=== PATIENT | male | born 2005 | race African-American/Black ===

== ENCOUNTER 2025-07-06 17:58 | Inpatient (IN) | payer OTHER, SELFPAY ==
[2025-07-06 18:06] VITALS: BP 118/56; PULSE 78; PULSE 89; RESP 16; TEMP 36.8; O2SAT 100; O2SAT 98; BMI 21.0
[2025-07-06 18:35] VITALS: BP 104/66; PULSE 103; RESP 16; TEMP 37.2; O2SAT 100
--- NOTE | 2025-07-06 19:05 | ED_ITS ---
HPI - General Adult General Chief complaint: Psychiatric Symptoms Stated complaint: Non forth coming looking for transport Time Seen by Provider: 07/06/25 19:18 Source: patient and family Mode of arrival: EMS History of Present Illness ED Provider: [facility] narrative: 24-year-old male, will defer to the triage note as patient was not forthcoming on my interview, however at the time of my interview the nurse arrives and states that she was able to speak with the patient's mom, he denies that he is supposed to be taking Zyprexa. Patient knows he is in the hospital but when attempts were made to ask for the questions he states that I am trying to punk him . Related Data Home Medications ?Medication ?Instructions ?Recorded ?Confirmed olanzapine 15 mg tablet 15 mg PO BEDTIME 07/06/25 Allergies Allergy/AdvReac Type Severity Reaction Status Date / Time No Known Allergies Allergy Verified 07/06/25 18:08 Review of Systems 2 Review of Systems: Pertinent positives and negatives as stated in the HPI [facility] Past Medical History Source: nursing notes reviewed Social History Social History Smoked in Last 30 Days: No Use of substances other than those prescribed or required for medical reasons: Yes Substance Use Type: Marijuana Advance Directives: No Advance Directives Information Provided: No Physical Exam ED Exam Exam: VITAL SIGNS: Reviewed. GENERAL: Well developed, well nourished, in no acute distress. HEAD: Normocephalic/atraumatic EYES: PERRLA, EOMI EARS: Ext canals without abnormality NOSE: Nares patent bilateral OROPHARYNX: no oral lesions noted, posterior pharynx clear NECK: Supple, no adenopathy LUNGS: Normal breath sounds. No adventitious sounds or accessory muscle use. CARDIOVASCULAR: Regular rate and rhythm without noted murmurs ABDOMEN: Soft, non-tender, non-distended with bowel sounds. MUSCULOSKELETAL: No tenderness, deformities, or effusions noted on gross inspection. EXTREMITIES: No cyanosis, clubbing or edema. SKIN: Inspection of the skin reveals no rashes NEUROLOGIC: Alert and oriented x 4. Strength and sensation to light touch were grossly intact x 4, peroneal nerves 2 through 12 are grossly intact. Vital Signs: Vital Signs - 24 hr 07/07/25 11:20 07/07/25 14:54 07/07/25 22:58 Temperature 97.2 F 97.9 F Pulse Rate 74 74 89 Respiratory Rate 14 20 Blood Pressure 122/68 117/59 L Pulse Oximetry 100 100 Oxygen Delivery Method Room Air Room Air 07/08/25 06:24 Temperature 97.7 F Pulse Rate 75 Respiratory Rate 20 Blood Pressure 102/59 L Pulse Oximetry 99 Oxygen Delivery Method Room Air BMI result Body Mass Index 21.0 Course Course Course Narrative: RME; 24-year-old male brought by EMS for evaluation. Patient is not forthcoming and talking to himself and laughing. You to this patient will be brought back to the ED to be evaluated require care team consult. Labs ordered Reevaluation(s) Reevaluation #1: Patient is walking around naked, threatening security, hypersexual, inability to deescalate so decision made to initiate medication restraint. Time: 00:16 Reevaluation #2: Patient is common cooperative, restrained is terminated. Time: 01:15 Reevaluation #3: Time: 06:09 Date: 07/07/25 Provider: Belkis Flores, DO Patient in physician observation for psychiatric evaluation.? chemically restrained last night but no sleeping. No current complaints. VS stable.? Pending CARE team evaluation. Will continue to monitor. Additional Reevaluation(s): Time: 06:03 Date: 07/08/25 Provider: Belkis Flores, DO Patient in physician observation for psychiatric evaluation.? No acute events reported overnight. No current complaints. VS stable.? Patient is in bed search status. Will continue to monitor. Time: 10:44 Date: 07/08/25 Provider: Belkis Flores DO Physician observation ended at 1044am Patient to be admitted as inpatient to psychiatry. Medications Administered Generic Name Dose Route Start Last Admin Trade Name Freq PRN Reason Stop Dose Admin Divalproex Sodium 500 mg 07/07/25 13:05 07/08/25 08:49 Divalproex Sodium 500 Mg Tablet.Dr PO 500 mg BID MIKALA Administration Olanzapine 10 mg 07/07/25 13:00 07/08/25 08:49 Olanzapine Odt 10 Mg Tab.Rapdis TRANSLINGU 10 mg BID MIKALA Administration Discontinued Medications Generic Name Dose Route Start Last Admin Trade Name Freq PRN Reason Stop Dose Admin Diazepam 2.5 mg 07/07/25 00:13 07/07/25 00:20 Diazepam 10 Mg/2 Ml Cartridge IM 07/07/25 00:14 2.5 mg STAT STA Administration Diphenhydramine HCl 50 mg 07/07/25 00:13 07/07/25 00:20 Diphenhydramine Hcl 50 Mg/Ml Vial IM 07/07/25 00:14 50 mg ONCE ONE Administration Olanzapine 5 mg 07/07/25 00:13 07/07/25 00:20 Olanzapine 10 Mg Vial IM 07/07/25 00:14 5 mg ONCE ONE Administration Medical Decision Making Medical Decision Making MDM Narrative: 24-year-old male with history and clinical presentation, a DX: Psychosis, will obtain basic labs, we will reach out for collateral information which has recently been completed and a conversation was conducted with the mother, it seems that patient has not been taking his medication. He has also continued to use cannabis. 2118: I reviewed and interpreted all investigations and there is no leukocytosis, there is a stable anemia no thrombocytopenia. There is no demonstrate GOPI/electrolyte or liver enzyme derangements. Serum alcohol is negative. Awaiting urine toxicology and then will clear for crisis evaluation 2228: Patient up to his urine out on the floor, do not think that this is critical for a crisis evaluation as I do think that the psychosis is secondary to poor medication compliance. 2230: Patient placed in physician observation because the patient needed more time for crisis evaluation. At the time observation was started the patient's vital signs were stable, patient is alert and oriented, neuro: Nonfocal, CV RRR, lungs clear Differential Diagnosis Differential Diagnoses: The differential diagnosis associated with the presentation includes See above Admission/Observation Consideration of admission/observation: Escalation of care including admission/observation considered See above Consult Healthcare Provider Management of the patient was discussed with: Mincemeat Maker See above Lab Data [facility] Lab Attestation statement: I reviewed the patient's lab results. See above 07/06/25 19:21 07/06/25 19:21 Labs: Lab Results 07/06/25 07/07/25 Range/Units 19:21 00:46 WBC 8.3 (4.8-10.8) X10*3/uL RBC 4.80 (4.60-5.80) X10*6/uL Hgb 13.7 L (14.0-18.0) g/dl Hct 40.7 L (42.0-52.0) % MCV 84.8 (80.0-98.0) fL MCH 28.5 (27.0-33.0) pg MCHC 33.7 (31.0-36.0) g/dl RDW 13.9 (11.0-16.0) % Plt Count 225 (160-400) X10*3/uL MPV 10.0 (9.4-12.4) fL Immature Gran % (Auto) 0.4 (0.0-0.4) % Neut % (Auto) 61.8 (45-73) % Lymph % (Auto) 26.7 (20-40) % Wood % (Auto) 7.7 (2-11) % Eos % (Auto) 3.2 (0-4) % Baso % (Auto) 0.2 (0-2) % Lymph # (Auto) 2.2 (1.2-4.9) X10*3/uL Wood # (Auto) 0.6 (0.1-1.2) X10*3/uL Eos # (Auto) 0.3 (0.0-0.4) X10*3/uL Baso # (Auto) 0.0 (0.0-0.2) X10*3/uL Abs Immat Gran (auto) 0.03 (0.00-0.03) X10*3/uL Absolute Neuts (auto) 5.1 (2.0-8.3) x10*3/uL Absolute Nucleated RBC 0.000 (0.0-0.012) X10*3/uL Nucleated RBC % (auto) 0.0 (0.0-0.2) /100WBC Sodium 141 (135-145) mmol/L Potassium 3.5 (3.3-5.1) mmol/L Chloride 109 H (96-108) mmol/L Carbon Dioxide 25 (22-29) mmol/L Anion Gap 11 L (12-20) BUN 8 L (9-16) mg/dL Creatinine 0.97 (0.5-1.4) mg/dL Estim Creat Clear Calc 102.9 Estimated GFR > 60 Random Glucose 81 (60-115) mg/dL Calcium 8.9 (8.4-10.2) mg/dL Total Bilirubin 0.4 (0.0-1.0) mg/dL AST 29 (5-37) U/L ALT 36 (0-40) U/L Alkaline Phosphatase 85 (39-117) U/L Total Protein 6.8 (6.5-8.0) g/dL Albumin 4.3 (3.5-5.0) g/dL Urine Color Yellow Urine Appearance Clear Urine pH 5.5 (5.0-9.0) Ur Specific [place] >= 1.030 H (1.005-1.025) Urine Protein Trace (Neg-Trace) mg/dL Urine Glucose (UA) Negative (Negative) mg/dL Urine Ketones Trace (Negative) mg/dL Urine Blood Negative (Negative) Urine Nitrite Negative (Negative) Ur Leukocyte Esterase Negative (Negative) Urine Opiates Screen Not Detected (Not Detect) Ur Buprenorphine Scrn Not Detected (Not Detect) ng/mL Ur Oxycodone Screen Not Detected (Not Detect) ng/mL Urine Methadone Screen Not Detected (Not Detect) ng/mL Urine Fentanyl Screen Not Detected (Not Detect) Ur Barbiturates Screen Not Detected (Not Detect) Ur Phencyclidine Scrn Not Detected (Not Detect) Ur Amphetamines Screen Not Detected (Not Detect) U Benzodiazepines Scrn Not Detected (Not Detect) Urine Cocaine Screen Not Detected (Not Detect) U Marijuana (THC) Screen Not Detected (Not Detect) Ethyl Alcohol < 10 mg/dL Social Determinants Patient?s care significantly limited by Social Determinants of Health including: Other Social Determinant of Health Discharge Plan Discharge Clinical Impression: Acute psychosis Patient Disposition: Admitted As Inpatient Interventions: Teller-Suicide Risk Severity Scale Last Done: 07/08/25 01:51
[2025-07-06 19:29] LABS: MANUAL DIFF FLAG NO
[2025-07-06 19:30] LABS: Hematocrit 40.7 % (42.0-52.0); Hemoglobin 13.7 g/dl (14.0-18.0); Imm Gran Abs Auto 0.03 X10*3/uL (0.00-0.03); Imm Gran Pct Auto 0.4 % (0.0-0.4); Lymphocytes Absolute Auto 2.2 X10*3/uL (1.2-4.9); Mean Corpuscular HGB Conc 33.7 g/dl (31.0-36.0); Mean Corpuscular Hemoglobin 28.5 pg (27.0-33.0); Mean Corpuscular Volume 84.8 fL (80.0-98.0); NRBC Abs Auto 0.000 X10*3/uL (0.0-0.012); NRBC Pct Auto 0.0 /100WBC (0.0-0.2); Platelet Count 225 X10*3/uL (160-400); Red Blood Count 4.80 X10*6/uL (4.60-5.80); White Blood Count 8.3 X10*3/uL (4.8-10.8)
[2025-07-06 19:49] LABS: Alanine Aminotransferase 36 U/L (0-40); Albumin Level 4.3 g/dL (3.5-5.0); Alkaline Phosphatase 85 U/L (39-117); Anion Gap 11 (12-20); Aspartate Amino Transferase 29 U/L (5-37); Blood Urea Nitrogen 8 mg/dL (9-16); Calcium 8.9 mg/dL (8.4-10.2); Carbon Dioxide 25 mmol/L (22-29); Chloride 109 mmol/L (96-108); Creatinine Clr Calc Pharmacy 102.9; Estimated Glomerular Filt Rate > 60; Potassium 3.5 mmol/L (3.3-5.1); Sodium 141 mmol/L (135-145); Total Protein 6.8 g/dL (6.5-8.0)
--- NOTE | 2025-07-06 19:56 | PC.NURSE ---
Assumed care of patient at 1845, patient continuing to remain guarded and not willing to disclose information to this RN regarding name or reason for being here. Pt refusing to wear a shirt around the pod, requiring frequent redirection. Pt refusing to give urine sample
--- NOTE | 2025-07-06 20:02 | PC.NURSE ---
unable to obtain home meds from patient at this time due to not knowing patient's name nor having any medical records available
--- NOTE | 2025-07-06 21:42 | PC.NURSE ---
This RN spoke with mom on the phone who was able to idenfity him and provide us with his information. Mom reports pt has been smoking an increasing amount of weed and hanging out in a basement with fumes . She reports non-compliance with medications as well. She reports he is prescribed Olanzapine 15mg
[2025-07-07] MEDS: OLANZapine 10 MG VIAL 5 MG IM (00:20)
[2025-07-07] MEDS: diazePAM 10 MG/2 ML CARTRIDGE 2.5 MG IM (00:20)
--- NOTE | 2025-07-07 01:43 | PC.NURSE ---
Late entry: Around 1205 pt took his clothes off and began making hypersexual remarks to staff. when approached and asked to put clothes back on, pt would gesture to his penis and state c'mon you want this. Come get it . Security was called to bedside. Pt continued to remain hypersexual, making remarks to female staff as well as making sexual gestures. Pt then began verbally threatening security. contacted, decision made to IM. Pt willingly took IM injections on bed, no physical hold needed. Pt now calm and cooperative, continuing to remain difficult to redirect, not listening to staff requests to keep pants on over his pubic area. Pt frequently getting up to use bathroom as well
[2025-07-07 01:44] LABS: Cannabinoid Screen Urine Not Detected (Not Detect)
--- NOTE | 2025-07-07 03:57 | PC.NURSE ---
Pt resting, respirations even and unlabored, no apparent distress is noted. Plan for CARE team eval in the am
--- NOTE | 2025-07-07 05:57 | MHC.CARE ---
At 0015, CARE Team approached patient to request he provide a urine to the nursing staff so he could be evaluated. Patient also asked to put a shirt, as he continued to leave his room topless. Patient observed to be engaging in self dialogue. He was pointing at objects and laughing hysterically to himself. Patient made several comments to t/w and also gestured as he was jumping towards t/w. Patient unable to engage in a sensible conversation. He was nonsensical, using vulgar language to t/w and security after they had been called to address his unwillingness to return to his room and put clothes on. Patient will not be seen on the overnight d/t being chemically restrained. He has been placed on a section 12 d/t his psychotic state and inability to properly care for self in the community.
--- NOTE | 2025-07-07 07:18 | PC.NURSE ---
Assumed care, report received. Pt is currently sleeping, safety maintained.
--- NOTE | 2025-07-07 09:01 | MHC.EDTECH ---
Patient comes out of room with shirt off, this tech attempted to have patient put clothes back on patient dismissed this tech, said mónica no then stated while looking at RN, man she's hot . This tech corrected patient on how to speak to staff or about staff. Patient then asked for someone to help him clean his back and asking for his personal clothes. Informed patient that he needed help washing his back, I informed him no one would be assisting him with showering today. Patient directed to come out of shower/bathroom with all clothes on or he would have to stay in his room.
[2025-07-07 11:20] VITALS: BP 122/68; PULSE 74; RESP 14; TEMP 36.2; O2SAT 100
--- NOTE | 2025-07-07 11:37 | PC.NURSE ---
Pt has remained calm and cooperative, he has showered, eaten breakfast, watched TV and is currently napping. He has need redirection with wearing the hospital gown and has been compliant.
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
[2025-07-07] MEDS: OLANZapine ODT 10 MG TAB.RAPDIS TRANSLINGU ×2 (13:47→21:04)
[2025-07-07 14:54] VITALS: PULSE 74
--- NOTE | 2025-07-07 15:11 | MHC.EDTECH ---
Patients mother Madeleine [phone], or [phone], called to speak with patient, patient currently sleeping. Will let him know when he is awake to call his mother.
[2025-07-07 22:58] VITALS: BP 117/59; PULSE 89; RESP 20; TEMP 36.6; O2SAT 100
[2025-07-08 06:24] VITALS: BP 102/59; PULSE 75; RESP 20; TEMP 36.5; O2SAT 99
--- NOTE | 2025-07-08 07:28 | PC.NURSE ---
Assumed care, report received. Pt is awake, calm and with a disorganized thought process. He needs re-direction to keep clothing on and not to touch everything on the unit, Ex the thermostat.
--- NOTE | 2025-07-08 08:38 | ECG_ITS ---
Test Reason : r/o prolonged qt Blood Pressure : */* mmHG Vent. Rate : 81 BPM Atrial Rate : 81 BPM P-R Int : 146 ms QRS Dur : 88 ms QT Int : 334 ms P-R-T Axes : 5 63 50 degrees QTcB Int : 387 ms Normal sinus rhythm Normal EKG No previous ECGs available Referred By: Belkis Flores Electronically Signed By: SHILOH MCNEIL
[2025-07-08] MEDS: OLANZapine ODT 10 MG TAB.RAPDIS TRANSLINGU ×2 (08:49→21:15)
[2025-07-08 11:23] VITALS: BP 129/60; PULSE 88; RESP 16; TEMP 36.6; O2SAT 98
[2025-07-08 11:24] VITALS: BMI 21.5
--- NOTE | 2025-07-08 11:58 | PC.ADMIT ---
Tyrone came from ED POD on a section 12a. Tyrone was found in the community on the side of the highway and not answering questions. In the ED he was verbally aggressive and sexually inappropriate. It was reported he was recently at [facility] but no other information is known. Tyrone was calm and pleasant during the admission process however he tried to hug this filing writer several times but was responsive to redirection. Affect is constricted and responses are latent; he is also disorganized and unable to fully answer questions. He denied SI/HI/AVH. He was oriented to the unit and toiletries given. Food was ordered and given at mealtime. He is placed on 15 minute checks for safety. Current legal status is a 12B. This filing writer called mother Madeleine to update her.
--- NOTE | 2025-07-08 12:27 | PC.NURSE ---
Hypersexual with staff. Attempting to touch and hug this va underwriter but responding to redirection.
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
[2025-07-08 19:52] VITALS: BP 128/59; PULSE 78; RESP 16; TEMP 37.1; O2SAT 100
[2025-07-09 08:00] VITALS: BP 105/70; PULSE 95; RESP 20; TEMP 36.6; O2SAT 99
[2025-07-09] MEDS: OLANZapine ODT 10 MG TAB.RAPDIS TRANSLINGU ×2 (08:31→20:36)
--- NOTE | 2025-07-09 10:10 | P.PNPSI_ITS ---
Subjective Subjective Date of Service: 07/09/25 Reason For Visit: akila Interim History: Patient seen. Per RN, he was seen naked in his room and needed a reminder to be clothed when out of his room. He says he doesn't know why he is here at the hospital. He appears internally preoccupied. He denies he has SI/HI. Observed self dialoguing by staff. Taking medications. Says he slept well. No aggression. Review of Systems Review of Systems Denies any shortness of breath, chest pain, dizziness, lightheadedness, abdominal pain or discomfort, nausea vomiting or diarrhea Mental Status Exam Mental Status Exam Narrative: Appearance: short stature male, appears stated age, good hygiene, in NAD Behavior: guarded Psychomotor: no retardation noted, nor agitation Speech: normal rate/loudness/amount, spontaneous TP: mostly linear but some thought blocking noted at times TC: wanting to return to the property he has been arrested at for trespasing and B&E. Mood: a bit down Affect: constricted SI: denies HI: towards anyone who stops him from going to his home VH/AH: appears internally preoccupied Delusions: that he lives at address in [place] Insight/judgment: impaired x 2. Memory/cog: alert, not oriented to situation. Diagnostics Vital Signs (24Hr): Vital Signs - 24 hr 07/08/25 11:23 07/08/25 19:52 07/09/25 08:00 Temperature 97.8 F 98.7 F 97.8 F Pulse Rate 88 78 95 Respiratory Rate 16 16 20 Blood Pressure 129/60 128/59 L 105/70 Pulse Oximetry 98 100 99 Oxygen Delivery Method Room Air Room Air Room Air BMI result Body Mass Index 21.5 Labs 07/06/25 19:21 07/06/25 19:21 Medications Medications Current Medications Acetaminophen (Acetaminophen 325 Mg Tablet) 650 mg PO Q6H PRN PRN Reason: Headache/Pain, Scale 1-10 Al Hydroxide/Mg Hydroxide (Magnesium Hydrox/Alum Hydrox 30 Ml Oral.Susp) 30 ml PO Q6H PRN PRN Reason: Heartburn/Nausea Divalproex Sodium (Divalproex Sodium 500 Mg Tablet.) 500 mg PO BID [facility] Last Admin: 07/09/25 08:31 Dose: 500 mg Haloperidol (Haloperidol 5 Mg Tablet) 5 mg PO BID PRN PRN Reason: agitation Hydroxyzine HCl (Hydroxyzine Hcl 25 Mg Tablet) 25 mg PO Q6H PRN PRN Reason: mild anxiety Lorazepam (Lorazepam 1 Mg Tablet) 1 mg PO TID PRN PRN Reason: severe anxiety/agitation Magnesium Hydroxide (Milk Of Magnesia 30 Ml Oral.Susp) 30 ml PO DAILY PRN PRN Reason: Constipation Nicotine Polacrilex (Nicotine Polacrilex 2 Mg Gum) 4 mg BUCCAL Q2H PRN PRN Reason: Nicotine Cravings Olanzapine (Olanzapine Odt 10 Mg Tab.Rapdis) 10 mg TRANSLINGU BID [facility] Last Admin: 07/09/25 08:31 Dose: 10 mg Trazodone HCl (Trazodone Hcl 50 Mg Tablet) 50 mg PO BEDTIME MRX1 PRN PRN Reason: Insomnia Allergies Allergies Allergy/AdvReac Type Severity Reaction Status Date / Time No Known Allergies Allergy Verified 07/06/25 18:08 Assessment & Plan Assessment & Plan (1) Akila: Status: Acute Code(s): F30.9 - Manic episode, unspecified (2) Acute psychosis: Status: Acute Code(s): F23 - Brief psychotic disorder Plan continue zyprexa and depakote as established in the ED. 07/09: continue current management and treatment plan. Medications recently started. Reason for continued inpatient stay Substantial Risk for: inability to function and rapid decompensation Time Spent With Patient Time: Total time managing care of this patient today ____ minutes.
[2025-07-09 20:00] VITALS: BP 139/63; PULSE 101; RESP 16; TEMP 36.7; O2SAT 100
[2025-07-10 08:00] VITALS: BP 121/56; PULSE 90; RESP 16; TEMP 36.6; O2SAT 100
[2025-07-10] MEDS: OLANZapine ODT 10 MG TAB.RAPDIS TRANSLINGU ×2 (09:14→21:36)
--- NOTE | 2025-07-10 12:08 | P.PNPSI_ITS ---
Subjective Subjective Date of Service: 07/10/25 Reason For Visit: akila Interim History: Patient seen. Isolating. Withdrawn. Guarded. When asked why he is at the hospital he says I was sleeping on the grass. Fixated on DC. Says he is thinking of calling the police because he feels he doesn't need to be here. He appears internally preoccupied. No disrobing on the unit. He denies he has SI/HI. Denies AVH but internally preoccupied. Taking medications. Says he slept well. No aggression. Says he is chillin. Review of Systems Review of Systems Denies any shortness of breath, chest pain, dizziness, lightheadedness, abdominal pain or discomfort, nausea vomiting or diarrhea Mental Status Exam Mental Status Exam Narrative: Appearance: short stature male, appears stated age, good hygiene, in NAD Behavior: guarded Psychomotor: no retardation noted, nor agitation Speech: normal rate/loudness/amount, spontaneous TP: mostly linear but some thought blocking noted at times TC: wanting to return to the property he has been arrested at for trespasing and B&E. Mood: a bit down Affect: constricted SI: denies HI: towards anyone who stops him from going to his home VH/AH: appears internally preoccupied Delusions: that he lives at address in [place] Insight/judgment: impaired x 2. Memory/cog: alert, not oriented to situation. Diagnostics Vital Signs (24Hr): Vital Signs - 24 hr 07/09/25 20:00 07/10/25 08:00 Temperature 98.1 F 97.8 F Pulse Rate 101 H 90 Respiratory Rate 16 16 Blood Pressure 139/63 121/56 L Pulse Oximetry 100 100 Oxygen Delivery Method Room Air Room Air BMI result Body Mass Index 21.5 Labs 07/06/25 19:21 07/06/25 19:21 Labs: Laboratory Results - last 48 hr 07/07/25 00:46 Urine Color Cancelled Urine Appearance Cancelled Urine pH Cancelled Ur Specific [place] Cancelled Urine Protein Cancelled Urine Glucose (UA) Cancelled Urine Ketones Cancelled Urine Blood Cancelled Urine Nitrite Cancelled Ur Leukocyte Esterase Cancelled Medications Medications Current Medications Acetaminophen (Acetaminophen 325 Mg Tablet) 650 mg PO Q6H PRN PRN Reason: Headache/Pain, Scale 1-10 Al Hydroxide/Mg Hydroxide (Magnesium Hydrox/Alum Hydrox 30 Ml Oral.Susp) 30 ml PO Q6H PRN PRN Reason: Heartburn/Nausea Divalproex Sodium (Divalproex Sodium 500 Mg Tablet.Dr) 500 mg PO BID [facility] Last Admin: 07/10/25 09:13 Dose: 500 mg Haloperidol (Haloperidol 5 Mg Tablet) 5 mg PO BID PRN PRN Reason: agitation Hydroxyzine HCl (Hydroxyzine Hcl 25 Mg Tablet) 25 mg PO Q6H PRN PRN Reason: mild anxiety Lorazepam (Lorazepam 1 Mg Tablet) 1 mg PO TID PRN PRN Reason: severe anxiety/agitation Magnesium Hydroxide (Milk Of Magnesia 30 Ml Oral.Susp) 30 ml PO DAILY PRN PRN Reason: Constipation Nicotine Polacrilex (Nicotine Polacrilex 2 Mg Gum) 4 mg BUCCAL Q2H PRN PRN Reason: Nicotine Cravings Olanzapine (Olanzapine Odt 10 Mg Tab.Rapdis) 10 mg TRANSLINGU BID [facility] Last Admin: 07/10/25 09:14 Dose: 10 mg Trazodone HCl (Trazodone Hcl 50 Mg Tablet) 50 mg PO BEDTIME MRX1 PRN PRN Reason: Insomnia Allergies Allergies Allergy/AdvReac Type Severity Reaction Status Date / Time No Known Allergies Allergy Verified 07/06/25 18:08 Assessment & Plan Assessment & Plan (1) Akila: Status: Acute Code(s): F30.9 - Manic episode, unspecified (2) Acute psychosis: Status: Acute Code(s): F23 - Brief psychotic disorder Plan continue zyprexa and depakote as established in the ED. 07/09: continue current management and treatment plan. Medications recently started. 07/10: continue current management and treatment plan. Reason for continued inpatient stay Substantial Risk for: inability to function and rapid decompensation Time Spent With Patient Time: Total time managing care of this patient today ____ minutes.
[2025-07-10 21:40] VITALS: BP 126/56; PULSE 115; RESP 18; TEMP 36.8; O2SAT 98
[2025-07-11 08:16] VITALS: BP 136/77; PULSE 94; RESP 18; TEMP 36.7; O2SAT 100
[2025-07-11] MEDS: OLANZapine ODT 10 MG TAB.RAPDIS TRANSLINGU ×2 (09:15→21:04)
--- NOTE | 2025-07-11 11:43 | P.PNPSI_ITS ---
Subjective Subjective Date of Service: 07/11/25 Reason For Visit: akila Subjective Notes: Dawson Warning Interim History: calm, cooperative. dawson warning provided. little to no reaction from pt to information provided. anodyne responses. passive. asking for discharge. on being asked where he would go upon discharge, says, [address] [place] [address]. on being asked what is there for him, he replies, my crib, later, my home. per staff, 12b up wed. blunted. taking meds. denies Sx but appears RIS. tired, napping. wants D/C. slept 7 hours. Mental Status Exam Mental Status Exam Narrative: Appearance: short stature male, appears stated age, good hygiene, in NAD Behavior: guarded Psychomotor: no retardation noted, nor agitation Speech: normal rate/loudness/amount; incr PHYLLIS TP: linear TC: wanting to return to the property he has been arrested at for trespassing and B&E. Mood: all right Affect: constricted SI: none expressed HI: none expressed VH/AH: none expressed Delusions: that he lives at [address] [place] [address] Insight/judgment: impaired x 2. Diagnostics Vital Signs (24Hr): Vital Signs - 24 hr 07/10/25 21:40 07/11/25 08:16 Temperature 98.2 F 98.0 F Pulse Rate 115 H 94 Respiratory Rate 18 18 Blood Pressure 126/56 L 136/77 Pulse Oximetry 98 100 Oxygen Delivery Method Room Air Room Air BMI result Body Mass Index 21.5 Labs 07/06/25 19:21 07/06/25 19:21 Medications Medications Current Medications Acetaminophen (Acetaminophen 325 Mg Tablet) 650 mg PO Q6H PRN PRN Reason: Headache/Pain, Scale 1-10 Al Hydroxide/Mg Hydroxide (Magnesium Hydrox/Alum Hydrox 30 Ml Oral.Susp) 30 ml PO Q6H PRN PRN Reason: Heartburn/Nausea Divalproex Sodium (Divalproex Sodium 250 Mg Tablet.) 750 mg PO BID [facility] Haloperidol (Haloperidol 5 Mg Tablet) 5 mg PO BID PRN PRN Reason: agitation Hydroxyzine HCl (Hydroxyzine Hcl 25 Mg Tablet) 25 mg PO Q6H PRN PRN Reason: mild anxiety Lorazepam (Lorazepam 1 Mg Tablet) 1 mg PO TID PRN PRN Reason: severe anxiety/agitation Magnesium Hydroxide (Milk Of Magnesia 30 Ml Oral.Susp) 30 ml PO DAILY PRN PRN Reason: Constipation Nicotine Polacrilex (Nicotine Polacrilex 2 Mg Gum) 4 mg BUCCAL Q2H PRN PRN Reason: Nicotine Cravings Olanzapine (Olanzapine Odt 10 Mg Tab.Rapdis) 10 mg TRANSLINGU BID [facility] Last Admin: 07/11/25 09:15 Dose: 10 mg Trazodone HCl (Trazodone Hcl 50 Mg Tablet) 50 mg PO BEDTIME MRX1 PRN PRN Reason: Insomnia Allergies Allergies Allergy/AdvReac Type Severity Reaction Status Date / Time No Known Allergies Allergy Verified 07/06/25 18:08 Assessment & Plan Assessment & Plan (1) Akila: Status: Acute Code(s): F30.9 - Manic episode, unspecified (2) Acute psychosis: Status: Acute Code(s): F23 - Brief psychotic disorder Plan 07/08: continue zyprexa and depakote as established in the ED. 07/09: continue current management and treatment plan. Medications recently started. 07/10: continue current management and treatment plan. 07/11: dawson warning provided. increase depakote to 750 BID, otherwise continue current mgmt. check levels in the next couple of days. section 12b up . will likely file for commitment. Reason for continued inpatient stay Substantial Risk for: harm to others and inability to function Time Spent With Patient Time: Total time managing care of this patient today __25__ minutes.
[2025-07-11 20:00] VITALS: BP 135/60; PULSE 89; RESP 20; TEMP 38; O2SAT 96
[2025-07-12 07:30] VITALS: BP 100/64; PULSE 82; RESP 20; TEMP 36.4; O2SAT 100
[2025-07-12] MEDS: OLANZapine ODT 10 MG TAB.RAPDIS TRANSLINGU ×2 (08:43→20:36)
--- NOTE | 2025-07-12 13:23 | HO.PSYCHPN ---
Subjective Subjective Date of Service: 07/12/25 Reason For Visit: akila Interim History: resting, rousable. no complaints or requests aside from discharge date. pt is informed MD plans to file tomorrow. blank, appears to have paucity of thought. per staff, 12b up tomorrow. denies Sx. appears preoccupied. taking meds with encouragement. wants discharge. slept all NOC. Mental Status Exam Mental Status Exam Narrative: Appearance: short stature male, appears stated age, good hygiene, in NAD Behavior: guarded Psychomotor: no retardation noted, nor agitation Speech: normal rate/loudness/amount; incr PHYLLIS TP: linear TC: wanting discharge Mood: all right Affect: constricted SI: none expressed HI: none expressed VH/AH: none expressed Delusions: none expressed Insight/judgment: impaired x 2. Diagnostics Vital Signs (24Hr): Vital Signs - 24 hr 07/11/25 20:00 07/12/25 07:30 Temperature 100.4 F 97.6 F Pulse Rate 89 82 Respiratory Rate 20 20 Blood Pressure 135/60 100/64 Pulse Oximetry 96 100 Oxygen Delivery Method Room Air Room Air BMI result Body Mass Index 21.5 Labs 07/06/25 19:21 07/06/25 19:21 Medications Medications Current Medications Acetaminophen (Acetaminophen 325 Mg Tablet) 650 mg PO Q6H PRN PRN Reason: Headache/Pain, Scale 1-10 Al Hydroxide/Mg Hydroxide (Magnesium Hydrox/Alum Hydrox 30 Ml Oral.Susp) 30 ml PO Q6H PRN PRN Reason: Heartburn/Nausea Divalproex Sodium (Divalproex Sodium 250 Mg Tablet.) 750 mg PO BID [facility] Last Admin: 07/12/25 08:43 Dose: 750 mg Haloperidol (Haloperidol 5 Mg Tablet) 5 mg PO BID PRN PRN Reason: agitation Hydroxyzine HCl (Hydroxyzine Hcl 25 Mg Tablet) 25 mg PO Q6H PRN PRN Reason: mild anxiety Lorazepam (Lorazepam 1 Mg Tablet) 1 mg PO TID PRN PRN Reason: severe anxiety/agitation Magnesium Hydroxide (Milk Of Magnesia 30 Ml Oral.Susp) 30 ml PO DAILY PRN PRN Reason: Constipation Nicotine Polacrilex (Nicotine Polacrilex 2 Mg Gum) 4 mg BUCCAL Q2H PRN PRN Reason: Nicotine Cravings Olanzapine (Olanzapine Odt 10 Mg Tab.Rapdis) 10 mg TRANSLINGU BID [facility] Last Admin: 07/12/25 08:43 Dose: 10 mg Trazodone HCl (Trazodone Hcl 50 Mg Tablet) 50 mg PO BEDTIME MRX1 PRN PRN Reason: Insomnia Allergies Allergies Allergy/AdvReac Type Severity Reaction Status Date / Time No Known Allergies Allergy Verified 07/06/25 18:08 Assessment & Plan Assessment & Plan (1) Akila: Status: Acute Code(s): F30.9 - Manic episode, unspecified (2) Acute psychosis: Status: Acute Code(s): F23 - Brief psychotic disorder Plan 07/08: continue zyprexa and depakote as established in the ED. 07/09: continue current management and treatment plan. Medications recently started. 07/10: continue current management and treatment plan. 07/11: samuels warning provided. increase depakote to 750 BID, otherwise continue current mgmt. check levels in the next couple of days. section 12b up . will likely file for commitment. 07/12: pt declines labs. will wait for steady state at 1500 mg daily prior to checking labs, laconic, terse. will likely file tomorrow. Reason for continued inpatient stay Substantial Risk for: harm to others and inability to function Time Spent With Patient Time: Total time managing care of this patient today ____ minutes.
[2025-07-12 20:00] VITALS: BP 104/55; PULSE 92; RESP 18; TEMP 36.9; O2SAT 99
[2025-07-13 07:43] VITALS: BP 122/59; PULSE 82; RESP 16; TEMP 36.2; O2SAT 99
[2025-07-13] MEDS: OLANZapine ODT 10 MG TAB.RAPDIS TRANSLINGU (08:36)
--- NOTE | 2025-07-13 13:02 | HO.PSYCHPN ---
Subjective Subjective Date of Service: 07/13/25 Reason For Visit: akila Interim History: calm, asking when he will be discharged. reminded that we are filing today, to which he offers little reaction. no requests or complaints otherwise. per staff, 12b up today. taking meals and meds. +RIS. mother called hoping he would not be discharged today. Mental Status Exam Mental Status Exam Narrative: Appearance: short stature male, appears stated age, good hygiene, in NAD Behavior: guarded Psychomotor: no retardation noted, nor agitation Speech: normal rate/loudness/amount; incr PHYLLIS TP: linear TC: wanting discharge Mood: all right Affect: constricted SI: none expressed HI: none expressed VH/AH: none expressed Delusions: none expressed Insight/judgment: impaired x 2. Diagnostics Vital Signs (24Hr): Vital Signs - 24 hr 07/12/25 20:00 07/13/25 07:43 Temperature 98.4 F 97.2 F Pulse Rate 92 82 Respiratory Rate 18 16 Blood Pressure 104/55 L 122/59 L Pulse Oximetry 99 99 Oxygen Delivery Method Room Air Room Air BMI result Body Mass Index 21.5 Labs 07/06/25 19:21 07/06/25 19:21 Medications Medications Current Medications Acetaminophen (Acetaminophen 325 Mg Tablet) 650 mg PO Q6H PRN PRN Reason: Headache/Pain, Scale 1-10 Al Hydroxide/Mg Hydroxide (Magnesium Hydrox/Alum Hydrox 30 Ml Oral.Susp) 30 ml PO Q6H PRN PRN Reason: Heartburn/Nausea Divalproex Sodium (Divalproex Sodium 250 Mg Tablet.Dr) 750 mg PO BID [facility] Last Admin: 07/13/25 08:36 Dose: 750 mg Haloperidol (Haloperidol 5 Mg Tablet) 5 mg PO BID PRN PRN Reason: agitation Hydroxyzine HCl (Hydroxyzine Hcl 25 Mg Tablet) 25 mg PO Q6H PRN PRN Reason: mild anxiety Lorazepam (Lorazepam 1 Mg Tablet) 1 mg PO TID PRN PRN Reason: severe anxiety/agitation Magnesium Hydroxide (Milk Of Magnesia 30 Ml Oral.Susp) 30 ml PO DAILY PRN PRN Reason: Constipation Nicotine Polacrilex (Nicotine Polacrilex 2 Mg Gum) 4 mg BUCCAL Q2H PRN PRN Reason: Nicotine Cravings Olanzapine (Olanzapine Odt 10 Mg Tab.Rapdis) 10 mg TRANSLINGU BID [facility] Last Admin: 07/13/25 08:36 Dose: 10 mg Trazodone HCl (Trazodone Hcl 50 Mg Tablet) 50 mg PO BEDTIME MRX1 PRN PRN Reason: Insomnia Allergies Allergies Allergy/AdvReac Type Severity Reaction Status Date / Time No Known Allergies Allergy Verified 07/06/25 18:08 Assessment & Plan Assessment & Plan (1) Akila: Status: Acute Code(s): F30.9 - Manic episode, unspecified (2) Acute psychosis: Status: Acute Code(s): F23 - Brief psychotic disorder Plan 07/08: continue zyprexa and depakote as established in the ED. 07/09: continue current management and treatment plan. Medications recently started. 07/10: continue current management and treatment plan. 07/11: samuels warning provided. increase depakote to 750 BID, otherwise continue current mgmt. check levels in the next couple of days. section 12b up . will likely file for commitment. 07/12: pt declines labs. will wait for steady state at 1500 mg daily prior to checking labs, laconic, terse. will likely file tomorrow. 07/13: filed for commitment. no reaction from pt. continue current mgmt. Reason for continued inpatient stay Substantial Risk for: harm to self, harm to others and inability to function Time Spent With Patient Time: Total time managing care of this patient today __35__ minutes.
[2025-07-13 20:00] VITALS: BP 117/68; PULSE 88; RESP 16; TEMP 36.7; O2SAT 100
[2025-07-14 07:00] VITALS: BMI 22.5
[2025-07-14 08:00] VITALS: BP 110/53; PULSE 95; RESP 18; TEMP 36; O2SAT 99
--- NOTE | 2025-07-14 12:30 | P.PNPSI_ITS ---
Subjective Subjective Date of Service: 07/14/25 Reason For Visit: akila Interim History: 1:1 with pt. seated in sensory room. acknowledges he threatened MD. states he wants to leave the hospital so he can get some pussy. re-educated re legal circumstance and upcoming hearing. asks for written explanation he can hang on to, which is provided after meeting. per staff, refusing meds as of last night, noting, i'm not crazy. denies dep/anx. blunted affect, denies Sx. slept 7 hours. threatened to kill this investigative writer if not discharged today. noted this morning to be wandering into peers' rooms trying to get some, per his description. Mental Status Exam Mental Status Exam Narrative: Appearance: short stature male, appears stated age, good hygiene, in NAD Behavior: guarded Psychomotor: no retardation noted, nor agitation Speech: normal rate/loudness/amount; incr PHYLLIS TP: linear TC: wanting discharge Mood: all right Affect: constricted SI: none expressed HI: none expressed VH/AH: none expressed Delusions: none expressed Insight/judgment: impaired x 2. Diagnostics Vital Signs (24Hr): Vital Signs - 24 hr 07/13/25 20:00 07/14/25 08:00 Temperature 98.1 F 96.8 F Pulse Rate 88 95 Respiratory Rate 16 18 Blood Pressure 117/68 110/53 L Pulse Oximetry 100 99 Oxygen Delivery Method Room Air Room Air BMI result Body Mass Index 22.5 Labs 07/06/25 19:21 07/06/25 19:21 Medications Medications Current Medications Acetaminophen (Acetaminophen 325 Mg Tablet) 650 mg PO Q6H PRN PRN Reason: Headache/Pain, Scale 1-10 Al Hydroxide/Mg Hydroxide (Magnesium Hydrox/Alum Hydrox 30 Ml Oral.Susp) 30 ml PO Q6H PRN PRN Reason: Heartburn/Nausea Divalproex Sodium (Divalproex Sodium 250 Mg Tablet.) 750 mg PO BID [facility] Last Admin: 07/14/25 08:43 Dose: Not Given Haloperidol (Haloperidol 5 Mg Tablet) 5 mg PO BID PRN PRN Reason: agitation Hydroxyzine HCl (Hydroxyzine Hcl 25 Mg Tablet) 25 mg PO Q6H PRN PRN Reason: mild anxiety Lorazepam (Lorazepam 1 Mg Tablet) 1 mg PO TID PRN PRN Reason: severe anxiety/agitation Magnesium Hydroxide (Milk Of Magnesia 30 Ml Oral.Susp) 30 ml PO DAILY PRN PRN Reason: Constipation Nicotine Polacrilex (Nicotine Polacrilex 2 Mg Gum) 4 mg BUCCAL Q2H PRN PRN Reason: Nicotine Cravings Olanzapine (Olanzapine Odt 10 Mg Tab.Rapdis) 10 mg TRANSLINGU BID [facility] Last Admin: 07/14/25 08:43 Dose: Not Given Trazodone HCl (Trazodone Hcl 50 Mg Tablet) 50 mg PO BEDTIME MRX1 PRN PRN Reason: Insomnia Allergies Allergies Allergy/AdvReac Type Severity Reaction Status Date / Time No Known Allergies Allergy Verified 07/06/25 18:08 Assessment & Plan Assessment & Plan (1) Akila: Status: Acute Code(s): F30.9 - Manic episode, unspecified (2) Acute psychosis: Status: Acute Code(s): F23 - Brief psychotic disorder Plan 07/08: continue zyprexa and depakote as established in the ED. 07/09: continue current management and treatment plan. Medications recently started. 07/10: continue current management and treatment plan. 07/11: samuels warning provided. increase depakote to 750 BID, otherwise continue current mgmt. check levels in the next couple of days. section 12b up . will likely file for commitment. 07/12: pt declines labs. will wait for steady state at 1500 mg daily prior to checking labs, laconic, terse. will likely file tomorrow. 07/13: filed for commitment. no reaction from pt. continue current mgmt. 07/14: refusing meds as of last night, already hypersexual today and threatening to kill MD if MD does not discharge him. placed on 1:1 for safety. continue to encourage meds. hearing next friday. Reason for continued inpatient stay Substantial Risk for: harm to self, harm to others, inability to function and rapid decompensation Time Spent With Patient Time: Total time managing care of this patient today __25__ minutes.
[2025-07-14 20:00] VITALS: BP 158/73; PULSE 79; RESP 16; TEMP 37; O2SAT 100
[2025-07-15 08:07] VITALS: BP 142/65; PULSE 85; RESP 18; TEMP 36.7; O2SAT 99
--- NOTE | 2025-07-15 08:49 | PC.NURSE ---
Tyrone declined morning medications despite encouragement and education. Dr. Park notified via [employer].
--- NOTE | 2025-07-15 12:40 | P.PNPSI_ITS ---
Subjective Subjective Date of Service: 07/15/25 Reason For Visit: akila Interim History: flat. no questions or concerns. aware friday is the hearing. per staff, remains on 1:1. blunted. eating. refusing meds. wandering. slept 4-5 hours. Mental Status Exam Mental Status Exam Narrative: Appearance: short stature male, appears stated age, good hygiene, in NAD Behavior: guarded Psychomotor: no retardation noted, nor agitation Speech: normal rate/loudness/amount; nml PHYLLIS TP: linear TC: wanting discharge Mood: all right Affect: blunted SI: none expressed HI: none expressed VH/AH: none expressed Delusions: none expressed Insight/judgment: impaired x 2. Diagnostics Vital Signs (24Hr): Vital Signs - 24 hr 07/14/25 20:00 07/15/25 08:07 Temperature 98.6 F 98.1 F Pulse Rate 79 85 Respiratory Rate 16 18 Blood Pressure 158/73 H 142/65 H Pulse Oximetry 100 99 Oxygen Delivery Method Room Air Room Air BMI result Body Mass Index 22.5 Labs 07/06/25 19:21 07/06/25 19:21 Medications Medications Current Medications Acetaminophen (Acetaminophen 325 Mg Tablet) 650 mg PO Q6H PRN PRN Reason: Headache/Pain, Scale 1-10 Al Hydroxide/Mg Hydroxide (Magnesium Hydrox/Alum Hydrox 30 Ml Oral.Susp) 30 ml PO Q6H PRN PRN Reason: Heartburn/Nausea Divalproex Sodium (Divalproex Sodium 250 Mg Tablet.Dr) 750 mg PO BID [facility] Last Admin: 07/15/25 08:07 Dose: Not Given Haloperidol (Haloperidol 5 Mg Tablet) 5 mg PO BID PRN PRN Reason: agitation Hydroxyzine HCl (Hydroxyzine Hcl 25 Mg Tablet) 25 mg PO Q6H PRN PRN Reason: mild anxiety Lorazepam (Lorazepam 1 Mg Tablet) 1 mg PO TID PRN PRN Reason: severe anxiety/agitation Magnesium Hydroxide (Milk Of Magnesia 30 Ml Oral.Susp) 30 ml PO DAILY PRN PRN Reason: Constipation Nicotine Polacrilex (Nicotine Polacrilex 2 Mg Gum) 4 mg BUCCAL Q2H PRN PRN Reason: Nicotine Cravings Olanzapine (Olanzapine Odt 10 Mg Tab.Rapdis) 10 mg TRANSLINGU BID [facility] Last Admin: 07/15/25 08:07 Dose: Not Given Trazodone HCl (Trazodone Hcl 50 Mg Tablet) 50 mg PO BEDTIME MRX1 PRN PRN Reason: Insomnia Allergies Allergies Allergy/AdvReac Type Severity Reaction Status Date / Time No Known Allergies Allergy Verified 07/06/25 18:08 Assessment & Plan Assessment & Plan (1) Akila: Status: Acute Code(s): F30.9 - Manic episode, unspecified (2) Acute psychosis: Status: Acute Code(s): F23 - Brief psychotic disorder Plan 07/08: continue zyprexa and depakote as established in the ED. 07/09: continue current management and treatment plan. Medications recently started. 07/10: continue current management and treatment plan. 07/11: samuels warning provided. increase depakote to 750 BID, otherwise continue current mgmt. check levels in the next couple of days. section 12b up . will likely file for commitment. 07/12: pt declines labs. will wait for steady state at 1500 mg daily prior to checking labs, laconic, terse. will likely file tomorrow. 07/13: filed for commitment. no reaction from pt. continue current mgmt. 07/14: refusing meds as of last night, already hypersexual today and threatening to kill MD if MD does not discharge him. placed on 1:1 for safety. continue to encourage meds. hearing next friday. 07/15: continues to refuse meds, remains on 1:1. wandering. aware of hearing next friday. inert, no questions/concerns. paucity of thought or thought blocking. continue to offer meds. Reason for continued inpatient stay Substantial Risk for: harm to others, inability to function and rapid decompensation Time Spent With Patient Time: Total time managing care of this patient today __25__ minutes.
[2025-07-15 19:45] VITALS: BP 137/69; PULSE 82; RESP 16; TEMP 37.2; O2SAT 99
[2025-07-16 07:37] VITALS: BP 113/53; PULSE 79; RESP 16; TEMP 36.9; O2SAT 99
--- NOTE | 2025-07-16 20:13 | HO.PSYCHPN ---
Subjective Subjective Date of Service: 07/16/25 Reason For Visit: akila Interim History: some difficulty keeping his shirt on in the milieu. remains on 1:1. no questions or complaints. per staff, denies dep/anx. guarded but pleasant. hypersexual, intrusive. refusing meds. inappropriate comment to RN on eves. slept 4-5 hours. Mental Status Exam Mental Status Exam Narrative: Appearance: short stature male, appears stated age, good hygiene, in NAD Behavior: guarded Psychomotor: no retardation noted, nor agitation Speech: normal rate/loudness/amount; nml PHYLLIS TP: linear TC: wanting discharge Mood: all right Affect: blunted SI: none expressed HI: none expressed VH/AH: none expressed Delusions: none expressed Insight/judgment: impaired x 2. Diagnostics Vital Signs (24Hr): Vital Signs - 24 hr 07/16/25 07:37 Temperature 98.4 F Pulse Rate 79 Respiratory Rate 16 Blood Pressure 113/53 L Pulse Oximetry 99 Oxygen Delivery Method Room Air BMI result Body Mass Index 22.5 Labs 07/06/25 19:21 07/06/25 19:21 Medications Medications Current Medications Acetaminophen (Acetaminophen 325 Mg Tablet) 650 mg PO Q6H PRN PRN Reason: Headache/Pain, Scale 1-10 Al Hydroxide/Mg Hydroxide (Magnesium Hydrox/Alum Hydrox 30 Ml Oral.Susp) 30 ml PO Q6H PRN PRN Reason: Heartburn/Nausea Divalproex Sodium (Divalproex Sodium 250 Mg Tablet.) 750 mg PO BID [facility] Last Admin: 07/16/25 09:31 Dose: Not Given Haloperidol (Haloperidol 5 Mg Tablet) 5 mg PO BID PRN PRN Reason: agitation Hydroxyzine HCl (Hydroxyzine Hcl 25 Mg Tablet) 25 mg PO Q6H PRN PRN Reason: mild anxiety Lorazepam (Lorazepam 1 Mg Tablet) 1 mg PO TID PRN PRN Reason: severe anxiety/agitation Magnesium Hydroxide (Milk Of Magnesia 30 Ml Oral.Susp) 30 ml PO DAILY PRN PRN Reason: Constipation Nicotine Polacrilex (Nicotine Polacrilex 2 Mg Gum) 4 mg BUCCAL Q2H PRN PRN Reason: Nicotine Cravings Olanzapine (Olanzapine Odt 10 Mg Tab.Rapdis) 10 mg TRANSLINGU BID [facility] Last Admin: 07/16/25 09:31 Dose: Not Given Trazodone HCl (Trazodone Hcl 50 Mg Tablet) 50 mg PO BEDTIME MRX1 PRN PRN Reason: Insomnia Allergies Allergies Allergy/AdvReac Type Severity Reaction Status Date / Time No Known Allergies Allergy Verified 07/06/25 18:08 Assessment & Plan Assessment & Plan (1) Akila: Status: Acute Code(s): F30.9 - Manic episode, unspecified (2) Acute psychosis: Status: Acute Code(s): F23 - Brief psychotic disorder Plan 07/08: continue zyprexa and depakote as established in the ED. 07/09: continue current management and treatment plan. Medications recently started. 07/10: continue current management and treatment plan. 07/11: samuels warning provided. increase depakote to 750 BID, otherwise continue current mgmt. check levels in the next couple of days. section 12b up . will likely file for commitment. 07/12: pt declines labs. will wait for steady state at 1500 mg daily prior to checking labs, laconic, terse. will likely file tomorrow. 07/13: filed for commitment. no reaction from pt. continue current mgmt. 07/14: refusing meds as of last night, already hypersexual today and threatening to kill MD if MD does not discharge him. placed on 1:1 for safety. continue to encourage meds. hearing next friday. 07/15: continues to refuse meds, remains on 1:1. wandering. aware of hearing next friday. inert, no questions/concerns. paucity of thought or thought blocking. continue to offer meds. 07/16: difficulty keeping his shirt on in the milieu, oppositional when told to garb up. inappropriate comment to RN last tera. otherwise uneventful, refusing meds. continue to offer meds. Reason for continued inpatient stay Substantial Risk for: harm to others and inability to function Time Spent With Patient Time: Total time managing care of this patient today ____ minutes.
[2025-07-16 21:59] VITALS: BP 122/60; PULSE 102; RESP 18; TEMP 37; O2SAT 99
[2025-07-17 08:00] VITALS: BP 120/56; PULSE 75; TEMP 37.2; O2SAT 99
--- NOTE | 2025-07-17 16:08 | HO.PSYCHPN ---
Subjective Subjective Date of Service: 07/17/25 Reason For Visit: [place] Interim History: in bed, 1:1 at bedside. long pauses, glances. on being asked if MD can do anything for him he replies, some food. MD states lunch should be coming soon. he respinds, kit shaun... twix. MD responds snacks may be brought in. he adds subway. he has no other concerns or requests for MD. per staff, required serial redirection for shirtlessness. +RIS. inappropriate laughter. refusing meds. in room all eves. slept 7 hours. Mental Status Exam Mental Status Exam Narrative: Appearance: short stature male, appears stated age, good hygiene, in NAD Behavior: guarded Psychomotor: no retardation noted, nor agitation Speech: normal rate/loudness/amount; nml PHYLLIS TP: linear TC: wanting discharge Mood: all right Affect: blunted SI: none expressed HI: none expressed VH/AH: none expressed Delusions: none expressed Insight/judgment: impaired x 2. Diagnostics Vital Signs (24Hr): Vital Signs - 24 hr 07/16/25 21:59 07/17/25 08:00 Temperature 98.6 F 99.0 F Pulse Rate 102 H 75 Respiratory Rate 18 Blood Pressure 122/60 120/56 L Pulse Oximetry 99 99 Oxygen Delivery Method Room Air Room Air BMI result Body Mass Index 22.5 Labs 07/06/25 19:21 07/06/25 19:21 Medications Medications Current Medications Acetaminophen (Acetaminophen 325 Mg Tablet) 650 mg PO Q6H PRN PRN Reason: Headache/Pain, Scale 1-10 Al Hydroxide/Mg Hydroxide (Magnesium Hydrox/Alum Hydrox 30 Ml Oral.Susp) 30 ml PO Q6H PRN PRN Reason: Heartburn/Nausea Divalproex Sodium (Divalproex Sodium 250 Mg Tablet.Dr) 750 mg PO BID [facility] Last Admin: 07/17/25 09:00 Dose: Not Given Haloperidol (Haloperidol 5 Mg Tablet) 5 mg PO BID PRN PRN Reason: agitation Hydroxyzine HCl (Hydroxyzine Hcl 25 Mg Tablet) 25 mg PO Q6H PRN PRN Reason: mild anxiety Lorazepam (Lorazepam 1 Mg Tablet) 1 mg PO TID PRN PRN Reason: severe anxiety/agitation Magnesium Hydroxide (Milk Of Magnesia 30 Ml Oral.Susp) 30 ml PO DAILY PRN PRN Reason: Constipation Nicotine Polacrilex (Nicotine Polacrilex 2 Mg Gum) 4 mg BUCCAL Q2H PRN PRN Reason: Nicotine Cravings Olanzapine (Olanzapine Odt 10 Mg Tab.Rapdis) 10 mg TRANSLINGU BID [facility] Last Admin: 07/17/25 09:00 Dose: Not Given Trazodone HCl (Trazodone Hcl 50 Mg Tablet) 50 mg PO BEDTIME MRX1 PRN PRN Reason: Insomnia Allergies Allergies Allergy/AdvReac Type Severity Reaction Status Date / Time No Known Allergies Allergy Verified 07/06/25 18:08 Assessment & Plan Assessment & Plan (1) [place]: Status: Acute Code(s): F30.9 - Manic episode, unspecified (2) Acute psychosis: Status: Acute Code(s): F23 - Brief psychotic disorder Plan 07/08: continue zyprexa and depakote as established in the ED. 07/09: continue current management and treatment plan. Medications recently started. 07/10: continue current management and treatment plan. 07/11: samuels warning provided. increase depakote to 750 BID, otherwise continue current mgmt. check levels in the next couple of days. section 12b up . will likely file for commitment. 07/12: pt declines labs. will wait for steady state at 1500 mg daily prior to checking labs, laconic, terse. will likely file tomorrow. 07/13: filed for commitment. no reaction from pt. continue current mgmt. 07/14: refusing meds as of last night, already hypersexual today and threatening to kill MD if MD does not discharge him. placed on 1:1 for safety. continue to encourage meds. hearing next friday. 07/15: continues to refuse meds, remains on 1:1. wandering. aware of hearing next friday. inert, no questions/concerns. paucity of thought or thought blocking. continue to offer meds. 07/16: difficulty keeping his shirt on in the milieu, oppositional when told to garb up. inappropriate comment to RN last tera. otherwise uneventful, refusing meds. continue to offer meds. 07/17: no behavioral concerns. remains on 1:1. some RIS and inappropriate laughter. refusing meds. slept 7 hours. contnue current mgmt. hearing on friday. Reason for continued inpatient stay Substantial Risk for: harm to others, inability to function and rapid decompensation Time Spent With Patient Time: Total time managing care of this patient today ____ minutes.
[2025-07-17] MEDS: OLANZapine ODT 10 MG TAB.RAPDIS TRANSLINGU (20:24)
[2025-07-17 20:25] VITALS: BP 126/72; PULSE 85; RESP 18; TEMP 37; O2SAT 99
[2025-07-18 07:52] VITALS: BP 121/56; PULSE 80; RESP 16; TEMP 36.4; O2SAT 98
--- NOTE | 2025-07-18 14:15 | P.PNPSI_ITS ---
Subjective Subjective Date of Service: 07/18/25 Reason For Visit: parish Subjective Notes: Dawson Warning Interim History: Pt was lying in his bed w/ eye closed, woke up easily and cooperated w/ interview. He reports that he's feeling 'good'. Denies any hallucinations but reports that he had been hearing voices. Denies SI/violent ideation. Denies significant anxiety or depression Discussed plan for committment hearing tomorrow, dawson warning given. Pt had some recollection of the plan for the hearing and has a note from Dr Park re: the plan. He states that he wouldn't mind staying in the hospital as long as he can get his [employer] game. Discussed events leading up to admission. He reports that he was at [address] [place] [address], then said he didn't want to talk about it. He expressed an understanding that the people who reside there do not want him there. He stated that he would return there upon discharge but he'd leave if the owners asked him to. He states that he has an intuition that he's supposed to be there. He referred again to [employer] and [employer] games and states that he would defend the residence. Reports poor sleep, partially due to having other people in his room. Refused am Depakote and olanzapine for past 2 days. Took both meds last night. Asks to increase meds to help with sleep. I offered to switch his am meds to bedtime to help with sleep. He replied maybe you should double it Medication Compliance: Intermittent Review of Systems Review of Systems Denies any shortness of breath, chest pain, dizziness, lightheadedness, abdominal pain or discomfort, nausea vomiting or diarrhea Mental Status Exam Mental Status Exam Narrative: Appearance: good eye contact, appears stated age, good hygiene, in NAD Behavior: cooperative Psychomotor: calm. no tics, tremors or dyskinesias Speech: fluent and within normal limits Thought Process: Generally linear Thought Content: Primarily concerned about getting his video game (Mor) Mood: good Affect: blunted SI: denies HI: denies VH/AH: denies Delusions: related to [facility] residence (see above) Insight: impaired Judgment: impaired Diagnostics Vital Signs (24Hr): Vital Signs - 24 hr 07/17/25 20:25 07/18/25 07:52 Temperature 98.6 F 97.5 F Pulse Rate 85 80 Respiratory Rate 18 16 Blood Pressure 126/72 121/56 L Pulse Oximetry 99 98 Oxygen Delivery Method Room Air Room Air BMI result Body Mass Index 22.5 Labs 07/06/25 19:21 07/06/25 19:21 Medications Medications Current Medications Acetaminophen (Acetaminophen 325 Mg Tablet) 650 mg PO Q6H PRN PRN Reason: Headache/Pain, Scale 1-10 Al Hydroxide/Mg Hydroxide (Magnesium Hydrox/Alum Hydrox 30 Ml Oral.Susp) 30 ml PO Q6H PRN PRN Reason: Heartburn/Nausea Divalproex Sodium (Divalproex Sodium 250 Mg Tablet.Dr) 750 mg PO BID [facility] Last Admin: 07/18/25 08:40 Dose: Not Given Haloperidol (Haloperidol 5 Mg Tablet) 5 mg PO BID PRN PRN Reason: agitation Hydroxyzine HCl (Hydroxyzine Hcl 25 Mg Tablet) 25 mg PO Q6H PRN PRN Reason: mild anxiety Lorazepam (Lorazepam 1 Mg Tablet) 1 mg PO TID PRN PRN Reason: severe anxiety/agitation Last Admin: 07/17/25 20:24 Dose: 1 mg Magnesium Hydroxide (Milk Of Magnesia 30 Ml Oral.Susp) 30 ml PO DAILY PRN PRN Reason: Constipation Nicotine Polacrilex (Nicotine Polacrilex 2 Mg Gum) 4 mg BUCCAL Q2H PRN PRN Reason: Nicotine Cravings Olanzapine (Olanzapine Odt 10 Mg Tab.Rapdis) 10 mg TRANSLINGU BID [facility] Last Admin: 07/18/25 08:40 Dose: Not Given Trazodone HCl (Trazodone Hcl 50 Mg Tablet) 50 mg PO BEDTIME MRX1 PRN PRN Reason: Insomnia Last Admin: 07/17/25 20:24 Dose: 50 mg Allergies Allergies Allergy/AdvReac Type Severity Reaction Status Date / Time No Known Allergies Allergy Verified 07/06/25 18:08 Assessment & Plan Assessment & Plan (1) Parish: Status: Acute Code(s): F30.9 - Manic episode, unspecified (2) Acute psychosis: Status: Acute Code(s): F23 - Brief psychotic disorder Plan 07/08: continue zyprexa and depakote as established in the ED. 07/09: continue current management and treatment plan. Medications recently started. 07/10: continue current management and treatment plan. 07/11: dawson warning provided. increase depakote to 750 BID, otherwise continue current mgmt. check levels in the next couple of days. section 12b up . will likely file for commitment. 07/12: pt declines labs. will wait for steady state at 1500 mg daily prior to checking labs, laconic, terse. will likely file tomorrow. 07/13: filed for commitment. no reaction from pt. continue current mgmt. 07/14: refusing meds as of last night, already hypersexual today and threatening to kill MD if MD does not discharge him. placed on 1:1 for safety. continue to encourage meds. hearing next friday. 07/15: continues to refuse meds, remains on 1:1. wandering. aware of hearing next friday. inert, no questions/concerns. paucity of thought or thought blocking. continue to offer meds. 07/16: difficulty keeping his shirt on in the milieu, oppositional when told to garb up. inappropriate comment to RN last tera. otherwise uneventful, refusing meds. continue to offer meds. 07/17: no behavioral concerns. remains on 1:1. some RIS and inappropriate laughter. refusing meds. slept 7 hours. contnue current mgmt. hearing on friday. 07/18: no behavioral concerns. Remains on 1:1. Refusing am meds but took bedtime meds last night and is reporting poor sleep. Will consolidate olanzapine dosing to 20 mg qhs rather than 10 mg bid to improve adherence and optimize tx of residual parish/psychosis. Otherwise continue current tx plan for now. Hearing scheduled for tomorrow, 07/19 Patient educated on: medication risk/benefits Informed Consent: further education needed Reason for continued inpatient stay Substantial Risk for: rapid decompensation and med/psych decompensation Time Spent With Patient Time: Total time managing care of this patient today __45__ minutes.
[2025-07-18 19:50] VITALS: BP 147/66; PULSE 104; RESP 18; TEMP 36.7; O2SAT 100
[2025-07-18] MEDS: OLANZapine ODT 10 MG TAB.RAPDIS 20 MG TRANSLINGU (20:18)
[2025-07-19 07:47] VITALS: BP 128/76; PULSE 70; RESP 20; TEMP 36.7; O2SAT 100
--- NOTE | 2025-07-19 09:26 | HO.PSYCHPN ---
Subjective Subjective Date of Service: 07/19/25 Reason For Visit: parish Subjective Notes: Dawson Warning and Section 12B Interim History: Pt is aware of the court hearing scheduled for today. He reports that he met with his attny. I reviewed the purpose of the hearing and he expressed an understanding. Pt reports that he's feeling okay, just bored. He states that he'd be willing to stay in the hospital if he had his music, his stretching machine and his video game. He states that he does not want to stay in the hospital without those items. I referred to the game as Mor based on our conversation yesterday and he said don't call it that. it sounds nerdy the way you say it and said to just say [place] . He smiled after correcting me. I asked pt where he plans to go whenever he is discharged. He states that he'll return to [facility] to get his stretching machine and then he'll stay outside since he has nowhere else to go. He didn't mention any plans to return to [facility]. 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 Took bedtime meds but refused the am Depakote, as he only wants meds for sleep. He reports sleeping better with the increased dose of sleeping meds (olanzapine increased from 10 to 20 mg last night). He denies excessive daytime sedation. Pt states that he has had some hallucinations but he ignores them. He reports that they're less bothersome than they had been. He denies Si/violent ideation. Medication Compliance: Intermittent Side effects from medications: No Attending Groups: No Review of Systems Acute medical concerns: No Medical Review of Systems: unchanged Mental Status Exam Mental Status Exam Narrative: Lying in bed with 1:1 in his room. Cooperative with interview. Grooming is wnl. maintains good eye contact. Speech is fluent and wnl. Motor activity is calm and without any tics, tremors or dyskinesias. Mood is bored . Affect is generally blunted but brightened up briefly. Thought process is generally goal directed. Thought content as noted above. Endorses hallucinations but did not provide details, as he's trying to ignore them. He does not appear to respond to internal stimuli. Insight & judgment are impaired. Diagnostics Vital Signs (24Hr): Vital Signs - 24 hr 07/18/25 19:50 07/19/25 07:47 Temperature 98.0 F 98.0 F Pulse Rate 104 H 70 Respiratory Rate 18 20 Blood Pressure 147/66 H 128/76 Pulse Oximetry 100 100 Oxygen Delivery Method Room Air BMI result Body Mass Index 22.5 Labs 07/06/25 19:21 07/06/25 19:21 Medications Medications Current Medications Acetaminophen (Acetaminophen 325 Mg Tablet) 650 mg PO Q6H PRN PRN Reason: Headache/Pain, Scale 1-10 Al Hydroxide/Mg Hydroxide (Magnesium Hydrox/Alum Hydrox 30 Ml Oral.Susp) 30 ml PO Q6H PRN PRN Reason: Heartburn/Nausea Divalproex Sodium (Divalproex Sodium Er 500 Mg Tab.Er.24h) 1,500 mg PO BEDTIME MIKALA Haloperidol (Haloperidol 5 Mg Tablet) 5 mg PO BID PRN PRN Reason: agitation Hydroxyzine HCl (Hydroxyzine Hcl 25 Mg Tablet) 25 mg PO Q6H PRN PRN Reason: mild anxiety Lorazepam (Lorazepam 1 Mg Tablet) 1 mg PO TID PRN PRN Reason: severe anxiety/agitation Last Admin: 07/18/25 20:16 Dose: 1 mg Magnesium Hydroxide (Milk Of Magnesia 30 Ml Oral.Susp) 30 ml PO DAILY PRN PRN Reason: Constipation Nicotine Polacrilex (Nicotine Polacrilex 2 Mg Gum) 4 mg BUCCAL Q2H PRN PRN Reason: Nicotine Cravings Olanzapine (Olanzapine Odt 10 Mg Tab.Rapdis) 20 mg TRANSLINGU BEDTIME [facility] Last Admin: 07/18/25 20:18 Dose: 20 mg Trazodone HCl (Trazodone Hcl 50 Mg Tablet) 50 mg PO BEDTIME MRX1 PRN PRN Reason: Insomnia Last Admin: 07/18/25 20:17 Dose: 50 mg Allergies Allergies Allergy/AdvReac Type Severity Reaction Status Date / Time No Known Allergies Allergy Verified 07/06/25 18:08 Assessment & Plan Assessment & Plan (1) Parish: Status: Acute Code(s): F30.9 - Manic episode, unspecified (2) Acute psychosis: Status: Acute Code(s): F23 - Brief psychotic disorder Plan 07/08: continue zyprexa and depakote as established in the ED. 07/09: continue current management and treatment plan. Medications recently started. 07/10: continue current management and treatment plan. 07/11: dawson warning provided. increase depakote to 750 BID, otherwise continue current mgmt. check levels in the next couple of days. section 12b up . will likely file for commitment. 07/12: pt declines labs. will wait for steady state at 1500 mg daily prior to checking labs, laconic, terse. will likely file tomorrow. 07/13: filed for commitment. no reaction from pt. continue current mgmt. 07/14: refusing meds as of last night, already hypersexual today and threatening to kill MD if MD does not discharge him. placed on 1:1 for safety. continue to encourage meds. hearing next friday. 07/15: continues to refuse meds, remains on 1:1. wandering. aware of hearing next friday. inert, no questions/concerns. paucity of thought or thought blocking. continue to offer meds. 07/16: difficulty keeping his shirt on in the milieu, oppositional when told to garb up. inappropriate comment to RN last tera. otherwise uneventful, refusing meds. continue to offer meds. 07/17: no behavioral concerns. remains on 1:1. some RIS and inappropriate laughter. refusing meds. slept 7 hours. contnue current mgmt. hearing on friday. 07/18: no behavioral concerns. Remains on 1:1. Refusing am meds but took bedtime meds last night and is reporting poor sleep. Will consolidate olanzapine dosing to 20 mg qhs rather than 10 mg bid to improve adherence and optimize tx of residual parish/psychosis. Otherwise continue current tx plan for now. Hearing scheduled for tomorrow, 07/19 07/19: Took olanzapine 20 mg last night and slept better. No behavioral issues, still on 1:1. 04/26 hearing scheduled for today at 2 pm. Will switch Depakote from 750 mg bid to Depakote ER 1500 mg at hs since pt has been taking bedtime meds only. committed. *By the time of completion of this note- court hearing took place, pt committed on section 7. Patient educated on: therapeutic strategies Informed Consent: further education needed Reason for continued inpatient stay Substantial Risk for: harm to self, rapid decompensation and med/psych decompensation Time Spent With Patient Time: Total time managing care of this patient today ___120 minutes.
--- NOTE | 2025-07-19 12:14 | HO.PSYCHPN ---
Subjective Subjective Reason For Visit: akila Diagnostics Vital Signs (24Hr): Vital Signs - 24 hr 07/18/25 19:50 07/19/25 07:47 Temperature 98.0 F 98.0 F Pulse Rate 104 H 70 Respiratory Rate 18 20 Blood Pressure 147/66 H 128/76 Pulse Oximetry 100 100 Oxygen Delivery Method Room Air BMI result Body Mass Index 22.5 Labs 07/06/25 19:21 07/06/25 19:21 Medications Medications Current Medications Acetaminophen (Acetaminophen 325 Mg Tablet) 650 mg PO Q6H PRN PRN Reason: Headache/Pain, Scale 1-10 Al Hydroxide/Mg Hydroxide (Magnesium Hydrox/Alum Hydrox 30 Ml Oral.Susp) 30 ml PO Q6H PRN PRN Reason: Heartburn/Nausea Divalproex Sodium (Divalproex Sodium Er 500 Mg Tab.Er.24h) 1,500 mg PO BEDTIME [place] Haloperidol (Haloperidol 5 Mg Tablet) 5 mg PO BID PRN PRN Reason: agitation Hydroxyzine HCl (Hydroxyzine Hcl 25 Mg Tablet) 25 mg PO Q6H PRN PRN Reason: mild anxiety Lorazepam (Lorazepam 1 Mg Tablet) 1 mg PO TID PRN PRN Reason: severe anxiety/agitation Last Admin: 07/18/25 20:16 Dose: 1 mg Magnesium Hydroxide (Milk Of Magnesia 30 Ml Oral.Susp) 30 ml PO DAILY PRN PRN Reason: Constipation Nicotine Polacrilex (Nicotine Polacrilex 2 Mg Gum) 4 mg BUCCAL Q2H PRN PRN Reason: Nicotine Cravings Olanzapine (Olanzapine Odt 10 Mg Tab.Rapdis) 20 mg TRANSLINGU BEDTIME [facility] Last Admin: 07/18/25 20:18 Dose: 20 mg Trazodone HCl (Trazodone Hcl 50 Mg Tablet) 50 mg PO BEDTIME MRX1 PRN PRN Reason: Insomnia Last Admin: 07/18/25 20:17 Dose: 50 mg Allergies Allergies Allergy/AdvReac Type Severity Reaction Status Date / Time No Known Allergies Allergy Verified 07/06/25 18:08 Assessment & Plan Assessment & Plan (1) [place]: Status: Acute Code(s): F30.9 - Manic episode, unspecified (2) Acute psychosis: Status: Acute Code(s): F23 - Brief psychotic disorder Plan 07/08: continue zyprexa and depakote as established in the ED. 07/09: continue current management and treatment plan. Medications recently started. 07/10: continue current management and treatment plan. 07/11: samuels warning provided. increase depakote to 750 BID, otherwise continue current mgmt. check levels in the next couple of days. section 12b up . will likely file for commitment. 07/12: pt declines labs. will wait for steady state at 1500 mg daily prior to checking labs, laconic, terse. will likely file tomorrow. 07/13: filed for commitment. no reaction from pt. continue current mgmt. 07/14: refusing meds as of last night, already hypersexual today and threatening to kill MD if MD does not discharge him. placed on 1:1 for safety. continue to encourage meds. hearing next friday. 07/15: continues to refuse meds, remains on 1:1. wandering. aware of hearing next friday. inert, no questions/concerns. paucity of thought or thought blocking. continue to offer meds. 07/16: difficulty keeping his shirt on in the milieu, oppositional when told to garb up. inappropriate comment to RN last tera. otherwise uneventful, refusing meds. continue to offer meds. 07/17: no behavioral concerns. remains on 1:1. some RIS and inappropriate laughter. refusing meds. slept 7 hours. contnue current mgmt. hearing on friday. 07/18: no behavioral concerns. Remains on 1:1. Refusing am meds but took bedtime meds last night and is reporting poor sleep. Will consolidate olanzapine dosing to 20 mg qhs rather than 10 mg bid to improve adherence and optimize tx of residual akila/psychosis. Otherwise continue current tx plan for now. Hearing scheduled for tomorrow, 07/19 Time Spent With Patient Time: Total time managing care of this patient today ____ minutes.
[2025-07-19 20:00] VITALS: BP 128/76; PULSE 77; RESP 16; TEMP 37; O2SAT 98
[2025-07-19] MEDS: OLANZapine ODT 10 MG TAB.RAPDIS 20 MG TRANSLINGU (20:06)
[2025-07-20 07:47] VITALS: BP 109/59; PULSE 79; RESP 18; TEMP 36.8; O2SAT 99
--- NOTE | 2025-07-20 15:14 | P.PNPSI_ITS ---
Subjective Subjective Date of Service: 07/20/25 Reason For Visit: parish Subjective Notes: Garzon Order and Section 8 Interim History: Chart reviewed, case discussed w/ tx team, met with pt alone in his room w/ 1:1 staff in the hallway during interview Pt committed on section 8 with Duran perez following hearing yesterday. He took the full dose of po depakote and olanzapine last night. States that the medication helps with my slumber but denies any other benefit. He slept thru the night per staff report. This radio script writer (t/w) asked how pt felt about the hearing and he responded fine . He again states that he's bored, feels like he's in a psych murphy. T/W confirmed that he is in a psych murphy and asked if he knows why and explained why when he said he didn't know. He stated that was false and he is here for sleeping on the grass. He states that he cares about the property (where he had been trespassing) and doesn't want the nature there to be tainted by other people. T/W asked if he still believes he owns the property and he replied not anymore . T/W asked if he has any thoughts to harm others. 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 He states that he cannot tell me where he was trained since it's classified. He calmly stated I demand a releasure date while looking at the ceiling. He referred to placing his hands at a 45 degree angle and whipping his hand across to confront anyone that blocks him from his releasure. Again c/o feeling bored, salty since he can't have his video game. He smiled and made eye contact when I referred to his game as Fort instead of Mor, which he explained was a nerdy way to say it yesterday. Discussed goal of discontinuing 1:1 and reviewed that the reason for the initial 1:1 order. Pt reports that his room had been changed after being here x 2 wks and he had gotten confused and kept going to his initial room. He reports that he accidentally touched a female, which is a sin. He expresses an understanding that it is inappropriate to enter other patients' rooms and touch them. He denies SI or any thoughts to harm others on the unit. He denies med SE. Medication Compliance: Yes (also took prn trazodone last night ) Review of Systems Medical Review of Systems: unchanged Mental Status Exam Mental Status Exam Narrative: Lying in bed awake, generally staring at the ceiling. Intermittent eye contact. Grooming/hygiene wnl. Speech fluent and wnl. Motor activity is calm and without any tics, tremors or dyskinesias. Thought process is generally disorganized. Thought content notable for delusional ideation, vague thoughts of harming others (who taint the property that he feels he needs to defend). Denies SI. Denies AH/VH and does not appear to respond to internal stimuli. Insight/judgment poor. Diagnostics Vital Signs (24Hr): Vital Signs - 24 hr 07/19/25 20:00 07/20/25 07:47 Temperature 98.6 F 98.2 F Pulse Rate 77 79 Respiratory Rate 16 18 Blood Pressure 128/76 109/59 L Pulse Oximetry 98 99 Oxygen Delivery Method Room Air Room Air BMI result Body Mass Index 22.5 Labs 07/06/25 19:21 07/06/25 19:21 Medications Medications Current Medications Acetaminophen (Acetaminophen 325 Mg Tablet) 650 mg PO Q6H PRN PRN Reason: Headache/Pain, Scale 1-10 Al Hydroxide/Mg Hydroxide (Magnesium Hydrox/Alum Hydrox 30 Ml Oral.Susp) 30 ml PO Q6H PRN PRN Reason: Heartburn/Nausea Divalproex Sodium (Divalproex Sodium Er 500 Mg Tab.Er.24h) 1,500 mg PO BEDTIME MIKALA Last Admin: 07/19/25 20:06 Dose: 1,500 mg Haloperidol (Haloperidol 5 Mg Tablet) 5 mg PO BID PRN PRN Reason: agitation Hydroxyzine HCl (Hydroxyzine Hcl 25 Mg Tablet) 25 mg PO Q6H PRN PRN Reason: mild anxiety Magnesium Hydroxide (Milk Of Magnesia 30 Ml Oral.Susp) 30 ml PO DAILY PRN PRN Reason: Constipation Nicotine Polacrilex (Nicotine Polacrilex 2 Mg Gum) 4 mg BUCCAL Q2H PRN PRN Reason: Nicotine Cravings Olanzapine (Olanzapine Odt 10 Mg Tab.Rapdis) 20 mg TRANSLINGU BEDTIME MIKALA Last Admin: 07/19/25 20:06 Dose: 20 mg Trazodone HCl (Trazodone Hcl 50 Mg Tablet) 50 mg PO BEDTIME MRX1 PRN PRN Reason: Insomnia Last Admin: 07/19/25 20:07 Dose: 50 mg Allergies Allergies Allergy/AdvReac Type Severity Reaction Status Date / Time No Known Allergies Allergy Verified 07/06/25 18:08 Assessment & Plan Assessment & Plan (1) Parish: Status: Acute Code(s): F30.9 - Manic episode, unspecified (2) Acute psychosis: Status: Acute Code(s): F23 - Brief psychotic disorder Plan 07/08: continue zyprexa and depakote as established in the ED. 07/09: continue current management and treatment plan. Medications recently started. 07/10: continue current management and treatment plan. 07/11: samuels warning provided. increase depakote to 750 BID, otherwise continue current mgmt. check levels in the next couple of days. section 12b up . will likely file for commitment. 07/12: pt declines labs. will wait for steady state at 1500 mg daily prior to checking labs, laconic, terse. will likely file tomorrow. 07/13: filed for commitment. no reaction from pt. continue current mgmt. 07/14: refusing meds as of last night, already hypersexual today and threatening to kill MD if MD does not discharge him. placed on 1:1 for safety. continue to encourage meds. hearing next friday. 07/15: continues to refuse meds, remains on 1:1. wandering. aware of hearing next friday. inert, no questions/concerns. paucity of thought or thought blocking. continue to offer meds. 07/16: difficulty keeping his shirt on in the milieu, oppositional when told to garb up. inappropriate comment to RN last tera. otherwise uneventful, refusing meds. continue to offer meds. 07/17: no behavioral concerns. remains on 1:1. some RIS and inappropriate laughter. refusing meds. slept 7 hours. contnue current mgmt. hearing on friday. 07/18: no behavioral concerns. Remains on 1:1. Refusing am meds but took bedtime meds last night and is reporting poor sleep. Will consolidate olanzapine dosing to 20 mg qhs rather than 10 mg bid to improve adherence and optimize tx of residual parish/psychosis. Otherwise continue current tx plan for now. Hearing scheduled for tomorrow, 07/19 07/19: Took olanzapine 20 mg last night and slept better. No behavioral issues, still on 1:1. 04/26 hearing scheduled for today at 2 pm. Will switch Depakote from 750 mg bid to Depakote ER 1500 mg at hs since pt has been taking bedtime meds only. committed. *By the time of completion of this note- court hearing took place, pt committed on section 04/26. 07/20: Committed on section 8 with Duran order in chart. Pt cannot refuse to take olanzapine per Duran. Give 20 mg IM if pt refuses po 20 mg hs dose of olanzapine. D/C'd prn haldol and switched to 5 mg olanzapine bid prn for agitation to simplify med regimen. Will check VPA level & LFTs on Friday am. Per team discussion- will continue 1:1 for now but will try to switch to q5 min checks later this wk if no behavioral issues. Patient educated on: diagnosis and medication risk/benefits Guardian/Caregiver educated on: therapeutic strategies Informed Consent: does not understand and further education needed Reason for continued inpatient stay Substantial Risk for: harm to others, inability to function, rapid decompensation and med/psych decompensation Time Spent With Patient Time: Total time managing care of this patient today _50_ minutes.
[2025-07-20 19:30] VITALS: BP 142/65; PULSE 130; RESP 16; TEMP 37.1; O2SAT 98
[2025-07-20 20:05] VITALS: PULSE 91
[2025-07-20] MEDS: OLANZapine ODT 10 MG TAB.RAPDIS 20 MG TRANSLINGU (20:06)
[2025-07-21 07:46] VITALS: BP 130/73; PULSE 73; RESP 16; TEMP 36.5; O2SAT 99
--- NOTE | 2025-07-21 11:38 | P.PNPSI_ITS ---
Subjective Subjective Date of Service: 07/21/25 Reason For Visit: parish Subjective Notes: [place] Order and Section 8 Interim History: Chart reviewed, case discussed with team Per team discussion- pt had a female 1:1 yesterday for the first tie and asked her to scratch his back. He was switched back to a male 1:1. Pt attended one group yesterday afternoon with no behavioral issues. Pt's RN paged t/w at 12:30 tday since pt was irritable, threatening to jump over the nursing station and break things, wanted to speak with t/w. I met w/ the pt shortly after. He wanted to see the policy stating that pts can't have their cell phones on the unit. 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 He said he's ready to be d/c'd today and I explained that he wouldn't be d/c'd this wk and reviewed the outcome of the committment hearing. I oriented him to the day of the week and he asked for proof of the date and seemed to be satisfied when I showed him the date on my phone. I reviewed the reason for his hospitalization and need to take medication. He replied- 'you're talking about the [facility] thing', stated it's a special place for him but he has no desire to return now. He expressed frustration but generally remained calm. He stayed in the interview room w/ 1:1 staff, looking down and not talking when I concluded the interview. Review of Systems Review of Systems Denies any shortness of breath, chest pain, dizziness, lightheadedness, abdominal pain or discomfort, nausea vomiting or diarrhea Mental Status Exam Mental Status Exam Narrative: Grooming/hygiene wnl. Eye contact wnl. Speech fluent and wnl. Motor activity is calm and without any tics, tremors or dyskinesias. Thought process is perseverative. thought content as noted above. Denies SI/violent ideation. does not appear to respond to internal stimuli. Insight/judgment poor. Diagnostics Vital Signs (24Hr): Vital Signs - 24 hr 07/20/25 19:30 07/20/25 20:05 07/21/25 07:46 Temperature 98.8 F 97.7 F Pulse Rate 130 H 91 73 Respiratory Rate 16 16 Blood Pressure 142/65 H 130/73 Pulse Oximetry 98 99 Oxygen Delivery Method Room Air Room Air BMI result Body Mass Index 22.5 Labs 07/06/25 19:21 07/06/25 19:21 Medications Medications Current Medications Acetaminophen (Acetaminophen 325 Mg Tablet) 650 mg PO Q6H PRN PRN Reason: Headache/Pain, Scale 1-10 Al Hydroxide/Mg Hydroxide (Magnesium Hydrox/Alum Hydrox 30 Ml Oral.Susp) 30 ml PO Q6H PRN PRN Reason: Heartburn/Nausea Divalproex Sodium (Divalproex Sodium Er 500 Mg Tab.Er.24h) 1,500 mg PO BEDTIME MIKALA Last Admin: 07/20/25 20:06 Dose: 1,500 mg Hydroxyzine HCl (Hydroxyzine Hcl 25 Mg Tablet) 25 mg PO Q6H PRN PRN Reason: mild anxiety Lorazepam (Lorazepam 1 Mg Tablet) 1 mg PO BID PRN PRN Reason: Anxiety Last Admin: 07/20/25 20:06 Dose: 1 mg Magnesium Hydroxide (Milk Of Magnesia 30 Ml Oral.Susp) 30 ml PO DAILY PRN PRN Reason: Constipation Nicotine Polacrilex (Nicotine Polacrilex 2 Mg Gum) 4 mg BUCCAL Q2H PRN PRN Reason: Nicotine Cravings Olanzapine (Olanzapine Odt 10 Mg Tab.Rapdis) 20 mg TRANSLINGU BEDTIME MIKALA Last Admin: 07/20/25 20:06 Dose: 20 mg Olanzapine (Olanzapine 10 Mg Vial) 20 mg IM BEDTIME PRN PRN Reason: Refusal to take 20 mg PO at hs Olanzapine (Olanzapine 5 Mg Tablet) 5 mg PO BID PRN PRN Reason: agitation Trazodone HCl (Trazodone Hcl 50 Mg Tablet) 50 mg PO BEDTIME MRX1 PRN PRN Reason: Insomnia Last Admin: 07/20/25 20:06 Dose: 50 mg Allergies Allergies Allergy/AdvReac Type Severity Reaction Status Date / Time No Known Allergies Allergy Verified 07/06/25 18:08 Assessment & Plan Assessment & Plan (1) Parish: Status: Acute Code(s): F30.9 - Manic episode, unspecified (2) Acute psychosis: Status: Acute Code(s): F23 - Brief psychotic disorder Plan 07/08: continue zyprexa and depakote as established in the ED. 07/09: continue current management and treatment plan. Medications recently started. 07/10: continue current management and treatment plan. 07/11: samuels warning provided. increase depakote to 750 BID, otherwise continue current mgmt. check levels in the next couple of days. section 12b up . will likely file for commitment. 07/12: pt declines labs. will wait for steady state at 1500 mg daily prior to checking labs, laconic, terse. will likely file tomorrow. 07/13: filed for commitment. no reaction from pt. continue current mgmt. 07/14: refusing meds as of last night, already hypersexual today and threatening to kill MD if MD does not discharge him. placed on 1:1 for safety. continue to encourage meds. hearing next friday. 07/15: continues to refuse meds, remains on 1:1. wandering. aware of hearing next friday. inert, no questions/concerns. paucity of thought or thought blocking. continue to offer meds. 07/16: difficulty keeping his shirt on in the milieu, oppositional when told to garb up. inappropriate comment to RN last tera. otherwise uneventful, refusing meds. continue to offer meds. 07/17: no behavioral concerns. remains on 1:1. some RIS and inappropriate laughter. refusing meds. slept 7 hours. contnue current mgmt. hearing on friday. 07/18: no behavioral concerns. Remains on 1:1. Refusing am meds but took bedtime meds last night and is reporting poor sleep. Will consolidate olanzapine dosing to 20 mg qhs rather than 10 mg bid to improve adherence and optimize tx of residual parish/psychosis. Otherwise continue current tx plan for now. Hearing scheduled for tomorrow, 07/19 07/19: Took olanzapine 20 mg last night and slept better. No behavioral issues, still on 1:1. 04/26 hearing scheduled for today at 2 pm. Will switch Depakote from 750 mg bid to Depakote ER 1500 mg at hs since pt has been taking bedtime meds only. committed. *By the time of completion of this note- court hearing took place, pt committed on section 7/8. 07/20: Committed on section 8 with Duran order in chart. Pt cannot refuse to take olanzapine per Duran. Give 20 mg IM if pt refuses po 20 mg hs dose of olanzapine. D/C'd prn haldol and switched to 5 mg olanzapine bid prn for agitation to simplify med regimen. Will check VPA level & LFTs on Friday am. Per team discussion- will continue 1:1 for now but will try to switch to q5 min checks later this wk if no behavioral issues. 07/21: Threatened to jump over nursing station due to frustration w/ cell phone policy and continued hospitalization. Was able to tolerate a discussion re: policy and continued need for hospitalization/medication without aggressive behavior. Taking standing meds as rx'd. continue current tx plan, including 1:1 for now Reason for continued inpatient stay Substantial Risk for: harm to others, inability to function, rapid decompensation and med/psych decompensation Time Spent With Patient Time: Total time managing care of this patient today _45___ minutes.
[2025-07-21 19:25] VITALS: BP 126/59; PULSE 104; RESP 16; TEMP 37.1; O2SAT 100
[2025-07-21] MEDS: OLANZapine ODT 10 MG TAB.RAPDIS 20 MG TRANSLINGU (20:11)
[2025-07-21 20:30] VITALS: PULSE 92
[2025-07-22 07:15] VITALS: BP 103/49; PULSE 74; RESP 16; TEMP 36.9; O2SAT 99
--- NOTE | 2025-07-22 09:33 | HO.PSYCHPN ---
Subjective Subjective Date of Service: 07/22/25 Reason For Visit: parish Subjective Notes: [place] Order and Section 8 Interim History: Chart reviewed, case discussed w/ team Per nursing report- slept 8 hrs declined VPA last night , reported it gets stuck in his throat t/w met w/ pt in his room, where he was lying in bed awake, looking at the ceiling. He asked for his phone helminthology teacher and d/c date multiple times. I reviewed the unit phone policy, told him that his phone and helminthology teacher are stored in a secure area and he will get them upon d/c. Reviewed that he will not be d/c'd today. I asked about the issue w/ Depakote and he stated it caused pain in the vein and that he couldn't explain the issue further. He denied any other physical concerns. He referred to the [place] and his brother and sister but didn't elaborate, aside from stating that he doesn't get along with them well. I received a message at noon that pt was threatening and attempted to jump over the nurses station over his belonging/phone, threatened to kill other pts. Security came down. Pt declined to speak w/ me when I came down, stated t/w couldn't help him.Per security, he had threatened to hit a nurse. He agreed to take po olanzapine 10 mg to help w/ sleep , which is the only issue he wants meds for. Mental Status Exam Mental Status Exam Narrative: Appearance: Casually dressed. Grooming/hygiene wnl. Stared at ceiling throughout initial encounter Attitude: guarded w/ initial encounter. Speech: Fluent and wnl in regard to volume, tone, prosody Motor activity: Calm and without any tics, tremors or dyskinesias. Mood: frustrated Affect: appropriate, reactive Thought process: perseverative on getting phone/helminthology teacher and d/c Thought content: as noted above Perception: denies AH/VH Insight: poor Judgment: poor Diagnostics Vital Signs (24Hr): Vital Signs - 24 hr 07/21/25 19:25 07/21/25 20:30 07/22/25 07:15 Temperature 98.8 F 98.4 F Pulse Rate 104 H 92 74 Respiratory Rate 16 16 Blood Pressure 126/59 L 103/49 L Pulse Oximetry 100 99 Oxygen Delivery Method Room Air Room Air BMI result Body Mass Index 22.5 Labs 09/17/25 19:21 07/06/25 19:21 Medications Medications Current Medications Acetaminophen (Acetaminophen 325 Mg Tablet) 650 mg PO Q6H PRN PRN Reason: Headache/Pain, Scale 1-10 Al Hydroxide/Mg Hydroxide (Magnesium Hydrox/Alum Hydrox 30 Ml Oral.Susp) 30 ml PO Q6H PRN PRN Reason: Heartburn/Nausea Divalproex Sodium (Divalproex Sodium Er 500 Mg Tab.Er.24h) 1,500 mg PO BEDTIME MIKALA Last Admin: 07/21/25 20:13 Dose: Not Given Hydroxyzine HCl (Hydroxyzine Hcl 25 Mg Tablet) 25 mg PO Q6H PRN PRN Reason: mild anxiety Lorazepam (Lorazepam 1 Mg Tablet) 1 mg PO BID PRN PRN Reason: Anxiety Last Admin: 07/21/25 20:11 Dose: 1 mg Magnesium Hydroxide (Milk Of Magnesia 30 Ml Oral.Susp) 30 ml PO DAILY PRN PRN Reason: Constipation Nicotine Polacrilex (Nicotine Polacrilex 2 Mg Gum) 4 mg BUCCAL Q2H PRN PRN Reason: Nicotine Cravings Olanzapine (Olanzapine Odt 10 Mg Tab.Rapdis) 20 mg TRANSLINGU BEDTIME MIKALA Last Admin: 07/21/25 20:11 Dose: 20 mg Olanzapine (Olanzapine 10 Mg Vial) 20 mg IM BEDTIME PRN PRN Reason: Refusal to take 20 mg PO at hs Olanzapine (Olanzapine 5 Mg Tablet) 5 mg PO BID PRN PRN Reason: agitation Trazodone HCl (Trazodone Hcl 50 Mg Tablet) 50 mg PO BEDTIME MRX1 PRN PRN Reason: Insomnia Last Admin: 07/21/25 20:11 Dose: 50 mg Allergies Allergies Allergy/AdvReac Type Severity Reaction Status Date / Time No Known Allergies Allergy Verified 07/06/25 18:08 Assessment & Plan Assessment & Plan (1) Parish: Status: Acute Code(s): F30.9 - Manic episode, unspecified (2) Acute psychosis: Status: Acute Code(s): F23 - Brief psychotic disorder Plan 07/08: continue zyprexa and depakote as established in the ED. 07/09: continue current management and treatment plan. Medications recently started. 07/10: continue current management and treatment plan. 07/11: samuels warning provided. increase depakote to 750 BID, otherwise continue current mgmt. check levels in the next couple of days. section 12b up . will likely file for commitment. 07/12: pt declines labs. will wait for steady state at 1500 mg daily prior to checking labs, laconic, terse. will likely file tomorrow. 07/13: filed for commitment. no reaction from pt. continue current mgmt. 07/14: refusing meds as of last night, already hypersexual today and threatening to kill MD if MD does not discharge him. placed on 1:1 for safety. continue to encourage meds. hearing next friday. 07/15: continues to refuse meds, remains on 1:1. wandering. aware of hearing next friday. inert, no questions/concerns. paucity of thought or thought blocking. continue to offer meds. 07/16: difficulty keeping his shirt on in the milieu, oppositional when told to garb up. inappropriate comment to RN last tera. otherwise uneventful, refusing meds. continue to offer meds. 07/17: no behavioral concerns. remains on 1:1. some RIS and inappropriate laughter. refusing meds. slept 7 hours. contnue current mgmt. hearing on friday. 07/18: no behavioral concerns. Remains on 1:1. Refusing am meds but took bedtime meds last night and is reporting poor sleep. Will consolidate olanzapine dosing to 20 mg qhs rather than 10 mg bid to improve adherence and optimize tx of residual parish/psychosis. Otherwise continue current tx plan for now. Hearing scheduled for tomorrow, 07/19 07/19: Took olanzapine 20 mg last night and slept better. No behavioral issues, still on 1:1. 04/26 hearing scheduled for today at 2 pm. Will switch Depakote from 750 mg bid to Depakote ER 1500 mg at hs since pt has been taking bedtime meds only. committed. *By the time of completion of this note- court hearing took place, pt committed on section 7/8. 07/20: Committed on section 8 with Duran order in chart. Pt cannot refuse to take olanzapine per Duran. Give 20 mg IM if pt refuses po 20 mg hs dose of olanzapine. D/C'd prn haldol and switched to 5 mg olanzapine bid prn for agitation to simplify med regimen. Will check VPA level & LFTs on Friday am. Per team discussion- will continue 1:1 for now but will try to switch to q5 min checks later this wk if no behavioral issues. 07/21: Threatened to jump over nursing station due to frustration w/ cell phone policy and continued hospitalization. Was able to tolerate a discussion re: policy and continued need for hospitalization/medication without aggressive behavior. Taking standing meds as rx'd. continue current tx plan, including 1:1 for now 07/22: agitated, threatened to harm peers and staff. security called. agreed to take po olanzapine 10 mg. refused VPA last night. Will continue 1:1. Will adjust orders for pt to receive olanzapine 10 mg if he refuses Depakote per Duran. Pt only wants to take meds for sleep and took the extra olanzapine 10 mg dose today when it was offered to help him w/ sleep (rather than agitation or anxiety) Reason for continued inpatient stay Substantial Risk for: harm to others, rapid decompensation and med/psych decompensation Time Spent With Patient Time: Total time managing care of this patient today __60__ minutes.
[2025-07-22] MEDS: OLANZapine ODT 10 MG TAB.RAPDIS 20 MG TRANSLINGU (20:43)
--- NOTE | 2025-07-23 07:29 | HO.PSYCHPN ---
Subjective Subjective Date of Service: 07/23/25 Reason For Visit: parish Subjective Notes: Section 8 Interim History: met with patient. Discussed with Nursing. Remains on one-to-one sitter due to intrusiveness hypersexuality. Irritable. Patient presents with zero insight regarding concerns on mental state, behavior. Reports he is here for no reason and people want to take medications that he does not need to take. Reports his main goal is getting out of the hospital and joining the [facility] and fight for bread . is perseverative on discharge planning- redirected back to primary team for ongoing discussion after the weekend Medication Compliance: Yes ( as per court order) Side effects from medications: No Attending Groups: No Review of Systems Acute medical concerns: No Review of Systems Review of Systems nothing of note Mental Status Exam Mental Status Exam Narrative: Appearance: Casually dressed. Grooming/hygiene wnl. Frustrated around being in hospital Attitude: guarded w/ initial encounter. Speech: Fluent and wnl in regard to volume, tone, prosody Motor activity: Calm and without any tics, tremors or dyskinesias. Mood: frustrated Affect: appropriate, reactive Thought process: perseverative on d/c Thought content: as noted above Perception: denies AH/VH Insight: poor Judgment: poor Diagnostics Vital Signs (24Hr): BMI result Body Mass Index 22.5 Labs 07/06/25 19:21 07/06/25 19:21 Medications Medications Current Medications Acetaminophen (Acetaminophen 325 Mg Tablet) 650 mg PO Q6H PRN PRN Reason: Headache/Pain, Scale 1-10 Al Hydroxide/Mg Hydroxide (Magnesium Hydrox/Alum Hydrox 30 Ml Oral.Susp) 30 ml PO Q6H PRN PRN Reason: Heartburn/Nausea Divalproex Sodium (Divalproex Sodium Er 500 Mg Tab.Er.24h) 1,500 mg PO BEDTIME MIKALA Last Admin: 07/22/25 20:43 Dose: 1,500 mg Hydroxyzine HCl (Hydroxyzine Hcl 25 Mg Tablet) 25 mg PO Q6H PRN PRN Reason: mild anxiety Lorazepam (Lorazepam 1 Mg Tablet) 1 mg PO BID PRN PRN Reason: Anxiety Last Admin: 07/21/25 20:11 Dose: 1 mg Magnesium Hydroxide (Milk Of Magnesia 30 Ml Oral.Susp) 30 ml PO DAILY PRN PRN Reason: Constipation Nicotine Polacrilex (Nicotine Polacrilex 2 Mg Gum) 4 mg BUCCAL Q2H PRN PRN Reason: Nicotine Cravings Olanzapine (Olanzapine Odt 10 Mg Tab.Rapdis) 20 mg TRANSLINGU BEDTIME MIKALA Last Admin: 07/22/25 20:43 Dose: 20 mg Olanzapine (Olanzapine 10 Mg Vial) 20 mg IM BEDTIME PRN PRN Reason: Refusal to take 20 mg PO at hs Olanzapine (Olanzapine 5 Mg Tablet) 5 mg PO BID PRN PRN Reason: agitation Olanzapine (Olanzapine 10 Mg Tablet) 10 mg PO BEDTIME PRN PRN Reason: Refusal to take Depakote. Offer IM if refuses PO Olanzapine (Olanzapine 10 Mg Vial) 10 mg IM DAILY PRN PRN Reason: see dose instruction Trazodone HCl (Trazodone Hcl 50 Mg Tablet) 50 mg PO BEDTIME MRX1 PRN PRN Reason: Insomnia Last Admin: 07/21/25 20:11 Dose: 50 mg Allergies Allergies Allergy/AdvReac Type Severity Reaction Status Date / Time No Known Allergies Allergy Verified 07/06/25 18:08 Assessment & Plan Assessment & Plan (1) Parish: Status: Acute Code(s): F30.9 - Manic episode, unspecified (2) Acute psychosis: Status: Acute Code(s): F23 - Brief psychotic disorder Plan 07/08: continue zyprexa and depakote as established in the ED. 07/09: continue current management and treatment plan. Medications recently started. 07/10: continue current management and treatment plan. 07/11: samuels warning provided. increase depakote to 750 BID, otherwise continue current mgmt. check levels in the next couple of days. section 12b up . will likely file for commitment. 07/12: pt declines labs. will wait for steady state at 1500 mg daily prior to checking labs, laconic, terse. will likely file tomorrow. 07/13: filed for commitment. no reaction from pt. continue current mgmt. 07/14: refusing meds as of last night, already hypersexual today and threatening to kill MD if MD does not discharge him. placed on 1:1 for safety. continue to encourage meds. hearing next friday. 07/15: continues to refuse meds, remains on 1:1. wandering. aware of hearing next friday. inert, no questions/concerns. paucity of thought or thought blocking. continue to offer meds. 07/16: difficulty keeping his shirt on in the milieu, oppositional when told to garb up. inappropriate comment to RN last tera. otherwise uneventful, refusing meds. continue to offer meds. 07/17: no behavioral concerns. remains on 1:1. some RIS and inappropriate laughter. refusing meds. slept 7 hours. contnue current mgmt. hearing on friday. 07/18: no behavioral concerns. Remains on 1:1. Refusing am meds but took bedtime meds last night and is reporting poor sleep. Will consolidate olanzapine dosing to 20 mg qhs rather than 10 mg bid to improve adherence and optimize tx of residual parish/psychosis. Otherwise continue current tx plan for now. Hearing scheduled for tomorrow, 07/19 07/19: Took olanzapine 20 mg last night and slept better. No behavioral issues, still on 1:1. 04/26 hearing scheduled for today at 2 pm. Will switch Depakote from 750 mg bid to Depakote ER 1500 mg at hs since pt has been taking bedtime meds only. committed. *By the time of completion of this note- court hearing took place, pt committed on section 7/8. 07/20: Committed on section 8 with Duran order in chart. Pt cannot refuse to take olanzapine per Duran. Give 20 mg IM if pt refuses po 20 mg hs dose of olanzapine. D/C'd prn haldol and switched to 5 mg olanzapine bid prn for agitation to simplify med regimen. Will check VPA level & LFTs on Friday. Per team discussion- will continue 1:1 for now but will try to switch to q5 min checks later this wk if no behavioral issues. 07/21: Threatened to jump over nursing station due to frustration w/ cell phone policy and continued hospitalization. Was able to tolerate a discussion re: policy and continued need for hospitalization/medication without aggressive behavior. Taking standing meds as rx'd. continue current tx plan, including 1:1 for now 07/22: agitated, threatened to harm peers and staff. security called. agreed to take po olanzapine 10 mg. refused VPA last night. Will continue 1:1. Will adjust orders for pt to receive olanzapine 10 mg if he refuses Depakote per Duran. Pt only wants to take meds for sleep and took the extra olanzapine 10 mg dose today when it was offered to help him w/ sleep (rather than agitation or anxiety) 07/23: no changes. Continue court-ordered medications Reason for continued inpatient stay Substantial Risk for: harm to others and rapid decompensation Time Spent With Patient Time: Total time managing care of this patient today ____ minutes.
[2025-07-23 08:00] VITALS: PULSE 79; RESP 18
[2025-07-23 20:00] VITALS: BP 137/72; PULSE 110; RESP 16; TEMP 37.3; O2SAT 100
[2025-07-23] MEDS: OLANZapine ODT 10 MG TAB.RAPDIS 20 MG TRANSLINGU (20:28)
--- NOTE | 2025-07-24 11:01 | HO.PSYCHPN ---
Subjective Subjective Date of Service: 07/24/25 Reason For Visit: parish Interim History: Met with patient. Discussed with Nursing. Remains on one-to-one sitter due to intrusiveness hypersexuality. overall no significant changes from yesterday. Still irritable and focused on when he will be out of the hospital. No insight regarding admission circumstances or treatment planning rationale for same etc.. Denies feeling depressed. Denies feeling suicidal. Reports sleep energy and appetite are good. is perseverative on discharge planning- redirected back to primary team for ongoing discussion after the weekend Medication Compliance: Yes Side effects from medications: No Attending Groups: No Review of Systems Acute medical concerns: No Review of Systems Review of Systems nothing of note Mental Status Exam Mental Status Exam Narrative: Appearance: Casually dressed. Grooming/hygiene wnl. Frustrated around being in hospital Attitude: guarded w/ initial encounter. Speech: Fluent and wnl in regard to volume, tone, prosody Motor activity: Calm and without any tics, tremors or dyskinesias. Mood: frustrated Affect: appropriate, reactive Thought process: perseverative on d/c Thought content: as noted above Perception: denies AH/VH Insight: poor Judgment: poor Diagnostics Vital Signs (24Hr): Vital Signs - 24 hr 07/23/25 20:00 Temperature 99.1 F Pulse Rate 110 H Respiratory Rate 16 Blood Pressure 137/72 Pulse Oximetry 100 Oxygen Delivery Method Room Air BMI result Body Mass Index 22.5 Labs 07/06/25 19:21 07/06/25 19:21 Medications Medications Current Medications Acetaminophen (Acetaminophen 325 Mg Tablet) 650 mg PO Q6H PRN PRN Reason: Headache/Pain, Scale 1-10 Al Hydroxide/Mg Hydroxide (Magnesium Hydrox/Alum Hydrox 30 Ml Oral.Susp) 30 ml PO Q6H PRN PRN Reason: Heartburn/Nausea Divalproex Sodium (Divalproex Sodium Er 500 Mg Tab.Er.24h) 1,500 mg PO BEDTIME MIKALA Last Admin: 07/23/25 20:27 Dose: 1,500 mg Hydroxyzine HCl (Hydroxyzine Hcl 25 Mg Tablet) 25 mg PO Q6H PRN PRN Reason: mild anxiety Lorazepam (Lorazepam 1 Mg Tablet) 1 mg PO BID PRN PRN Reason: Anxiety Last Admin: 07/24/25 09:07 Dose: 1 mg Magnesium Hydroxide (Milk Of Magnesia 30 Ml Oral.Susp) 30 ml PO DAILY PRN PRN Reason: Constipation Nicotine Polacrilex (Nicotine Polacrilex 2 Mg Gum) 4 mg BUCCAL Q2H PRN PRN Reason: Nicotine Cravings Olanzapine (Olanzapine Odt 10 Mg Tab.Rapdis) 20 mg TRANSLINGU BEDTIME MIKALA Last Admin: 07/23/25 20:28 Dose: 20 mg Olanzapine (Olanzapine 10 Mg Vial) 20 mg IM BEDTIME PRN PRN Reason: Refusal to take 20 mg PO at hs Olanzapine (Olanzapine 5 Mg Tablet) 5 mg PO BID PRN PRN Reason: agitation Last Admin: 07/24/25 09:07 Dose: 5 mg Olanzapine (Olanzapine 10 Mg Tablet) 10 mg PO BEDTIME PRN PRN Reason: Refusal to take Depakote. Offer IM if refuses PO Olanzapine (Olanzapine 10 Mg Vial) 10 mg IM DAILY PRN PRN Reason: see dose instruction Trazodone HCl (Trazodone Hcl 50 Mg Tablet) 50 mg PO BEDTIME MRX1 PRN PRN Reason: Insomnia Last Admin: 07/21/25 20:11 Dose: 50 mg Allergies Allergies Allergy/AdvReac Type Severity Reaction Status Date / Time No Known Allergies Allergy Verified 07/06/25 18:08 Assessment & Plan Assessment & Plan (1) Parish: Status: Acute Code(s): F30.9 - Manic episode, unspecified (2) Acute psychosis: Status: Acute Code(s): F23 - Brief psychotic disorder Plan 07/08: continue zyprexa and depakote as established in the ED. 07/09: continue current management and treatment plan. Medications recently started. 07/10: continue current management and treatment plan. 07/11: samuels warning provided. increase depakote to 750 BID, otherwise continue current mgmt. check levels in the next couple of days. section 12b up . will likely file for commitment. 07/12: pt declines labs. will wait for steady state at 1500 mg daily prior to checking labs, laconic, terse. will likely file tomorrow. 07/13: filed for commitment. no reaction from pt. continue current mgmt. 07/14: refusing meds as of last night, already hypersexual today and threatening to kill MD if MD does not discharge him. placed on 1:1 for safety. continue to encourage meds. hearing next friday. 07/15: continues to refuse meds, remains on 1:1. wandering. aware of hearing next friday. inert, no questions/concerns. paucity of thought or thought blocking. continue to offer meds. 07/16: difficulty keeping his shirt on in the milieu, oppositional when told to garb up. inappropriate comment to RN last tera. otherwise uneventful, refusing meds. continue to offer meds. 07/17: no behavioral concerns. remains on 1:1. some RIS and inappropriate laughter. refusing meds. slept 7 hours. contnue current mgmt. hearing on friday. 07/18: no behavioral concerns. Remains on 1:1. Refusing am meds but took bedtime meds last night and is reporting poor sleep. Will consolidate olanzapine dosing to 20 mg qhs rather than 10 mg bid to improve adherence and optimize tx of residual parish/psychosis. Otherwise continue current tx plan for now. Hearing scheduled for tomorrow, 07/19 07/19: Took olanzapine 20 mg last night and slept better. No behavioral issues, still on 1:1. 04/26 hearing scheduled for today at 2 pm. Will switch Depakote from 750 mg bid to Depakote ER 1500 mg at hs since pt has been taking bedtime meds only. committed. *By the time of completion of this note- court hearing took place, pt committed on section 7/8. 07/20: Committed on section 8 with Duran order in chart. Pt cannot refuse to take olanzapine per Duran. Give 20 mg IM if pt refuses po 20 mg hs dose of olanzapine. D/C'd prn haldol and switched to 5 mg olanzapine bid prn for agitation to simplify med regimen. Will check VPA level & LFTs on Friday am. Per team discussion- will continue 1:1 for now but will try to switch to q5 min checks later this wk if no behavioral issues. 07/21: Threatened to jump over nursing station due to frustration w/ cell phone policy and continued hospitalization. Was able to tolerate a discussion re: policy and continued need for hospitalization/medication without aggressive behavior. Taking standing meds as rx'd. continue current tx plan, including 1:1 for now 07/22: agitated, threatened to harm peers and staff. security called. agreed to take po olanzapine 10 mg. refused VPA last night. Will continue 1:1. Will adjust orders for pt to receive olanzapine 10 mg if he refuses Depakote per Duran. Pt only wants to take meds for sleep and took the extra olanzapine 10 mg dose today when it was offered to help him w/ sleep (rather than agitation or anxiety) 07/24: no changes. Continue court-ordered medications Reason for continued inpatient stay Substantial Risk for: inability to function and rapid decompensation Time Spent With Patient Time: Total time managing care of this patient today ____ minutes.
[2025-07-24 19:45] VITALS: BP 120/60; PULSE 116; RESP 16; TEMP 37.1; O2SAT 99
[2025-07-24] MEDS: OLANZapine ODT 10 MG TAB.RAPDIS 20 MG TRANSLINGU (20:37)
[2025-07-25 07:20] VITALS: BP 118/60; PULSE 79; RESP 16; TEMP 36.6; O2SAT 99
--- NOTE | 2025-07-25 09:23 | P.PNPSI_ITS ---
Subjective Subjective Date of Service: 07/25/25 Reason For Visit: parish Subjective Notes: [place] Order and Section 8 Interim History: chart reviewed, case discussed with tx team Per weekend psychiatry notes- pt perseverated on discharge. Per nursing report- pt's mom and sister visited over the weekend. Pt slept 8 hrs Pt took olanzapine and VPA as rx'd over the weekend. Took prn trazodone, 5 mg olanzapine and 1 mg lorazepam yesterday Pt cooperated with meeting with t/w in interview room today. 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 He reports that he's feeling 'fine'. He states that he just wants to be d/c'd and I shouldn't be here.... the only thing I did was sleep on the grass . I reminded him that he had reportedly threatened to harm others who kept him from the property ([facility]) and he responded oh, that? and stated that he does recall the incident now that I reminded him. He stated anyone would threaten to harm.. and didn't finish his sentence. He denies current thoughts to harm self/others. I asked about pt's visit w/ his mom and sister and he calmly stated I just wanna go. I don't wanna keep talking . Medication Compliance: Yes Side effects from medications: No Review of Systems Acute medical concerns: No Mental Status Exam Mental Status Exam Narrative: Appearance: Casually dressed. Grooming/hygiene wnl. Good eye contact Attitude: Guarded, cooperated with short interview Speech: Fluent and wnl in regard to volume, tone, prosody Motor activity: Calm and without any tics, tremors or dyskinesias. Steady gait Mood: as noted above Affect: mildly irritable with interview Thought process: goal directed Thought content: as noted above Perception: does not appear to respond to internal stimuli Insight: severely impaired Judgment: impaired Diagnostics Vital Signs (24Hr): Vital Signs - 24 hr 07/24/25 19:45 07/25/25 07:20 Temperature 98.8 F 97.9 F Pulse Rate 116 H 79 Respiratory Rate 16 16 Blood Pressure 120/60 118/60 Pulse Oximetry 99 99 Oxygen Delivery Method Room Air Room Air BMI result Body Mass Index 22.5 Labs 07/06/25 19:21 07/06/25 19:21 Medications Medications Current Medications Acetaminophen (Acetaminophen 325 Mg Tablet) 650 mg PO Q6H PRN PRN Reason: Headache/Pain, Scale 1-10 Al Hydroxide/Mg Hydroxide (Magnesium Hydrox/Alum Hydrox 30 Ml Oral.Susp) 30 ml PO Q6H PRN PRN Reason: Heartburn/Nausea Divalproex Sodium (Divalproex Sodium Er 500 Mg Tab.Er.24h) 1,500 mg PO BEDTIME MIKALA Last Admin: 07/24/25 20:37 Dose: 1,500 mg Hydroxyzine HCl (Hydroxyzine Hcl 25 Mg Tablet) 25 mg PO Q6H PRN PRN Reason: mild anxiety Last Admin: 07/24/25 11:37 Dose: 25 mg Lorazepam (Lorazepam 1 Mg Tablet) 1 mg PO BID PRN PRN Reason: Anxiety Last Admin: 07/24/25 20:37 Dose: 1 mg Magnesium Hydroxide (Milk Of Magnesia 30 Ml Oral.Susp) 30 ml PO DAILY PRN PRN Reason: Constipation Nicotine Polacrilex (Nicotine Polacrilex 2 Mg Gum) 4 mg BUCCAL Q2H PRN PRN Reason: Nicotine Cravings Olanzapine (Olanzapine Odt 10 Mg Tab.Rapdis) 20 mg TRANSLINGU BEDTIME MIKALA Last Admin: 07/24/25 20:37 Dose: 20 mg Olanzapine (Olanzapine 10 Mg Vial) 20 mg IM BEDTIME PRN PRN Reason: Refusal to take 20 mg PO at hs Olanzapine (Olanzapine 5 Mg Tablet) 5 mg PO BID PRN PRN Reason: agitation Last Admin: 07/24/25 09:07 Dose: 5 mg Olanzapine (Olanzapine 10 Mg Tablet) 10 mg PO BEDTIME PRN PRN Reason: Refusal to take Depakote. Offer IM if refuses PO Olanzapine (Olanzapine 10 Mg Vial) 10 mg IM DAILY PRN PRN Reason: see dose instruction Trazodone HCl (Trazodone Hcl 50 Mg Tablet) 50 mg PO BEDTIME MRX1 PRN PRN Reason: Insomnia Last Admin: 07/24/25 20:37 Dose: 50 mg Allergies Allergies Allergy/AdvReac Type Severity Reaction Status Date / Time No Known Allergies Allergy Verified 07/06/25 18:08 Assessment & Plan Assessment & Plan (1) Parish: Status: Acute Code(s): F30.9 - Manic episode, unspecified (2) Acute psychosis: Status: Acute Code(s): F23 - Brief psychotic disorder Plan 07/08: continue zyprexa and depakote as established in the ED. 07/09: continue current management and treatment plan. Medications recently started. 07/10: continue current management and treatment plan. 07/11: samuels warning provided. increase depakote to 750 BID, otherwise continue current mgmt. check levels in the next couple of days. section 12b up . will likely file for commitment. 07/12: pt declines labs. will wait for steady state at 1500 mg daily prior to checking labs, laconic, terse. will likely file tomorrow. 07/13: filed for commitment. no reaction from pt. continue current mgmt. 07/14: refusing meds as of last night, already hypersexual today and threatening to kill MD if MD does not discharge him. placed on 1:1 for safety. continue to encourage meds. hearing next friday. 07/15: continues to refuse meds, remains on 1:1. wandering. aware of hearing next friday. inert, no questions/concerns. paucity of thought or thought blocking. continue to offer meds. 07/16: difficulty keeping his shirt on in the milieu, oppositional when told to garb up. inappropriate comment to RN last tera. otherwise uneventful, refusing meds. continue to offer meds. 07/17: no behavioral concerns. remains on 1:1. some RIS and inappropriate laughter. refusing meds. slept 7 hours. contnue current mgmt. hearing on friday. 07/18: no behavioral concerns. Remains on 1:1. Refusing am meds but took bedtime meds last night and is reporting poor sleep. Will consolidate olanzapine dosing to 20 mg qhs rather than 10 mg bid to improve adherence and optimize tx of residual parish/psychosis. Otherwise continue current tx plan for now. Hearing scheduled for tomorrow, 07/19 07/19: Took olanzapine 20 mg last night and slept better. No behavioral issues, still on 1:1. 04/26 hearing scheduled for today at 2 pm. Will switch Depakote from 750 mg bid to Depakote ER 1500 mg at hs since pt has been taking bedtime meds only. committed. *By the time of completion of this note- court hearing took place, pt committed on section 7/8. 07/20: Committed on section 8 with Duran order in chart. Pt cannot refuse to take olanzapine per Duran. Give 20 mg IM if pt refuses po 20 mg hs dose of olanzapine. D/C'd prn haldol and switched to 5 mg olanzapine bid prn for agitation to simplify med regimen. Will check VPA level & LFTs on Friday am. Per team discussion- will continue 1:1 for now but will try to switch to q5 min checks later this wk if no behavioral issues. 07/21: Threatened to jump over nursing station due to frustration w/ cell phone policy and continued hospitalization. Was able to tolerate a discussion re: policy and continued need for hospitalization/medication without aggressive behavior. Taking standing meds as rx'd. continue current tx plan, including 1:1 for now 07/22: agitated, threatened to harm peers and staff. security called. agreed to take po olanzapine 10 mg. refused VPA last night. Will continue 1:1. Will adjust orders for pt to receive olanzapine 10 mg if he refuses Depakote per Duran. Pt only wants to take meds for sleep and took the extra olanzapine 10 mg dose today when it was offered to help him w/ sleep (rather than agitation or anxiety) 07/24: no changes. Continue court-ordered medications 07/25: Adherent w/ meds over the weekend. Guarded. focused on discharge but calm. Insight remains severely impaired. Continue current tx plan, including 1:1 Patient educated on: diagnosis Informed Consent: does not understand Reason for continued inpatient stay Substantial Risk for: harm to others and med/psych decompensation Time Spent With Patient Time: Total time managing care of this patient today __30__ minutes.
[2025-07-25 14:47] LABS: Alanine Aminotransferase 253 U/L (0-40); Albumin Level 4.2 g/dL (3.5-5.0); Alkaline Phosphatase 83 U/L (39-117); Anion Gap 10 (12-20); Aspartate Amino Transferase 114 U/L (5-37); Blood Urea Nitrogen 14 mg/dL (9-16); Calcium 9.4 mg/dL (8.4-10.2); Carbon Dioxide 30 mmol/L (22-29); Chloride 106 mmol/L (96-108); Creatinine Clr Calc Pharmacy 114.1; Estimated Glomerular Filt Rate > 60; Potassium 4.1 mmol/L (3.3-5.1); Sodium 142 mmol/L (135-145); Total Protein 6.8 g/dL (6.5-8.0)
[2025-07-25 19:56] VITALS: BP 119/66; PULSE 97; RESP 16; TEMP 36.6; O2SAT 99
[2025-07-25] MEDS: OLANZapine ODT 10 MG TAB.RAPDIS 20 MG TRANSLINGU (20:11)
--- NOTE | 2025-07-26 18:39 | HO.PSYCHPN ---
Subjective Subjective Date of Service: 07/26/25 Reason For Visit: parish Subjective Notes: [place] Order and Section 8 Interim History: chart reviewed, case discussed with tx team Per NEHEMIAH, pt called his mother for a ride and told her that his case was dismissed today. NEHEMIAH informed pt's mother that this was not the case. Per pt's nurse, pt requested a fresh air break today but has been pushing on the doors to the unit, believes he's being discharged and repeatedly asked for his shoes. Given his flight risk, he is not appropriate for PERI today. I asked pt if he would speak with me when I saw him at the nursing station and he replied no . Medication Compliance: Yes Mental Status Exam Mental Status Exam Narrative: Appearance: Casually dressed. Grooming/hygiene wnl. Good eye contact Attitude: declined to speak to t/w Speech: wnl Motor activity: Calm and without any tics, tremors or dyskinesias. Steady gait Mood: unable to assess due to pt declining interview Affect: irritable but calm Thought process: unable to fully assess Thought content: fixated on discharge Perception: does not appear to respond to internal stimuli Insight: severely impaired Judgment: severely impaired Diagnostics Vital Signs (24Hr): Vital Signs - 24 hr 07/25/25 19:56 Temperature 97.9 F Pulse Rate 97 Respiratory Rate 16 Blood Pressure 119/66 Pulse Oximetry 99 Oxygen Delivery Method Room Air BMI result Body Mass Index 22.5 Labs 07/06/25 19:21 07/25/25 14:11 Labs: Laboratory Results - last 48 hr 07/25/25 14:11 Sodium 142 Potassium 4.1 Chloride 106 Carbon Dioxide 30 H Anion Gap 10 L BUN 14 Creatinine 0.98 Estim Creat Clear Calc 114.1 Estimated GFR > 60 Random Glucose 92 Calcium 9.4 Total Bilirubin 0.2 AST 114 H ALT 253 H Alkaline Phosphatase 83 Total Protein 6.8 Albumin 4.2 Valproic Acid 104.6 H Medications Medications Current Medications Acetaminophen (Acetaminophen 325 Mg Tablet) 650 mg PO Q6H PRN PRN Reason: Headache/Pain, Scale 1-10 Al Hydroxide/Mg Hydroxide (Magnesium Hydrox/Alum Hydrox 30 Ml Oral.Susp) 30 ml PO Q6H PRN PRN Reason: Heartburn/Nausea Divalproex Sodium (Divalproex Sodium Er 500 Mg Tab.Er.24h) 1,500 mg PO BEDTIME MIKALA Last Admin: 07/25/25 20:11 Dose: 1,500 mg Hydroxyzine HCl (Hydroxyzine Hcl 25 Mg Tablet) 25 mg PO Q6H PRN PRN Reason: mild anxiety Last Admin: 07/25/25 20:12 Dose: 25 mg Lorazepam (Lorazepam 1 Mg Tablet) 1 mg PO BID PRN PRN Reason: Anxiety Last Admin: 07/25/25 14:17 Dose: 1 mg Magnesium Hydroxide (Milk Of Magnesia 30 Ml Oral.Susp) 30 ml PO DAILY PRN PRN Reason: Constipation Nicotine Polacrilex (Nicotine Polacrilex 2 Mg Gum) 4 mg BUCCAL Q2H PRN PRN Reason: Nicotine Cravings Olanzapine (Olanzapine Odt 10 Mg Tab.Rapdis) 20 mg TRANSLINGU BEDTIME MIKALA Last Admin: 07/25/25 20:11 Dose: 20 mg Olanzapine (Olanzapine 10 Mg Vial) 20 mg IM BEDTIME PRN PRN Reason: Refusal to take 20 mg PO at hs Olanzapine (Olanzapine 5 Mg Tablet) 5 mg PO BID PRN PRN Reason: agitation Last Admin: 07/25/25 14:17 Dose: 5 mg Olanzapine (Olanzapine 10 Mg Tablet) 10 mg PO BEDTIME PRN PRN Reason: Refusal to take Depakote. Offer IM if refuses PO Olanzapine (Olanzapine 10 Mg Vial) 10 mg IM DAILY PRN PRN Reason: see dose instruction Trazodone HCl (Trazodone Hcl 50 Mg Tablet) 50 mg PO BEDTIME MRX1 PRN PRN Reason: Insomnia Last Admin: 07/25/25 20:11 Dose: 50 mg Allergies Allergies Allergy/AdvReac Type Severity Reaction Status Date / Time No Known Allergies Allergy Verified 07/06/25 18:08 Assessment & Plan Assessment & Plan (1) Parish: Status: Acute Code(s): F30.9 - Manic episode, unspecified (2) Acute psychosis: Status: Acute Code(s): F23 - Brief psychotic disorder Plan 07/08: continue zyprexa and depakote as established in the ED. 07/09: continue current management and treatment plan. Medications recently started. 07/10: continue current management and treatment plan. 07/11: samuels warning provided. increase depakote to 750 BID, otherwise continue current mgmt. check levels in the next couple of days. section 12b up . will likely file for commitment. 07/12: pt declines labs. will wait for steady state at 1500 mg daily prior to checking labs, laconic, terse. will likely file tomorrow. 07/13: filed for commitment. no reaction from pt. continue current mgmt. 07/14: refusing meds as of last night, already hypersexual today and threatening to kill MD if MD does not discharge him. placed on 1:1 for safety. continue to encourage meds. hearing next friday. 07/15: continues to refuse meds, remains on 1:1. wandering. aware of hearing next friday. inert, no questions/concerns. paucity of thought or thought blocking. continue to offer meds. 07/16: difficulty keeping his shirt on in the milieu, oppositional when told to garb up. inappropriate comment to RN last . otherwise uneventful, refusing meds. continue to offer meds. 07/17: no behavioral concerns. remains on 1:1. some RIS and inappropriate laughter. refusing meds. slept 7 hours. contnue current mgmt. hearing on friday. 07/18: no behavioral concerns. Remains on 1:1. Refusing am meds but took bedtime meds last night and is reporting poor sleep. Will consolidate olanzapine dosing to 20 mg qhs rather than 10 mg bid to improve adherence and optimize tx of residual parish/psychosis. Otherwise continue current tx plan for now. Hearing scheduled for tomorrow, 07/19 07/19: Took olanzapine 20 mg last night and slept better. No behavioral issues, still on 1:1. 04/26 hearing scheduled for today at 2 pm. Will switch Depakote from 750 mg bid to Depakote ER 1500 mg at hs since pt has been taking bedtime meds only. committed. *By the time of completion of this note- court hearing took place, pt committed on section 7/8. 07/20: Committed on section 8 with Duran order in chart. Pt cannot refuse to take olanzapine per Duran. Give 20 mg IM if pt refuses po 20 mg hs dose of olanzapine. D/C'd prn haldol and switched to 5 mg olanzapine bid prn for agitation to simplify med regimen. Will check VPA level & LFTs on Friday am. Per team discussion- will continue 1:1 for now but will try to switch to q5 min checks later this wk if no behavioral issues. 07/21: Threatened to jump over nursing station due to frustration w/ cell phone policy and continued hospitalization. Was able to tolerate a discussion re: policy and continued need for hospitalization/medication without aggressive behavior. Taking standing meds as rx'd. continue current tx plan, including 1:1 for now 07/22: agitated, threatened to harm peers and staff. security called. agreed to take po olanzapine 10 mg. refused VPA last night. Will continue 1:1. Will adjust orders for pt to receive olanzapine 10 mg if he refuses Depakote per Duran. Pt only wants to take meds for sleep and took the extra olanzapine 10 mg dose today when it was offered to help him w/ sleep (rather than agitation or anxiety) 07/24: no changes. Continue court-ordered medications 07/25: Adherent w/ meds over the weekend. Guarded. focused on discharge but calm. Insight remains severely impaired. Continue current tx plan, including 1:1 07/26: Remains focused on discharge, pushed on the unit doors and told his mom that he was being d/c'd today. Pt is not currently appropriate for a fresh air break due to being a flight risk. Continue 1:1 Reason for continued inpatient stay Substantial Risk for: med/psych decompensation Time Spent With Patient Time: Total time managing care of this patient today 20___ minutes.
[2025-07-26 20:00] VITALS: BP 121/59; PULSE 106; RESP 16; TEMP 37.1; O2SAT 99
[2025-07-26] MEDS: OLANZapine ODT 10 MG TAB.RAPDIS 20 MG TRANSLINGU (20:36)
--- NOTE | 2025-07-27 14:29 | HO.PSYCHPN ---
Subjective Subjective Date of Service: 07/27/25 Reason For Visit: parish Subjective Notes: [place] Order and Section 8 Interim History: Chart reviewed. Case discussed in team Per RN, pt doesn't like taking Depakote tabs since they're large and difficult to swallow. He expressed appreciation when I offered to switch it to liquid. Pt has not had any safety concerns or major behavioral issues while in his room. T/W switched pt to 5 min safety checks while he's in his room, will continue 1:1 in the milieu after discussing w/ his nurse. Pt is more cooperative today, allowed t/w typewriters functional tester to sit and meet w/ him in his room. He states that he needs to be discharged to help him mom as her [employer]SEL[employer]. He asks for his attny's number to discuss his d/c date, which I provided him. He's able to tolerate a discussion about discharge better today, though he calmly expresses frustration about being here. He states I need vagina...I'm horny calmly w/ blunted affect He opened a notebook and showed t/w a to-do list that his sister wrote for him. The first item was warrant but he denies having one. Mental Status Exam Mental Status Exam Narrative: Appearance: Casually dressed. Grooming/hygiene wnl. Good eye contact Attitude: cooperative Speech: wnl Motor activity: Calm and without any tics, tremors or dyskinesias. Steady gait Mood: bored, frustrated Affect: blunted Thought process: more goal directed Thought content: as noted above. denies thoughts to harm self/others Perception: does not appear to respond to internal stimuli Insight: severely impaired Judgment: impaired Diagnostics Vital Signs (24Hr): Vital Signs - 24 hr 07/26/25 20:00 Temperature 98.7 F Pulse Rate 106 H Respiratory Rate 16 Blood Pressure 121/59 L Pulse Oximetry 99 Oxygen Delivery Method Room Air BMI result Body Mass Index 22.5 Labs 07/06/25 19:21 07/25/25 14:11 Labs: Laboratory Results - last 48 hr 07/25/25 14:11 Sodium 142 Potassium 4.1 Chloride 106 Carbon Dioxide 30 H Anion Gap 10 L BUN 14 Creatinine 0.98 Estim Creat Clear Calc 114.1 Estimated GFR > 60 Random Glucose 92 Calcium 9.4 Total Bilirubin 0.2 AST 114 H ALT 253 H Alkaline Phosphatase 83 Total Protein 6.8 Albumin 4.2 Valproic Acid 104.6 H Medications Medications Current Medications Acetaminophen (Acetaminophen 325 Mg Tablet) 650 mg PO Q6H PRN PRN Reason: Headache/Pain, Scale 1-10 Al Hydroxide/Mg Hydroxide (Magnesium Hydrox/Alum Hydrox 30 Ml Oral.Susp) 30 ml PO Q6H PRN PRN Reason: Heartburn/Nausea Divalproex Sodium (Divalproex Sodium Er 500 Mg Tab.Er.24h) 1,500 mg PO BEDTIME MIKALA Last Admin: 07/26/25 20:36 Dose: 1,500 mg Hydroxyzine HCl (Hydroxyzine Hcl 25 Mg Tablet) 25 mg PO Q6H PRN PRN Reason: mild anxiety Last Admin: 07/25/25 20:12 Dose: 25 mg Lorazepam (Lorazepam 1 Mg Tablet) 1 mg PO BID PRN PRN Reason: Anxiety Last Admin: 07/26/25 20:36 Dose: 1 mg Magnesium Hydroxide (Milk Of Magnesia 30 Ml Oral.Susp) 30 ml PO DAILY PRN PRN Reason: Constipation Nicotine Polacrilex (Nicotine Polacrilex 2 Mg Gum) 4 mg BUCCAL Q2H PRN PRN Reason: Nicotine Cravings Olanzapine (Olanzapine Odt 10 Mg Tab.Rapdis) 20 mg TRANSLINGU BEDTIME MIKALA Last Admin: 07/26/25 20:36 Dose: 20 mg Olanzapine (Olanzapine 10 Mg Vial) 20 mg IM BEDTIME PRN PRN Reason: Refusal to take 20 mg PO at hs Olanzapine (Olanzapine 5 Mg Tablet) 5 mg PO BID PRN PRN Reason: agitation Last Admin: 07/25/25 14:17 Dose: 5 mg Olanzapine (Olanzapine 10 Mg Tablet) 10 mg PO BEDTIME PRN PRN Reason: Refusal to take Depakote. Offer IM if refuses PO Olanzapine (Olanzapine 10 Mg Vial) 10 mg IM DAILY PRN PRN Reason: see dose instruction Trazodone HCl (Trazodone Hcl 50 Mg Tablet) 50 mg PO BEDTIME MRX1 PRN PRN Reason: Insomnia Last Admin: 07/26/25 20:36 Dose: 50 mg Allergies Allergies Allergy/AdvReac Type Severity Reaction Status Date / Time No Known Allergies Allergy Verified 07/06/25 18:08 Assessment & Plan Assessment & Plan (1) Parish: Status: Acute Code(s): F30.9 - Manic episode, unspecified (2) Acute psychosis: Status: Acute Code(s): F23 - Brief psychotic disorder Plan 07/08: continue zyprexa and depakote as established in the ED. 07/09: continue current management and treatment plan. Medications recently started. 07/10: continue current management and treatment plan. 07/11: samuels warning provided. increase depakote to 750 BID, otherwise continue current mgmt. check levels in the next couple of days. section 12b up . will likely file for commitment. 07/12: pt declines labs. will wait for steady state at 1500 mg daily prior to checking labs, laconic, terse. will likely file tomorrow. 07/13: filed for commitment. no reaction from pt. continue current mgmt. 07/14: refusing meds as of last night, already hypersexual today and threatening to kill MD if MD does not discharge him. placed on 1:1 for safety. continue to encourage meds. hearing next friday. 07/15: continues to refuse meds, remains on 1:1. wandering. aware of hearing next friday. inert, no questions/concerns. paucity of thought or thought blocking. continue to offer meds. 07/16: difficulty keeping his shirt on in the milieu, oppositional when told to garb up. inappropriate comment to RN last tera. otherwise uneventful, refusing meds. continue to offer meds. 07/17: no behavioral concerns. remains on 1:1. some RIS and inappropriate laughter. refusing meds. slept 7 hours. contnue current mgmt. hearing on friday. 07/18: no behavioral concerns. Remains on 1:1. Refusing am meds but took bedtime meds last night and is reporting poor sleep. Will consolidate olanzapine dosing to 20 mg qhs rather than 10 mg bid to improve adherence and optimize tx of residual parish/psychosis. Otherwise continue current tx plan for now. Hearing scheduled for tomorrow, 07/19 07/19: Took olanzapine 20 mg last night and slept better. No behavioral issues, still on 1:1. 04/26 hearing scheduled for today at 2 pm. Will switch Depakote from 750 mg bid to Depakote ER 1500 mg at hs since pt has been taking bedtime meds only. committed. *By the time of completion of this note- court hearing took place, pt committed on section 7/8. 07/20: Committed on section 8 with Duran order in chart. Pt cannot refuse to take olanzapine per Duran. Give 20 mg IM if pt refuses po 20 mg hs dose of olanzapine. D/C'd prn haldol and switched to 5 mg olanzapine bid prn for agitation to simplify med regimen. Will check VPA level & LFTs on Friday am. Per team discussion- will continue 1:1 for now but will try to switch to q5 min checks later this wk if no behavioral issues. 07/21: Threatened to jump over nursing station due to frustration w/ cell phone policy and continued hospitalization. Was able to tolerate a discussion re: policy and continued need for hospitalization/medication without aggressive behavior. Taking standing meds as rx'd. continue current tx plan, including 1:1 for now 07/22: agitated, threatened to harm peers and staff. security called. agreed to take po olanzapine 10 mg. refused VPA last night. Will continue 1:1. Will adjust orders for pt to receive olanzapine 10 mg if he refuses Depakote per Duran. Pt only wants to take meds for sleep and took the extra olanzapine 10 mg dose today when it was offered to help him w/ sleep (rather than agitation or anxiety) 07/24: no changes. Continue court-ordered medications 07/25: Adherent w/ meds over the weekend. Guarded. focused on discharge but calm. Insight remains severely impaired. Continue current tx plan, including 1:1 07/26: Remains focused on discharge, pushed on the unit doors and told his mom that he was being d/c'd today. Pt is not currently appropriate for a fresh air break due to being a flight risk. Continue 1:1 07/27: Calmer, more cooperative today. Switched to 5 min safety checks while in room, continue 1:1 in milieu. Will switch Depakote tabs to liquid due to difficulty swallowing the tabs. Patient educated on: other (tx plan) Informed Consent: understands Reason for continued inpatient stay Substantial Risk for: med/psych decompensation Time Spent With Patient Time: Total time managing care of this patient today __30__ minutes.
[2025-07-27 20:00] VITALS: BP 148/78; PULSE 118; RESP 16; TEMP 36.7; O2SAT 99
[2025-07-27] MEDS: OLANZapine ODT 10 MG TAB.RAPDIS 20 MG TRANSLINGU (20:41)
[2025-07-28 07:00] VITALS: BMI 23.6
[2025-07-28 08:00] VITALS: RESP 16
--- NOTE | 2025-07-28 14:44 | HO.PSYCHPN ---
Subjective Subjective Date of Service: 07/28/25 Reason For Visit: parish Subjective Notes: [place] Order and Section 8 Interim History: Chart reviewed, case discussed with tx team Met w/ pt in his room. T/W apologized for not changing the valproic acid to liquid before last night's dose and assured him that the order is now changed to liquid. He was accepting of this and stated that he won't take the VPA pills again since they're so big. He reports feeling weird with is meds. Denied feeling sedated. Does endorse signif restlessness, feeling like he has to keep moving. I told him that it's likely 2/2 to the olanzapine and I wlll adjust his meds to make him more comfortable. I showed pt a few websites on my laptop for boxing gyms near his home and he was appreciative and wrote down the info. 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 He reports that he doesn't like living w/ his mom but declined to go into further details. He stated that he couldn't tell t/w who he plans to reconnect with since it's a secret. Discussed other hobbies, including playing basketball and football with friends. States he learned to box on the street. He denies any plans to return to the property where he was caught trespassing prior to this admission. 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 Reports poor sleep since he feels uncomfortable w/ someone walking in his room for the safety checks at night Medication Compliance: Yes (took 1mg lorazepam last night ) Side effects from medications: Yes (akathisia) Mental Status Exam Mental Status Exam Narrative: Appearance: Casually dressed. Grooming/hygiene wnl. Good eye contact Attitude: cooperative Speech: fluent, wnl Motor activity: Calm and without any tics, tremors or dyskinesias. Steady gait Mood: okay Affect: appropriate, reactive, fairly bright. 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 No bizarre delusional content. Denies SI Perception: does not appear to respond to internal stimuli Insight: severely impaired Judgment: impaired Diagnostics Vital Signs (24Hr): Vital Signs - 24 hr 07/27/25 20:00 07/28/25 08:00 Temperature 98.0 F Pulse Rate 118 H Respiratory Rate 16 16 Blood Pressure 148/78 H Pulse Oximetry 99 Oxygen Delivery Method Room Air BMI result Body Mass Index 23.6 Labs 07/06/25 19:21 07/25/25 14:11 Medications Medications Current Medications Acetaminophen (Acetaminophen 325 Mg Tablet) 650 mg PO Q6H PRN PRN Reason: Headache/Pain, Scale 1-10 Al Hydroxide/Mg Hydroxide (Magnesium Hydrox/Alum Hydrox 30 Ml Oral.Susp) 30 ml PO Q6H PRN PRN Reason: Heartburn/Nausea Hydroxyzine HCl (Hydroxyzine Hcl 25 Mg Tablet) 25 mg PO Q6H PRN PRN Reason: mild anxiety Last Admin: 07/25/25 20:12 Dose: 25 mg Lorazepam (Lorazepam 1 Mg Tablet) 1 mg PO BID PRN PRN Reason: Anxiety Last Admin: 07/27/25 20:41 Dose: 1 mg Magnesium Hydroxide (Milk Of Magnesia 30 Ml Oral.Susp) 30 ml PO DAILY PRN PRN Reason: Constipation Nicotine Polacrilex (Nicotine Polacrilex 2 Mg Gum) 4 mg BUCCAL Q2H PRN PRN Reason: Nicotine Cravings Olanzapine (Olanzapine Odt 10 Mg Tab.Rapdis) 20 mg TRANSLINGU BEDTIME MIKALA Last Admin: 07/27/25 20:41 Dose: 20 mg Olanzapine (Olanzapine 10 Mg Vial) 20 mg IM BEDTIME PRN PRN Reason: Refusal to take 20 mg PO at hs Olanzapine (Olanzapine 5 Mg Tablet) 5 mg PO BID PRN PRN Reason: agitation Last Admin: 07/25/25 14:17 Dose: 5 mg Olanzapine (Olanzapine 10 Mg Tablet) 10 mg PO BEDTIME PRN PRN Reason: Refusal to take Depakote. Offer IM if refuses PO Olanzapine (Olanzapine 10 Mg Vial) 10 mg IM DAILY PRN PRN Reason: see dose instruction Trazodone HCl (Trazodone Hcl 50 Mg Tablet) 50 mg PO BEDTIME MRX1 PRN PRN Reason: Insomnia Last Admin: 07/27/25 20:41 Dose: 50 mg Valproic Acid (Valproic Acid Liquid 250 Mg/5 Ml Solution) 800 mg PO BID MIKALA Allergies Allergies Allergy/AdvReac Type Severity Reaction Status Date / Time No Known Allergies Allergy Verified 07/06/25 18:08 Assessment & Plan Assessment & Plan (1) Parish: Status: Acute Code(s): F30.9 - Manic episode, unspecified (2) Acute psychosis: Status: Acute Code(s): F23 - Brief psychotic disorder Plan 07/08: continue zyprexa and depakote as established in the ED. 07/09: continue current management and treatment plan. Medications recently started. 07/10: continue current management and treatment plan. 07/11: samuels warning provided. increase depakote to 750 BID, otherwise continue current mgmt. check levels in the next couple of days. section 12b up . will likely file for commitment. 07/12: pt declines labs. will wait for steady state at 1500 mg daily prior to checking labs, laconic, terse. will likely file tomorrow. 07/13: filed for commitment. no reaction from pt. continue current mgmt. 07/14: refusing meds as of last night, already hypersexual today and threatening to kill MD if MD does not discharge him. placed on 1:1 for safety. continue to encourage meds. hearing next friday. 07/15: continues to refuse meds, remains on 1:1. wandering. aware of hearing next friday. inert, no questions/concerns. paucity of thought or thought blocking. continue to offer meds. 07/16: difficulty keeping his shirt on in the milieu, oppositional when told to garb up. inappropriate comment to RN last tera. otherwise uneventful, refusing meds. continue to offer meds. 07/17: no behavioral concerns. remains on 1:1. some RIS and inappropriate laughter. refusing meds. slept 7 hours. contnue current mgmt. hearing on friday. 07/18: no behavioral concerns. Remains on 1:1. Refusing am meds but took bedtime meds last night and is reporting poor sleep. Will consolidate olanzapine dosing to 20 mg qhs rather than 10 mg bid to improve adherence and optimize tx of residual parish/psychosis. Otherwise continue current tx plan for now. Hearing scheduled for tomorrow, 07/19 07/19: Took olanzapine 20 mg last night and slept better. No behavioral issues, still on 1:1. 04/26 hearing scheduled for today at 2 pm. Will switch Depakote from 750 mg bid to Depakote ER 1500 mg at hs since pt has been taking bedtime meds only. committed. *By the time of completion of this note- court hearing took place, pt committed on section 7/. 07/20: Committed on section 8 with Duran order in chart. Pt cannot refuse to take olanzapine per Duran. Give 20 mg IM if pt refuses po 20 mg hs dose of olanzapine. D/C'd prn haldol and switched to 5 mg olanzapine bid prn for agitation to simplify med regimen. Will check VPA level & LFTs on Friday am. Per team discussion- will continue 1:1 for now but will try to switch to q5 min checks later this wk if no behavioral issues. 07/21: Threatened to jump over nursing station due to frustration w/ cell phone policy and continued hospitalization. Was able to tolerate a discussion re: policy and continued need for hospitalization/medication without aggressive behavior. Taking standing meds as rx'd. continue current tx plan, including 1:1 for now 07/22: agitated, threatened to harm peers and staff. security called. agreed to take po olanzapine 10 mg. refused VPA last night. Will continue 1:1. Will adjust orders for pt to receive olanzapine 10 mg if he refuses Depakote per Duran. Pt only wants to take meds for sleep and took the extra olanzapine 10 mg dose today when it was offered to help him w/ sleep (rather than agitation or anxiety) 07/24: no changes. Continue court-ordered medications 07/25: Adherent w/ meds over the weekend. Guarded. focused on discharge but calm. Insight remains severely impaired. Continue current tx plan, including 1:1 07/26: Remains focused on discharge, pushed on the unit doors and told his mom that he was being d/c'd today. Pt is not currently appropriate for a fresh air break due to being a flight risk. Continue 1:1 07/27: Calmer, more cooperative today. Switched to 5 min safety checks while in room, continue 1:1 in milieu. Will switch Depakote tabs to liquid due to difficulty swallowing the tabs. 07/28: Calm, cooperative. Did not bring up discharge today. Endorses restlessness suggestive of akathisia. Will start propranolol 10 mg bid to address this. Lloyd get first dose of VPA syrup starting tonight, rx'd as 800 mg bid. Continue 5 min safety checks in room, 15 in Patient educated on: medication risk/benefits Informed Consent: further education needed Reason for continued inpatient stay Substantial Risk for: med/psych decompensation Time Spent With Patient Time: Total time managing care of this patient today __45__ minutes.
[2025-07-28 15:39] VITALS: BP 124/61; PULSE 114
[2025-07-28 21:00] VITALS: BP 124/60; PULSE 87; RESP 16; TEMP 37.1; O2SAT 99
[2025-07-28] MEDS: OLANZapine ODT 10 MG TAB.RAPDIS 20 MG TRANSLINGU (21:06)
[2025-07-28] MEDS: Valproic Acid Liquid 250 MG/5 ML SOLUTION 800 MG PO (21:06)
[2025-07-29] MEDS: Valproic Acid Liquid 250 MG/5 ML SOLUTION 800 MG PO ×2 (09:16→20:50)
[2025-07-29 09:28] VITALS: BP 105/58; PULSE 82; RESP 18; TEMP 36.7; O2SAT 100
--- NOTE | 2025-07-29 11:26 | PC.NURSE ---
Patient's BP was 105/58 this morning (noted to be low for him, compared to vitals from previous days). Propanolol held and Provider Eliza Crump notified via tiger text.
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
[2025-07-29] MEDS: LORazepam 2 MG/ML VIAL IM (18:43)
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
[2025-07-29 20:50] VITALS: BP 127/65; PULSE 104; RESP 18; TEMP 36.8; O2SAT 98
[2025-07-29] MEDS: OLANZapine ODT 10 MG TAB.RAPDIS 20 MG TRANSLINGU (20:50)
[2025-07-30 08:58] VITALS: BP 120/56; PULSE 92; RESP 16; TEMP 36.5; O2SAT 99
[2025-07-30] MEDS: Valproic Acid Liquid 250 MG/5 ML SOLUTION 800 MG PO ×2 (09:00→20:25)
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
[2025-07-30 19:40] VITALS: BP 129/69; PULSE 98; RESP 16; TEMP 36.8; O2SAT 99
[2025-07-30] MEDS: OLANZapine ODT 10 MG TAB.RAPDIS 20 MG TRANSLINGU (20:25)
[2025-07-31 08:45] VITALS: BP 113/62; PULSE 90; RESP 18; TEMP 35.9; O2SAT 100
[2025-07-31] MEDS: Valproic Acid Liquid 250 MG/5 ML SOLUTION 800 MG PO ×2 (09:22→20:17)
--- NOTE | 2025-07-31 10:21 | HO.PSYCHPN ---
Subjective Subjective Date of Service: 07/31/25 Reason For Visit: parish Subjective Notes: Section 8 Interim History: Patient was seen and discussed in rounds today. Records and plans were reviewed. He has been doing better and has had no incidence of agitation or aggressivity. He has been medication compliant. No complaints or side effects. He continues to be guarded. He is preoccupied about his phone but not acting on anything. No complaints or side effects. No SI. No changes Review of Systems Review of Systems Yes all other systems are reviewed and are negative Mental Status Exam Mental Status Exam Narrative: In today's visit he is alert, oriented. Soft-spoken speech. No eye contact. Affect is appropriate and constricted. No acute signs of psychosis observed. No overt delusions. He denies AVH. No response to internal stimuli observed or reported. No signs of hyperactivity. Denies any SI. Judgment is impaired. Diagnostics Vital Signs (24Hr): Vital Signs - 24 hr 07/30/25 19:40 07/31/25 08:45 Temperature 98.3 F 96.7 F L Pulse Rate 98 90 Respiratory Rate 16 18 Blood Pressure 129/69 113/62 Pulse Oximetry 99 100 Oxygen Delivery Method Room Air Room Air BMI result Body Mass Index 23.6 Labs 07/06/25 19:21 07/25/25 14:11 Medications Medications Current Medications Acetaminophen (Acetaminophen 325 Mg Tablet) 650 mg PO Q6H PRN PRN Reason: Headache/Pain, Scale 1-10 Al Hydroxide/Mg Hydroxide (Magnesium Hydrox/Alum Hydrox 30 Ml Oral.Susp) 30 ml PO Q6H PRN PRN Reason: Heartburn/Nausea Hydroxyzine HCl (Hydroxyzine Hcl 25 Mg Tablet) 25 mg PO Q6H PRN PRN Reason: mild anxiety Last Admin: 07/25/25 20:12 Dose: 25 mg Lorazepam (Lorazepam 1 Mg Tablet) 1 mg PO BID PRN PRN Reason: Anxiety Last Admin: 07/30/25 20:27 Dose: 1 mg Magnesium Hydroxide (Milk Of Magnesia 30 Ml Oral.Susp) 30 ml PO DAILY PRN PRN Reason: Constipation Nicotine Polacrilex (Nicotine Polacrilex 2 Mg Gum) 4 mg BUCCAL Q2H PRN PRN Reason: Nicotine Cravings Olanzapine (Olanzapine Odt 10 Mg Tab.Rapdis) 20 mg TRANSLINGU BEDTIME MIKALA Last Admin: 07/30/25 20:25 Dose: 20 mg Olanzapine (Olanzapine 10 Mg Vial) 20 mg IM BEDTIME PRN PRN Reason: Refusal to take 20 mg PO at hs Olanzapine (Olanzapine 5 Mg Tablet) 5 mg PO BID PRN PRN Reason: agitation Last Admin: 07/25/25 14:17 Dose: 5 mg Olanzapine (Olanzapine 10 Mg Tablet) 10 mg PO BEDTIME PRN PRN Reason: Refusal to take Depakote. Offer IM if refuses PO Olanzapine (Olanzapine 10 Mg Vial) 10 mg IM DAILY PRN PRN Reason: see dose instruction Propranolol HCl (Propranolol Hcl 10 Mg Tablet) 10 mg PO BID MIKALA; Protocol Last Admin: 07/31/25 09:21 Dose: 10 mg Trazodone HCl (Trazodone Hcl 50 Mg Tablet) 50 mg PO BEDTIME MRX1 PRN PRN Reason: Insomnia Last Admin: 07/30/25 20:27 Dose: 50 mg Valproic Acid (Valproic Acid Liquid 250 Mg/5 Ml Solution) 800 mg PO BID MIKALA Last Admin: 07/31/25 09:22 Dose: 800 mg Allergies Allergies Allergy/AdvReac Type Severity Reaction Status Date / Time No Known Allergies Allergy Verified 07/06/25 18:08 Assessment & Plan Assessment & Plan (1) Parish: Status: Acute Code(s): F30.9 - Manic episode, unspecified (2) Acute psychosis: Status: Acute Code(s): F23 - Brief psychotic disorder Plan 07/08: continue zyprexa and depakote as established in the ED. 07/09: continue current management and treatment plan. Medications recently started. 07/10: continue current management and treatment plan. 07/11: samuels warning provided. increase depakote to 750 BID, otherwise continue current mgmt. check levels in the next couple of days. section 12b up . will likely file for commitment. 07/12: pt declines labs. will wait for steady state at 1500 mg daily prior to checking labs, laconic, terse. will likely file tomorrow. 07/13: filed for commitment. no reaction from pt. continue current mgmt. 07/14: refusing meds as of last night, already hypersexual today and threatening to kill MD if MD does not discharge him. placed on 1:1 for safety. continue to encourage meds. hearing next friday. 07/15: continues to refuse meds, remains on 1:1. wandering. aware of hearing next friday. inert, no questions/concerns. paucity of thought or thought blocking. continue to offer meds. 07/16: difficulty keeping his shirt on in the milieu, oppositional when told to garb up. inappropriate comment to RN last tera. otherwise uneventful, refusing meds. continue to offer meds. 07/17: no behavioral concerns. remains on 1:1. some RIS and inappropriate laughter. refusing meds. slept 7 hours. contnue current mgmt. hearing on friday. 07/18: no behavioral concerns. Remains on 1:1. Refusing am meds but took bedtime meds last night and is reporting poor sleep. Will consolidate olanzapine dosing to 20 mg qhs rather than 10 mg bid to improve adherence and optimize tx of residual parish/psychosis. Otherwise continue current tx plan for now. Hearing scheduled for tomorrow, 07/19 07/19: Took olanzapine 20 mg last night and slept better. No behavioral issues, still on 1:1. 04/26 hearing scheduled for today at 2 pm. Will switch Depakote from 750 mg bid to Depakote ER 1500 mg at hs since pt has been taking bedtime meds only. committed. *By the time of completion of this note- court hearing took place, pt committed on section 7/8. 07/20: Committed on section 8 with Duran order in chart. Pt cannot refuse to take olanzapine per Duran. Give 20 mg IM if pt refuses po 20 mg hs dose of olanzapine. D/C'd prn haldol and switched to 5 mg olanzapine bid prn for agitation to simplify med regimen. Will check VPA level & LFTs on Friday am. Per team discussion- will continue 1:1 for now but will try to switch to q5 min checks later this wk if no behavioral issues. 07/21: Threatened to jump over nursing station due to frustration w/ cell phone policy and continued hospitalization. Was able to tolerate a discussion re: policy and continued need for hospitalization/medication without aggressive behavior. Taking standing meds as rx'd. continue current tx plan, including 1:1 for now 07/22: agitated, threatened to harm peers and staff. security called. agreed to take po olanzapine 10 mg. refused VPA last night. Will continue 1:1. Will adjust orders for pt to receive olanzapine 10 mg if he refuses Depakote per Duran. Pt only wants to take meds for sleep and took the extra olanzapine 10 mg dose today when it was offered to help him w/ sleep (rather than agitation or anxiety) 07/24: no changes. Continue court-ordered medications 07/25: Adherent w/ meds over the weekend. Guarded. focused on discharge but calm. Insight remains severely impaired. Continue current tx plan, including 1:1 07/26: Remains focused on discharge, pushed on the unit doors and told his mom that he was being d/c'd today. Pt is not currently appropriate for a fresh air break due to being a flight risk. Continue 1:1 07/27: Calmer, more cooperative today. Switched to 5 min safety checks while in room, continue 1:1 in milieu. Will switch Depakote tabs to liquid due to difficulty swallowing the tabs. 07/28: Calm, cooperative. Did not bring up discharge today. Endorses restlessness suggestive of akathisia. Will start propranolol 10 mg bid to address this. Lloyd get first dose of VPA syrup starting tonight, rx'd as 800 mg bid. Continue 5 min safety checks in room, 15 in 07/29: Calm/cooperative with t/w. Did not bring up discharge. Easily redirectable with request to use his phone. Denies sx of akathisia today. Will continue current tx plan, including 1:1 in the milieu and 5 min safety checks when in his room 07/30: Continue current regimen and plans 07/31: Continue current regimen and plans Reason for continued inpatient stay Substantial Risk for: med/psych decompensation Time Spent With Patient Time: Total time managing care of this patient today ____ minutes.
[2025-07-31 19:20] VITALS: BP 133/60; PULSE 92; RESP 16; TEMP 36.9; O2SAT 99
[2025-07-31] MEDS: OLANZapine ODT 10 MG TAB.RAPDIS 20 MG TRANSLINGU (20:18)
--- NOTE | 2025-08-01 09:21 | HO.PSYCHPN ---
Subjective Subjective Date of Service: 07/31/25 Reason For Visit: parish Subjective Notes: Section 8 Interim History: Patient was seen and discussed in rounds today. Records and plans were reviewed. He has stable with no behavioral issues. No aggressive behaviors. Eating and sleeping adequately. Medication compliant. No complaints or side effects. Affect is blunted. He is guarded. Denies depression or anxiety. No SI. No changes were. Continues on want to 1. Fresh air restrictions because of elopement risk Review of Systems Review of Systems Yes all other systems are reviewed and are negative Mental Status Exam Mental Status Exam Narrative: In today's visit he is alert, oriented. Soft-spoken speech. No eye contact. Affect is appropriate and constricted. No acute signs of psychosis observed. No overt delusions. He denies AVH. No response to internal stimuli observed or reported. No signs of hyperactivity. Denies any SI. Judgment is impaired. Diagnostics Vital Signs (24Hr): Vital Signs - 24 hr 07/31/25 19:20 Temperature 98.4 F Pulse Rate 92 Respiratory Rate 16 Blood Pressure 133/60 Pulse Oximetry 99 Oxygen Delivery Method Room Air BMI result Body Mass Index 23.6 Labs 07/06/25 19:21 07/25/25 14:11 Medications Medications Current Medications Acetaminophen (Acetaminophen 325 Mg Tablet) 650 mg PO Q6H PRN PRN Reason: Headache/Pain, Scale 1-10 Al Hydroxide/Mg Hydroxide (Magnesium Hydrox/Alum Hydrox 30 Ml Oral.Susp) 30 ml PO Q6H PRN PRN Reason: Heartburn/Nausea Hydroxyzine HCl (Hydroxyzine Hcl 25 Mg Tablet) 25 mg PO Q6H PRN PRN Reason: mild anxiety Last Admin: 07/25/25 20:12 Dose: 25 mg Lorazepam (Lorazepam 1 Mg Tablet) 1 mg PO BID PRN PRN Reason: Anxiety Last Admin: 07/31/25 20:18 Dose: 1 mg Magnesium Hydroxide (Milk Of Magnesia 30 Ml Oral.Susp) 30 ml PO DAILY PRN PRN Reason: Constipation Nicotine Polacrilex (Nicotine Polacrilex 2 Mg Gum) 4 mg BUCCAL Q2H PRN PRN Reason: Nicotine Cravings Olanzapine (Olanzapine Odt 10 Mg Tab.Rapdis) 20 mg TRANSLINGU BEDTIME MIKALA Last Admin: 07/31/25 20:18 Dose: 20 mg Olanzapine (Olanzapine 10 Mg Vial) 20 mg IM BEDTIME PRN PRN Reason: Refusal to take 20 mg PO at hs Olanzapine (Olanzapine 5 Mg Tablet) 5 mg PO BID PRN PRN Reason: agitation Last Admin: 07/25/25 14:17 Dose: 5 mg Olanzapine (Olanzapine 10 Mg Tablet) 10 mg PO BEDTIME PRN PRN Reason: Refusal to take Depakote. Offer IM if refuses PO Olanzapine (Olanzapine 10 Mg Vial) 10 mg IM DAILY PRN PRN Reason: see dose instruction Propranolol HCl (Propranolol Hcl 10 Mg Tablet) 10 mg PO BID MIKALA; Protocol Last Admin: 07/31/25 20:18 Dose: 10 mg Trazodone HCl (Trazodone Hcl 50 Mg Tablet) 50 mg PO BEDTIME MRX1 PRN PRN Reason: Insomnia Last Admin: 07/31/25 20:18 Dose: 50 mg Valproic Acid (Valproic Acid Liquid 250 Mg/5 Ml Solution) 800 mg PO BID MIKALA Last Admin: 07/31/25 20:17 Dose: 800 mg Allergies Allergies Allergy/AdvReac Type Severity Reaction Status Date / Time No Known Allergies Allergy Verified 07/06/25 18:08 Assessment & Plan Assessment & Plan (1) Parish: Status: Acute Code(s): F30.9 - Manic episode, unspecified (2) Acute psychosis: Status: Acute Code(s): F23 - Brief psychotic disorder Plan 07/08: continue zyprexa and depakote as established in the ED. 07/09: continue current management and treatment plan. Medications recently started. 07/10: continue current management and treatment plan. 07/11: samuels warning provided. increase depakote to 750 BID, otherwise continue current mgmt. check levels in the next couple of days. section 12b up . will likely file for commitment. 07/12: pt declines labs. will wait for steady state at 1500 mg daily prior to checking labs, laconic, terse. will likely file tomorrow. 07/13: filed for commitment. no reaction from pt. continue current mgmt. 07/14: refusing meds as of last night, already hypersexual today and threatening to kill MD if MD does not discharge him. placed on 1:1 for safety. continue to encourage meds. hearing next friday. 07/15: continues to refuse meds, remains on 1:1. wandering. aware of hearing next friday. inert, no questions/concerns. paucity of thought or thought blocking. continue to offer meds. 07/16: difficulty keeping his shirt on in the milieu, oppositional when told to garb up. inappropriate comment to RN last tera. otherwise uneventful, refusing meds. continue to offer meds. 07/17: no behavioral concerns. remains on 1:1. some RIS and inappropriate laughter. refusing meds. slept 7 hours. contnue current mgmt. hearing on friday. 07/18: no behavioral concerns. Remains on 1:1. Refusing am meds but took bedtime meds last night and is reporting poor sleep. Will consolidate olanzapine dosing to 20 mg qhs rather than 10 mg bid to improve adherence and optimize tx of residual parish/psychosis. Otherwise continue current tx plan for now. Hearing scheduled for tomorrow, 07/19 07/19: Took olanzapine 20 mg last night and slept better. No behavioral issues, still on 1:1. 04/26 hearing scheduled for today at 2 pm. Will switch Depakote from 750 mg bid to Depakote ER 1500 mg at hs since pt has been taking bedtime meds only. committed. *By the time of completion of this note- court hearing took place, pt committed on section 7/8. 07/20: Committed on section 8 with Duran order in chart. Pt cannot refuse to take olanzapine per Duran. Give 20 mg IM if pt refuses po 20 mg hs dose of olanzapine. D/C'd prn haldol and switched to 5 mg olanzapine bid prn for agitation to simplify med regimen. Will check VPA level & LFTs on Friday am. Per team discussion- will continue 1:1 for now but will try to switch to q5 min checks later this wk if no behavioral issues. 07/21: Threatened to jump over nursing station due to frustration w/ cell phone policy and continued hospitalization. Was able to tolerate a discussion re: policy and continued need for hospitalization/medication without aggressive behavior. Taking standing meds as rx'd. continue current tx plan, including 1:1 for now 07/22: agitated, threatened to harm peers and staff. security called. agreed to take po olanzapine 10 mg. refused VPA last night. Will continue 1:1. Will adjust orders for pt to receive olanzapine 10 mg if he refuses Depakote per Duran. Pt only wants to take meds for sleep and took the extra olanzapine 10 mg dose today when it was offered to help him w/ sleep (rather than agitation or anxiety) 07/24: no changes. Continue court-ordered medications 07/25: Adherent w/ meds over the weekend. Guarded. focused on discharge but calm. Insight remains severely impaired. Continue current tx plan, including 1:1 07/26: Remains focused on discharge, pushed on the unit doors and told his mom that he was being d/c'd today. Pt is not currently appropriate for a fresh air break due to being a flight risk. Continue 1:1 07/27: Calmer, more cooperative today. Switched to 5 min safety checks while in room, continue 1:1 in milieu. Will switch Depakote tabs to liquid due to difficulty swallowing the tabs. 07/28: Calm, cooperative. Did not bring up discharge today. Endorses restlessness suggestive of akathisia. Will start propranolol 10 mg bid to address this. Lloyd get first dose of VPA syrup starting tonight, rx'd as 800 mg bid. Continue 5 min safety checks in room, 15 in 07/29: Calm/cooperative with t/w. Did not bring up discharge. Easily redirectable with request to use his phone. Denies sx of akathisia today. Will continue current tx plan, including 1:1 in the milieu and 5 min safety checks when in his room 07/30: Continue current regimen and plans 07/31: Continue current regimen and plans. 08/01: Continue current regimen and plans Reason for continued inpatient stay Substantial Risk for: med/psych decompensation Time Spent With Patient Time: Total time managing care of this patient today ____ minutes.
[2025-08-01 09:40] VITALS: BP 123/60; PULSE 85; RESP 18; TEMP 36.4; O2SAT 98
[2025-08-01] MEDS: Valproic Acid Liquid 250 MG/5 ML SOLUTION 800 MG PO ×2 (09:45→20:52)
[2025-08-01 09:47] VITALS: BP 123/60; PULSE 85
[2025-08-01 20:45] VITALS: BP 161/66; PULSE 103; RESP 16; TEMP 37.1; O2SAT 99
[2025-08-01 20:52] VITALS: BP 161/66; PULSE 103
[2025-08-01] MEDS: OLANZapine ODT 10 MG TAB.RAPDIS 20 MG TRANSLINGU (20:54)
[2025-08-02 07:25] VITALS: BP 107/52; PULSE 77; RESP 16; TEMP 36.6; O2SAT 98
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
[2025-08-02] MEDS: Valproic Acid Liquid 250 MG/5 ML SOLUTION 800 MG PO ×2 (09:51→22:16)
[2025-08-02 09:55] VITALS: BP 113/53; PULSE 96
[2025-08-02 13:53] LABS: Zyprexa (Olanzapine) 64.4 ng/mL (5.0-75.0)
[2025-08-02 22:15] VITALS: BP 115/60; PULSE 91
[2025-08-02] MEDS: OLANZapine ODT 10 MG TAB.RAPDIS 20 MG TRANSLINGU (22:16)
[2025-08-03 10:00] VITALS: BP 107/51; PULSE 76; RESP 16; TEMP 36.9; O2SAT 99
[2025-08-03] MEDS: Valproic Acid Liquid 250 MG/5 ML SOLUTION 800 MG PO ×2 (10:13→21:46)
[2025-08-03 10:15] VITALS: BP 107/51; PULSE 76
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
[2025-08-03 20:54] VITALS: BP 111/67; PULSE 73; RESP 16; TEMP 36.7; O2SAT 100
[2025-08-03] MEDS: OLANZapine ODT 10 MG TAB.RAPDIS 25 MG TRANSLINGU (21:45)
[2025-08-04] MEDS: Valproic Acid Liquid 250 MG/5 ML SOLUTION 800 MG PO ×2 (10:14→21:00)
--- NOTE | 2025-08-04 11:10 | PC.NURSE ---
Pt refused VS so this commercial insurance underwriter held propanolol and notified provider.
--- NOTE | 2025-08-04 12:06 | HO.PSYCHPN ---
Subjective Subjective Date of Service: 08/04/25 Reason For Visit: parish and psychosis Subjective Notes: [place] Order and Section 8 Interim History: chart reviewed, met with pt in his room. Remains on 5 min checks while in his room and 1:1 in milieu. Discussed plan to allow pt to have fresh air breaks w/ security today No signif behavioral issues since Friday evening Pt reports feeling 'okay' and that he slept better last night. Denies any issues w/ the increased olanzapine dose. PRNs- took trazodone around midnight and hydroxyzine this am Medication Compliance: Yes (compliant w/ psychiatric meds. propranolol intermittently held when pt has declined VS ) Side effects from medications: No (denies akathisia today) Attending Groups: Intermittent Mental Status Exam Mental Status Exam Narrative: Appearance: Casually dressed. Grooming/hygiene wnl. Good eye contact. In process of packing up belongings to move to single room Attitude: Cooperative Speech: Fluent and wnl in regard to volume, tone, prosody Motor activity: Calm and without any tics, tremors or dyskinesias. Mood: okay Affect: appropriate Thought process: goal directed Thought content: pt did not ask about his phone or discharge. Denies violent & suicidal ideaiton Perception: does not appear to respond to internal stimuli Insight: impaired but slowly improving Judgment: impaired Diagnostics Vital Signs (24Hr): Vital Signs - 24 hr 08/03/25 20:54 Temperature 98.1 F Pulse Rate 73 Respiratory Rate 16 Blood Pressure 111/67 Pulse Oximetry 100 Oxygen Delivery Method Room Air BMI result Body Mass Index 23.6 Labs 07/06/25 19:21 07/25/25 14:11 Labs: Laboratory Results - last 48 hr 07/25/25 14:11 Olanzapine 64.4 Medications Medications Current Medications Acetaminophen (Acetaminophen 325 Mg Tablet) 650 mg PO Q6H PRN PRN Reason: Headache/Pain, Scale 1-10 Al Hydroxide/Mg Hydroxide (Magnesium Hydrox/Alum Hydrox 30 Ml Oral.Susp) 30 ml PO Q6H PRN PRN Reason: Heartburn/Nausea Hydroxyzine HCl (Hydroxyzine Hcl 25 Mg Tablet) 25 mg PO Q6H PRN PRN Reason: mild anxiety Last Admin: 08/04/25 01:00 Dose: 25 mg Lorazepam (Lorazepam 1 Mg Tablet) 1 mg PO BID PRN PRN Reason: Anxiety Last Admin: 08/03/25 21:45 Dose: 1 mg Magnesium Hydroxide (Milk Of Magnesia 30 Ml Oral.Susp) 30 ml PO DAILY PRN PRN Reason: Constipation Nicotine Polacrilex (Nicotine Polacrilex 2 Mg Gum) 4 mg BUCCAL Q2H PRN PRN Reason: Nicotine Cravings Olanzapine (Olanzapine 10 Mg Vial) 20 mg IM BEDTIME PRN PRN Reason: Refusal to take 20 mg PO at hs Olanzapine (Olanzapine 5 Mg Tablet) 5 mg PO BID PRN PRN Reason: agitation Last Admin: 07/25/25 14:17 Dose: 5 mg Olanzapine (Olanzapine 10 Mg Tablet) 10 mg PO BEDTIME PRN PRN Reason: Refusal to take Depakote. Offer IM if refuses PO Olanzapine (Olanzapine 10 Mg Vial) 10 mg IM DAILY PRN PRN Reason: see dose instruction Olanzapine (Olanzapine Odt 10 Mg Tab.Rapdis) 25 mg TRANSLINGU BEDTIME MIKALA Last Admin: 08/03/25 21:45 Dose: 25 mg Propranolol HCl (Propranolol Hcl 10 Mg Tablet) 10 mg PO BID MIKALA; Protocol Last Admin: 08/04/25 10:16 Dose: Not Given Trazodone HCl (Trazodone Hcl 50 Mg Tablet) 50 mg PO BEDTIME MRX1 PRN PRN Reason: Insomnia Last Admin: 08/04/25 00:59 Dose: 50 mg Valproic Acid (Valproic Acid Liquid 250 Mg/5 Ml Solution) 800 mg PO BID MIKALA Last Admin: 08/04/25 10:14 Dose: 800 mg Allergies Allergies Allergy/AdvReac Type Severity Reaction Status Date / Time No Known Allergies Allergy Verified 07/06/25 18:08 Assessment & Plan Assessment & Plan (1) Parish: Status: Acute Code(s): F30.9 - Manic episode, unspecified (2) Acute psychosis: Status: Acute Code(s): F23 - Brief psychotic disorder Plan 07/08: continue zyprexa and depakote as established in the ED. 07/09: continue current management and treatment plan. Medications recently started. 07/10: continue current management and treatment plan. 07/11: samuels warning provided. increase depakote to 750 BID, otherwise continue current mgmt. check levels in the next couple of days. section 12b up wed. will likely file for commitment. 07/12: pt declines labs. will wait for steady state at 1500 mg daily prior to checking labs, laconic, terse. will likely file tomorrow. 07/13: filed for commitment. no reaction from pt. continue current mgmt. 07/14: refusing meds as of last night, already hypersexual today and threatening to kill MD if MD does not discharge him. placed on 1:1 for safety. continue to encourage meds. hearing next friday. 07/15: continues to refuse meds, remains on 1:1. wandering. aware of hearing next friday. inert, no questions/concerns. paucity of thought or thought blocking. continue to offer meds. 07/16: difficulty keeping his shirt on in the milieu, oppositional when told to garb up. inappropriate comment to RN last . otherwise uneventful, refusing meds. continue to offer meds. 07/17: no behavioral concerns. remains on 1:1. some RIS and inappropriate laughter. refusing meds. slept 7 hours. contnue current mgmt. hearing on friday. 07/18: no behavioral concerns. Remains on 1:1. Refusing am meds but took bedtime meds last night and is reporting poor sleep. Will consolidate olanzapine dosing to 20 mg qhs rather than 10 mg bid to improve adherence and optimize tx of residual parish/psychosis. Otherwise continue current tx plan for now. Hearing scheduled for tomorrow, 07/19 07/19: Took olanzapine 20 mg last night and slept better. No behavioral issues, still on 1:1. 04/26 hearing scheduled for today at 2 pm. Will switch Depakote from 750 mg bid to Depakote ER 1500 mg at hs since pt has been taking bedtime meds only. committed. *By the time of completion of this note- court hearing took place, pt committed on section 7/8. 07/20: Committed on section 8 with Duran order in chart. Pt cannot refuse to take olanzapine per Duran. Give 20 mg IM if pt refuses po 20 mg hs dose of olanzapine. D/C'd prn haldol and switched to 5 mg olanzapine bid prn for agitation to simplify med regimen. Will check VPA level & LFTs on Friday am. Per team discussion- will continue 1:1 for now but will try to switch to q5 min checks later this wk if no behavioral issues. 07/21: Threatened to jump over nursing station due to frustration w/ cell phone policy and continued hospitalization. Was able to tolerate a discussion re: policy and continued need for hospitalization/medication without aggressive behavior. Taking standing meds as rx'd. continue current tx plan, including 1:1 for now 07/22: agitated, threatened to harm peers and staff. security called. agreed to take po olanzapine 10 mg. refused VPA last night. Will continue 1:1. Will adjust orders for pt to receive olanzapine 10 mg if he refuses Depakote per Duran. Pt only wants to take meds for sleep and took the extra olanzapine 10 mg dose today when it was offered to help him w/ sleep (rather than agitation or anxiety) 07/24: no changes. Continue court-ordered medications 07/25: Adherent w/ meds over the weekend. Guarded. focused on discharge but calm. Insight remains severely impaired. Continue current tx plan, including 1:1 07/26: Remains focused on discharge, pushed on the unit doors and told his mom that he was being d/c'd today. Pt is not currently appropriate for a fresh air break due to being a flight risk. Continue 1:1 07/27: Calmer, more cooperative today. Switched to 5 min safety checks while in room, continue 1:1 in milieu. Will switch Depakote tabs to liquid due to difficulty swallowing the tabs. 07/28: Calm, cooperative. Did not bring up discharge today. Endorses restlessness suggestive of akathisia. Will start propranolol 10 mg bid to address this. Lloyd get first dose of VPA syrup starting tonight, rx'd as 800 mg bid. Continue 5 min safety checks in room, 15 in 07/29: Calm/cooperative with t/w. Did not bring up discharge. Easily redirectable with request to use his phone. Denies sx of akathisia today. Will continue current tx plan, including 1:1 in the milieu and 5 min safety checks when in his room In the evening, pt jumped over the nursing station desk/window and punched two computer monitors, as he wanted to leave and get his phone. He required a physical restraint & received IM haldol 10 mg, lorazepam 2 mg and benadryl 50 mg 10/11: Continue current regimen and plans 07/31: Continue current regimen and plans. 08/01: Continue current regimen and plans 08/02: Pt has been calm and has not engage in any behavioral issues since the evening of 07/29. He remains on 1:1 due to significant risk of elopement and is not appropriate for fresh air breaks due to the same concern. Continue current tx plan 08/03: No behavioral issues today. Pt requested an adjustment in his 'sleep med and reported having AH earlier in his admission but not today. Will titrate olanzapine to 25 mg qhs 08/04: Will trial fresh air breaks accompanied by security starting today. Continue 1:1 in milieu and 5 min checks while in room. No behavioral issues. Tolerated olanzapine titration to 25 mg last night. Continue current med regimen Reason for continued inpatient stay Substantial Risk for: rapid decompensation and med/psych decompensation Time Spent With Patient Time: Total time managing care of this patient today __20__ minutes.
[2025-08-04] MEDS: OLANZapine ODT 10 MG TAB.RAPDIS 25 MG TRANSLINGU (20:59)
[2025-08-04 21:00] VITALS: BP 129/64; PULSE 95; RESP 16; TEMP 36.8; O2SAT 99
[2025-08-05 08:00] VITALS: BP 100/52; PULSE 64; RESP 15; TEMP 36.3; O2SAT 98
[2025-08-05] MEDS: Valproic Acid Liquid 250 MG/5 ML SOLUTION 800 MG PO ×2 (09:53→20:28)
[2025-08-05 09:54] VITALS: BP 100/52; PULSE 64
--- NOTE | 2025-08-05 17:39 | HO.PSYCHPN ---
Subjective Subjective Date of Service: 08/05/25 Reason For Visit: parish and psychosis Subjective Notes: [place] Order and Section 8 Interim History: chart reviewed, case discussed with tx team met w/ pt in his room, where he was lying in bed awake in the dark. He initially reported feeling depressed. He states that he will need to go to a alf when he leaves here and will need his cell phone to make arrangements. States that he cannot return to his mom's and doesn't want to return there. He reports that his sister stayed in a alf in the past after their mom kicked her out of the house and provided helpful resources for her. T/W told pt that his SW can help him find a alf when he's ready for discharge. He was happy to hear this news and stated he's no longer depressed. He reports that he went on the [facility] yesterday and the security systems sales representative who escorted him was the same person who escorted him to the unit when he was admitted. He reports that seeing the guard helped him remember that he came to the hospital to rest bc his mom didn't want him at home w/her.. He recalls hearing voices earlier in his admission telling him 'lies that these people are trying to trap you and not to take the medication. He feels like it was witch craft. He denies any AH/VH today. He state that the medications have been helpful with managing these sx and helping him sleep. He denies any med SE. Medication Compliance: Yes Side effects from medications: No Review of Systems Acute medical concerns: No Medical Review of Systems: unchanged Mental Status Exam Mental Status Exam Narrative: Appearance: Grooming/hygiene wnl. Good eye contact Attitude: Cooperative Speech: Fluent and wnl in regard to volume, tone, prosody Motor activity: Calm and without any tics, tremors or dyskinesias. Mood: 'chillin' Affect: calm, more reactive Thought process: goal directed and without evidence of formal thought disorder Thought content: as noted above. Denies SI/violent ideation Perception: Denies AH/VH and does not appear to respond to internal stimuli Insight: improving, fair Judgment: improving, fair Diagnostics Vital Signs (24Hr): Vital Signs - 24 hr 08/04/25 21:00 08/05/25 08:00 08/05/25 09:54 Temperature 98.3 F 97.3 F Pulse Rate 95 64 64 Respiratory Rate 16 15 Blood Pressure 129/64 100/52 L 100/52 L Pulse Oximetry 99 98 Oxygen Delivery Method Room Air Room Air BMI result Body Mass Index 23.6 Labs 07/06/25 19:21 07/25/25 14:11 Medications Medications Current Medications Acetaminophen (Acetaminophen 325 Mg Tablet) 650 mg PO Q6H PRN PRN Reason: Headache/Pain, Scale 1-10 Al Hydroxide/Mg Hydroxide (Magnesium Hydrox/Alum Hydrox 30 Ml Oral.Susp) 30 ml PO Q6H PRN PRN Reason: Heartburn/Nausea Hydroxyzine HCl (Hydroxyzine Hcl 25 Mg Tablet) 25 mg PO Q6H PRN PRN Reason: mild anxiety Last Admin: 08/04/25 01:00 Dose: 25 mg Lorazepam (Lorazepam 1 Mg Tablet) 1 mg PO BID PRN PRN Reason: Anxiety Last Admin: 08/03/25 21:45 Dose: 1 mg Magnesium Hydroxide (Milk Of Magnesia 30 Ml Oral.Susp) 30 ml PO DAILY PRN PRN Reason: Constipation Nicotine Polacrilex (Nicotine Polacrilex 2 Mg Gum) 4 mg BUCCAL Q2H PRN PRN Reason: Nicotine Cravings Olanzapine (Olanzapine 10 Mg Vial) 20 mg IM BEDTIME PRN PRN Reason: Refusal to take 20 mg PO at hs Olanzapine (Olanzapine 5 Mg Tablet) 5 mg PO BID PRN PRN Reason: agitation Last Admin: 07/25/25 14:17 Dose: 5 mg Olanzapine (Olanzapine 10 Mg Tablet) 10 mg PO BEDTIME PRN PRN Reason: Refusal to take Depakote. Offer IM if refuses PO Olanzapine (Olanzapine 10 Mg Vial) 10 mg IM DAILY PRN PRN Reason: see dose instruction Olanzapine (Olanzapine Odt 10 Mg Tab.Rapdis) 25 mg TRANSLINGU BEDTIME MIKALA Last Admin: 08/04/25 20:59 Dose: 25 mg Propranolol HCl (Propranolol Hcl 10 Mg Tablet) 10 mg PO BID MIKALA; Protocol Last Admin: 08/05/25 09:54 Dose: 10 mg Trazodone HCl (Trazodone Hcl 50 Mg Tablet) 50 mg PO BEDTIME MRX1 PRN PRN Reason: Insomnia Last Admin: 08/04/25 00:59 Dose: 50 mg Valproic Acid (Valproic Acid Liquid 250 Mg/5 Ml Solution) 800 mg PO BID MIKALA Last Admin: 08/05/25 09:53 Dose: 800 mg Allergies Allergies Allergy/AdvReac Type Severity Reaction Status Date / Time No Known Allergies Allergy Verified 07/06/25 18:08 Assessment & Plan Assessment & Plan (1) Parish: Status: Acute Code(s): F30.9 - Manic episode, unspecified (2) Acute psychosis: Status: Acute Code(s): F23 - Brief psychotic disorder Plan 07/08: continue zyprexa and depakote as established in the ED. 07/09: continue current management and treatment plan. Medications recently started. 07/10: continue current management and treatment plan. 07/11: samuels warning provided. increase depakote to 750 BID, otherwise continue current mgmt. check levels in the next couple of days. section 12b up . will likely file for commitment. 07/12: pt declines labs. will wait for steady state at 1500 mg daily prior to checking labs, laconic, terse. will likely file tomorrow. 07/13: filed for commitment. no reaction from pt. continue current mgmt. 07/14: refusing meds as of last night, already hypersexual today and threatening to kill MD if MD does not discharge him. placed on 1:1 for safety. continue to encourage meds. hearing next friday. 07/15: continues to refuse meds, remains on 1:1. wandering. aware of hearing next friday. inert, no questions/concerns. paucity of thought or thought blocking. continue to offer meds. 07/16: difficulty keeping his shirt on in the milieu, oppositional when told to garb up. inappropriate comment to RN last tera. otherwise uneventful, refusing meds. continue to offer meds. 07/17: no behavioral concerns. remains on 1:1. some RIS and inappropriate laughter. refusing meds. slept 7 hours. contnue current mgmt. hearing on friday. 07/18: no behavioral concerns. Remains on 1:1. Refusing am meds but took bedtime meds last night and is reporting poor sleep. Will consolidate olanzapine dosing to 20 mg qhs rather than 10 mg bid to improve adherence and optimize tx of residual parish/psychosis. Otherwise continue current tx plan for now. Hearing scheduled for tomorrow, 07/19 07/19: Took olanzapine 20 mg last night and slept better. No behavioral issues, still on 1:1. 04/26 hearing scheduled for today at 2 pm. Will switch Depakote from 750 mg bid to Depakote ER 1500 mg at hs since pt has been taking bedtime meds only. committed. *By the time of completion of this note- court hearing took place, pt committed on section 7/. 07/20: Committed on section 8 with Duran order in chart. Pt cannot refuse to take olanzapine per Duran. Give 20 mg IM if pt refuses po 20 mg hs dose of olanzapine. D/C'd prn haldol and switched to 5 mg olanzapine bid prn for agitation to simplify med regimen. Will check VPA level & LFTs on Friday am. Per team discussion- will continue 1:1 for now but will try to switch to q5 min checks later this wk if no behavioral issues. 07/21: Threatened to jump over nursing station due to frustration w/ cell phone policy and continued hospitalization. Was able to tolerate a discussion re: policy and continued need for hospitalization/medication without aggressive behavior. Taking standing meds as rx'd. continue current tx plan, including 1:1 for now 07/22: agitated, threatened to harm peers and staff. security called. agreed to take po olanzapine 10 mg. refused VPA last night. Will continue 1:1. Will adjust orders for pt to receive olanzapine 10 mg if he refuses Depakote per Durna. Pt only wants to take meds for sleep and took the extra olanzapine 10 mg dose today when it was offered to help him w/ sleep (rather than agitation or anxiety) 07/24: no changes. Continue court-ordered medications 07/25: Adherent w/ meds over the weekend. Guarded. focused on discharge but calm. Insight remains severely impaired. Continue current tx plan, including 1:1 07/26: Remains focused on discharge, pushed on the unit doors and told his mom that he was being d/c'd today. Pt is not currently appropriate for a fresh air break due to being a flight risk. Continue 1:1 07/27: Calmer, more cooperative today. Switched to 5 min safety checks while in room, continue 1:1 in milieu. Will switch Depakote tabs to liquid due to difficulty swallowing the tabs. 07/28: Calm, cooperative. Did not bring up discharge today. Endorses restlessness suggestive of akathisia. Will start propranolol 10 mg bid to address this. Lloyd get first dose of VPA syrup starting tonight, rx'd as 800 mg bid. Continue 5 min safety checks in room, 15 in 07/29: Calm/cooperative with t/w. Did not bring up discharge. Easily redirectable with request to use his phone. Denies sx of akathisia today. Will continue current tx plan, including 1:1 in the milieu and 5 min safety checks when in his room In the evening, pt jumped over the nursing station desk/window and punched two computer monitors, as he wanted to leave and get his phone. He required a physical restraint & received IM haldol 10 mg, lorazepam 2 mg and benadryl 50 mg 07/30: Continue current regimen and plans 07/31: Continue current regimen and plans. 08/01: Continue current regimen and plans 08/02: Pt has been calm and has not engage in any behavioral issues since the evening of 07/29. He remains on 1:1 due to significant risk of elopement and is not appropriate for fresh air breaks due to the same concern. Continue current tx plan 08/03: No behavioral issues today. Pt requested an adjustment in his 'sleep med and reported having AH earlier in his admission but not today. Will titrate olanzapine to 25 mg qhs 08/04: Will trial fresh air breaks accompanied by security starting today. Continue 1:1 in milieu and 5 min checks while in room. No behavioral issues. Tolerated olanzapine titration to 25 mg last night. Continue current med regimen 08/05: Insight/judgment are improving, no sx of parish today, psychotic sx significantly improved. Will keep on 5 min checks while in room, 1:1 in milieu and fresh air breaks w/ security over the weekend. Will consider reducing the freq of safety checks if pt maintains safe behaviors over the weekend Reason for continued inpatient stay Substantial Risk for: med/psych decompensation Time Spent With Patient Time: Total time managing care of this patient today _30___ minutes.
[2025-08-05 19:40] VITALS: BP 115/64; PULSE 88; RESP 16; TEMP 36.9; O2SAT 99
[2025-08-05] MEDS: OLANZapine ODT 10 MG TAB.RAPDIS 25 MG TRANSLINGU (20:29)
[2025-08-06 09:45] VITALS: BP 112/62; PULSE 74
[2025-08-06] MEDS: Valproic Acid Liquid 250 MG/5 ML SOLUTION 800 MG PO ×2 (09:46→21:06)
--- NOTE | 2025-08-06 10:06 | HO.PSYCHPN ---
Subjective Subjective Date of Service: 08/06/25 Reason For Visit: parish and psychosis Interim History: I'm feeling good. I am just waiting to leave. They moved me 3 times so something is going on. Remains isolative in his room. Withdrawn. Guarded. Denies medications side effects and feels they are helpful. Denies SI/HI/AVH. Sleep is good. Review of Systems Review of Systems nothing of note Yes all other systems are reviewed and are negative Mental Status Exam Mental Status Exam Narrative: Appearance: Grooming/hygiene wnl. Good eye contact Attitude: Cooperative Speech: Fluent and wnl in regard to volume, tone, prosody Motor activity: Calm and without any tics, tremors or dyskinesias. Mood: 'chillin' Affect: calm, more reactive Thought process: goal directed and without evidence of formal thought disorder Thought content: as noted above. Denies SI/violent ideation Perception: Denies AH/VH and does not appear to respond to internal stimuli Insight: improving, fair Judgment: improving, fair Diagnostics Vital Signs (24Hr): Vital Signs - 24 hr 08/05/25 19:40 08/06/25 09:45 Temperature 98.5 F Pulse Rate 88 74 Respiratory Rate 16 Blood Pressure 115/64 112/62 Pulse Oximetry 99 Oxygen Delivery Method Room Air BMI result Body Mass Index 23.6 Labs 07/06/25 19:21 07/25/25 14:11 Medications Medications Current Medications Acetaminophen (Acetaminophen 325 Mg Tablet) 650 mg PO Q6H PRN PRN Reason: Headache/Pain, Scale 1-10 Al Hydroxide/Mg Hydroxide (Magnesium Hydrox/Alum Hydrox 30 Ml Oral.Susp) 30 ml PO Q6H PRN PRN Reason: Heartburn/Nausea Hydroxyzine HCl (Hydroxyzine Hcl 25 Mg Tablet) 25 mg PO Q6H PRN PRN Reason: mild anxiety Last Admin: 08/04/25 01:00 Dose: 25 mg Lorazepam (Lorazepam 1 Mg Tablet) 1 mg PO BID PRN PRN Reason: Anxiety Last Admin: 08/05/25 23:05 Dose: 1 mg Magnesium Hydroxide (Milk Of Magnesia 30 Ml Oral.Susp) 30 ml PO DAILY PRN PRN Reason: Constipation Nicotine Polacrilex (Nicotine Polacrilex 2 Mg Gum) 4 mg BUCCAL Q2H PRN PRN Reason: Nicotine Cravings Olanzapine (Olanzapine 10 Mg Vial) 20 mg IM BEDTIME PRN PRN Reason: Refusal to take 20 mg PO at hs Olanzapine (Olanzapine 5 Mg Tablet) 5 mg PO BID PRN PRN Reason: agitation Last Admin: 07/25/25 14:17 Dose: 5 mg Olanzapine (Olanzapine 10 Mg Tablet) 10 mg PO BEDTIME PRN PRN Reason: Refusal to take Depakote. Offer IM if refuses PO Olanzapine (Olanzapine 10 Mg Vial) 10 mg IM DAILY PRN PRN Reason: see dose instruction Olanzapine (Olanzapine Odt 10 Mg Tab.Rapdis) 25 mg TRANSLINGU BEDTIME MIKALA Last Admin: 08/05/25 20:29 Dose: 25 mg Propranolol HCl (Propranolol Hcl 10 Mg Tablet) 10 mg PO BID MIKALA; Protocol Last Admin: 08/06/25 09:45 Dose: 10 mg Trazodone HCl (Trazodone Hcl 50 Mg Tablet) 50 mg PO BEDTIME MRX1 PRN PRN Reason: Insomnia Last Admin: 08/05/25 23:05 Dose: 50 mg Valproic Acid (Valproic Acid Liquid 250 Mg/5 Ml Solution) 800 mg PO BID MIKALA Last Admin: 08/06/25 09:46 Dose: 800 mg Allergies Allergies Allergy/AdvReac Type Severity Reaction Status Date / Time No Known Allergies Allergy Verified 07/06/25 18:08 Assessment & Plan Assessment & Plan (1) Parish: Status: Acute Code(s): F30.9 - Manic episode, unspecified (2) Acute psychosis: Status: Acute Code(s): F23 - Brief psychotic disorder Plan 07/08: continue zyprexa and depakote as established in the ED. 07/09: continue current management and treatment plan. Medications recently started. 07/10: continue current management and treatment plan. 07/11: samuels warning provided. increase depakote to 750 BID, otherwise continue current mgmt. check levels in the next couple of days. section 12b up . will likely file for commitment. 07/12: pt declines labs. will wait for steady state at 1500 mg daily prior to checking labs, laconic, terse. will likely file tomorrow. 07/13: filed for commitment. no reaction from pt. continue current mgmt. 07/14: refusing meds as of last night, already hypersexual today and threatening to kill MD if MD does not discharge him. placed on 1:1 for safety. continue to encourage meds. hearing next friday. 07/15: continues to refuse meds, remains on 1:1. wandering. aware of hearing next friday. inert, no questions/concerns. paucity of thought or thought blocking. continue to offer meds. 07/16: difficulty keeping his shirt on in the milieu, oppositional when told to garb up. inappropriate comment to RN last tera. otherwise uneventful, refusing meds. continue to offer meds. 07/17: no behavioral concerns. remains on 1:1. some RIS and inappropriate laughter. refusing meds. slept 7 hours. contnue current mgmt. hearing on friday. 07/18: no behavioral concerns. Remains on 1:1. Refusing am meds but took bedtime meds last night and is reporting poor sleep. Will consolidate olanzapine dosing to 20 mg qhs rather than 10 mg bid to improve adherence and optimize tx of residual parish/psychosis. Otherwise continue current tx plan for now. Hearing scheduled for tomorrow, 07/19 07/19: Took olanzapine 20 mg last night and slept better. No behavioral issues, still on 1:1. 04/26 hearing scheduled for today at 2 pm. Will switch Depakote from 750 mg bid to Depakote ER 1500 mg at hs since pt has been taking bedtime meds only. committed. *By the time of completion of this note- court hearing took place, pt committed on section 7/8. 07/20: Committed on section 8 with Garzon order in chart. Pt cannot refuse to take olanzapine per Duran. Give 20 mg IM if pt refuses po 20 mg hs dose of olanzapine. D/C'd prn haldol and switched to 5 mg olanzapine bid prn for agitation to simplify med regimen. Will check VPA level & LFTs on Friday am. Per team discussion- will continue 1:1 for now but will try to switch to q5 min checks later this wk if no behavioral issues. 07/21: Threatened to jump over nursing station due to frustration w/ cell phone policy and continued hospitalization. Was able to tolerate a discussion re: policy and continued need for hospitalization/medication without aggressive behavior. Taking standing meds as rx'd. continue current tx plan, including 1:1 for now 07/22: agitated, threatened to harm peers and staff. security called. agreed to take po olanzapine 10 mg. refused VPA last night. Will continue 1:1. Will adjust orders for pt to receive olanzapine 10 mg if he refuses Depakote per Duran. Pt only wants to take meds for sleep and took the extra olanzapine 10 mg dose today when it was offered to help him w/ sleep (rather than agitation or anxiety) 07/24: no changes. Continue court-ordered medications 07/25: Adherent w/ meds over the weekend. Guarded. focused on discharge but calm. Insight remains severely impaired. Continue current tx plan, including 1:1 07/26: Remains focused on discharge, pushed on the unit doors and told his mom that he was being d/c'd today. Pt is not currently appropriate for a fresh air break due to being a flight risk. Continue 1:1 07/27: Calmer, more cooperative today. Switched to 5 min safety checks while in room, continue 1:1 in milieu. Will switch Depakote tabs to liquid due to difficulty swallowing the tabs. 07/28: Calm, cooperative. Did not bring up discharge today. Endorses restlessness suggestive of akathisia. Will start propranolol 10 mg bid to address this. Lloyd get first dose of VPA syrup starting tonight, rx'd as 800 mg bid. Continue 5 min safety checks in room, 15 in 07/29: Calm/cooperative with t/w. Did not bring up discharge. Easily redirectable with request to use his phone. Denies sx of akathisia today. Will continue current tx plan, including 1:1 in the milieu and 5 min safety checks when in his room In the evening, pt jumped over the nursing station desk/window and punched two computer monitors, as he wanted to leave and get his phone. He required a physical restraint & received IM haldol 10 mg, lorazepam 2 mg and benadryl 50 mg 07/30: Continue current regimen and plans 07/31: Continue current regimen and plans. 08/01: Continue current regimen and plans 08/02: Pt has been calm and has not engage in any behavioral issues since the evening of 07/29. He remains on 1:1 due to significant risk of elopement and is not appropriate for fresh air breaks due to the same concern. Continue current tx plan 08/03: No behavioral issues today. Pt requested an adjustment in his 'sleep med and reported having AH earlier in his admission but not today. Will titrate olanzapine to 25 mg qhs 08/04: Will trial fresh air breaks accompanied by security starting today. Continue 1:1 in milieu and 5 min checks while in room. No behavioral issues. Tolerated olanzapine titration to 25 mg last night. Continue current med regimen 08/05: Insight/judgment are improving, no sx of parish today, psychotic sx significantly improved. Will keep on 5 min checks while in room, 1:1 in milieu and fresh air breaks w/ security over the weekend. Will consider reducing the freq of safety checks if pt maintains safe behaviors over the weekend 08/06: continue current management and treatment plan. Reason for continued inpatient stay Substantial Risk for: inability to function and rapid decompensation Time Spent With Patient Time: Total time managing care of this patient today ____ minutes.
[2025-08-06 20:59] VITALS: BP 123/60; PULSE 107; RESP 18; TEMP 37.1; O2SAT 99
[2025-08-06] MEDS: OLANZapine ODT 10 MG TAB.RAPDIS 25 MG TRANSLINGU (21:04)
[2025-08-07 08:00] VITALS: BP 124/71; PULSE 83; RESP 16; TEMP 36.8; O2SAT 99
--- NOTE | 2025-08-07 09:36 | P.PNPSI_ITS ---
Subjective Subjective Date of Service: 08/07/25 Reason For Visit: parish and psychosis Interim History: Fixated on when he can leave. He is adherent to medications. Hasn't had aggression last few days. Continues on 1:1 due to incident jumping over the nurses' window. Isolates in his room. Withdrawn. Guarded. Denies medications side effects and feels they are helpful. Denies SI/HI/AVH. Sleep is good. Review of Systems Review of Systems nothing of note Yes all other systems are reviewed and are negative Mental Status Exam Mental Status Exam Narrative: Appearance: Grooming/hygiene wnl. Good eye contact Attitude: Cooperative Speech: Fluent and wnl in regard to volume, tone, prosody Motor activity: Calm and without any tics, tremors or dyskinesias. Mood: 'chillin' Affect: calm, more reactive Thought process: goal directed and without evidence of formal thought disorder Thought content: as noted above. Denies SI/violent ideation Perception: Denies AH/VH and does not appear to respond to internal stimuli Insight: improving, fair Judgment: improving, fair Diagnostics Vital Signs (24Hr): Vital Signs - 24 hr 08/06/25 09:45 08/06/25 20:59 Temperature 98.8 F Pulse Rate 74 107 H Respiratory Rate 18 Blood Pressure 112/62 123/60 Pulse Oximetry 99 Oxygen Delivery Method Room Air BMI result Body Mass Index 23.6 Labs 07/06/25 19:21 07/25/25 14:11 Medications Medications Current Medications Acetaminophen (Acetaminophen 325 Mg Tablet) 650 mg PO Q6H PRN PRN Reason: Headache/Pain, Scale 1-10 Al Hydroxide/Mg Hydroxide (Magnesium Hydrox/Alum Hydrox 30 Ml Oral.Susp) 30 ml PO Q6H PRN PRN Reason: Heartburn/Nausea Hydroxyzine HCl (Hydroxyzine Hcl 25 Mg Tablet) 25 mg PO Q6H PRN PRN Reason: mild anxiety Last Admin: 08/04/25 01:00 Dose: 25 mg Lorazepam (Lorazepam 1 Mg Tablet) 1 mg PO BID PRN PRN Reason: Anxiety Last Admin: 08/06/25 21:06 Dose: 1 mg Magnesium Hydroxide (Milk Of Magnesia 30 Ml Oral.Susp) 30 ml PO DAILY PRN PRN Reason: Constipation Nicotine Polacrilex (Nicotine Polacrilex 2 Mg Gum) 4 mg BUCCAL Q2H PRN PRN Reason: Nicotine Cravings Olanzapine (Olanzapine 10 Mg Vial) 20 mg IM BEDTIME PRN PRN Reason: Refusal to take 20 mg PO at hs Olanzapine (Olanzapine 5 Mg Tablet) 5 mg PO BID PRN PRN Reason: agitation Last Admin: 08/06/25 17:40 Dose: 5 mg Olanzapine (Olanzapine 10 Mg Tablet) 10 mg PO BEDTIME PRN PRN Reason: Refusal to take Depakote. Offer IM if refuses PO Olanzapine (Olanzapine 10 Mg Vial) 10 mg IM DAILY PRN PRN Reason: see dose instruction Olanzapine (Olanzapine Odt 10 Mg Tab.Rapdis) 25 mg TRANSLINGU BEDTIME MIKALA Last Admin: 08/06/25 21:04 Dose: 25 mg Propranolol HCl (Propranolol Hcl 10 Mg Tablet) 10 mg PO BID [facility] [place]; Protocol Last Admin: 08/06/25 21:06 Dose: 10 mg Trazodone HCl (Trazodone Hcl 50 Mg Tablet) 50 mg PO BEDTIME MRX1 PRN PRN Reason: Insomnia Last Admin: 08/05/25 23:05 Dose: 50 mg Valproic Acid (Valproic Acid Liquid 250 Mg/5 Ml Solution) 800 mg PO BID MIKALA Last Admin: 08/06/25 21:06 Dose: 800 mg Allergies Allergies Allergy/AdvReac Type Severity Reaction Status Date / Time No Known Allergies Allergy Verified 07/06/25 18:08 Assessment & Plan Assessment & Plan (1) Parish: Status: Acute Code(s): F30.9 - Manic episode, unspecified (2) Acute psychosis: Status: Acute Code(s): F23 - Brief psychotic disorder Plan 07/08: continue zyprexa and depakote as established in the ED. 07/09: continue current management and treatment plan. Medications recently started. 07/10: continue current management and treatment plan. 07/11: samuels warning provided. increase depakote to 750 BID, otherwise continue current mgmt. check levels in the next couple of days. section 12b up . will likely file for commitment. 07/12: pt declines labs. will wait for steady state at 1500 mg daily prior to checking labs, laconic, terse. will likely file tomorrow. 07/13: filed for commitment. no reaction from pt. continue current mgmt. 07/14: refusing meds as of last night, already hypersexual today and threatening to kill MD if MD does not discharge him. placed on 1:1 for safety. continue to encourage meds. hearing next friday. 07/15: continues to refuse meds, remains on 1:1. wandering. aware of hearing next friday. inert, no questions/concerns. paucity of thought or thought blocking. continue to offer meds. 07/16: difficulty keeping his shirt on in the milieu, oppositional when told to garb up. inappropriate comment to RN last tera. otherwise uneventful, refusing meds. continue to offer meds. 07/17: no behavioral concerns. remains on 1:1. some RIS and inappropriate laughter. refusing meds. slept 7 hours. contnue current mgmt. hearing on friday. 07/18: no behavioral concerns. Remains on 1:1. Refusing am meds but took bedtime meds last night and is reporting poor sleep. Will consolidate olanzapine dosing to 20 mg qhs rather than 10 mg bid to improve adherence and optimize tx of residual parish/psychosis. Otherwise continue current tx plan for now. Hearing scheduled for tomorrow, 07/19 07/19: Took olanzapine 20 mg last night and slept better. No behavioral issues, still on 1:1. 04/26 hearing scheduled for today at 2 pm. Will switch Depakote from 750 mg bid to Depakote ER 1500 mg at hs since pt has been taking bedtime meds only. committed. *By the time of completion of this note- court hearing took place, pt committed on section 7/8. 07/20: Committed on section 8 with Duran order in chart. Pt cannot refuse to take olanzapine per Duran. Give 20 mg IM if pt refuses po 20 mg hs dose of olanzapine. D/C'd prn haldol and switched to 5 mg olanzapine bid prn for agitation to simplify med regimen. Will check VPA level & LFTs on Friday am. Per team discussion- will continue 1:1 for now but will try to switch to q5 min checks later this wk if no behavioral issues. 07/21: Threatened to jump over nursing station due to frustration w/ cell phone policy and continued hospitalization. Was able to tolerate a discussion re: policy and continued need for hospitalization/medication without aggressive behavior. Taking standing meds as rx'd. continue current tx plan, including 1:1 for now 07/22: agitated, threatened to harm peers and staff. security called. agreed to take po olanzapine 10 mg. refused VPA last night. Will continue 1:1. Will adjust orders for pt to receive olanzapine 10 mg if he refuses Depakote per Duran. Pt only wants to take meds for sleep and took the extra olanzapine 10 mg dose today when it was offered to help him w/ sleep (rather than agitation or anxiety) 07/24: no changes. Continue court-ordered medications 07/25: Adherent w/ meds over the weekend. Guarded. focused on discharge but calm. Insight remains severely impaired. Continue current tx plan, including 1:1 07/26: Remains focused on discharge, pushed on the unit doors and told his mom that he was being d/c'd today. Pt is not currently appropriate for a fresh air break due to being a flight risk. Continue 1:1 07/27: Calmer, more cooperative today. Switched to 5 min safety checks while in room, continue 1:1 in milieu. Will switch Depakote tabs to liquid due to difficulty swallowing the tabs. 07/28: Calm, cooperative. Did not bring up discharge today. Endorses restlessness suggestive of akathisia. Will start propranolol 10 mg bid to address this. Lloyd get first dose of VPA syrup starting tonight, rx'd as 800 mg bid. Continue 5 min safety checks in room, 15 in 07/29: Calm/cooperative with t/w. Did not bring up discharge. Easily redirectable with request to use his phone. Denies sx of akathisia today. Will continue current tx plan, including 1:1 in the milieu and 5 min safety checks when in his room In the evening, pt jumped over the nursing station desk/window and punched two computer monitors, as he wanted to leave and get his phone. He required a physical restraint & received IM haldol 10 mg, lorazepam 2 mg and benadryl 50 mg 07/30: Continue current regimen and plans 07/31: Continue current regimen and plans. 08/01: Continue current regimen and plans 08/02: Pt has been calm and has not engage in any behavioral issues since the evening of 07/29. He remains on 1:1 due to significant risk of elopement and is not appropriate for fresh air breaks due to the same concern. Continue current tx plan 08/03: No behavioral issues today. Pt requested an adjustment in his 'sleep med and reported having AH earlier in his admission but not today. Will titrate olanzapine to 25 mg qhs 08/04: Will trial fresh air breaks accompanied by security starting today. Continue 1:1 in milieu and 5 min checks while in room. No behavioral issues. Tolerated olanzapine titration to 25 mg last night. Continue current med regimen 08/05: Insight/judgment are improving, no sx of parish today, psychotic sx significantly improved. Will keep on 5 min checks while in room, 1:1 in milieu and fresh air breaks w/ security over the weekend. Will consider reducing the freq of safety checks if pt maintains safe behaviors over the weekend 08/06: continue current management and treatment plan. 08/07: continue current management and treatment plan. Reason for continued inpatient stay Substantial Risk for: inability to function and rapid decompensation Time Spent With Patient Time: Total time managing care of this patient today ____ minutes.
[2025-08-07] MEDS: Valproic Acid Liquid 250 MG/5 ML SOLUTION 800 MG PO ×2 (09:58→20:38)
[2025-08-07 10:01] VITALS: BP 124/71; PULSE 83
[2025-08-07 19:50] VITALS: BP 114/54; PULSE 98; RESP 16; TEMP 37.2; O2SAT 99
[2025-08-07] MEDS: OLANZapine ODT 10 MG TAB.RAPDIS 25 MG TRANSLINGU (20:39)
[2025-08-08 08:00] VITALS: BP 113/57; PULSE 87; RESP 16; TEMP 36.6; O2SAT 98
[2025-08-08 09:54] VITALS: BP 113/57; PULSE 87
[2025-08-08] MEDS: Valproic Acid Liquid 250 MG/5 ML SOLUTION 800 MG PO ×2 (09:54→20:27)
--- NOTE | 2025-08-08 09:54 | P.PNPSI_ITS ---
Subjective Subjective Date of Service: 08/08/25 Reason For Visit: parish and psychosis Subjective Notes: [place] Order and Section 8 Interim History: Chart reviewed, case discussed with team Discussed plan in team to switch from 1:1 in milieu to 5 min checks, given that pt has had no behavioral issues x >1 wk Met w/ pt in his room, where he was lying in bed awake in the dark around noon. Pt denies any issues over the weekend. Reports feeling 'okay'. Reports that he's sleeping pretty well. Denies feeling overly sedated from his medications during the day. Reports good appetite/eating. Denies recent AH/VH. Denies SI or violent ideation. He reports that he spoke w/ his mom over the weekend and it went fine. He asked if SW has arranged for him to go to a intermediate and t/w explained that this would be arranged when we determine a d/c date. Pt asked appropriate questions about discharge planning. Medication Compliance: Yes Mental Status Exam Mental Status Exam Narrative: Appearance: Lying in bed. Grooming/hygiene wnl. Good eye contact Attitude: Cooperative Speech: Fluent and wnl in regard to volume, tone, prosody Motor activity: Calm and without any tics, tremors or dyskinesias. Mood: 'okay' Affect: appropriate Thought process: goal directed and without evidence of formal thought disorder Thought content: as noted above. Denies SI/violent ideation Perception: Denies AH/VH and does not appear to respond to internal stimuli Insight: improving, fair Judgment: improving, fair Diagnostics Vital Signs (24Hr): Vital Signs - 24 hr 08/07/25 10:01 08/07/25 19:50 Temperature 98.9 F Pulse Rate 83 98 Respiratory Rate 16 Blood Pressure 124/71 114/54 L Pulse Oximetry 99 Oxygen Delivery Method Room Air BMI result Body Mass Index 23.6 Labs 07/06/25 19:21 07/25/25 14:11 Medications Medications Current Medications Acetaminophen (Acetaminophen 325 Mg Tablet) 650 mg PO Q6H PRN PRN Reason: Headache/Pain, Scale 1-10 Al Hydroxide/Mg Hydroxide (Magnesium Hydrox/Alum Hydrox 30 Ml Oral.Susp) 30 ml PO Q6H PRN PRN Reason: Heartburn/Nausea Hydroxyzine HCl (Hydroxyzine Hcl 25 Mg Tablet) 25 mg PO Q6H PRN PRN Reason: mild anxiety Last Admin: 08/04/25 01:00 Dose: 25 mg Lorazepam (Lorazepam 1 Mg Tablet) 1 mg PO BID PRN PRN Reason: Anxiety Last Admin: 08/07/25 20:39 Dose: 1 mg Magnesium Hydroxide (Milk Of Magnesia 30 Ml Oral.Susp) 30 ml PO DAILY PRN PRN Reason: Constipation Nicotine Polacrilex (Nicotine Polacrilex 2 Mg Gum) 4 mg BUCCAL Q2H PRN PRN Reason: Nicotine Cravings Olanzapine (Olanzapine 10 Mg Vial) 20 mg IM BEDTIME PRN PRN Reason: Refusal to take 20 mg PO at hs Olanzapine (Olanzapine 5 Mg Tablet) 5 mg PO BID PRN PRN Reason: agitation Last Admin: 08/06/25 17:40 Dose: 5 mg Olanzapine (Olanzapine 10 Mg Tablet) 10 mg PO BEDTIME PRN PRN Reason: Refusal to take Depakote. Offer IM if refuses PO Olanzapine (Olanzapine 10 Mg Vial) 10 mg IM DAILY PRN PRN Reason: see dose instruction Olanzapine (Olanzapine Odt 10 Mg Tab.Rapdis) 25 mg TRANSLINGU BEDTIME MIKALA Last Admin: 08/07/25 20:39 Dose: 25 mg Propranolol HCl (Propranolol Hcl 10 Mg Tablet) 10 mg PO BID MIKALA; Protocol Last Admin: 08/07/25 20:39 Dose: 10 mg Trazodone HCl (Trazodone Hcl 50 Mg Tablet) 50 mg PO BEDTIME MRX1 PRN PRN Reason: Insomnia Last Admin: 08/07/25 20:39 Dose: 50 mg Valproic Acid (Valproic Acid Liquid 250 Mg/5 Ml Solution) 800 mg PO BID MIKALA Last Admin: 08/07/25 20:38 Dose: 800 mg Allergies Allergies Allergy/AdvReac Type Severity Reaction Status Date / Time No Known Allergies Allergy Verified 07/06/25 18:08 Assessment & Plan Assessment & Plan (1) Parish: Status: Acute Code(s): F30.9 - Manic episode, unspecified (2) Acute psychosis: Status: Acute Code(s): F23 - Brief psychotic disorder Plan 07/08: continue zyprexa and depakote as established in the ED. 07/09: continue current management and treatment plan. Medications recently started. 07/10: continue current management and treatment plan. 07/11: samuels warning provided. increase depakote to 750 BID, otherwise continue current mgmt. check levels in the next couple of days. section 12b up . will likely file for commitment. 07/12: pt declines labs. will wait for steady state at 1500 mg daily prior to checking labs, laconic, terse. will likely file tomorrow. 07/13: filed for commitment. no reaction from pt. continue current mgmt. 07/14: refusing meds as of last night, already hypersexual today and threatening to kill MD if MD does not discharge him. placed on 1:1 for safety. continue to encourage meds. hearing next friday. 07/15: continues to refuse meds, remains on 1:1. wandering. aware of hearing next friday. inert, no questions/concerns. paucity of thought or thought blocking. continue to offer meds. 07/16: difficulty keeping his shirt on in the milieu, oppositional when told to garb up. inappropriate comment to RN last tera. otherwise uneventful, refusing meds. continue to offer meds. 07/17: no behavioral concerns. remains on 1:1. some RIS and inappropriate laughter. refusing meds. slept 7 hours. contnue current mgmt. hearing on friday. 07/18: no behavioral concerns. Remains on 1:1. Refusing am meds but took bedtime meds last night and is reporting poor sleep. Will consolidate olanzapine dosing to 20 mg qhs rather than 10 mg bid to improve adherence and optimize tx of residual parish/psychosis. Otherwise continue current tx plan for now. Hearing scheduled for tomorrow, 07/19 07/19: Took olanzapine 20 mg last night and slept better. No behavioral issues, still on 1:1. 04/26 hearing scheduled for today at 2 pm. Will switch Depakote from 750 mg bid to Depakote ER 1500 mg at hs since pt has been taking bedtime meds only. committed. *By the time of completion of this note- court hearing took place, pt committed on section 7/8. 07/20: Committed on section 8 with Duran order in chart. Pt cannot refuse to take olanzapine per Duran. Give 20 mg IM if pt refuses po 20 mg hs dose of olanzapine. D/C'd prn haldol and switched to 5 mg olanzapine bid prn for agitation to simplify med regimen. Will check VPA level & LFTs on Friday am. Per team discussion- will continue 1:1 for now but will try to switch to q5 min checks later this wk if no behavioral issues. 07/21: Threatened to jump over nursing station due to frustration w/ cell phone policy and continued hospitalization. Was able to tolerate a discussion re: policy and continued need for hospitalization/medication without aggressive behavior. Taking standing meds as rx'd. continue current tx plan, including 1:1 for now 07/22: agitated, threatened to harm peers and staff. security called. agreed to take po olanzapine 10 mg. refused VPA last night. Will continue 1:1. Will adjust orders for pt to receive olanzapine 10 mg if he refuses Depakote per Duran. Pt only wants to take meds for sleep and took the extra olanzapine 10 mg dose today when it was offered to help him w/ sleep (rather than agitation or anxiety) 07/24: no changes. Continue court-ordered medications 07/25: Adherent w/ meds over the weekend. Guarded. focused on discharge but calm. Insight remains severely impaired. Continue current tx plan, including 1:1 07/26: Remains focused on discharge, pushed on the unit doors and told his mom that he was being d/c'd today. Pt is not currently appropriate for a fresh air break due to being a flight risk. Continue 1:1 07/27: Calmer, more cooperative today. Switched to 5 min safety checks while in room, continue 1:1 in milieu. Will switch Depakote tabs to liquid due to difficulty swallowing the tabs. 07/28: Calm, cooperative. Did not bring up discharge today. Endorses restlessness suggestive of akathisia. Will start propranolol 10 mg bid to address this. Lloyd get first dose of VPA syrup starting tonight, rx'd as 800 mg bid. Continue 5 min safety checks in room, 15 in 07/29: Calm/cooperative with t/w. Did not bring up discharge. Easily redirectable with request to use his phone. Denies sx of akathisia today. Will continue current tx plan, including 1:1 in the milieu and 5 min safety checks when in his room In the evening, pt jumped over the nursing station desk/window and punched two computer monitors, as he wanted to leave and get his phone. He required a physical restraint & received IM haldol 10 mg, lorazepam 2 mg and benadryl 50 mg 07/30: Continue current regimen and plans 07/31: Continue current regimen and plans. 08/01: Continue current regimen and plans 08/02: Pt has been calm and has not engage in any behavioral issues since the evening of 07/29. He remains on 1:1 due to significant risk of elopement and is not appropriate for fresh air breaks due to the same concern. Continue current tx plan 08/03: No behavioral issues today. Pt requested an adjustment in his 'sleep med and reported having AH earlier in his admission but not today. Will titrate olanzapine to 25 mg qhs 08/04: Will trial fresh air breaks accompanied by security starting today. Continue 1:1 in milieu and 5 min checks while in room. No behavioral issues. Tolerated olanzapine titration to 25 mg last night. Continue current med regimen 08/05: Insight/judgment are improving, no sx of parish today, psychotic sx significantly improved. Will keep on 5 min checks while in room, 1:1 in milieu and fresh air breaks w/ security over the weekend. Will consider reducing the freq of safety checks if pt maintains safe behaviors over the weekend 08/06: continue current management and treatment plan. 08/07: continue current management and treatment plan. 08/08: No behavioral issues x >1 wk. Will dc 1:1 in milieu, switch to 5 min safty checks. Otherwise continue current tx plan Patient educated on: therapeutic strategies Informed Consent: understands Reason for continued inpatient stay Substantial Risk for: med/psych decompensation Time Spent With Patient Time: Total time managing care of this patient today _30___ minutes.
[2025-08-08 19:15] VITALS: BP 126/60; PULSE 103; RESP 16; TEMP 36.7; O2SAT 99
[2025-08-08] MEDS: OLANZapine ODT 10 MG TAB.RAPDIS 25 MG TRANSLINGU (20:28)
--- NOTE | 2025-08-09 09:30 | HO.PSYCHPN ---
Subjective Subjective Date of Service: 08/09/25 Reason For Visit: parish and psychosis Interim History: chart reviewed, case discussed in team Pt reportedly slept x 5 hrs, more restless last night than usual SW has spoken w/ pt's mom and he is able to return home w/ her. SW has discussed this with pt previously She did inform SW today that pt will likely be picked up on a warrant for missing a court hearing when he's d/c'd. She reportedly asked SW if pt sees himself as male or female since he told her he had a new identity and had been dressing in women's clothing and wearing jewelry at some point prior to admission. Met w/ pt in his room w/ NEHEMIAH, where he was lying in bed asleep ~9:45 am. He reports that his mood is tired . We informed pt that he can return home w/ his mom. He said I don't wanna get into it when t/w asked why he wouldn't return home, then stated just annoyance ... 'that's all I can say for now..yelling . He is taking his med as rx'd. Denies med SE No behavioral issues Took prn olanzapine, trazodone, lorazepam and hydroxyzine last night Mental Status Exam Mental Status Exam Narrative: Appearance: lying bed under covers Attitude:Cooperative Speech: Fluent and wnl in regard to volume, tone, prosody Motor activity: Calm Mood: as noted above Affect: appropriate, constricted Thought process: generally goal directed, evasive re: not wanting to return home Thought content: as noted above. No SI/violent ideation reported Perception: does not appear to respond to internal stimuli Insight: impaired Judgment: fair Diagnostics Vital Signs (24Hr): Vital Signs - 24 hr 08/08/25 09:54 08/08/25 19:15 Temperature 98.0 F Pulse Rate 87 103 H Respiratory Rate 16 Blood Pressure 113/57 L 126/60 Pulse Oximetry 99 Oxygen Delivery Method Room Air BMI result Body Mass Index 23.6 Labs 07/06/25 19:21 07/25/25 14:11 Medications Medications Current Medications Acetaminophen (Acetaminophen 325 Mg Tablet) 650 mg PO Q6H PRN PRN Reason: Headache/Pain, Scale 1-10 Al Hydroxide/Mg Hydroxide (Magnesium Hydrox/Alum Hydrox 30 Ml Oral.Susp) 30 ml PO Q6H PRN PRN Reason: Heartburn/Nausea Hydroxyzine HCl (Hydroxyzine Hcl 25 Mg Tablet) 25 mg PO Q6H PRN PRN Reason: mild anxiety Last Admin: 08/08/25 23:32 Dose: 25 mg Lorazepam (Lorazepam 1 Mg Tablet) 1 mg PO BID PRN PRN Reason: Anxiety Last Admin: 08/08/25 20:29 Dose: 1 mg Magnesium Hydroxide (Milk Of Magnesia 30 Ml Oral.Susp) 30 ml PO DAILY PRN PRN Reason: Constipation Nicotine Polacrilex (Nicotine Polacrilex 2 Mg Gum) 4 mg BUCCAL Q2H PRN PRN Reason: Nicotine Cravings Olanzapine (Olanzapine 10 Mg Vial) 20 mg IM BEDTIME PRN PRN Reason: Refusal to take 20 mg PO at hs Olanzapine (Olanzapine 5 Mg Tablet) 5 mg PO BID PRN PRN Reason: agitation Last Admin: 08/08/25 23:32 Dose: 5 mg Olanzapine (Olanzapine 10 Mg Tablet) 10 mg PO BEDTIME PRN PRN Reason: Refusal to take Depakote. Offer IM if refuses PO Olanzapine (Olanzapine 10 Mg Vial) 10 mg IM DAILY PRN PRN Reason: see dose instruction Olanzapine (Olanzapine Odt 10 Mg Tab.Rapdis) 25 mg TRANSLINGU BEDTIME MIKALA Last Admin: 08/08/25 20:28 Dose: 25 mg Propranolol HCl (Propranolol Hcl 10 Mg Tablet) 10 mg PO BID MIKALA; Protocol Last Admin: 08/08/25 20:28 Dose: 10 mg Trazodone HCl (Trazodone Hcl 50 Mg Tablet) 50 mg PO BEDTIME MRX1 PRN PRN Reason: Insomnia Last Admin: 08/08/25 23:32 Dose: 50 mg Valproic Acid (Valproic Acid Liquid 250 Mg/5 Ml Solution) 800 mg PO BID MIKALA Last Admin: 08/08/25 20:27 Dose: 800 mg Allergies Allergies Allergy/AdvReac Type Severity Reaction Status Date / Time No Known Allergies Allergy Verified 07/06/25 18:08 Assessment & Plan Assessment & Plan (1) Parish: Status: Acute Code(s): F30.9 - Manic episode, unspecified (2) Acute psychosis: Status: Acute Code(s): F23 - Brief psychotic disorder Plan 07/08: continue zyprexa and depakote as established in the ED. 07/09: continue current management and treatment plan. Medications recently started. 07/10: continue current management and treatment plan. 07/11: samuels warning provided. increase depakote to 750 BID, otherwise continue current mgmt. check levels in the next couple of days. section 12b up . will likely file for commitment. 07/12: pt declines labs. will wait for steady state at 1500 mg daily prior to checking labs, laconic, terse. will likely file tomorrow. 07/13: filed for commitment. no reaction from pt. continue current mgmt. 07/14: refusing meds as of last night, already hypersexual today and threatening to kill MD if MD does not discharge him. placed on 1:1 for safety. continue to encourage meds. hearing next friday. 07/15: continues to refuse meds, remains on 1:1. wandering. aware of hearing next friday. inert, no questions/concerns. paucity of thought or thought blocking. continue to offer meds. 07/16: difficulty keeping his shirt on in the milieu, oppositional when told to garb up. inappropriate comment to RN last tera. otherwise uneventful, refusing meds. continue to offer meds. 07/17: no behavioral concerns. remains on 1:1. some RIS and inappropriate laughter. refusing meds. slept 7 hours. contnue current mgmt. hearing on friday. 07/18: no behavioral concerns. Remains on 1:1. Refusing am meds but took bedtime meds last night and is reporting poor sleep. Will consolidate olanzapine dosing to 20 mg qhs rather than 10 mg bid to improve adherence and optimize tx of residual parish/psychosis. Otherwise continue current tx plan for now. Hearing scheduled for tomorrow, 07/19 07/19: Took olanzapine 20 mg last night and slept better. No behavioral issues, still on 1:1. 04/26 hearing scheduled for today at 2 pm. Will switch Depakote from 750 mg bid to Depakote ER 1500 mg at hs since pt has been taking bedtime meds only. committed. *By the time of completion of this note- court hearing took place, pt committed on section 7/8. 07/20: Committed on section 8 with Duran order in chart. Pt cannot refuse to take olanzapine per Duran. Give 20 mg IM if pt refuses po 20 mg hs dose of olanzapine. D/C'd prn haldol and switched to 5 mg olanzapine bid prn for agitation to simplify med regimen. Will check VPA level & LFTs on Friday am. Per team discussion- will continue 1:1 for now but will try to switch to q5 min checks later this wk if no behavioral issues. 07/21: Threatened to jump over nursing station due to frustration w/ cell phone policy and continued hospitalization. Was able to tolerate a discussion re: policy and continued need for hospitalization/medication without aggressive behavior. Taking standing meds as rx'd. continue current tx plan, including 1:1 for now 07/22: agitated, threatened to harm peers and staff. security called. agreed to take po olanzapine 10 mg. refused VPA last night. Will continue 1:1. Will adjust orders for pt to receive olanzapine 10 mg if he refuses Depakote per Duran. Pt only wants to take meds for sleep and took the extra olanzapine 10 mg dose today when it was offered to help him w/ sleep (rather than agitation or anxiety) 07/24: no changes. Continue court-ordered medications 07/25: Adherent w/ meds over the weekend. Guarded. focused on discharge but calm. Insight remains severely impaired. Continue current tx plan, including 1:1 07/26: Remains focused on discharge, pushed on the unit doors and told his mom that he was being d/c'd today. Pt is not currently appropriate for a fresh air break due to being a flight risk. Continue 1:1 07/27: Calmer, more cooperative today. Switched to 5 min safety checks while in room, continue 1:1 in milieu. Will switch Depakote tabs to liquid due to difficulty swallowing the tabs. 07/28: Calm, cooperative. Did not bring up discharge today. Endorses restlessness suggestive of akathisia. Will start propranolol 10 mg bid to address this. Lloyd get first dose of VPA syrup starting tonight, rx'd as 800 mg bid. Continue 5 min safety checks in room, 15 in 07/29: Calm/cooperative with t/w. Did not bring up discharge. Easily redirectable with request to use his phone. Denies sx of akathisia today. Will continue current tx plan, including 1:1 in the milieu and 5 min safety checks when in his room In the evening, pt jumped over the nursing station desk/window and punched two computer monitors, as he wanted to leave and get his phone. He required a physical restraint & received IM haldol 10 mg, lorazepam 2 mg and benadryl 50 mg 07/30: Continue current regimen and plans 07/31: Continue current regimen and plans. 08/01: Continue current regimen and plans 08/02: Pt has been calm and has not engage in any behavioral issues since the evening of 07/29. He remains on 1:1 due to significant risk of elopement and is not appropriate for fresh air breaks due to the same concern. Continue current tx plan 08/03: No behavioral issues today. Pt requested an adjustment in his 'sleep med and reported having AH earlier in his admission but not today. Will titrate olanzapine to 25 mg qhs 08/04: Will trial fresh air breaks accompanied by security starting today. Continue 1:1 in milieu and 5 min checks while in room. No behavioral issues. Tolerated olanzapine titration to 25 mg last night. Continue current med regimen 08/05: Insight/judgment are improving, no sx of parish today, psychotic sx significantly improved. Will keep on 5 min checks while in room, 1:1 in milieu and fresh air breaks w/ security over the weekend. Will consider reducing the freq of safety checks if pt maintains safe behaviors over the weekend 08/06: continue current management and treatment plan. 08/07: continue current management and treatment plan. 08/08: No behavioral issues x >1 wk. Will dc 1:1 in milieu, switch to 5 min safty checks. Otherwise continue current tx plan 08/09: No behavioral issues. Med adherent and utilizing prns. Continue current tx plan for now. Reason for continued inpatient stay Substantial Risk for: med/psych decompensation Time Spent With Patient Time: Total time managing care of this patient today __30__ minutes.
[2025-08-09 11:05] VITALS: BP 120/65; PULSE 103; RESP 15; TEMP 37; O2SAT 99
[2025-08-09 11:11] VITALS: BP 120/65; PULSE 103
[2025-08-09] MEDS: Valproic Acid Liquid 250 MG/5 ML SOLUTION 800 MG PO ×2 (11:11→21:09)
[2025-08-09 20:00] VITALS: BP 140/65; PULSE 101; RESP 16; TEMP 37; O2SAT 100
[2025-08-09] MEDS: OLANZapine ODT 10 MG TAB.RAPDIS 25 MG TRANSLINGU (21:12)
[2025-08-10 07:29] VITALS: BP 124/55; PULSE 78; RESP 16; TEMP 36.3; O2SAT 99
[2025-08-10] MEDS: Valproic Acid Liquid 250 MG/5 ML SOLUTION 800 MG PO ×2 (10:23→20:52)
[2025-08-10 10:24] VITALS: BP 130/66; PULSE 80
--- NOTE | 2025-08-10 19:28 | HO.PSYCHPN ---
Subjective Subjective Date of Service: 08/10/25 Reason For Visit: parish and psychosis Interim History: Chart reviewed, case discussed with tx team No behavioral issues since the incident on 07/29. Pt generally isolates in his room in the dark. Reported 06/29 depression and anxiety to staff per team mtg. Met w/ pt in his room, where he was awake in bed in the dark. He denies feeling depressed or significant anxiety. States that he's comfortable in bed and is passing the time by sleeping. Denies feeling overly sedated during the day. Reports sleeping well and good appetite. Denies SI/violent ideation Denies AH/VH Denies med SE. He is content w/ his med regimen since it helps with sleep Mental Status Exam Mental Status Exam Narrative: Appearance: lying in bed awake Attitude:Cooperative Speech: Fluent and wnl in regard to volume, tone, prosody Motor activity: Calm Mood: 'okay' Affect: appropriate Thought process: generally goal directed Thought content: as noted above. Perception: does not appear to respond to internal stimuli Insight: impaired Judgment: fair Diagnostics Vital Signs (24Hr): Vital Signs - 24 hr 08/09/25 20:00 08/10/25 07:29 08/10/25 10:24 Temperature 98.6 F 97.3 F Pulse Rate 101 H 78 80 Respiratory Rate 16 16 Blood Pressure 140/65 H 124/55 L 130/66 Pulse Oximetry 100 99 Oxygen Delivery Method Room Air Room Air BMI result Body Mass Index 23.6 Labs 07/06/25 19:21 07/25/25 14:11 Medications Medications Current Medications Acetaminophen (Acetaminophen 325 Mg Tablet) 650 mg PO Q6H PRN PRN Reason: Headache/Pain, Scale 1-10 Al Hydroxide/Mg Hydroxide (Magnesium Hydrox/Alum Hydrox 30 Ml Oral.Susp) 30 ml PO Q6H PRN PRN Reason: Heartburn/Nausea Hydroxyzine HCl (Hydroxyzine Hcl 25 Mg Tablet) 25 mg PO Q6H PRN PRN Reason: mild anxiety Last Admin: 08/08/25 23:32 Dose: 25 mg Lorazepam (Lorazepam 1 Mg Tablet) 1 mg PO BID PRN PRN Reason: Anxiety Last Admin: 08/09/25 21:11 Dose: 1 mg Magnesium Hydroxide (Milk Of Magnesia 30 Ml Oral.Susp) 30 ml PO DAILY PRN PRN Reason: Constipation Nicotine Polacrilex (Nicotine Polacrilex 2 Mg Gum) 4 mg BUCCAL Q2H PRN PRN Reason: Nicotine Cravings Olanzapine (Olanzapine 10 Mg Vial) 20 mg IM BEDTIME PRN PRN Reason: Refusal to take 20 mg PO at hs Olanzapine (Olanzapine 5 Mg Tablet) 5 mg PO BID PRN PRN Reason: agitation Last Admin: 08/08/25 23:32 Dose: 5 mg Olanzapine (Olanzapine 10 Mg Tablet) 10 mg PO BEDTIME PRN PRN Reason: Refusal to take Depakote. Offer IM if refuses PO Olanzapine (Olanzapine 10 Mg Vial) 10 mg IM DAILY PRN PRN Reason: see dose instruction Olanzapine (Olanzapine Odt 10 Mg Tab.Rapdis) 25 mg TRANSLINGU BEDTIME MIKALA Last Admin: 08/09/25 21:12 Dose: 25 mg Propranolol HCl (Propranolol Hcl 10 Mg Tablet) 10 mg PO BID MIKALA; Protocol Last Admin: 08/10/25 10:24 Dose: 10 mg Trazodone HCl (Trazodone Hcl 50 Mg Tablet) 50 mg PO BEDTIME MRX1 PRN PRN Reason: Insomnia Last Admin: 08/09/25 21:11 Dose: 50 mg Valproic Acid (Valproic Acid Liquid 250 Mg/5 Ml Solution) 800 mg PO BID MIKALA Last Admin: 08/10/25 10:23 Dose: 800 mg Allergies Allergies Allergy/AdvReac Type Severity Reaction Status Date / Time No Known Allergies Allergy Verified 07/06/25 18:08 Assessment & Plan Assessment & Plan (1) Parish: Status: Acute Code(s): F30.9 - Manic episode, unspecified (2) Acute psychosis: Status: Acute Code(s): F23 - Brief psychotic disorder Plan 07/08: continue zyprexa and depakote as established in the ED. 07/09: continue current management and treatment plan. Medications recently started. 07/10: continue current management and treatment plan. 07/11: samuels warning provided. increase depakote to 750 BID, otherwise continue current mgmt. check levels in the next couple of days. section 12b up . will likely file for commitment. 07/12: pt declines labs. will wait for steady state at 1500 mg daily prior to checking labs, laconic, terse. will likely file tomorrow. 07/13: filed for commitment. no reaction from pt. continue current mgmt. 07/14: refusing meds as of last night, already hypersexual today and threatening to kill MD if MD does not discharge him. placed on 1:1 for safety. continue to encourage meds. hearing next friday. 07/15: continues to refuse meds, remains on 1:1. wandering. aware of hearing next friday. inert, no questions/concerns. paucity of thought or thought blocking. continue to offer meds. 07/16: difficulty keeping his shirt on in the milieu, oppositional when told to garb up. inappropriate comment to RN last tera. otherwise uneventful, refusing meds. continue to offer meds. 07/17: no behavioral concerns. remains on 1:1. some RIS and inappropriate laughter. refusing meds. slept 7 hours. contnue current mgmt. hearing on friday. 07/18: no behavioral concerns. Remains on 1:1. Refusing am meds but took bedtime meds last night and is reporting poor sleep. Will consolidate olanzapine dosing to 20 mg qhs rather than 10 mg bid to improve adherence and optimize tx of residual parish/psychosis. Otherwise continue current tx plan for now. Hearing scheduled for tomorrow, 07/19 07/19: Took olanzapine 20 mg last night and slept better. No behavioral issues, still on 1:1. 04/26 hearing scheduled for today at 2 pm. Will switch Depakote from 750 mg bid to Depakote ER 1500 mg at hs since pt has been taking bedtime meds only. committed. *By the time of completion of this note- court hearing took place, pt committed on section 7/8. 07/20: Committed on section 8 with Garzon order in chart. Pt cannot refuse to take olanzapine per Duran. Give 20 mg IM if pt refuses po 20 mg hs dose of olanzapine. D/C'd prn haldol and switched to 5 mg olanzapine bid prn for agitation to simplify med regimen. Will check VPA level & LFTs on Friday am. Per team discussion- will continue 1:1 for now but will try to switch to q5 min checks later this wk if no behavioral issues. 07/21: Threatened to jump over nursing station due to frustration w/ cell phone policy and continued hospitalization. Was able to tolerate a discussion re: policy and continued need for hospitalization/medication without aggressive behavior. Taking standing meds as rx'd. continue current tx plan, including 1:1 for now 07/22: agitated, threatened to harm peers and staff. security called. agreed to take po olanzapine 10 mg. refused VPA last night. Will continue 1:1. Will adjust orders for pt to receive olanzapine 10 mg if he refuses Depakote per Duran. Pt only wants to take meds for sleep and took the extra olanzapine 10 mg dose today when it was offered to help him w/ sleep (rather than agitation or anxiety) 07/24: no changes. Continue court-ordered medications 07/25: Adherent w/ meds over the weekend. Guarded. focused on discharge but calm. Insight remains severely impaired. Continue current tx plan, including 1:1 07/26: Remains focused on discharge, pushed on the unit doors and told his mom that he was being d/c'd today. Pt is not currently appropriate for a fresh air break due to being a flight risk. Continue 1:1 07/27: Calmer, more cooperative today. Switched to 5 min safety checks while in room, continue 1:1 in milieu. Will switch Depakote tabs to liquid due to difficulty swallowing the tabs. 07/28: Calm, cooperative. Did not bring up discharge today. Endorses restlessness suggestive of akathisia. Will start propranolol 10 mg bid to address this. Lloyd get first dose of VPA syrup starting tonight, rx'd as 800 mg bid. Continue 5 min safety checks in room, 15 in 07/29: Calm/cooperative with t/w. Did not bring up discharge. Easily redirectable with request to use his phone. Denies sx of akathisia today. Will continue current tx plan, including 1:1 in the milieu and 5 min safety checks when in his room In the evening, pt jumped over the nursing station desk/window and punched two computer monitors, as he wanted to leave and get his phone. He required a physical restraint & received IM haldol 10 mg, lorazepam 2 mg and benadryl 50 mg 07/30: Continue current regimen and plans 07/31: Continue current regimen and plans. 08/01: Continue current regimen and plans 08/02: Pt has been calm and has not engage in any behavioral issues since the evening of 07/29. He remains on 1:1 due to significant risk of elopement and is not appropriate for fresh air breaks due to the same concern. Continue current tx plan 08/03: No behavioral issues today. Pt requested an adjustment in his 'sleep med and reported having AH earlier in his admission but not today. Will titrate olanzapine to 25 mg qhs 08/04: Will trial fresh air breaks accompanied by security starting today. Continue 1:1 in milieu and 5 min checks while in room. No behavioral issues. Tolerated olanzapine titration to 25 mg last night. Continue current med regimen 08/05: Insight/judgment are improving, no sx of parish today, psychotic sx significantly improved. Will keep on 5 min checks while in room, 1:1 in milieu and fresh air breaks w/ security over the weekend. Will consider reducing the freq of safety checks if pt maintains safe behaviors over the weekend 08/06: continue current management and treatment plan. 08/07: continue current management and treatment plan. 08/08: No behavioral issues x >1 wk. Will dc 1:1 in milieu, switch to 5 min safty checks. Otherwise continue current tx plan 08/09: No behavioral issues. Med adherent and utilizing prns. Continue current tx plan for now. 08/10: Pt is generally isolative in room, no behavioral issues. Switched to 15 min safety checks while in his room, continue 5 min checks in milieu. Ordered VPA level for tonight. Continue current med regimen for now Patient educated on: therapeutic strategies Reason for continued inpatient stay Substantial Risk for: med/psych decompensation Time Spent With Patient Time: Total time managing care of this patient today _25___ minutes.
[2025-08-10 20:00] VITALS: BP 140/63; PULSE 101; RESP 16; TEMP 37.2; O2SAT 99
[2025-08-10 20:51] VITALS: BP 140/63; PULSE 101
[2025-08-10] MEDS: OLANZapine ODT 10 MG TAB.RAPDIS 25 MG TRANSLINGU (20:51)
[2025-08-11 08:00] VITALS: BP 129/62; PULSE 69; RESP 18; TEMP 37.1; O2SAT 98
[2025-08-11] MEDS: Valproic Acid Liquid 250 MG/5 ML SOLUTION 800 MG PO ×2 (09:47→20:23)
--- NOTE | 2025-08-11 18:25 | P.PNPSI_ITS ---
Subjective Subjective Date of Service: 08/11/25 Reason For Visit: parish and psychosis Interim History: chart reviewed, case discussed w/ team Met w/ pt in his room, where he was again lying in bed in the dark. He reports that he's doing okay, how are you? . He denies feeling overly sedated during the day. State that he did go on the PERI today. He denies recent AH/VH. Denies SI/violent ideation. He asks again about the nursing home. States he doesn't want to return to his mom's. He is not pressing for discharge but asks to be updated on d/c planning. Expresses appreciation for t/w's work with him, states that it's been helpful. He states that he likes the medications and they help. When asked how they help, he states I don't know... with my sleep . Denies med SE. T/W asked if would be open to trying an MYLES to reduce his daily pill burden and help him maintain stabilit upon d/c and he was agreeable. T/W asked about pt's family. He didn't know how many sibs he has initally, then said maybe 5. Review of Systems Acute medical concerns: No Medical Review of Systems: unchanged Diagnostics Vital Signs (24Hr): Vital Signs - 24 hr 08/10/25 20:00 08/10/25 20:51 08/11/25 08:00 Temperature 99 F 98.7 F Pulse Rate 101 H 101 H 69 Respiratory Rate 16 18 Blood Pressure 140/63 H 140/63 H 129/62 Pulse Oximetry 99 98 Oxygen Delivery Method Room Air Room Air BMI result Body Mass Index 23.6 Labs 07/06/25 19:21 07/25/25 14:11 Labs: Laboratory Results - last 48 hr 08/10/25 20:09 Valproic Acid 75.5 Medications Medications Current Medications Acetaminophen (Acetaminophen 325 Mg Tablet) 650 mg PO Q6H PRN PRN Reason: Headache/Pain, Scale 1-10 Al Hydroxide/Mg Hydroxide (Magnesium Hydrox/Alum Hydrox 30 Ml Oral.Susp) 30 ml PO Q6H PRN PRN Reason: Heartburn/Nausea Hydroxyzine HCl (Hydroxyzine Hcl 25 Mg Tablet) 25 mg PO Q6H PRN PRN Reason: mild anxiety Last Admin: 10/20/25 23:32 Dose: 25 mg Lorazepam (Lorazepam 1 Mg Tablet) 1 mg PO BID PRN PRN Reason: Anxiety Last Admin: 08/09/25 21:11 Dose: 1 mg Magnesium Hydroxide (Milk Of Magnesia 30 Ml Oral.Susp) 30 ml PO DAILY PRN PRN Reason: Constipation Nicotine Polacrilex (Nicotine Polacrilex 2 Mg Gum) 4 mg BUCCAL Q2H PRN PRN Reason: Nicotine Cravings Olanzapine (Olanzapine 10 Mg Vial) 20 mg IM BEDTIME PRN PRN Reason: Refusal to take 20 mg PO at hs Olanzapine (Olanzapine 5 Mg Tablet) 5 mg PO BID PRN PRN Reason: agitation Last Admin: 08/08/25 23:32 Dose: 5 mg Olanzapine (Olanzapine 10 Mg Tablet) 10 mg PO BEDTIME PRN PRN Reason: Refusal to take Depakote. Offer IM if refuses PO Olanzapine (Olanzapine 10 Mg Vial) 10 mg IM DAILY PRN PRN Reason: see dose instruction Olanzapine (Olanzapine Odt 10 Mg Tab.Rapdis) 25 mg TRANSLINGU BEDTIME MIKALA Last Admin: 08/10/25 20:51 Dose: 25 mg Propranolol HCl (Propranolol Hcl 10 Mg Tablet) 10 mg PO BID MIKALA; Protocol Last Admin: 08/11/25 09:47 Dose: 10 mg Trazodone HCl (Trazodone Hcl 50 Mg Tablet) 50 mg PO BEDTIME MRX1 PRN PRN Reason: Insomnia Last Admin: 08/09/25 21:11 Dose: 50 mg Valproic Acid (Valproic Acid Liquid 250 Mg/5 Ml Solution) 800 mg PO BID MIKALA Last Admin: 08/11/25 09:47 Dose: 800 mg Allergies Allergies Allergy/AdvReac Type Severity Reaction Status Date / Time No Known Allergies Allergy Verified 07/06/25 18:08 Assessment & Plan Assessment & Plan (1) Parish: Status: Acute Code(s): F30.9 - Manic episode, unspecified (2) Acute psychosis: Status: Acute Code(s): F23 - Brief psychotic disorder Plan 07/08: continue zyprexa and depakote as established in the ED. 07/09: continue current management and treatment plan. Medications recently started. 07/10: continue current management and treatment plan. 07/11: samuels warning provided. increase depakote to 750 BID, otherwise continue current mgmt. check levels in the next couple of days. section 12b up . will likely file for commitment. 07/12: pt declines labs. will wait for steady state at 1500 mg daily prior to checking labs, laconic, terse. will likely file tomorrow. 07/13: filed for commitment. no reaction from pt. continue current mgmt. 07/14: refusing meds as of last night, already hypersexual today and threatening to kill MD if MD does not discharge him. placed on 1:1 for safety. continue to encourage meds. hearing next friday. 07/15: continues to refuse meds, remains on 1:1. wandering. aware of hearing next friday. inert, no questions/concerns. paucity of thought or thought blocking. continue to offer meds. 07/16: difficulty keeping his shirt on in the milieu, oppositional when told to garb up. inappropriate comment to RN last tera. otherwise uneventful, refusing meds. continue to offer meds. 07/17: no behavioral concerns. remains on 1:1. some RIS and inappropriate laughter. refusing meds. slept 7 hours. contnue current mgmt. hearing on friday. 07/18: no behavioral concerns. Remains on 1:1. Refusing am meds but took bedtime meds last night and is reporting poor sleep. Will consolidate olanzapine dosing to 20 mg qhs rather than 10 mg bid to improve adherence and optimize tx of residual parish/psychosis. Otherwise continue current tx plan for now. Hearing scheduled for tomorrow, 07/19 07/19: Took olanzapine 20 mg last night and slept better. No behavioral issues, still on 1:1. 04/26 hearing scheduled for today at 2 pm. Will switch Depakote from 750 mg bid to Depakote ER 1500 mg at hs since pt has been taking bedtime meds only. committed. *By the time of completion of this note- court hearing took place, pt committed on section 7/8. 07/20: Committed on section 8 with Duran order in chart. Pt cannot refuse to take olanzapine per Duran. Give 20 mg IM if pt refuses po 20 mg hs dose of olanzapine. D/C'd prn haldol and switched to 5 mg olanzapine bid prn for agitation to simplify med regimen. Will check VPA level & LFTs on Friday am. Per team discussion- will continue 1:1 for now but will try to switch to q5 min checks later this wk if no behavioral issues. 07/21: Threatened to jump over nursing station due to frustration w/ cell phone policy and continued hospitalization. Was able to tolerate a discussion re: policy and continued need for hospitalization/medication without aggressive behavior. Taking standing meds as rx'd. continue current tx plan, including 1:1 for now 07/22: agitated, threatened to harm peers and staff. security called. agreed to take po olanzapine 10 mg. refused VPA last night. Will continue 1:1. Will adjust orders for pt to receive olanzapine 10 mg if he refuses Depakote per Duran. Pt only wants to take meds for sleep and took the extra olanzapine 10 mg dose today when it was offered to help him w/ sleep (rather than agitation or anxiety) 07/24: no changes. Continue court-ordered medications 07/25: Adherent w/ meds over the weekend. Guarded. focused on discharge but calm. Insight remains severely impaired. Continue current tx plan, including 1:1 07/26: Remains focused on discharge, pushed on the unit doors and told his mom that he was being d/c'd today. Pt is not currently appropriate for a fresh air break due to being a flight risk. Continue 1:1 07/27: Calmer, more cooperative today. Switched to 5 min safety checks while in room, continue 1:1 in milieu. Will switch Depakote tabs to liquid due to difficulty swallowing the tabs. 07/28: Calm, cooperative. Did not bring up discharge today. Endorses restlessness suggestive of akathisia. Will start propranolol 10 mg bid to address this. Lloyd get first dose of VPA syrup starting tonight, rx'd as 800 mg bid. Continue 5 min safety checks in room, 15 in 07/29: Calm/cooperative with t/w. Did not bring up discharge. Easily redirectable with request to use his phone. Denies sx of akathisia today. Will continue current tx plan, including 1:1 in the milieu and 5 min safety checks when in his room In the evening, pt jumped over the nursing station desk/window and punched two computer monitors, as he wanted to leave and get his phone. He required a physical restraint & received IM haldol 10 mg, lorazepam 2 mg and benadryl 50 mg 07/30: Continue current regimen and plans 07/31: Continue current regimen and plans. 08/01: Continue current regimen and plans 08/02: Pt has been calm and has not engage in any behavioral issues since the evening of 07/29. He remains on 1:1 due to significant risk of elopement and is not appropriate for fresh air breaks due to the same concern. Continue current tx plan 08/03: No behavioral issues today. Pt requested an adjustment in his 'sleep med and reported having AH earlier in his admission but not today. Will titrate olanzapine to 25 mg qhs 08/04: Will trial fresh air breaks accompanied by security starting today. Continue 1:1 in milieu and 5 min checks while in room. No behavioral issues. Tolerated olanzapine titration to 25 mg last night. Continue current med regimen 08/05: Insight/judgment are improving, no sx of parish today, psychotic sx significantly improved. Will keep on 5 min checks while in room, 1:1 in milieu and fresh air breaks w/ security over the weekend. Will consider reducing the freq of safety checks if pt maintains safe behaviors over the weekend 08/06: continue current management and treatment plan. 08/07: continue current management and treatment plan. 08/08: No behavioral issues x >1 wk. Will dc 1:1 in milieu, switch to 5 min safty checks. Otherwise continue current tx plan 08/09: No behavioral issues. Med adherent and utilizing prns. Continue current tx plan for now. 08/10: Pt is generally isolative in room, no behavioral issues. Switched to 15 min safety checks while in his room, continue 5 min checks in milieu. Ordered VPA level for tonight. Continue current med regimen for now 08/11: VPA level- 75.5 on 800 mg VPA bid. Will continue current dose since parish has resolved. Will taper olanzapine to 20 mg tonight in preparation to x titrate to oral paliperidone, which can be given as a MYLES to reduce risk of relapse upon d/c. Otherwise continue current tx plan Reason for continued inpatient stay Substantial Risk for: med/psych decompensation Time Spent With Patient Time: Total time managing care of this patient today __30__ minutes.
[2025-08-11 20:20] VITALS: BP 124/60; PULSE 96; RESP 16; TEMP 36.7; O2SAT 99
[2025-08-11 20:21] VITALS: BP 124/60; PULSE 96
[2025-08-11] MEDS: OLANZapine ODT 10 MG TAB.RAPDIS 20 MG TRANSLINGU (20:22)
[2025-08-12 09:30] VITALS: BP 118/55; PULSE 79; RESP 17; O2SAT 79
[2025-08-12] MEDS: Valproic Acid Liquid 250 MG/5 ML SOLUTION 800 MG PO ×2 (09:38→20:22)
[2025-08-12 09:40] VITALS: BP 118/55; PULSE 79
--- NOTE | 2025-08-12 18:02 | HO.PSYCHPN ---
Subjective Subjective Date of Service: 08/12/25 Reason For Visit: parish and psychosis Interim History: chart reviewed, case discussed w/ tx team Pt was in his bed in the dark again. Sat up to talk. Again asks t/w how are you? . Denies any physical or pyschiatric concerns today. Reportedly slept thru the night. No issues w/ olanzapine taper Mental Status Exam Mental Status Exam Narrative: Appearance: grooming/hygiene and eye contact wnl Attitude:Cooperative Speech: Fluent and wnl in regard to volume, tone, prosody Motor activity: Calm Mood: as noted above Affect: appropriate Thought process: goal directed for brief interview Thought content: as noted above. No SI/violent ideation reported Perception: does not appear to respond to internal stimuli Insight: impaired Judgment: fair Diagnostics Vital Signs (24Hr): Vital Signs - 24 hr 08/11/25 20:20 08/11/25 20:21 08/12/25 09:30 Temperature 98.0 F Pulse Rate 96 96 79 Respiratory Rate 16 17 Blood Pressure 124/60 124/60 118/55 L Pulse Oximetry 99 79 L Oxygen Delivery Method Room Air Room Air 08/12/25 09:40 Temperature Pulse Rate 79 Respiratory Rate Blood Pressure 118/55 L Pulse Oximetry Oxygen Delivery Method BMI result Body Mass Index 23.6 Labs 07/06/25 19:21 07/25/25 14:11 Labs: Laboratory Results - last 48 hr 08/10/25 20:09 Valproic Acid 75.5 Medications Medications Current Medications Acetaminophen (Acetaminophen 325 Mg Tablet) 650 mg PO Q6H PRN PRN Reason: Headache/Pain, Scale 1-10 Al Hydroxide/Mg Hydroxide (Magnesium Hydrox/Alum Hydrox 30 Ml Oral.Susp) 30 ml PO Q6H PRN PRN Reason: Heartburn/Nausea Hydroxyzine HCl (Hydroxyzine Hcl 25 Mg Tablet) 25 mg PO Q6H PRN PRN Reason: mild anxiety Last Admin: 08/08/25 23:32 Dose: 25 mg Lorazepam (Lorazepam 1 Mg Tablet) 1 mg PO BID PRN PRN Reason: Anxiety Last Admin: 08/09/25 21:11 Dose: 1 mg Magnesium Hydroxide (Milk Of Magnesia 30 Ml Oral.Susp) 30 ml PO DAILY PRN PRN Reason: Constipation Nicotine Polacrilex (Nicotine Polacrilex 2 Mg Gum) 4 mg BUCCAL Q2H PRN PRN Reason: Nicotine Cravings Olanzapine (Olanzapine 10 Mg Vial) 20 mg IM BEDTIME PRN PRN Reason: Refusal to take 20 mg PO at hs Olanzapine (Olanzapine 5 Mg Tablet) 5 mg PO BID PRN PRN Reason: agitation Last Admin: 08/08/25 23:32 Dose: 5 mg Olanzapine (Olanzapine 10 Mg Tablet) 10 mg PO BEDTIME PRN PRN Reason: Refusal to take Depakote. Offer IM if refuses PO Olanzapine (Olanzapine 10 Mg Vial) 10 mg IM DAILY PRN PRN Reason: see dose instruction Olanzapine (Olanzapine Odt 10 Mg Tab.Rapdis) 20 mg TRANSLINGU BEDTIME MIKALA Last Admin: 08/11/25 20:22 Dose: 20 mg Propranolol HCl (Propranolol Hcl 10 Mg Tablet) 10 mg PO BID MIKALA; Protocol Last Admin: 08/12/25 09:40 Dose: 10 mg Trazodone HCl (Trazodone Hcl 50 Mg Tablet) 50 mg PO BEDTIME MRX1 PRN PRN Reason: Insomnia Last Admin: 08/09/25 21:11 Dose: 50 mg Valproic Acid (Valproic Acid Liquid 250 Mg/5 Ml Solution) 800 mg PO BID MIKALA Last Admin: 08/12/25 09:38 Dose: 800 mg Allergies Allergies Allergy/AdvReac Type Severity Reaction Status Date / Time No Known Allergies Allergy Verified 07/06/25 18:08 Assessment & Plan Assessment & Plan (1) Parish: Status: Acute Code(s): F30.9 - Manic episode, unspecified (2) Acute psychosis: Status: Acute Code(s): F23 - Brief psychotic disorder Plan 07/08: continue zyprexa and depakote as established in the ED. 07/09: continue current management and treatment plan. Medications recently started. 07/10: continue current management and treatment plan. 07/11: samuels warning provided. increase depakote to 750 BID, otherwise continue current mgmt. check levels in the next couple of days. section 12b up . will likely file for commitment. 07/12: pt declines labs. will wait for steady state at 1500 mg daily prior to checking labs, laconic, terse. will likely file tomorrow. 07/13: filed for commitment. no reaction from pt. continue current mgmt. 07/14: refusing meds as of last night, already hypersexual today and threatening to kill MD if MD does not discharge him. placed on 1:1 for safety. continue to encourage meds. hearing next friday. 07/15: continues to refuse meds, remains on 1:1. wandering. aware of hearing next friday. inert, no questions/concerns. paucity of thought or thought blocking. continue to offer meds. 07/16: difficulty keeping his shirt on in the milieu, oppositional when told to garb up. inappropriate comment to RN last tera. otherwise uneventful, refusing meds. continue to offer meds. 07/17: no behavioral concerns. remains on 1:1. some RIS and inappropriate laughter. refusing meds. slept 7 hours. contnue current mgmt. hearing on friday. 07/18: no behavioral concerns. Remains on 1:1. Refusing am meds but took bedtime meds last night and is reporting poor sleep. Will consolidate olanzapine dosing to 20 mg qhs rather than 10 mg bid to improve adherence and optimize tx of residual parish/psychosis. Otherwise continue current tx plan for now. Hearing scheduled for tomorrow, 07/19 07/19: Took olanzapine 20 mg last night and slept better. No behavioral issues, still on 1:1. 04/26 hearing scheduled for today at 2 pm. Will switch Depakote from 750 mg bid to Depakote ER 1500 mg at hs since pt has been taking bedtime meds only. committed. *By the time of completion of this note- court hearing took place, pt committed on section 7/8. 07/20: Committed on section 8 with Duran order in chart. Pt cannot refuse to take olanzapine per Duran. Give 20 mg IM if pt refuses po 20 mg hs dose of olanzapine. D/C'd prn haldol and switched to 5 mg olanzapine bid prn for agitation to simplify med regimen. Will check VPA level & LFTs on Friday am. Per team discussion- will continue 1:1 for now but will try to switch to q5 min checks later this wk if no behavioral issues. 07/21: Threatened to jump over nursing station due to frustration w/ cell phone policy and continued hospitalization. Was able to tolerate a discussion re: policy and continued need for hospitalization/medication without aggressive behavior. Taking standing meds as rx'd. continue current tx plan, including 1:1 for now 07/22: agitated, threatened to harm peers and staff. security called. agreed to take po olanzapine 10 mg. refused VPA last night. Will continue 1:1. Will adjust orders for pt to receive olanzapine 10 mg if he refuses Depakote per Duran. Pt only wants to take meds for sleep and took the extra olanzapine 10 mg dose today when it was offered to help him w/ sleep (rather than agitation or anxiety) 07/24: no changes. Continue court-ordered medications 07/25: Adherent w/ meds over the weekend. Guarded. focused on discharge but calm. Insight remains severely impaired. Continue current tx plan, including 1:1 07/26: Remains focused on discharge, pushed on the unit doors and told his mom that he was being d/c'd today. Pt is not currently appropriate for a fresh air break due to being a flight risk. Continue 1:1 07/27: Calmer, more cooperative today. Switched to 5 min safety checks while in room, continue 1:1 in milieu. Will switch Depakote tabs to liquid due to difficulty swallowing the tabs. 07/28: Calm, cooperative. Did not bring up discharge today. Endorses restlessness suggestive of akathisia. Will start propranolol 10 mg bid to address this. Lloyd get first dose of VPA syrup starting tonight, rx'd as 800 mg bid. Continue 5 min safety checks in room, 15 in 07/29: Calm/cooperative with t/w. Did not bring up discharge. Easily redirectable with request to use his phone. Denies sx of akathisia today. Will continue current tx plan, including 1:1 in the milieu and 5 min safety checks when in his room In the evening, pt jumped over the nursing station desk/window and punched two computer monitors, as he wanted to leave and get his phone. He required a physical restraint & received IM haldol 10 mg, lorazepam 2 mg and benadryl 50 mg 07/30: Continue current regimen and plans 07/31: Continue current regimen and plans. 08/01: Continue current regimen and plans 08/02: Pt has been calm and has not engage in any behavioral issues since the evening of 07/29. He remains on 1:1 due to significant risk of elopement and is not appropriate for fresh air breaks due to the same concern. Continue current tx plan 08/03: No behavioral issues today. Pt requested an adjustment in his 'sleep med and reported having AH earlier in his admission but not today. Will titrate olanzapine to 25 mg qhs 08/04: Will trial fresh air breaks accompanied by security starting today. Continue 1:1 in milieu and 5 min checks while in room. No behavioral issues. Tolerated olanzapine titration to 25 mg last night. Continue current med regimen 08/05: Insight/judgment are improving, no sx of parish today, psychotic sx significantly improved. Will keep on 5 min checks while in room, 1:1 in milieu and fresh air breaks w/ security over the weekend. Will consider reducing the freq of safety checks if pt maintains safe behaviors over the weekend 08/06: continue current management and treatment plan. 08/07: continue current management and treatment plan. 08/08: No behavioral issues x >1 wk. Will dc 1:1 in milieu, switch to 5 min safty checks. Otherwise continue current tx plan 08/09: No behavioral issues. Med adherent and utilizing prns. Continue current tx plan for now. 08/10: Pt is generally isolative in room, no behavioral issues. Switched to 15 min safety checks while in his room, continue 5 min checks in milieu. Ordered VPA level for tonight. Continue current med regimen for now 08/11: VPA level- 75.5 on 800 mg VPA bid. Will continue current dose since parish has resolved. Will taper olanzapine to 20 mg tonight in preparation to x titrate to oral paliperidone, which can be given as a MYLES to reduce risk of relapse upon d/c. Otherwise continue current tx plan 08/12: Continue current med regimen for now. Reason for continued inpatient stay Substantial Risk for: med/psych decompensation Time Spent With Patient Time: Total time managing care of this patient today _20___ minutes.
[2025-08-12 20:00] VITALS: BP 131/70; PULSE 93; RESP 16; TEMP 37.1; O2SAT 93
[2025-08-12] MEDS: OLANZapine ODT 10 MG TAB.RAPDIS 20 MG TRANSLINGU (20:20)
[2025-08-12 20:21] VITALS: BP 131/70; PULSE 93
[2025-08-13 10:00] VITALS: BP 123/63; PULSE 94; RESP 16; TEMP 36.4; O2SAT 99
[2025-08-13] MEDS: Valproic Acid Liquid 250 MG/5 ML SOLUTION 800 MG PO ×2 (10:05→20:16)
[2025-08-13 10:06] VITALS: BP 123/63; PULSE 94
--- NOTE | 2025-08-13 14:26 | HO.PSYCHPN ---
Subjective Subjective Date of Service: 08/13/25 Reason For Visit: parish and psychosis Interim History: Laying in bed. keeping to self. guarded. patient reports feeling alright today; encouraged to attend groups. pt stated, I'm too tired to get up . denies SI/HI/VH/AH. Continue tx plan. Medication Compliance: Yes Side effects from medications: No Attending Groups: No Mental Status Exam Mental Status Exam Patient Appearance: Appropriate Patient Orientation: Person, Place, Time and Situation Level of Consciousness: Drowsy Patient Behavior: Guarded Mood Description: Calm Affect Description: Calm Ability to Follow Directions: Good Speech Pattern: Soft-Spoken Memory Description: Intact Hallucinations: None Delusions: Not Present Thought Process: Intact Thought Content: positive for Intact Diagnostics Vital Signs (24Hr): Vital Signs - 24 hr 08/12/25 20:00 08/12/25 20:21 08/13/25 10:00 Temperature 98.8 F 97.6 F Pulse Rate 93 93 94 Respiratory Rate 16 16 Blood Pressure 131/70 131/70 123/63 Pulse Oximetry 93 99 Oxygen Delivery Method Room Air Room Air 08/13/25 10:06 Temperature Pulse Rate 94 Respiratory Rate Blood Pressure 123/63 Pulse Oximetry Oxygen Delivery Method BMI result Body Mass Index 23.6 Labs 07/06/25 19:21 07/25/25 14:11 Medications Medications Current Medications Acetaminophen (Acetaminophen 325 Mg Tablet) 650 mg PO Q6H PRN PRN Reason: Headache/Pain, Scale 1-10 Al Hydroxide/Mg Hydroxide (Magnesium Hydrox/Alum Hydrox 30 Ml Oral.Susp) 30 ml PO Q6H PRN PRN Reason: Heartburn/Nausea Hydroxyzine HCl (Hydroxyzine Hcl 25 Mg Tablet) 25 mg PO Q6H PRN PRN Reason: mild anxiety Last Admin: 08/08/25 23:32 Dose: 25 mg Lorazepam (Lorazepam 1 Mg Tablet) 1 mg PO BID PRN PRN Reason: Anxiety Last Admin: 08/09/25 21:11 Dose: 1 mg Magnesium Hydroxide (Milk Of Magnesia 30 Ml Oral.Susp) 30 ml PO DAILY PRN PRN Reason: Constipation Nicotine Polacrilex (Nicotine Polacrilex 2 Mg Gum) 4 mg BUCCAL Q2H PRN PRN Reason: Nicotine Cravings Olanzapine (Olanzapine 10 Mg Vial) 20 mg IM BEDTIME PRN PRN Reason: Refusal to take 20 mg PO at hs Olanzapine (Olanzapine 5 Mg Tablet) 5 mg PO BID PRN PRN Reason: agitation Last Admin: 08/08/25 23:32 Dose: 5 mg Olanzapine (Olanzapine 10 Mg Tablet) 10 mg PO BEDTIME PRN PRN Reason: Refusal to take Depakote. Offer IM if refuses PO Olanzapine (Olanzapine 10 Mg Vial) 10 mg IM DAILY PRN PRN Reason: see dose instruction Olanzapine (Olanzapine Odt 10 Mg Tab.Rapdis) 20 mg TRANSLINGU BEDTIME MIKALA Last Admin: 08/12/25 20:20 Dose: 20 mg Propranolol HCl (Propranolol Hcl 10 Mg Tablet) 10 mg PO BID MIKALA; Protocol Last Admin: 08/13/25 10:06 Dose: 10 mg Trazodone HCl (Trazodone Hcl 50 Mg Tablet) 50 mg PO BEDTIME MRX1 PRN PRN Reason: Insomnia Last Admin: 08/09/25 21:11 Dose: 50 mg Valproic Acid (Valproic Acid Liquid 250 Mg/5 Ml Solution) 800 mg PO BID MIKALA Last Admin: 08/13/25 10:05 Dose: 800 mg Allergies Allergies Allergy/AdvReac Type Severity Reaction Status Date / Time No Known Allergies Allergy Verified 07/06/25 18:08 Assessment & Plan Assessment & Plan (1) Parish: Status: Acute Code(s): F30.9 - Manic episode, unspecified (2) Acute psychosis: Status: Acute Code(s): F23 - Brief psychotic disorder Plan 07/08: continue zyprexa and depakote as established in the ED. 07/09: continue current management and treatment plan. Medications recently started. 07/10: continue current management and treatment plan. 07/11: samuels warning provided. increase depakote to 750 BID, otherwise continue current mgmt. check levels in the next couple of days. section 12b up . will likely file for commitment. 07/12: pt declines labs. will wait for steady state at 1500 mg daily prior to checking labs, laconic, terse. will likely file tomorrow. 07/13: filed for commitment. no reaction from pt. continue current mgmt. 07/14: refusing meds as of last night, already hypersexual today and threatening to kill MD if MD does not discharge him. placed on 1:1 for safety. continue to encourage meds. hearing next friday. 07/15: continues to refuse meds, remains on 1:1. wandering. aware of hearing next friday. inert, no questions/concerns. paucity of thought or thought blocking. continue to offer meds. 07/16: difficulty keeping his shirt on in the milieu, oppositional when told to garb up. inappropriate comment to RN last tera. otherwise uneventful, refusing meds. continue to offer meds. 07/17: no behavioral concerns. remains on 1:1. some RIS and inappropriate laughter. refusing meds. slept 7 hours. contnue current mgmt. hearing on friday. 07/18: no behavioral concerns. Remains on 1:1. Refusing am meds but took bedtime meds last night and is reporting poor sleep. Will consolidate olanzapine dosing to 20 mg qhs rather than 10 mg bid to improve adherence and optimize tx of residual parish/psychosis. Otherwise continue current tx plan for now. Hearing scheduled for tomorrow, 07/19 07/19: Took olanzapine 20 mg last night and slept better. No behavioral issues, still on 1:1. 04/26 hearing scheduled for today at 2 pm. Will switch Depakote from 750 mg bid to Depakote ER 1500 mg at hs since pt has been taking bedtime meds only. committed. *By the time of completion of this note- court hearing took place, pt committed on section 7/8. 07/20: Committed on section 8 with Duran order in chart. Pt cannot refuse to take olanzapine per Duran. Give 20 mg IM if pt refuses po 20 mg hs dose of olanzapine. D/C'd prn haldol and switched to 5 mg olanzapine bid prn for agitation to simplify med regimen. Will check VPA level & LFTs on Friday am. Per team discussion- will continue 1:1 for now but will try to switch to q5 min checks later this wk if no behavioral issues. 07/21: Threatened to jump over nursing station due to frustration w/ cell phone policy and continued hospitalization. Was able to tolerate a discussion re: policy and continued need for hospitalization/medication without aggressive behavior. Taking standing meds as rx'd. continue current tx plan, including 1:1 for now 07/22: agitated, threatened to harm peers and staff. security called. agreed to take po olanzapine 10 mg. refused VPA last night. Will continue 1:1. Will adjust orders for pt to receive olanzapine 10 mg if he refuses Depakote per Duran. Pt only wants to take meds for sleep and took the extra olanzapine 10 mg dose today when it was offered to help him w/ sleep (rather than agitation or anxiety) 07/24: no changes. Continue court-ordered medications 07/25: Adherent w/ meds over the weekend. Guarded. focused on discharge but calm. Insight remains severely impaired. Continue current tx plan, including 1:1 07/26: Remains focused on discharge, pushed on the unit doors and told his mom that he was being d/c'd today. Pt is not currently appropriate for a fresh air break due to being a flight risk. Continue 1:1 07/27: Calmer, more cooperative today. Switched to 5 min safety checks while in room, continue 1:1 in milieu. Will switch Depakote tabs to liquid due to difficulty swallowing the tabs. 07/28: Calm, cooperative. Did not bring up discharge today. Endorses restlessness suggestive of akathisia. Will start propranolol 10 mg bid to address this. Lloyd get first dose of VPA syrup starting tonight, rx'd as 800 mg bid. Continue 5 min safety checks in room, 15 in 07/29: Calm/cooperative with t/w. Did not bring up discharge. Easily redirectable with request to use his phone. Denies sx of akathisia today. Will continue current tx plan, including 1:1 in the milieu and 5 min safety checks when in his room In the evening, pt jumped over the nursing station desk/window and punched two computer monitors, as he wanted to leave and get his phone. He required a physical restraint & received IM haldol 10 mg, lorazepam 2 mg and benadryl 50 mg 07/30: Continue current regimen and plans 07/31: Continue current regimen and plans. 08/01: Continue current regimen and plans 08/02: Pt has been calm and has not engage in any behavioral issues since the evening of 07/29. He remains on 1:1 due to significant risk of elopement and is not appropriate for fresh air breaks due to the same concern. Continue current tx plan 08/03: No behavioral issues today. Pt requested an adjustment in his 'sleep med and reported having AH earlier in his admission but not today. Will titrate olanzapine to 25 mg qhs 08/04: Will trial fresh air breaks accompanied by security starting today. Continue 1:1 in milieu and 5 min checks while in room. No behavioral issues. Tolerated olanzapine titration to 25 mg last night. Continue current med regimen 08/05: Insight/judgment are improving, no sx of parish today, psychotic sx significantly improved. Will keep on 5 min checks while in room, 1:1 in milieu and fresh air breaks w/ security over the weekend. Will consider reducing the freq of safety checks if pt maintains safe behaviors over the weekend 08/06: continue current management and treatment plan. 08/07: continue current management and treatment plan. 08/08: No behavioral issues x >1 wk. Will dc 1:1 in milieu, switch to 5 min safty checks. Otherwise continue current tx plan 08/09: No behavioral issues. Med adherent and utilizing prns. Continue current tx plan for now. 08/10: Pt is generally isolative in room, no behavioral issues. Switched to 15 min safety checks while in his room, continue 5 min checks in milieu. Ordered VPA level for tonight. Continue current med regimen for now 08/11: VPA level- 75.5 on 800 mg VPA bid. Will continue current dose since parish has resolved. Will taper olanzapine to 20 mg tonight in preparation to x titrate to oral paliperidone, which can be given as a MYLES to reduce risk of relapse upon d/c. Otherwise continue current tx plan 08/12: Continue current med regimen for now. 08/13: Continue tx plan. Patient educated on: diagnosis and medication risk/benefits Reason for continued inpatient stay Substantial Risk for: med/psych decompensation Time Spent With Patient Time: Total time managing care of this patient today _15___ minutes.
[2025-08-13 20:00] VITALS: BP 111/56; PULSE 88; RESP 16; TEMP 37.1; O2SAT 99
[2025-08-13 20:16] VITALS: BP 111/56; PULSE 88
[2025-08-13] MEDS: OLANZapine ODT 10 MG TAB.RAPDIS 20 MG TRANSLINGU (20:16)
[2025-08-14 09:23] VITALS: BP 95/50; PULSE 84; RESP 16; TEMP 36.7; O2SAT 99
[2025-08-14] MEDS: Valproic Acid Liquid 250 MG/5 ML SOLUTION 800 MG PO ×2 (09:25→20:45)
--- NOTE | 2025-08-14 12:23 | HO.PSYCHPN ---
Subjective Subjective Date of Service: 08/14/25 Reason For Visit: parish and psychosis Interim History: Laying in bed most of day. Patient reports feeling alright ; pt stated, I don't know why I'm still here. I just want to leave . Patient encouraged to leave room, pt reports he plans on staying in bed. denies SI/HI/VH/AH. Medication Compliance: Yes Side effects from medications: No Attending Groups: No Mental Status Exam Mental Status Exam Patient Appearance: Appropriate Patient Orientation: Person, Place, Time and Situation Level of Consciousness: Drowsy Patient Behavior: Guarded Mood Description: Calm Affect Description: Calm Ability to Follow Directions: Good Speech Pattern: Soft-Spoken Memory Description: Intact Hallucinations: None Delusions: Not Present Thought Process: Intact Thought Content: positive for Intact Diagnostics Vital Signs (24Hr): Vital Signs - 24 hr 08/13/25 20:00 08/13/25 20:16 08/14/25 09:23 Temperature 98.7 F 98.0 F Pulse Rate 88 88 84 Respiratory Rate 16 16 Blood Pressure 111/56 L 111/56 L 95/50 L Pulse Oximetry 99 99 Oxygen Delivery Method Room Air Room Air BMI result Body Mass Index 23.6 Labs 07/06/25 19:21 07/25/25 14:11 Medications Medications Current Medications Acetaminophen (Acetaminophen 325 Mg Tablet) 650 mg PO Q6H PRN PRN Reason: Headache/Pain, Scale 1-10 Al Hydroxide/Mg Hydroxide (Magnesium Hydrox/Alum Hydrox 30 Ml Oral.Susp) 30 ml PO Q6H PRN PRN Reason: Heartburn/Nausea Hydroxyzine HCl (Hydroxyzine Hcl 25 Mg Tablet) 25 mg PO Q6H PRN PRN Reason: mild anxiety Last Admin: 08/08/25 23:32 Dose: 25 mg Lorazepam (Lorazepam 1 Mg Tablet) 1 mg PO BID PRN PRN Reason: Anxiety Last Admin: 08/09/25 21:11 Dose: 1 mg Magnesium Hydroxide (Milk Of Magnesia 30 Ml Oral.Susp) 30 ml PO DAILY PRN PRN Reason: Constipation Nicotine Polacrilex (Nicotine Polacrilex 2 Mg Gum) 4 mg BUCCAL Q2H PRN PRN Reason: Nicotine Cravings Olanzapine (Olanzapine 10 Mg Vial) 20 mg IM BEDTIME PRN PRN Reason: Refusal to take 20 mg PO at hs Olanzapine (Olanzapine 5 Mg Tablet) 5 mg PO BID PRN PRN Reason: agitation Last Admin: 08/08/25 23:32 Dose: 5 mg Olanzapine (Olanzapine 10 Mg Tablet) 10 mg PO BEDTIME PRN PRN Reason: Refusal to take Depakote. Offer IM if refuses PO Olanzapine (Olanzapine 10 Mg Vial) 10 mg IM DAILY PRN PRN Reason: see dose instruction Olanzapine (Olanzapine Odt 10 Mg Tab.Rapdis) 20 mg TRANSLINGU BEDTIME MIKALA Last Admin: 08/13/25 20:16 Dose: 20 mg Propranolol HCl (Propranolol Hcl 10 Mg Tablet) 10 mg PO BID MIKALA; Protocol Last Admin: 08/14/25 09:25 Dose: 10 mg Trazodone HCl (Trazodone Hcl 50 Mg Tablet) 50 mg PO BEDTIME MRX1 PRN PRN Reason: Insomnia Last Admin: 08/09/25 21:11 Dose: 50 mg Valproic Acid (Valproic Acid Liquid 250 Mg/5 Ml Solution) 800 mg PO BID MIKALA Last Admin: 08/14/25 09:25 Dose: 800 mg Allergies Allergies Allergy/AdvReac Type Severity Reaction Status Date / Time No Known Allergies Allergy Verified 07/06/25 18:08 Assessment & Plan Assessment & Plan (1) Parish: Status: Acute Code(s): F30.9 - Manic episode, unspecified (2) Acute psychosis: Status: Acute Code(s): F23 - Brief psychotic disorder Plan 07/08: continue zyprexa and depakote as established in the ED. 07/09: continue current management and treatment plan. Medications recently started. 07/10: continue current management and treatment plan. 07/11: samuels warning provided. increase depakote to 750 BID, otherwise continue current mgmt. check levels in the next couple of days. section 12b up . will likely file for commitment. 07/12: pt declines labs. will wait for steady state at 1500 mg daily prior to checking labs, laconic, terse. will likely file tomorrow. 07/13: filed for commitment. no reaction from pt. continue current mgmt. 07/14: refusing meds as of last night, already hypersexual today and threatening to kill MD if MD does not discharge him. placed on 1:1 for safety. continue to encourage meds. hearing next friday. 07/15: continues to refuse meds, remains on 1:1. wandering. aware of hearing next friday. inert, no questions/concerns. paucity of thought or thought blocking. continue to offer meds. 07/16: difficulty keeping his shirt on in the milieu, oppositional when told to garb up. inappropriate comment to RN last tera. otherwise uneventful, refusing meds. continue to offer meds. 07/17: no behavioral concerns. remains on 1:1. some RIS and inappropriate laughter. refusing meds. slept 7 hours. contnue current mgmt. hearing on friday. 07/18: no behavioral concerns. Remains on 1:1. Refusing am meds but took bedtime meds last night and is reporting poor sleep. Will consolidate olanzapine dosing to 20 mg qhs rather than 10 mg bid to improve adherence and optimize tx of residual parish/psychosis. Otherwise continue current tx plan for now. Hearing scheduled for tomorrow, 07/19 07/19: Took olanzapine 20 mg last night and slept better. No behavioral issues, still on 1:1. 04/26 hearing scheduled for today at 2 pm. Will switch Depakote from 750 mg bid to Depakote ER 1500 mg at hs since pt has been taking bedtime meds only. committed. *By the time of completion of this note- court hearing took place, pt committed on section 7/8. 07/20: Committed on section 8 with Duran order in chart. Pt cannot refuse to take olanzapine per Duran. Give 20 mg IM if pt refuses po 20 mg hs dose of olanzapine. D/C'd prn haldol and switched to 5 mg olanzapine bid prn for agitation to simplify med regimen. Will check VPA level & LFTs on Friday am. Per team discussion- will continue 1:1 for now but will try to switch to q5 min checks later this wk if no behavioral issues. 07/21: Threatened to jump over nursing station due to frustration w/ cell phone policy and continued hospitalization. Was able to tolerate a discussion re: policy and continued need for hospitalization/medication without aggressive behavior. Taking standing meds as rx'd. continue current tx plan, including 1:1 for now 07/22: agitated, threatened to harm peers and staff. security called. agreed to take po olanzapine 10 mg. refused VPA last night. Will continue 1:1. Will adjust orders for pt to receive olanzapine 10 mg if he refuses Depakote per Duran. Pt only wants to take meds for sleep and took the extra olanzapine 10 mg dose today when it was offered to help him w/ sleep (rather than agitation or anxiety) 07/24: no changes. Continue court-ordered medications 07/25: Adherent w/ meds over the weekend. Guarded. focused on discharge but calm. Insight remains severely impaired. Continue current tx plan, including 1:1 07/26: Remains focused on discharge, pushed on the unit doors and told his mom that he was being d/c'd today. Pt is not currently appropriate for a fresh air break due to being a flight risk. Continue 1:1 07/27: Calmer, more cooperative today. Switched to 5 min safety checks while in room, continue 1:1 in milieu. Will switch Depakote tabs to liquid due to difficulty swallowing the tabs. 07/28: Calm, cooperative. Did not bring up discharge today. Endorses restlessness suggestive of akathisia. Will start propranolol 10 mg bid to address this. Lloyd get first dose of VPA syrup starting tonight, rx'd as 800 mg bid. Continue 5 min safety checks in room, 15 in 07/29: Calm/cooperative with t/w. Did not bring up discharge. Easily redirectable with request to use his phone. Denies sx of akathisia today. Will continue current tx plan, including 1:1 in the milieu and 5 min safety checks when in his room In the evening, pt jumped over the nursing station desk/window and punched two computer monitors, as he wanted to leave and get his phone. He required a physical restraint & received IM haldol 10 mg, lorazepam 2 mg and benadryl 50 mg 07/30: Continue current regimen and plans 07/31: Continue current regimen and plans. 08/01: Continue current regimen and plans 08/02: Pt has been calm and has not engage in any behavioral issues since the evening of 07/29. He remains on 1:1 due to significant risk of elopement and is not appropriate for fresh air breaks due to the same concern. Continue current tx plan 08/03: No behavioral issues today. Pt requested an adjustment in his 'sleep med and reported having AH earlier in his admission but not today. Will titrate olanzapine to 25 mg qhs 08/04: Will trial fresh air breaks accompanied by security starting today. Continue 1:1 in milieu and 5 min checks while in room. No behavioral issues. Tolerated olanzapine titration to 25 mg last night. Continue current med regimen 08/05: Insight/judgment are improving, no sx of parish today, psychotic sx significantly improved. Will keep on 5 min checks while in room, 1:1 in milieu and fresh air breaks w/ security over the weekend. Will consider reducing the freq of safety checks if pt maintains safe behaviors over the weekend 08/06: continue current management and treatment plan. 08/07: continue current management and treatment plan. 08/08: No behavioral issues x >1 wk. Will dc 1:1 in milieu, switch to 5 min safty checks. Otherwise continue current tx plan 08/09: No behavioral issues. Med adherent and utilizing prns. Continue current tx plan for now. 08/10: Pt is generally isolative in room, no behavioral issues. Switched to 15 min safety checks while in his room, continue 5 min checks in milieu. Ordered VPA level for tonight. Continue current med regimen for now 08/14: Laying in bed most of day. Patient reports feeling alright ; pt stated, I don't know why I'm still here. I just want to leave . Patient encouraged to leave room, pt reports he plans on staying in bed. denies SI/HI/VH/AH. Patient educated on: diagnosis, medication risk/benefits and therapeutic strategies Reason for continued inpatient stay Substantial Risk for: med/psych decompensation Time Spent With Patient Time: Total time managing care of this patient today _10___ minutes.
[2025-08-14 20:00] VITALS: BP 129/59; PULSE 95; RESP 16; TEMP 36.8; O2SAT 99
[2025-08-14] MEDS: OLANZapine ODT 10 MG TAB.RAPDIS 20 MG TRANSLINGU (20:43)
[2025-08-15] MEDS: Valproic Acid Liquid 250 MG/5 ML SOLUTION 800 MG PO ×2 (09:22→20:52)
--- NOTE | 2025-08-15 09:56 | HO.PSYCHPN ---
Subjective Subjective Date of Service: 08/15/25 Reason For Visit: parish and psychosis Interim History: Chart reviewed, case discussed in team No behavioral issues over the weekend. Spent most of the weekend in bed Today, pt has been asking to meet with t/w multiple times. I was unable to meet w/ him earlier due to acute issues on the unit. He expressed concern to staff that t/w is intentionally avoiding him. He's been in the milieu for the majority of the day so far and has been focused on discharge. T/W met w/ pt in the hallway, where he said I want to go home . He said his weekend was fine.. I just want to go home . He said he'll return to his mother's house instead of the senior care. He said he doesn't want to switch to an [facility] since it would take too long to make the med change here. He repeated I want to go home' multiple times, ultimately agreed to take prn risperidone 1 mg, lorazepam 1 mg and benadryl 50 mg po. Per his nurse, he thought that t/w would d/c him after he took the meds today. Medication Compliance: Yes Mental Status Exam Mental Status Exam Narrative: Appearance: Casually dressed. Grooming/hygiene wnl. Eye contact is somewhat intense Attitude:Cooperative Speech: Fluent and wnl in regard to volume, tone, prosody Motor activity: Calm and without any tics, tremors or dyskinesias. Steady gait Mood: fine. I just want to go home . Affect: somewhat anxious Thought process: perseverative on wanting to go home Thought content: as noted above. Did not endorse SI or violent ideation Perception: does not appear to respond to internal stimuli Insight: impaired Judgment: fair Diagnostics Vital Signs (24Hr): Vital Signs - 24 hr 08/14/25 20:00 Temperature 98.3 F Pulse Rate 95 Respiratory Rate 16 Blood Pressure 129/59 L Pulse Oximetry 99 Oxygen Delivery Method Room Air BMI result Body Mass Index 23.6 Labs 07/06/25 19:21 07/25/25 14:11 Medications Medications Current Medications Acetaminophen (Acetaminophen 325 Mg Tablet) 650 mg PO Q6H PRN PRN Reason: Headache/Pain, Scale 1-10 Al Hydroxide/Mg Hydroxide (Magnesium Hydrox/Alum Hydrox 30 Ml Oral.Susp) 30 ml PO Q6H PRN PRN Reason: Heartburn/Nausea Hydroxyzine HCl (Hydroxyzine Hcl 25 Mg Tablet) 25 mg PO Q6H PRN PRN Reason: mild anxiety Last Admin: 08/08/25 23:32 Dose: 25 mg Lorazepam (Lorazepam 1 Mg Tablet) 1 mg PO BID PRN PRN Reason: Anxiety Last Admin: 08/09/25 21:11 Dose: 1 mg Magnesium Hydroxide (Milk Of Magnesia 30 Ml Oral.Susp) 30 ml PO DAILY PRN PRN Reason: Constipation Nicotine Polacrilex (Nicotine Polacrilex 2 Mg Gum) 4 mg BUCCAL Q2H PRN PRN Reason: Nicotine Cravings Olanzapine (Olanzapine 10 Mg Vial) 20 mg IM BEDTIME PRN PRN Reason: Refusal to take 20 mg PO at hs Olanzapine (Olanzapine 5 Mg Tablet) 5 mg PO BID PRN PRN Reason: agitation Last Admin: 08/08/25 23:32 Dose: 5 mg Olanzapine (Olanzapine 10 Mg Tablet) 10 mg PO BEDTIME PRN PRN Reason: Refusal to take Depakote. Offer IM if refuses PO Olanzapine (Olanzapine 10 Mg Vial) 10 mg IM DAILY PRN PRN Reason: see dose instruction Olanzapine (Olanzapine Odt 10 Mg Tab.Rapdis) 20 mg TRANSLINGU BEDTIME MIKALA Last Admin: 08/14/25 20:43 Dose: 20 mg Propranolol HCl (Propranolol Hcl 10 Mg Tablet) 10 mg PO BID MIKALA; Protocol Last Admin: 08/15/25 09:34 Dose: Not Given Trazodone HCl (Trazodone Hcl 50 Mg Tablet) 50 mg PO BEDTIME MRX1 PRN PRN Reason: Insomnia Last Admin: 08/09/25 21:11 Dose: 50 mg Valproic Acid (Valproic Acid Liquid 250 Mg/5 Ml Solution) 800 mg PO BID MIKALA Last Admin: 08/15/25 09:22 Dose: 800 mg Allergies Allergies Allergy/AdvReac Type Severity Reaction Status Date / Time No Known Allergies Allergy Verified 07/06/25 18:08 Assessment & Plan Assessment & Plan (1) Parish: Status: Acute Code(s): F30.9 - Manic episode, unspecified (2) Acute psychosis: Status: Acute Code(s): F23 - Brief psychotic disorder Plan 07/08: continue zyprexa and depakote as established in the ED. 07/09: continue current management and treatment plan. Medications recently started. 07/10: continue current management and treatment plan. 07/11: samuels warning provided. increase depakote to 750 BID, otherwise continue current mgmt. check levels in the next couple of days. section 12b up . will likely file for commitment. 07/12: pt declines labs. will wait for steady state at 1500 mg daily prior to checking labs, laconic, terse. will likely file tomorrow. 07/13: filed for commitment. no reaction from pt. continue current mgmt. 07/14: refusing meds as of last night, already hypersexual today and threatening to kill MD if MD does not discharge him. placed on 1:1 for safety. continue to encourage meds. hearing next friday. 07/15: continues to refuse meds, remains on 1:1. wandering. aware of hearing next friday. inert, no questions/concerns. paucity of thought or thought blocking. continue to offer meds. 07/16: difficulty keeping his shirt on in the milieu, oppositional when told to garb up. inappropriate comment to RN last tera. otherwise uneventful, refusing meds. continue to offer meds. 07/17: no behavioral concerns. remains on 1:1. some RIS and inappropriate laughter. refusing meds. slept 7 hours. contnue current mgmt. hearing on friday. 07/18: no behavioral concerns. Remains on 1:1. Refusing am meds but took bedtime meds last night and is reporting poor sleep. Will consolidate olanzapine dosing to 20 mg qhs rather than 10 mg bid to improve adherence and optimize tx of residual parish/psychosis. Otherwise continue current tx plan for now. Hearing scheduled for tomorrow, 07/19 07/19: Took olanzapine 20 mg last night and slept better. No behavioral issues, still on 1:1. 04/26 hearing scheduled for today at 2 pm. Will switch Depakote from 750 mg bid to Depakote ER 1500 mg at hs since pt has been taking bedtime meds only. committed. *By the time of completion of this note- court hearing took place, pt committed on section 7/8. 07/20: Committed on section 8 with Duran order in chart. Pt cannot refuse to take olanzapine per Duran. Give 20 mg IM if pt refuses po 20 mg hs dose of olanzapine. D/C'd prn haldol and switched to 5 mg olanzapine bid prn for agitation to simplify med regimen. Will check VPA level & LFTs on Friday am. Per team discussion- will continue 1:1 for now but will try to switch to q5 min checks later this wk if no behavioral issues. 07/21: Threatened to jump over nursing station due to frustration w/ cell phone policy and continued hospitalization. Was able to tolerate a discussion re: policy and continued need for hospitalization/medication without aggressive behavior. Taking standing meds as rx'd. continue current tx plan, including 1:1 for now 07/22: agitated, threatened to harm peers and staff. security called. agreed to take po olanzapine 10 mg. refused VPA last night. Will continue 1:1. Will adjust orders for pt to receive olanzapine 10 mg if he refuses Depakote per Duran. Pt only wants to take meds for sleep and took the extra olanzapine 10 mg dose today when it was offered to help him w/ sleep (rather than agitation or anxiety) 07/24: no changes. Continue court-ordered medications 07/25: Adherent w/ meds over the weekend. Guarded. focused on discharge but calm. Insight remains severely impaired. Continue current tx plan, including 1:1 07/26: Remains focused on discharge, pushed on the unit doors and told his mom that he was being d/c'd today. Pt is not currently appropriate for a fresh air break due to being a flight risk. Continue 1:1 07/27: Calmer, more cooperative today. Switched to 5 min safety checks while in room, continue 1:1 in milieu. Will switch Depakote tabs to liquid due to difficulty swallowing the tabs. 07/28: Calm, cooperative. Did not bring up discharge today. Endorses restlessness suggestive of akathisia. Will start propranolol 10 mg bid to address this. Lloyd get first dose of VPA syrup starting tonight, rx'd as 800 mg bid. Continue 5 min safety checks in room, 15 in 07/29: Calm/cooperative with t/w. Did not bring up discharge. Easily redirectable with request to use his phone. Denies sx of akathisia today. Will continue current tx plan, including 1:1 in the milieu and 5 min safety checks when in his room In the evening, pt jumped over the nursing station desk/window and punched two computer monitors, as he wanted to leave and get his phone. He required a physical restraint & received IM haldol 10 mg, lorazepam 2 mg and benadryl 50 mg 07/30: Continue current regimen and plans 07/31: Continue current regimen and plans. 08/01: Continue current regimen and plans 08/02: Pt has been calm and has not engage in any behavioral issues since the evening of 07/29. He remains on 1:1 due to significant risk of elopement and is not appropriate for fresh air breaks due to the same concern. Continue current tx plan 08/03: No behavioral issues today. Pt requested an adjustment in his 'sleep med and reported having AH earlier in his admission but not today. Will titrate olanzapine to 25 mg qhs 08/04: Will trial fresh air breaks accompanied by security starting today. Continue 1:1 in milieu and 5 min checks while in room. No behavioral issues. Tolerated olanzapine titration to 25 mg last night. Continue current med regimen 08/05: Insight/judgment are improving, no sx of parish today, psychotic sx significantly improved. Will keep on 5 min checks while in room, 1:1 in milieu and fresh air breaks w/ security over the weekend. Will consider reducing the freq of safety checks if pt maintains safe behaviors over the weekend 08/06: continue current management and treatment plan. 08/07: continue current management and treatment plan. 08/08: No behavioral issues x >1 wk. Will dc 1:1 in milieu, switch to 5 min safty checks. Otherwise continue current tx plan 08/09: No behavioral issues. Med adherent and utilizing prns. Continue current tx plan for now. 08/10: Pt is generally isolative in room, no behavioral issues. Switched to 15 min safety checks while in his room, continue 5 min checks in milieu. Ordered VPA level for tonight. Continue current med regimen for now 08/14: Laying in bed most of day. Patient reports feeling alright ; pt stated, I don't know why I'm still here. I just want to leave . Patient encouraged to leave room, pt reports he plans on staying in bed. denies SI/HI/VH/AH. 08/15: Pt was more fixated on d/c today. He lacks insight re: his underlying psychiatric condition and his involuntary commitment. He was mildly agitated and agreed to take oral risperidone, which he tolerated well. Given total lack of insight into his underlying psychiatric condition and concern for medication non-adherence/relapse after d/c, will x-titrate to oral paliperidone w/ plan to start on Invega Sustenna if he tolerates the oral med. T/W confirmed that paliperidone is on his [place] (risperidone is not). Will lower standing olanzapine dose to 15 mg tonight and start paliperidone 3 mg po tomorrow am. Reason for continued inpatient stay Substantial Risk for: med/psych decompensation Time Spent With Patient Time: Total time managing care of this patient today __30__ minutes.
[2025-08-15 20:00] VITALS: BP 131/69; PULSE 110; RESP 16; TEMP 37.2; O2SAT 100
[2025-08-15] MEDS: OLANZapine ODT 10 MG TAB.RAPDIS 15 MG TRANSLINGU (20:51)
[2025-08-16 09:15] VITALS: BP 116/58; PULSE 86; RESP 16; TEMP 36.8; O2SAT 99
--- NOTE | 2025-08-16 09:24 | P.PNPSI_ITS ---
Subjective Subjective Date of Service: 08/16/25 Reason For Visit: parihs and psychosis Subjective Notes: [place] Order and Section 8 Interim History: Chart reviewed. Case discussed in team Per nursing report- Exit seeking, needed redirection from door, paced last night. Said court case was dismissed. Asked to speak w/ security, which he did. Slept thru night PRNs- olanzapine 5 mg and lorazepam 1 mg ~11:30 pm last night Takes propranolol intermittently. Will switch to prn for akathisia Pt has been in the milieu walking up and down the [place] today. He greeted t/w, asked about discharge. He denied any issues w/ the paliperidone received today. States that he feels 'fine'. Expressed an understanding of plan to continue x- titration from olanzapine to oral paliperidone and then receive paliperidone MYLES. Mental Status Exam Mental Status Exam Narrative: Appearance: Casually dressed. Grooming/hygiene wnl. Good eye contact Attitude: Cooperative Speech: Fluent and wnl in regard to volume, tone, prosody Motor activity: Steady gait. Calm and without any tics, tremors or dyskinesias Mood: as noted above Affect: mild irritability, constricted Thought process: focused on discharge. no evidence of delusional ideation/paranoia Thought content: denies SI/violent ideation Perception: does not appear to respond to internal stimuli Insight: impaired Judgment: fair Diagnostics Vital Signs (24Hr): Vital Signs - 24 hr 08/15/25 20:00 Temperature 99 F Pulse Rate 110 H Respiratory Rate 16 Blood Pressure 131/69 Pulse Oximetry 100 Oxygen Delivery Method Room Air BMI result Body Mass Index 23.6 Labs 07/06/25 19:21 07/25/25 14:11 Medications Medications Current Medications Acetaminophen (Acetaminophen 325 Mg Tablet) 650 mg PO Q6H PRN PRN Reason: Headache/Pain, Scale 1-10 Al Hydroxide/Mg Hydroxide (Magnesium Hydrox/Alum Hydrox 30 Ml Oral.Susp) 30 ml PO Q6H PRN PRN Reason: Heartburn/Nausea Hydroxyzine HCl (Hydroxyzine Hcl 25 Mg Tablet) 25 mg PO Q6H PRN PRN Reason: mild anxiety Last Admin: 08/08/25 23:32 Dose: 25 mg Lorazepam (Lorazepam 1 Mg Tablet) 1 mg PO BID PRN PRN Reason: Anxiety Last Admin: 08/15/25 23:16 Dose: 1 mg Magnesium Hydroxide (Milk Of Magnesia 30 Ml Oral.Susp) 30 ml PO DAILY PRN PRN Reason: Constipation Nicotine Polacrilex (Nicotine Polacrilex 2 Mg Gum) 4 mg BUCCAL Q2H PRN PRN Reason: Nicotine Cravings Olanzapine (Olanzapine 10 Mg Vial) 20 mg IM BEDTIME PRN PRN Reason: Refusal to take 20 mg PO at hs Olanzapine (Olanzapine 5 Mg Tablet) 5 mg PO BID PRN PRN Reason: agitation Last Admin: 08/15/25 23:15 Dose: 5 mg Olanzapine (Olanzapine 10 Mg Tablet) 10 mg PO BEDTIME PRN PRN Reason: Refusal to take Depakote. Offer IM if refuses PO Olanzapine (Olanzapine 10 Mg Vial) 10 mg IM DAILY PRN PRN Reason: see dose instruction Olanzapine (Olanzapine Odt 10 Mg Tab.Rapdis) 15 mg TRANSLINGU BEDTIME MIKALA Last Admin: 08/15/25 20:51 Dose: 15 mg Paliperidone (Paliperidone Er 3 Mg Tab.Er.24) 3 mg PO DAILY MIK[facility]A Propranolol HCl (Propranolol Hcl 10 Mg Tablet) 10 mg PO BID PRN; Protocol PRN Reason: akathisia Trazodone HCl (Trazodone Hcl 50 Mg Tablet) 50 mg PO BEDTIME MRX1 PRN PRN Reason: Insomnia Last Admin: 08/15/25 20:50 Dose: 50 mg Valproic Acid (Valproic Acid Liquid 250 Mg/5 Ml Solution) 800 mg PO BID MIKALA Last Admin: 08/15/25 20:52 Dose: 800 mg Allergies Allergies Allergy/AdvReac Type Severity Reaction Status Date / Time No Known Allergies Allergy Verified 07/06/25 18:08 Assessment & Plan Assessment & Plan (1) Parish: Status: Acute Code(s): F30.9 - Manic episode, unspecified (2) Acute psychosis: Status: Acute Code(s): F23 - Brief psychotic disorder Plan 07/08: continue zyprexa and depakote as established in the ED. 07/09: continue current management and treatment plan. Medications recently started. 07/10: continue current management and treatment plan. 07/11: samuels warning provided. increase depakote to 750 BID, otherwise continue current mgmt. check levels in the next couple of days. section 12b up . will likely file for commitment. 07/12: pt declines labs. will wait for steady state at 1500 mg daily prior to checking labs, laconic, terse. will likely file tomorrow. 07/13: filed for commitment. no reaction from pt. continue current mgmt. 07/14: refusing meds as of last night, already hypersexual today and threatening to kill MD if MD does not discharge him. placed on 1:1 for safety. continue to encourage meds. hearing next friday. 07/15: continues to refuse meds, remains on 1:1. wandering. aware of hearing next friday. inert, no questions/concerns. paucity of thought or thought blocking. continue to offer meds. 07/16: difficulty keeping his shirt on in the milieu, oppositional when told to garb up. inappropriate comment to RN last tera. otherwise uneventful, refusing meds. continue to offer meds. 07/17: no behavioral concerns. remains on 1:1. some RIS and inappropriate laughter. refusing meds. slept 7 hours. contnue current mgmt. hearing on friday. 07/18: no behavioral concerns. Remains on 1:1. Refusing am meds but took bedtime meds last night and is reporting poor sleep. Will consolidate olanzapine dosing to 20 mg qhs rather than 10 mg bid to improve adherence and optimize tx of residual parish/psychosis. Otherwise continue current tx plan for now. Hearing scheduled for tomorrow, 07/19 07/19: Took olanzapine 20 mg last night and slept better. No behavioral issues, still on 1:1. 04/26 hearing scheduled for today at 2 pm. Will switch Depakote from 750 mg bid to Depakote ER 1500 mg at hs since pt has been taking bedtime meds only. committed. *By the time of completion of this note- court hearing took place, pt committed on section 7/8. 07/20: Committed on section 8 with [place] order in chart. Pt cannot refuse to take olanzapine per Duran. Give 20 mg IM if pt refuses po 20 mg hs dose of olanzapine. D/C'd prn haldol and switched to 5 mg olanzapine bid prn for agitation to simplify med regimen. Will check VPA level & LFTs on Friday am. Per team discussion- will continue 1:1 for now but will try to switch to q5 min checks later this wk if no behavioral issues. 07/21: Threatened to jump over nursing station due to frustration w/ cell phone policy and continued hospitalization. Was able to tolerate a discussion re: policy and continued need for hospitalization/medication without aggressive behavior. Taking standing meds as rx'd. continue current tx plan, including 1:1 for now 07/22: agitated, threatened to harm peers and staff. security called. agreed to take po olanzapine 10 mg. refused VPA last night. Will continue 1:1. Will adjust orders for pt to receive olanzapine 10 mg if he refuses Depakote per [facility]. Pt only wants to take meds for sleep and took the extra olanzapine 10 mg dose today when it was offered to help him w/ sleep (rather than agitation or anxiety) 07/24: no changes. Continue court-ordered medications 07/25: Adherent w/ meds over the weekend. Guarded. focused on discharge but calm. Insight remains severely impaired. Continue current tx plan, including 1:1 07/26: Remains focused on discharge, pushed on the unit doors and told his mom that he was being d/c'd today. Pt is not currently appropriate for a fresh air break due to being a flight risk. Continue 1:1 07/27: Calmer, more cooperative today. Switched to 5 min safety checks while in room, continue 1:1 in milieu. Will switch Depakote tabs to liquid due to difficulty swallowing the tabs. 07/28: Calm, cooperative. Did not bring up discharge today. Endorses restlessness suggestive of akathisia. Will start propranolol 10 mg bid to address this. Lloyd get first dose of VPA syrup starting tonight, rx'd as 800 mg bid. Continue 5 min safety checks in room, 15 in 07/29: Calm/cooperative with t/w. Did not bring up discharge. Easily redirectable with request to use his phone. Denies sx of akathisia today. Will continue current tx plan, including 1:1 in the milieu and 5 min safety checks when in his room In the evening, pt jumped over the nursing station desk/window and punched two computer monitors, as he wanted to leave and get his phone. He required a physical restraint & received IM haldol 10 mg, lorazepam 2 mg and benadryl 50 mg 07/30: Continue current regimen and plans 07/31: Continue current regimen and plans. 08/01: Continue current regimen and plans 08/02: Pt has been calm and has not engage in any behavioral issues since the evening of 07/29. He remains on 1:1 due to significant risk of elopement and is not appropriate for fresh air breaks due to the same concern. Continue current tx plan 08/03: No behavioral issues today. Pt requested an adjustment in his 'sleep med and reported having AH earlier in his admission but not today. Will titrate olanzapine to 25 mg qhs 08/04: Will trial fresh air breaks accompanied by security starting today. Continue 1:1 in milieu and 5 min checks while in room. No behavioral issues. Tolerated olanzapine titration to 25 mg last night. Continue current med regimen 08/05: Insight/judgment are improving, no sx of parish today, psychotic sx significantly improved. Will keep on 5 min checks while in room, 1:1 in milieu and fresh air breaks w/ security over the weekend. Will consider reducing the freq of safety checks if pt maintains safe behaviors over the weekend 08/06: continue current management and treatment plan. 08/07: continue current management and treatment plan. 08/08: No behavioral issues x >1 wk. Will dc 1:1 in milieu, switch to 5 min safty checks. Otherwise continue current tx plan 08/09: No behavioral issues. Med adherent and utilizing prns. Continue current tx plan for now. 08/10: Pt is generally isolative in room, no behavioral issues. Switched to 15 min safety checks while in his room, continue 5 min checks in milieu. Ordered VPA level for tonight. Continue current med regimen for now 08/14: Laying in bed most of day. Patient reports feeling alright ; pt stated, I don't know why I'm still here. I just want to leave . Patient encouraged to leave room, pt reports he plans on staying in bed. denies SI/HI/VH/AH. 08/15: Pt was more fixated on d/c today. He lacks insight re: his underlying psychiatric condition and his involuntary commitment. He was mildly agitated and agreed to take oral risperidone, which he tolerated well. Given total lack of insight into his underlying psychiatric condition and concern for medication non-adherence/relapse after d/c, will x-titrate to oral paliperidone w/ plan to start on Invega Sustenna if he tolerates the oral med. T/W confirmed that paliperidone is on his [place] (risperidone is not). Will lower standing olanzapine dose to 15 mg tonight and start paliperidone 3 mg po tomorrow am. 08/16: Pt has calmly advocated for d/c today. spent most of the day in the milieu. No behavioral issues. Will titrate oral paliperidone to 6 mg tomorrow am, then taper olanzapine to 10 mg tomorrow night if clinically appropriate. Patient educated on: medication risk/benefits Informed Consent: understands Reason for continued inpatient stay Substantial Risk for: med/psych decompensation Time Spent With Patient Time: Total time managing care of this patient today _25___ minutes.
[2025-08-16] MEDS: Valproic Acid Liquid 250 MG/5 ML SOLUTION 800 MG PO ×2 (09:27→21:10)
[2025-08-16 15:30] VITALS: BP 112/64; PULSE 82
[2025-08-16 19:22] VITALS: BP 129/59; PULSE 115; RESP 16; TEMP 36.7; O2SAT 99
[2025-08-16] MEDS: OLANZapine ODT 10 MG TAB.RAPDIS 15 MG TRANSLINGU (21:10)
[2025-08-17] MEDS: Valproic Acid Liquid 250 MG/5 ML SOLUTION 800 MG PO ×2 (09:14→20:58)
--- NOTE | 2025-08-17 15:15 | P.PNPSI_ITS ---
Subjective Subjective Date of Service: 08/17/25 Reason For Visit: parish and psychosis Subjective Notes: [place] Order and Section 8 Interim History: Chart reviewed, case discussed with tx team SW received a VM from pt's mother, who reportedly wanted pt to be d/c'd by 08/[address] hearing. Pt initially declined to sign an MELVIN for SW to communicate w/ the court but signed it later in the day. SW informed the court that pt is in the hospital and will not be able to attend the hearing. Pt attended a group prior to our mtg. T/W met w/ pt in meeting room and asked about the court hearing. He thought the hearing was related to his commitment, stated that he's confused since the vp construction had said the case is dismissed at the commitment hearing. T/W informed pt that the case was not dismissed and the vp construction ordered the involuntary commitment. Pt denies any knowledge of any other legal issues. He states that he has appeared in court once in the past due to an issue related to his sister, not to him. He said he doesn't remember what it was about. Pt denied any recollection of the events leading up to this admission and t/w reminded him that he had trespassed on the [employer] property and threatened to harm anyone who tried to remove him from the property. Today, pt states that he has no desire to step foot on the property again and denies any thoughts to harm himself or others. Pt asked for a list of job sites so that he can move into a place of his own. 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 He reports that she has multiple medical issues, including a recent brain surgery Pt denies any SE from the paliperidone He reports that he's still sleeping thru the night. Per nursing report, he slept 6 hrs last night. Pt denies recent AH/VH. Medication Compliance: Yes (PRNs- none today so far. 08/16- olanzapine 5 mg, trazodone 50 mg, hydroxyzine 25 mg, lorazepam 1 mg ) Side effects from medications: No Attending Groups: Yes Mental Status Exam Mental Status Exam Narrative: Appearance: Casually dressed. Grooming/hygiene wnl. Good eye contact Attitude: Cooperative Speech: Fluent and wnl in regard to volume, tone, prosody Motor activity: Steady gait. Calm and without any tics, tremors or dyskinesias Mood: good. how are you? Affect: blunted Thought process: more goal directed Thought content: denies SI/violent ideation. asked appropriate questions about d/c Perception: denies AH/VH. does not appear to respond to internal stimuli Insight: impaired Judgment: fair Diagnostics Vital Signs (24Hr): Vital Signs - 24 hr 08/16/25 15:30 08/16/25 19:22 Temperature 98.1 F Pulse Rate 82 115 H Respiratory Rate 16 Blood Pressure 112/64 129/59 L Pulse Oximetry 99 Oxygen Delivery Method Room Air BMI result Body Mass Index 23.6 Labs 07/06/25 19:21 07/25/25 14:11 Medications Medications Current Medications Acetaminophen (Acetaminophen 325 Mg Tablet) 650 mg PO Q6H PRN PRN Reason: Headache/Pain, Scale 1-10 Al Hydroxide/Mg Hydroxide (Magnesium Hydrox/Alum Hydrox 30 Ml Oral.Susp) 30 ml PO Q6H PRN PRN Reason: Heartburn/Nausea Hydroxyzine HCl (Hydroxyzine Hcl 25 Mg Tablet) 25 mg PO Q6H PRN PRN Reason: mild anxiety Last Admin: 08/16/25 15:30 Dose: 25 mg Lorazepam (Lorazepam 1 Mg Tablet) 1 mg PO BID PRN PRN Reason: Anxiety Last Admin: 08/16/25 17:27 Dose: 1 mg Magnesium Hydroxide (Milk Of Magnesia 30 Ml Oral.Susp) 30 ml PO DAILY PRN PRN Reason: Constipation Nicotine Polacrilex (Nicotine Polacrilex 2 Mg Gum) 4 mg BUCCAL Q2H PRN PRN Reason: Nicotine Cravings Olanzapine (Olanzapine 10 Mg Vial) 20 mg IM BEDTIME PRN PRN Reason: Refusal to take 20 mg PO at hs Olanzapine (Olanzapine 5 Mg Tablet) 5 mg PO BID PRN PRN Reason: agitation Last Admin: 08/16/25 17:27 Dose: 5 mg Olanzapine (Olanzapine 10 Mg Tablet) 10 mg PO BEDTIME PRN PRN Reason: Refusal to take Depakote. Offer IM if refuses PO Olanzapine (Olanzapine 10 Mg Vial) 10 mg IM DAILY PRN PRN Reason: see dose instruction Olanzapine (Olanzapine Odt 10 Mg Tab.Rapdis) 15 mg TRANSLINGU BEDTIME MIKALA Last Admin: 08/16/25 21:10 Dose: 15 mg Paliperidone (Paliperidone Er 6 Mg Tab.Er.24) 6 mg PO DAILY [facility] Last Admin: 08/17/25 09:13 Dose: 6 mg Propranolol HCl (Propranolol Hcl 10 Mg Tablet) 10 mg PO BID PRN; Protocol PRN Reason: akathisia Last Admin: 08/16/25 15:30 Dose: 10 mg Trazodone HCl (Trazodone Hcl 50 Mg Tablet) 50 mg PO BEDTIME MRX1 PRN PRN Reason: Insomnia Last Admin: 08/16/25 21:10 Dose: 50 mg Valproic Acid (Valproic Acid Liquid 250 Mg/5 Ml Solution) 800 mg PO BID [facility] Last Admin: 08/17/25 09:14 Dose: 800 mg Allergies Allergies Allergy/AdvReac Type Severity Reaction Status Date / Time No Known Allergies Allergy Verified 07/06/25 18:08 Assessment & Plan Assessment & Plan (1) Parish: Status: Acute Code(s): F30.9 - Manic episode, unspecified (2) Acute psychosis: Status: Acute Code(s): F23 - Brief psychotic disorder Plan 07/08: continue zyprexa and depakote as established in the ED. 07/09: continue current management and treatment plan. Medications recently started. 07/10: continue current management and treatment plan. 07/11: samuels warning provided. increase depakote to 750 BID, otherwise continue current mgmt. check levels in the next couple of days. section 12b up . will likely file for commitment. 07/12: pt declines labs. will wait for steady state at 1500 mg daily prior to checking labs, laconic, terse. will likely file tomorrow. 07/13: filed for commitment. no reaction from pt. continue current mgmt. 07/14: refusing meds as of last night, already hypersexual today and threatening to kill MD if MD does not discharge him. placed on 1:1 for safety. continue to encourage meds. hearing next friday. 07/15: continues to refuse meds, remains on 1:1. wandering. aware of hearing next friday. inert, no questions/concerns. paucity of thought or thought blocking. continue to offer meds. 07/16: difficulty keeping his shirt on in the milieu, oppositional when told to garb up. inappropriate comment to RN last tera. otherwise uneventful, refusing meds. continue to offer meds. 07/17: no behavioral concerns. remains on 1:1. some RIS and inappropriate laughter. refusing meds. slept 7 hours. contnue current mgmt. hearing on friday. 07/18: no behavioral concerns. Remains on 1:1. Refusing am meds but took bedtime meds last night and is reporting poor sleep. Will consolidate olanzapine dosing to 20 mg qhs rather than 10 mg bid to improve adherence and optimize tx of residual parish/psychosis. Otherwise continue current tx plan for now. Hearing scheduled for tomorrow, 07/19 07/19: Took olanzapine 20 mg last night and slept better. No behavioral issues, still on 1:1. 04/26 hearing scheduled for today at 2 pm. Will switch Depakote from 750 mg bid to Depakote ER 1500 mg at hs since pt has been taking bedtime meds only. committed. *By the time of completion of this note- court hearing took place, pt committed on section 7/. 07/20: Committed on section 8 with Duran order in chart. Pt cannot refuse to take olanzapine per Duran. Give 20 mg IM if pt refuses po 20 mg hs dose of olanzapine. D/C'd prn haldol and switched to 5 mg olanzapine bid prn for agitation to simplify med regimen. Will check VPA level & LFTs on Friday am. Per team discussion- will continue 1:1 for now but will try to switch to q5 min checks later this wk if no behavioral issues. 07/21: Threatened to jump over nursing station due to frustration w/ cell phone policy and continued hospitalization. Was able to tolerate a discussion re: policy and continued need for hospitalization/medication without aggressive behavior. Taking standing meds as rx'd. continue current tx plan, including 1:1 for now 07/22: agitated, threatened to harm peers and staff. security called. agreed to take po olanzapine 10 mg. refused VPA last night. Will continue 1:1. Will adjust orders for pt to receive olanzapine 10 mg if he refuses Depakote per Duran. Pt only wants to take meds for sleep and took the extra olanzapine 10 mg dose today when it was offered to help him w/ sleep (rather than agitation or anxiety) 07/24: no changes. Continue court-ordered medications 07/25: Adherent w/ meds over the weekend. Guarded. focused on discharge but calm. Insight remains severely impaired. Continue current tx plan, including 1:1 07/26: Remains focused on discharge, pushed on the unit doors and told his mom that he was being d/c'd today. Pt is not currently appropriate for a fresh air break due to being a flight risk. Continue 1:1 07/27: Calmer, more cooperative today. Switched to 5 min safety checks while in room, continue 1:1 in milieu. Will switch Depakote tabs to liquid due to difficulty swallowing the tabs. 07/28: Calm, cooperative. Did not bring up discharge today. Endorses restlessness suggestive of akathisia. Will start propranolol 10 mg bid to address this. Lloyd get first dose of VPA syrup starting tonight, rx'd as 800 mg bid. Continue 5 min safety checks in room, 15 in 07/29: Calm/cooperative with t/w. Did not bring up discharge. Easily redirectable with request to use his phone. Denies sx of akathisia today. Will continue current tx plan, including 1:1 in the milieu and 5 min safety checks when in his room In the evening, pt jumped over the nursing station desk/window and punched two computer monitors, as he wanted to leave and get his phone. He required a physical restraint & received IM haldol 10 mg, lorazepam 2 mg and benadryl 50 mg 07/30: Continue current regimen and plans 07/31: Continue current regimen and plans. 08/01: Continue current regimen and plans 08/02: Pt has been calm and has not engage in any behavioral issues since the evening of 07/29. He remains on 1:1 due to significant risk of elopement and is not appropriate for fresh air breaks due to the same concern. Continue current tx plan 08/03: No behavioral issues today. Pt requested an adjustment in his 'sleep med and reported having AH earlier in his admission but not today. Will titrate olanzapine to 25 mg qhs 08/04: Will trial fresh air breaks accompanied by security starting today. Continue 1:1 in milieu and 5 min checks while in room. No behavioral issues. Tolerated olanzapine titration to 25 mg last night. Continue current med regimen 08/05: Insight/judgment are improving, no sx of parish today, psychotic sx significantly improved. Will keep on 5 min checks while in room, 1:1 in milieu and fresh air breaks w/ security over the weekend. Will consider reducing the freq of safety checks if pt maintains safe behaviors over the weekend 08/06: continue current management and treatment plan. 08/07: continue current management and treatment plan. 08/08: No behavioral issues x >1 wk. Will dc 1:1 in milieu, switch to 5 min safty checks. Otherwise continue current tx plan 08/09: No behavioral issues. Med adherent and utilizing prns. Continue current tx plan for now. 08/10: Pt is generally isolative in room, no behavioral issues. Switched to 15 min safety checks while in his room, continue 5 min checks in milieu. Ordered VPA level for tonight. Continue current med regimen for now 08/14: Laying in bed most of day. Patient reports feeling alright ; pt stated, I don't know why I'm still here. I just want to leave . Patient encouraged to leave room, pt reports he plans on staying in bed. denies SI/HI/VH/AH. 08/15: Pt was more fixated on d/c today. He lacks insight re: his underlying psychiatric condition and his involuntary commitment. He was mildly agitated and agreed to take oral risperidone, which he tolerated well. Given total lack of insight into his underlying psychiatric condition and concern for medication non-adherence/relapse after d/c, will x-titrate to oral paliperidone w/ plan to start on Invega Sustenna if he tolerates the oral med. T/W confirmed that paliperidone is on his [place] (risperidone is not). Will lower standing olanzapine dose to 15 mg tonight and start paliperidone 3 mg po tomorrow am. 08/16: Pt has calmly advocated for d/c today. spent most of the day in the milieu. No behavioral issues. Will titrate oral paliperidone to 6 mg tomorrow am, then taper olanzapine to 10 mg tomorrow night if clinically appropriate. 08/17: Pt attended a group today. No behavioral issues. Utilized multiple prns to sleep last night. Will hold off on tapering the olanzapine and will continue current med regimen for now. Tolerting paliperidone well so far. Guardian/Caregiver educated on: diagnosis Reason for continued inpatient stay Substantial Risk for: rapid decompensation and med/psych decompensation Time Spent With Patient Time: Total time managing care of this patient today _30___ minutes.
[2025-08-17 20:06] VITALS: BP 134/67; PULSE 122; RESP 16; TEMP 36.9; O2SAT 99
[2025-08-17] MEDS: OLANZapine ODT 10 MG TAB.RAPDIS 15 MG TRANSLINGU (20:58)
[2025-08-18 08:00] VITALS: RESP 16
[2025-08-18] MEDS: Valproic Acid Liquid 250 MG/5 ML SOLUTION 800 MG PO ×2 (10:04→21:26)
--- NOTE | 2025-08-18 17:54 | HO.PSYCHPN ---
Subjective Subjective Date of Service: 08/18/25 Reason For Visit: parish and psychosis Interim History: chart reviewed, case discussed with team per nursing report- slept 7 hrs last night, asked to speak w/ security again Met w/ pt along w/ SW in pt's room, where he was in bed. Pt reported feeling 'okay' and stated that he slept well. His speech was a bit slurred. T/W met w/ him later in the day while he was walking in the [place] and he denied any complaints and speech was wnl. He deniesd med SE Mental Status Exam Mental Status Exam Narrative: Appearance: Casually dressed. Grooming/hygiene wnl. Good eye contact Attitude: Cooperative Speech: as noted above Motor activity: Steady gait. Calm and without any tics, tremors or dyskinesias Mood: okay Affect: blunted Thought process: generally goal directed Thought content: No SI/HI reported Perception: does not appear to respond to internal stimuli Insight: impaired Judgment: fair Diagnostics Vital Signs (24Hr): Vital Signs - 24 hr 08/17/25 20:06 08/18/25 08:00 Temperature 98.5 F Pulse Rate 122 H Respiratory Rate 16 16 Blood Pressure 134/67 Pulse Oximetry 99 Oxygen Delivery Method Room Air BMI result Body Mass Index 23.6 Labs 07/06/25 19:21 07/25/25 14:11 Medications Medications Current Medications Acetaminophen (Acetaminophen 325 Mg Tablet) 650 mg PO Q6H PRN PRN Reason: Headache/Pain, Scale 1-10 Al Hydroxide/Mg Hydroxide (Magnesium Hydrox/Alum Hydrox 30 Ml Oral.Susp) 30 ml PO Q6H PRN PRN Reason: Heartburn/Nausea Hydroxyzine HCl (Hydroxyzine Hcl 25 Mg Tablet) 25 mg PO Q6H PRN PRN Reason: mild anxiety Last Admin: 08/16/25 15:30 Dose: 25 mg Lorazepam (Lorazepam 1 Mg Tablet) 1 mg PO BID PRN PRN Reason: Anxiety Last Admin: 08/17/25 15:58 Dose: 1 mg Magnesium Hydroxide (Milk Of Magnesia 30 Ml Oral.Susp) 30 ml PO DAILY PRN PRN Reason: Constipation Nicotine Polacrilex (Nicotine Polacrilex 2 Mg Gum) 4 mg BUCCAL Q2H PRN PRN Reason: Nicotine Cravings Olanzapine (Olanzapine 10 Mg Vial) 20 mg IM BEDTIME PRN PRN Reason: Refusal to take 20 mg PO at hs Olanzapine (Olanzapine 5 Mg Tablet) 5 mg PO BID PRN PRN Reason: agitation Last Admin: 08/17/25 15:58 Dose: 5 mg Olanzapine (Olanzapine 10 Mg Tablet) 10 mg PO BEDTIME PRN PRN Reason: Refusal to take Depakote. Offer IM if refuses PO Olanzapine (Olanzapine 10 Mg Vial) 10 mg IM DAILY PRN PRN Reason: see dose instruction Olanzapine (Olanzapine Odt 10 Mg Tab.Rapdis) 15 mg TRANSLINGU BEDTIME MIKALA Last Admin: 08/17/25 20:58 Dose: 15 mg Paliperidone (Paliperidone Er 6 Mg Tab.Er.24) 6 mg PO DAILY MIKALA Last Admin: 08/18/25 10:04 Dose: 6 mg Propranolol HCl (Propranolol Hcl 10 Mg Tablet) 10 mg PO BID PRN; Protocol PRN Reason: akathisia Last Admin: 08/16/25 15:30 Dose: 10 mg Trazodone HCl (Trazodone Hcl 50 Mg Tablet) 50 mg PO BEDTIME MRX1 PRN PRN Reason: Insomnia Last Admin: 08/17/25 20:57 Dose: 50 mg Valproic Acid (Valproic Acid Liquid 250 Mg/5 Ml Solution) 800 mg PO BID MIKALA Last Admin: 08/18/25 10:04 Dose: 800 mg Allergies Allergies Allergy/AdvReac Type Severity Reaction Status Date / Time No Known Allergies Allergy Verified 07/06/25 18:08 Assessment & Plan Assessment & Plan (1) Parish: Status: Acute Code(s): F30.9 - Manic episode, unspecified (2) Acute psychosis: Status: Acute Code(s): F23 - Brief psychotic disorder Plan 07/08: continue zyprexa and depakote as established in the ED. 07/09: continue current management and treatment plan. Medications recently started. 07/10: continue current management and treatment plan. 07/11: samuels warning provided. increase depakote to 750 BID, otherwise continue current mgmt. check levels in the next couple of days. section 12b up . will likely file for commitment. 07/12: pt declines labs. will wait for steady state at 1500 mg daily prior to checking labs, laconic, terse. will likely file tomorrow. 07/13: filed for commitment. no reaction from pt. continue current mgmt. 07/14: refusing meds as of last night, already hypersexual today and threatening to kill MD if MD does not discharge him. placed on 1:1 for safety. continue to encourage meds. hearing next friday. 07/15: continues to refuse meds, remains on 1:1. wandering. aware of hearing next friday. inert, no questions/concerns. paucity of thought or thought blocking. continue to offer meds. 07/16: difficulty keeping his shirt on in the milieu, oppositional when told to garb up. inappropriate comment to RN last tera. otherwise uneventful, refusing meds. continue to offer meds. 07/17: no behavioral concerns. remains on 1:1. some RIS and inappropriate laughter. refusing meds. slept 7 hours. contnue current mgmt. hearing on friday. 07/18: no behavioral concerns. Remains on 1:1. Refusing am meds but took bedtime meds last night and is reporting poor sleep. Will consolidate olanzapine dosing to 20 mg qhs rather than 10 mg bid to improve adherence and optimize tx of residual parish/psychosis. Otherwise continue current tx plan for now. Hearing scheduled for tomorrow, 07/19 07/19: Took olanzapine 20 mg last night and slept better. No behavioral issues, still on 1:1. 04/26 hearing scheduled for today at 2 pm. Will switch Depakote from 750 mg bid to Depakote ER 1500 mg at hs since pt has been taking bedtime meds only. committed. *By the time of completion of this note- court hearing took place, pt committed on section 7/8. 07/20: Committed on section 8 with [place] order in chart. Pt cannot refuse to take olanzapine per [facility]. Give 20 mg IM if pt refuses po 20 mg hs dose of olanzapine. D/C'd prn haldol and switched to 5 mg olanzapine bid prn for agitation to simplify med regimen. Will check VPA level & LFTs on Friday am. Per team discussion- will continue 1:1 for now but will try to switch to q5 min checks later this wk if no behavioral issues. 07/21: Threatened to jump over nursing station due to frustration w/ cell phone policy and continued hospitalization. Was able to tolerate a discussion re: policy and continued need for hospitalization/medication without aggressive behavior. Taking standing meds as rx'd. continue current tx plan, including 1:1 for now 07/22: agitated, threatened to harm peers and staff. security called. agreed to take po olanzapine 10 mg. refused VPA last night. Will continue 1:1. Will adjust orders for pt to receive olanzapine 10 mg if he refuses Depakote per [facility]. Pt only wants to take meds for sleep and took the extra olanzapine 10 mg dose today when it was offered to help him w/ sleep (rather than agitation or anxiety) 07/24: no changes. Continue court-ordered medications 07/25: Adherent w/ meds over the weekend. Guarded. focused on discharge but calm. Insight remains severely impaired. Continue current tx plan, including 1:1 07/26: Remains focused on discharge, pushed on the unit doors and told his mom that he was being d/c'd today. Pt is not currently appropriate for a fresh air break due to being a flight risk. Continue 1:1 07/27: Calmer, more cooperative today. Switched to 5 min safety checks while in room, continue 1:1 in milieu. Will switch Depakote tabs to liquid due to difficulty swallowing the tabs. 07/28: Calm, cooperative. Did not bring up discharge today. Endorses restlessness suggestive of akathisia. Will start propranolol 10 mg bid to address this. Lloyd get first dose of VPA syrup starting tonight, rx'd as 800 mg bid. Continue 5 min safety checks in room, 15 in 07/29: Calm/cooperative with t/w. Did not bring up discharge. Easily redirectable with request to use his phone. Denies sx of akathisia today. Will continue current tx plan, including 1:1 in the milieu and 5 min safety checks when in his room In the evening, pt jumped over the nursing station desk/window and punched two computer monitors, as he wanted to leave and get his phone. He required a physical restraint & received IM haldol 10 mg, lorazepam 2 mg and benadryl 50 mg 07/30: Continue current regimen and plans 07/31: Continue current regimen and plans. 08/01: Continue current regimen and plans 08/02: Pt has been calm and has not engage in any behavioral issues since the evening of 07/29. He remains on 1:1 due to significant risk of elopement and is not appropriate for fresh air breaks due to the same concern. Continue current tx plan 08/03: No behavioral issues today. Pt requested an adjustment in his 'sleep med and reported having AH earlier in his admission but not today. Will titrate olanzapine to 25 mg qhs 08/04: Will trial fresh air breaks accompanied by security starting today. Continue 1:1 in milieu and 5 min checks while in room. No behavioral issues. Tolerated olanzapine titration to 25 mg last night. Continue current med regimen 08/05: Insight/judgment are improving, no sx of parish today, psychotic sx significantly improved. Will keep on 5 min checks while in room, 1:1 in milieu and fresh air breaks w/ security over the weekend. Will consider reducing the freq of safety checks if pt maintains safe behaviors over the weekend 08/06: continue current management and treatment plan. 08/07: continue current management and treatment plan. 08/08: No behavioral issues x >1 wk. Will dc 1:1 in milieu, switch to 5 min safty checks. Otherwise continue current tx plan 08/09: No behavioral issues. Med adherent and utilizing prns. Continue current tx plan for now. 08/10: Pt is generally isolative in room, no behavioral issues. Switched to 15 min safety checks while in his room, continue 5 min checks in milieu. Ordered VPA level for tonight. Continue current med regimen for now 08/14: Laying in bed most of day. Patient reports feeling alright ; pt stated, I don't know why I'm still here. I just want to leave . Patient encouraged to leave room, pt reports he plans on staying in bed. denies SI/HI/VH/AH. 08/15: Pt was more fixated on d/c today. He lacks insight re: his underlying psychiatric condition and his involuntary commitment. He was mildly agitated and agreed to take oral risperidone, which he tolerated well. Given total lack of insight into his underlying psychiatric condition and concern for medication non-adherence/relapse after d/c, will x-titrate to oral paliperidone w/ plan to start on Invega Sustenna if he tolerates the oral med. T/W confirmed that paliperidone is on his [place] (risperidone is not). Will lower standing olanzapine dose to 15 mg tonight and start paliperidone 3 mg po tomorrow am. 08/16: Pt has calmly advocated for d/c today. spent most of the day in the milieu. No behavioral issues. Will titrate oral paliperidone to 6 mg tomorrow am, then taper olanzapine to 10 mg tomorrow night if clinically appropriate. 08/17: Pt attended a group today. No behavioral issues. Utilized multiple prns to sleep last night. Will hold off on tapering the olanzapine and will continue current med regimen for now. Tolerating paliperidone well so far. 08/18: No behavioral issues today. Will taper the olanzapine to 10 mg at hs. Has 5 mg bid prn for agitation and/or insomnia and lorazepam 1 mg bid prn for anxiety. Continue paliperidone 3 mg tomorrow am Reason for continued inpatient stay Substantial Risk for: med/psych decompensation Time Spent With Patient Time: Total time managing care of this patient today _30___ minutes.
[2025-08-18 20:00] VITALS: BP 134/72; PULSE 114; RESP 16; TEMP 37; O2SAT 98
[2025-08-18] MEDS: OLANZapine ODT 10 MG TAB.RAPDIS TRANSLINGU (21:26)
[2025-08-19 07:38] VITALS: BP 102/51; PULSE 76; RESP 14; TEMP 36.4; O2SAT 99
[2025-08-19] MEDS: Valproic Acid Liquid 250 MG/5 ML SOLUTION 800 MG PO ×2 (10:19→21:47)
--- NOTE | 2025-08-19 17:38 | P.PNPSI_ITS ---
Subjective Subjective Date of Service: 08/19/25 Reason For Visit: parish and psychosis Interim History: chart reviewed, case discussed with tx team No behavioral issues med adherent. denies med SE slept 7 hrs per nursing report Visible in the milieu at times, attending some grps Met w/ pt in his room. He reports that he's 'fine, how are you?'. He reports that he is trusting t/w and trying to be patient w/ the treatment plan. He denies SI/violent ideation, AH/VH. MSE: Appearance: Casually dressed. Grooming/hygiene wnl. Good eye contact Attitude:Cooperative Speech: Fluent and wnl in regard to volume, tone, prosody Motor activity: Calm and without any tics, tremors or dyskinesias. Steady gait Mood: 'fine, how are you? Affect: blunted Thought process: goal directed Thought content: as noted above. Perception: Denies AH/VH and does not appear to respond to internal stimuli Insight: impaired Judgment: fair Diagnostics Vital Signs (24Hr): Vital Signs - 24 hr 08/18/25 20:00 08/19/25 07:38 Temperature 98.6 F 97.6 F Pulse Rate 114 H 76 Respiratory Rate 16 14 Blood Pressure 134/72 102/51 L Pulse Oximetry 98 99 Oxygen Delivery Method Room Air Room Air BMI result Body Mass Index 23.6 Labs 07/06/25 19:21 07/25/25 14:11 Medications Medications Current Medications Acetaminophen (Acetaminophen 325 Mg Tablet) 650 mg PO Q6H PRN PRN Reason: Headache/Pain, Scale 1-10 Al Hydroxide/Mg Hydroxide (Magnesium Hydrox/Alum Hydrox 30 Ml Oral.Susp) 30 ml PO Q6H PRN PRN Reason: Heartburn/Nausea Hydroxyzine HCl (Hydroxyzine Hcl 25 Mg Tablet) 25 mg PO Q6H PRN PRN Reason: mild anxiety Last Admin: 08/16/25 15:30 Dose: 25 mg Lorazepam (Lorazepam 1 Mg Tablet) 1 mg PO BID PRN PRN Reason: Anxiety Last Admin: 08/17/25 15:58 Dose: 1 mg Magnesium Hydroxide (Milk Of Magnesia 30 Ml Oral.Susp) 30 ml PO DAILY PRN PRN Reason: Constipation Nicotine Polacrilex (Nicotine Polacrilex 2 Mg Gum) 4 mg BUCCAL Q2H PRN PRN Reason: Nicotine Cravings Olanzapine (Olanzapine 10 Mg Vial) 20 mg IM BEDTIME PRN PRN Reason: Refusal to take 20 mg PO at hs Olanzapine (Olanzapine 5 Mg Tablet) 5 mg PO BID PRN PRN Reason: agitation and/or insomnia Last Admin: 08/17/25 15:58 Dose: 5 mg Olanzapine (Olanzapine 10 Mg Tablet) 10 mg PO BEDTIME PRN PRN Reason: Refusal to take Depakote. Offer IM if refuses PO Olanzapine (Olanzapine 10 Mg Vial) 10 mg IM DAILY PRN PRN Reason: see dose instruction Olanzapine (Olanzapine Odt 10 Mg Tab.Rapdis) 10 mg TRANSLINGU BEDTIME MIKALA Last Admin: 08/18/25 21:26 Dose: 10 mg Paliperidone (Paliperidone Er 6 Mg Tab.Er.24) 6 mg PO DAILY MIKALA Last Admin: 08/19/25 10:18 Dose: 6 mg Propranolol HCl (Propranolol Hcl 10 Mg Tablet) 10 mg PO BID PRN; Protocol PRN Reason: akathisia Last Admin: 08/16/25 15:30 Dose: 10 mg Trazodone HCl (Trazodone Hcl 50 Mg Tablet) 50 mg PO BEDTIME MRX1 PRN PRN Reason: Insomnia Last Admin: 08/17/25 20:57 Dose: 50 mg Valproic Acid (Valproic Acid Liquid 250 Mg/5 Ml Solution) 800 mg PO BID [facility] Last Admin: 08/19/25 10:19 Dose: 800 mg Allergies Allergies Allergy/AdvReac Type Severity Reaction Status Date / Time No Known Allergies Allergy Verified 07/06/25 18:08 Assessment & Plan Assessment & Plan (1) Parish: Status: Acute Code(s): F30.9 - Manic episode, unspecified (2) Acute psychosis: Status: Acute Code(s): F23 - Brief psychotic disorder Plan 07/08: continue zyprexa and depakote as established in the ED. 07/09: continue current management and treatment plan. Medications recently started. 07/10: continue current management and treatment plan. 07/11: samuels warning provided. increase depakote to 750 BID, otherwise continue current mgmt. check levels in the next couple of days. section 12b up wed. will likely file for commitment. 07/12: pt declines labs. will wait for steady state at 1500 mg daily prior to checking labs, laconic, terse. will likely file tomorrow. 07/13: filed for commitment. no reaction from pt. continue current mgmt. 07/14: refusing meds as of last night, already hypersexual today and threatening to kill MD if MD does not discharge him. placed on 1:1 for safety. continue to encourage meds. hearing next friday. 07/15: continues to refuse meds, remains on 1:1. wandering. aware of hearing next friday. inert, no questions/concerns. paucity of thought or thought blocking. continue to offer meds. 07/16: difficulty keeping his shirt on in the milieu, oppositional when told to garb up. inappropriate comment to RN last tera. otherwise uneventful, refusing meds. continue to offer meds. 07/17: no behavioral concerns. remains on 1:1. some RIS and inappropriate laughter. refusing meds. slept 7 hours. contnue current mgmt. hearing on friday. 07/18: no behavioral concerns. Remains on 1:1. Refusing am meds but took bedtime meds last night and is reporting poor sleep. Will consolidate olanzapine dosing to 20 mg qhs rather than 10 mg bid to improve adherence and optimize tx of residual parish/psychosis. Otherwise continue current tx plan for now. Hearing scheduled for tomorrow, 07/19 07/19: Took olanzapine 20 mg last night and slept better. No behavioral issues, still on 1:1. 04/26 hearing scheduled for today at 2 pm. Will switch Depakote from 750 mg bid to Depakote ER 1500 mg at hs since pt has been taking bedtime meds only. committed. *By the time of completion of this note- court hearing took place, pt committed on section 7/8. 07/20: Committed on section 8 with [place] order in chart. Pt cannot refuse to take olanzapine per Duran. Give 20 mg IM if pt refuses po 20 mg hs dose of olanzapine. D/C'd prn haldol and switched to 5 mg olanzapine bid prn for agitation to simplify med regimen. Will check VPA level & LFTs on Friday am. Per team discussion- will continue 1:1 for now but will try to switch to q5 min checks later this wk if no behavioral issues. 07/21: Threatened to jump over nursing station due to frustration w/ cell phone policy and continued hospitalization. Was able to tolerate a discussion re: policy and continued need for hospitalization/medication without aggressive behavior. Taking standing meds as rx'd. continue current tx plan, including 1:1 for now 07/22: agitated, threatened to harm peers and staff. security called. agreed to take po olanzapine 10 mg. refused VPA last night. Will continue 1:1. Will adjust orders for pt to receive olanzapine 10 mg if he refuses Depakote per [facility]an. Pt only wants to take meds for sleep and took the extra olanzapine 10 mg dose today when it was offered to help him w/ sleep (rather than agitation or anxiety) 07/24: no changes. Continue court-ordered medications 07/25: Adherent w/ meds over the weekend. Guarded. focused on discharge but calm. Insight remains severely impaired. Continue current tx plan, including 1:1 07/26: Remains focused on discharge, pushed on the unit doors and told his mom that he was being d/c'd today. Pt is not currently appropriate for a fresh air break due to being a flight risk. Continue 1:1 07/27: Calmer, more cooperative today. Switched to 5 min safety checks while in room, continue 1:1 in milieu. Will switch Depakote tabs to liquid due to difficulty swallowing the tabs. 07/28: Calm, cooperative. Did not bring up discharge today. Endorses restlessness suggestive of akathisia. Will start propranolol 10 mg bid to address this. Lloyd get first dose of VPA syrup starting tonight, rx'd as 800 mg bid. Continue 5 min safety checks in room, 15 in 07/29: Calm/cooperative with t/w. Did not bring up discharge. Easily redirectable with request to use his phone. Denies sx of akathisia today. Will continue current tx plan, including 1:1 in the milieu and 5 min safety checks when in his room In the evening, pt jumped over the nursing station desk/window and punched two computer monitors, as he wanted to leave and get his phone. He required a physical restraint & received IM haldol 10 mg, lorazepam 2 mg and benadryl 50 mg 07/30: Continue current regimen and plans 07/31: Continue current regimen and plans. 08/01: Continue current regimen and plans 08/02: Pt has been calm and has not engage in any behavioral issues since the evening of 07/29. He remains on 1:1 due to significant risk of elopement and is not appropriate for fresh air breaks due to the same concern. Continue current tx plan 08/03: No behavioral issues today. Pt requested an adjustment in his 'sleep med and reported having AH earlier in his admission but not today. Will titrate olanzapine to 25 mg qhs 08/04: Will trial fresh air breaks accompanied by security starting today. Continue 1:1 in milieu and 5 min checks while in room. No behavioral issues. Tolerated olanzapine titration to 25 mg last night. Continue current med regimen 08/05: Insight/judgment are improving, no sx of parish today, psychotic sx significantly improved. Will keep on 5 min checks while in room, 1:1 in milieu and fresh air breaks w/ security over the weekend. Will consider reducing the freq of safety checks if pt maintains safe behaviors over the weekend 08/06: continue current management and treatment plan. 08/07: continue current management and treatment plan. 08/08: No behavioral issues x >1 wk. Will dc 1:1 in milieu, switch to 5 min safty checks. Otherwise continue current tx plan 08/09: No behavioral issues. Med adherent and utilizing prns. Continue current tx plan for now. 08/10: Pt is generally isolative in room, no behavioral issues. Switched to 15 min safety checks while in his room, continue 5 min checks in milieu. Ordered VPA level for tonight. Continue current med regimen for now 08/14: Laying in bed most of day. Patient reports feeling alright ; pt stated, I don't know why I'm still here. I just want to leave . Patient encouraged to leave room, pt reports he plans on staying in bed. denies SI/HI/VH/AH. 08/15: Pt was more fixated on d/c today. He lacks insight re: his underlying psychiatric condition and his involuntary commitment. He was mildly agitated and agreed to take oral risperidone, which he tolerated well. Given total lack of insight into his underlying psychiatric condition and concern for medication non-adherence/relapse after d/c, will x-titrate to oral paliperidone w/ plan to start on Invega Sustenna if he tolerates the oral med. T/W confirmed that paliperidone is on his [place] (risperidone is not). Will lower standing olanzapine dose to 15 mg tonight and start paliperidone 3 mg po tomorrow am. 08/16: Pt has calmly advocated for d/c today. spent most of the day in the milieu. No behavioral issues. Will titrate oral paliperidone to 6 mg tomorrow am, then taper olanzapine to 10 mg tomorrow night if clinically appropriate. 08/17: Pt attended a group today. No behavioral issues. Utilized multiple prns to sleep last night. Will hold off on tapering the olanzapine and will continue current med regimen for now. Tolerating paliperidone well so far. 08/18: No behavioral issues today. Will taper the olanzapine to 10 mg at hs. Has 5 mg bid prn for agitation and/or insomnia and lorazepam 1 mg bid prn for anxiety. Continue paliperidone 3 mg tomorrow am 08/19: Tolerating med changes well. No behavioral issues. Switched to 15 min safety checks at all times. Otherwise continue current tx plan Reason for continued inpatient stay Substantial Risk for: med/psych decompensation Time Spent With Patient Time: Total time managing care of this patient today ____ minutes.
--- NOTE | 2025-08-19 18:31 | PC.NURSE ---
Pt asked if he will be financially responsible for the computer damage he did. I referred him to social work.
[2025-08-19 20:00] VITALS: BP 115/55; PULSE 108; RESP 16; TEMP 37; O2SAT 99
[2025-08-19] MEDS: OLANZapine ODT 10 MG TAB.RAPDIS TRANSLINGU (21:47)
[2025-08-20] MEDS: Valproic Acid Liquid 250 MG/5 ML SOLUTION 800 MG PO ×2 (09:19→20:39)
--- NOTE | 2025-08-20 09:42 | P.PNPSI_ITS ---
Subjective Subjective Date of Service: 08/20/25 Reason For Visit: parish and psychosis Subjective Notes: [place] Order and Section 8 Interim History: chart reviewed, case discussed in morning report per nursing report- slept 6 hrs no behavioral issues utilized prn trazodone, hydroxyzine. Met w/ pt in his room, where he was in bed. He reported that he's already been up and ate breakfast. reports sleeping well. Denies med SE. Denies any concerns. He is aware of the plan to switch from oral paliperidone to MYLES MSE: Appearance: lying in bed, casual, good eye contact Attitude:Cooperative Speech: Fluent and wnl in regard to volume, tone, prosody Motor activity: Calm and without any tics, tremors or dyskinesias. Mood: 'I'm alright. How are you? Affect: blunted Thought process: goal directed and without evidence of formal thought disorder Thought content: does not endorse SI or violent ideation Perception: does not appear to respond to internal stimuli Judgment: fair Medication Compliance: Yes Diagnostics Vital Signs (24Hr): Vital Signs - 24 hr 08/19/25 20:00 Temperature 98.6 F Pulse Rate 108 H Respiratory Rate 16 Blood Pressure 115/55 L Pulse Oximetry 99 Oxygen Delivery Method Room Air BMI result Body Mass Index 23.6 Labs 07/06/25 19:21 07/25/25 14:11 Medications Medications Current Medications Acetaminophen (Acetaminophen 325 Mg Tablet) 650 mg PO Q6H PRN PRN Reason: Headache/Pain, Scale 1-10 Al Hydroxide/Mg Hydroxide (Magnesium Hydrox/Alum Hydrox 30 Ml Oral.Susp) 30 ml PO Q6H PRN PRN Reason: Heartburn/Nausea Hydroxyzine HCl (Hydroxyzine Hcl 25 Mg Tablet) 25 mg PO Q6H PRN PRN Reason: mild anxiety Last Admin: 08/19/25 21:53 Dose: 25 mg Lorazepam (Lorazepam 1 Mg Tablet) 1 mg PO BID PRN PRN Reason: Anxiety Last Admin: 08/17/25 15:58 Dose: 1 mg Magnesium Hydroxide (Milk Of Magnesia 30 Ml Oral.Susp) 30 ml PO DAILY PRN PRN Reason: Constipation Nicotine Polacrilex (Nicotine Polacrilex 2 Mg Gum) 4 mg BUCCAL Q2H PRN PRN Reason: Nicotine Cravings Olanzapine (Olanzapine 10 Mg Vial) 20 mg IM BEDTIME PRN PRN Reason: Refusal to take 20 mg PO at hs Olanzapine (Olanzapine 5 Mg Tablet) 5 mg PO BID PRN PRN Reason: agitation and/or insomnia Last Admin: 08/17/25 15:58 Dose: 5 mg Olanzapine (Olanzapine 10 Mg Tablet) 10 mg PO BEDTIME PRN PRN Reason: Refusal to take Depakote. Offer IM if refuses PO Olanzapine (Olanzapine 10 Mg Vial) 10 mg IM DAILY PRN PRN Reason: see dose instruction Olanzapine (Olanzapine Odt 10 Mg Tab.Rapdis) 10 mg TRANSLINGU BEDTIME MIKALA Last Admin: 08/19/25 21:47 Dose: 10 mg Paliperidone (Paliperidone Er 6 Mg Tab.Er.24) 6 mg PO DAILY [facility] Last Admin: 08/20/25 09:19 Dose: 6 mg Propranolol HCl (Propranolol Hcl 10 Mg Tablet) 10 mg PO BID PRN; Protocol PRN Reason: akathisia Last Admin: 08/16/25 15:30 Dose: 10 mg Trazodone HCl (Trazodone Hcl 50 Mg Tablet) 50 mg PO BEDTIME MRX1 PRN PRN Reason: Insomnia Last Admin: 08/19/25 21:53 Dose: 50 mg Valproic Acid (Valproic Acid Liquid 250 Mg/5 Ml Solution) 800 mg PO BID [facility] Last Admin: 08/20/25 09:19 Dose: 800 mg Allergies Allergies Allergy/AdvReac Type Severity Reaction Status Date / Time No Known Allergies Allergy Verified 07/06/25 18:08 Assessment & Plan Assessment & Plan (1) Parish: Status: Acute Code(s): F30.9 - Manic episode, unspecified (2) Acute psychosis: Status: Acute Code(s): F23 - Brief psychotic disorder Plan 07/08: continue zyprexa and depakote as established in the ED. 07/09: continue current management and treatment plan. Medications recently started. 07/10: continue current management and treatment plan. 07/11: samuels warning provided. increase depakote to 750 BID, otherwise continue current mgmt. check levels in the next couple of days. section 12b up . will likely file for commitment. 07/12: pt declines labs. will wait for steady state at 1500 mg daily prior to checking labs, laconic, terse. will likely file tomorrow. 07/13: filed for commitment. no reaction from pt. continue current mgmt. 07/14: refusing meds as of last night, already hypersexual today and threatening to kill MD if MD does not discharge him. placed on 1:1 for safety. continue to encourage meds. hearing next friday. 07/15: continues to refuse meds, remains on 1:1. wandering. aware of hearing next friday. inert, no questions/concerns. paucity of thought or thought blocking. continue to offer meds. 07/16: difficulty keeping his shirt on in the milieu, oppositional when told to garb up. inappropriate comment to RN last tera. otherwise uneventful, refusing meds. continue to offer meds. 07/17: no behavioral concerns. remains on 1:1. some RIS and inappropriate laughter. refusing meds. slept 7 hours. contnue current mgmt. hearing on friday. 07/18: no behavioral concerns. Remains on 1:1. Refusing am meds but took bedtime meds last night and is reporting poor sleep. Will consolidate olanzapine dosing to 20 mg qhs rather than 10 mg bid to improve adherence and optimize tx of residual parish/psychosis. Otherwise continue current tx plan for now. Hearing scheduled for tomorrow, 07/19 07/19: Took olanzapine 20 mg last night and slept better. No behavioral issues, still on 1:1. 04/26 hearing scheduled for today at 2 pm. Will switch Depakote from 750 mg bid to Depakote ER 1500 mg at hs since pt has been taking bedtime meds only. committed. *By the time of completion of this note- court hearing took place, pt committed on section 7/8. 07/20: Committed on section 8 with Garzon order in chart. Pt cannot refuse to take olanzapine per Duran. Give 20 mg IM if pt refuses po 20 mg hs dose of olanzapine. D/C'd prn haldol and switched to 5 mg olanzapine bid prn for agitation to simplify med regimen. Will check VPA level & LFTs on Friday am. Per team discussion- will continue 1:1 for now but will try to switch to q5 min checks later this wk if no behavioral issues. 07/21: Threatened to jump over nursing station due to frustration w/ cell phone policy and continued hospitalization. Was able to tolerate a discussion re: policy and continued need for hospitalization/medication without aggressive behavior. Taking standing meds as rx'd. continue current tx plan, including 1:1 for now 07/22: agitated, threatened to harm peers and staff. security called. agreed to take po olanzapine 10 mg. refused VPA last night. Will continue 1:1. Will adjust orders for pt to receive olanzapine 10 mg if he refuses Depakote per Duran. Pt only wants to take meds for sleep and took the extra olanzapine 10 mg dose today when it was offered to help him w/ sleep (rather than agitation or anxiety) 07/24: no changes. Continue court-ordered medications 07/25: Adherent w/ meds over the weekend. Guarded. focused on discharge but calm. Insight remains severely impaired. Continue current tx plan, including 1:1 07/26: Remains focused on discharge, pushed on the unit doors and told his mom that he was being d/c'd today. Pt is not currently appropriate for a fresh air break due to being a flight risk. Continue 1:1 07/27: Calmer, more cooperative today. Switched to 5 min safety checks while in room, continue 1:1 in milieu. Will switch Depakote tabs to liquid due to difficulty swallowing the tabs. 07/28: Calm, cooperative. Did not bring up discharge today. Endorses restlessness suggestive of akathisia. Will start propranolol 10 mg bid to address this. Lloyd get first dose of VPA syrup starting tonight, rx'd as 800 mg bid. Continue 5 min safety checks in room, 15 in 07/29: Calm/cooperative with t/w. Did not bring up discharge. Easily redirectable with request to use his phone. Denies sx of akathisia today. Will continue current tx plan, including 1:1 in the milieu and 5 min safety checks when in his room In the evening, pt jumped over the nursing station desk/window and punched two computer monitors, as he wanted to leave and get his phone. He required a physical restraint & received IM haldol 10 mg, lorazepam 2 mg and benadryl 50 mg 07/30: Continue current regimen and plans 07/31: Continue current regimen and plans. 08/01: Continue current regimen and plans 08/02: Pt has been calm and has not engage in any behavioral issues since the evening of 07/29. He remains on 1:1 due to significant risk of elopement and is not appropriate for fresh air breaks due to the same concern. Continue current tx plan 08/03: No behavioral issues today. Pt requested an adjustment in his 'sleep med and reported having AH earlier in his admission but not today. Will titrate olanzapine to 25 mg qhs 08/04: Will trial fresh air breaks accompanied by security starting today. Continue 1:1 in milieu and 5 min checks while in room. No behavioral issues. Tolerated olanzapine titration to 25 mg last night. Continue current med regimen 08/05: Insight/judgment are improving, no sx of parish today, psychotic sx significantly improved. Will keep on 5 min checks while in room, 1:1 in milieu and fresh air breaks w/ security over the weekend. Will consider reducing the freq of safety checks if pt maintains safe behaviors over the weekend 08/06: continue current management and treatment plan. 08/07: continue current management and treatment plan. 08/08: No behavioral issues x >1 wk. Will dc 1:1 in milieu, switch to 5 min safty checks. Otherwise continue current tx plan 08/09: No behavioral issues. Med adherent and utilizing prns. Continue current tx plan for now. 08/10: Pt is generally isolative in room, no behavioral issues. Switched to 15 min safety checks while in his room, continue 5 min checks in milieu. Ordered VPA level for tonight. Continue current med regimen for now 08/14: Laying in bed most of day. Patient reports feeling alright ; pt stated, I don't know why I'm still here. I just want to leave . Patient encouraged to leave room, pt reports he plans on staying in bed. denies SI/HI/VH/AH. 08/15: Pt was more fixated on d/c today. He lacks insight re: his underlying psychiatric condition and his involuntary commitment. He was mildly agitated and agreed to take oral risperidone, which he tolerated well. Given total lack of insight into his underlying psychiatric condition and concern for medication non-adherence/relapse after d/c, will x-titrate to oral paliperidone w/ plan to start on Invega Sustenna if he tolerates the oral med. T/W confirmed that paliperidone is on his Garzon (risperidone is not). Will lower standing olanzapine dose to 15 mg tonight and start paliperidone 3 mg po tomorrow am. 08/16: Pt has calmly advocated for d/c today. spent most of the day in the milieu. No behavioral issues. Will titrate oral paliperidone to 6 mg tomorrow am, then taper olanzapine to 10 mg tomorrow night if clinically appropriate. 08/17: Pt attended a group today. No behavioral issues. Utilized multiple prns to sleep last night. Will hold off on tapering the olanzapine and will continue current med regimen for now. Tolerating paliperidone well so far. 08/18: No behavioral issues today. Will taper the olanzapine to 10 mg at hs. Has 5 mg bid prn for agitation and/or insomnia and lorazepam 1 mg bid prn for anxiety. Continue paliperidone 3 mg tomorrow am 08/19: Tolerating med changes well. No behavioral issues. Switched to 15 min safety checks at all times. Otherwise continue current tx plan 08/20: No behavioral issues. Med adherent, denies med SE. D/C'd oral paliperidone and pt will receive first paliperidone IM (234 mg) tomorrow am Reason for continued inpatient stay Substantial Risk for: med/psych decompensation Time Spent With Patient Time: Total time managing care of this patient today ____ minutes.
[2025-08-20 20:00] VITALS: BP 118/64; PULSE 100; RESP 16; TEMP 36.8; O2SAT 99
[2025-08-20] MEDS: OLANZapine ODT 10 MG TAB.RAPDIS TRANSLINGU (20:36)
--- NOTE | 2025-08-21 08:58 | HO.PSYCHPN ---
Subjective Subjective Date of Service: 08/21/25 Reason For Visit: parish and psychosis Subjective Notes: [place] Order and Section 8 Interim History: Chart reviewed, case discussed w/ nursing staff T/W informed pt yesterday afternoon of the plan to get the first paliperidone injection today. He was very happy to hear her of this and had a bright affect. Per nursing report- yesterday- pt was more social, watched TV. affect has been brighter since he is aware of plan to get MYLES today T/W met w/ pt in his room, where he was lying in bed in the dark awake. Reports good sleep. Denies any concerns. T/W asked how he's doing and he said can you ask me after I get the injection? . He asked what time he'd get it. His nurse planned to give it shortly after our mtg. MSE: Appearance: lying in bed, casual, good eye contact Attitude:Cooperative Speech: Fluent and wnl in regard to volume, tone, prosody Motor activity: Calm and without any tics, tremors or dyskinesias. Mood: as noted above Affect: brighter Thought process: goal directed Thought content: does not endorse SI or violent ideation Perception: does not appear to respond to internal stimuli Insight: impaired Judgment: fairly. significantly improved Medication Compliance: Yes Diagnostics Vital Signs (24Hr): Vital Signs - 24 hr 08/20/25 20:00 Temperature 98.3 F Pulse Rate 100 Respiratory Rate 16 Blood Pressure 118/64 Pulse Oximetry 99 Oxygen Delivery Method Room Air BMI result Body Mass Index 23.6 Labs 07/06/25 19:21 07/25/25 14:11 Medications Medications Current Medications Acetaminophen (Acetaminophen 325 Mg Tablet) 650 mg PO Q6H PRN PRN Reason: Headache/Pain, Scale 1-10 Al Hydroxide/Mg Hydroxide (Magnesium Hydrox/Alum Hydrox 30 Ml Oral.Susp) 30 ml PO Q6H PRN PRN Reason: Heartburn/Nausea Hydroxyzine HCl (Hydroxyzine Hcl 25 Mg Tablet) 25 mg PO Q6H PRN PRN Reason: mild anxiety Last Admin: 08/20/25 22:36 Dose: 25 mg Lorazepam (Lorazepam 1 Mg Tablet) 1 mg PO BID PRN PRN Reason: Anxiety Last Admin: 08/17/25 15:58 Dose: 1 mg Magnesium Hydroxide (Milk Of Magnesia 30 Ml Oral.Susp) 30 ml PO DAILY PRN PRN Reason: Constipation Nicotine Polacrilex (Nicotine Polacrilex 2 Mg Gum) 4 mg BUCCAL Q2H PRN PRN Reason: Nicotine Cravings Olanzapine (Olanzapine 10 Mg Vial) 20 mg IM BEDTIME PRN PRN Reason: Refusal to take 20 mg PO at hs Olanzapine (Olanzapine 5 Mg Tablet) 5 mg PO BID PRN PRN Reason: agitation and/or insomnia Last Admin: 08/20/25 15:59 Dose: 5 mg Olanzapine (Olanzapine 10 Mg Tablet) 10 mg PO BEDTIME PRN PRN Reason: Refusal to take Depakote. Offer IM if refuses PO Olanzapine (Olanzapine 10 Mg Vial) 10 mg IM DAILY PRN PRN Reason: see dose instruction Olanzapine (Olanzapine Odt 10 Mg Tab.Rapdis) 10 mg TRANSLINGU BEDTIME MIKALA Last Admin: 08/20/25 20:36 Dose: 10 mg Paliperidone Palmitate (Paliperidone Palmitate 234 Mg/1.5 Ml Syringe) 234 mg IM ONCE ONE Stop: 08/21/25 09:01 Propranolol HCl (Propranolol Hcl 10 Mg Tablet) 10 mg PO BID PRN; Protocol PRN Reason: akathisia Last Admin: 08/16/25 15:30 Dose: 10 mg Trazodone HCl (Trazodone Hcl 50 Mg Tablet) 50 mg PO BEDTIME MRX1 PRN PRN Reason: Insomnia Last Admin: 08/20/25 22:36 Dose: 50 mg Valproic Acid (Valproic Acid Liquid 250 Mg/5 Ml Solution) 800 mg PO BID [facility] Last Admin: 08/20/25 20:39 Dose: 800 mg Allergies Allergies Allergy/AdvReac Type Severity Reaction Status Date / Time No Known Allergies Allergy Verified 07/06/25 18:08 Assessment & Plan Assessment & Plan (1) Parish: Status: Acute Code(s): F30.9 - Manic episode, unspecified (2) Acute psychosis: Status: Acute Code(s): F23 - Brief psychotic disorder Plan 07/08: continue zyprexa and depakote as established in the ED. 07/09: continue current management and treatment plan. Medications recently started. 07/10: continue current management and treatment plan. 07/11: samuels warning provided. increase depakote to 750 BID, otherwise continue current mgmt. check levels in the next couple of days. section 12b up . will likely file for commitment. 07/12: pt declines labs. will wait for steady state at 1500 mg daily prior to checking labs, laconic, terse. will likely file tomorrow. 07/13: filed for commitment. no reaction from pt. continue current mgmt. 07/14: refusing meds as of last night, already hypersexual today and threatening to kill MD if MD does not discharge him. placed on 1:1 for safety. continue to encourage meds. hearing next friday. 07/15: continues to refuse meds, remains on 1:1. wandering. aware of hearing next friday. inert, no questions/concerns. paucity of thought or thought blocking. continue to offer meds. 07/16: difficulty keeping his shirt on in the milieu, oppositional when told to garb up. inappropriate comment to RN last tera. otherwise uneventful, refusing meds. continue to offer meds. 07/17: no behavioral concerns. remains on 1:1. some RIS and inappropriate laughter. refusing meds. slept 7 hours. contnue current mgmt. hearing on friday. 07/18: no behavioral concerns. Remains on 1:1. Refusing am meds but took bedtime meds last night and is reporting poor sleep. Will consolidate olanzapine dosing to 20 mg qhs rather than 10 mg bid to improve adherence and optimize tx of residual parish/psychosis. Otherwise continue current tx plan for now. Hearing scheduled for tomorrow, 07/19 07/19: Took olanzapine 20 mg last night and slept better. No behavioral issues, still on 1:1. 04/26 hearing scheduled for today at 2 pm. Will switch Depakote from 750 mg bid to Depakote ER 1500 mg at hs since pt has been taking bedtime meds only. committed. *By the time of completion of this note- court hearing took place, pt committed on section 7/8. 07/20: Committed on section 8 with Duran order in chart. Pt cannot refuse to take olanzapine per Duran. Give 20 mg IM if pt refuses po 20 mg hs dose of olanzapine. D/C'd prn haldol and switched to 5 mg olanzapine bid prn for agitation to simplify med regimen. Will check VPA level & LFTs on Friday am. Per team discussion- will continue 1:1 for now but will try to switch to q5 min checks later this wk if no behavioral issues. 07/21: Threatened to jump over nursing station due to frustration w/ cell phone policy and continued hospitalization. Was able to tolerate a discussion re: policy and continued need for hospitalization/medication without aggressive behavior. Taking standing meds as rx'd. continue current tx plan, including 1:1 for now 07/22: agitated, threatened to harm peers and staff. security called. agreed to take po olanzapine 10 mg. refused VPA last night. Will continue 1:1. Will adjust orders for pt to receive olanzapine 10 mg if he refuses Depakote per Duran. Pt only wants to take meds for sleep and took the extra olanzapine 10 mg dose today when it was offered to help him w/ sleep (rather than agitation or anxiety) 07/24: no changes. Continue court-ordered medications 07/25: Adherent w/ meds over the weekend. Guarded. focused on discharge but calm. Insight remains severely impaired. Continue current tx plan, including 1:1 07/26: Remains focused on discharge, pushed on the unit doors and told his mom that he was being d/c'd today. Pt is not currently appropriate for a fresh air break due to being a flight risk. Continue 1:1 07/27: Calmer, more cooperative today. Switched to 5 min safety checks while in room, continue 1:1 in milieu. Will switch Depakote tabs to liquid due to difficulty swallowing the tabs. 07/28: Calm, cooperative. Did not bring up discharge today. Endorses restlessness suggestive of akathisia. Will start propranolol 10 mg bid to address this. Lloyd get first dose of VPA syrup starting tonight, rx'd as 800 mg bid. Continue 5 min safety checks in room, 15 in 07/29: Calm/cooperative with t/w. Did not bring up discharge. Easily redirectable with request to use his phone. Denies sx of akathisia today. Will continue current tx plan, including 1:1 in the milieu and 5 min safety checks when in his room In the evening, pt jumped over the nursing station desk/window and punched two computer monitors, as he wanted to leave and get his phone. He required a physical restraint & received IM haldol 10 mg, lorazepam 2 mg and benadryl 50 mg 07/30: Continue current regimen and plans 07/31: Continue current regimen and plans. 08/01: Continue current regimen and plans 08/02: Pt has been calm and has not engage in any behavioral issues since the evening of 07/29. He remains on 1:1 due to significant risk of elopement and is not appropriate for fresh air breaks due to the same concern. Continue current tx plan 08/03: No behavioral issues today. Pt requested an adjustment in his 'sleep med and reported having AH earlier in his admission but not today. Will titrate olanzapine to 25 mg qhs 08/04: Will trial fresh air breaks accompanied by security starting today. Continue 1:1 in milieu and 5 min checks while in room. No behavioral issues. Tolerated olanzapine titration to 25 mg last night. Continue current med regimen 08/05: Insight/judgment are improving, no sx of parish today, psychotic sx significantly improved. Will keep on 5 min checks while in room, 1:1 in milieu and fresh air breaks w/ security over the weekend. Will consider reducing the freq of safety checks if pt maintains safe behaviors over the weekend 08/06: continue current management and treatment plan. 08/07: continue current management and treatment plan. 08/08: No behavioral issues x >1 wk. Will dc 1:1 in milieu, switch to 5 min safty checks. Otherwise continue current tx plan 08/09: No behavioral issues. Med adherent and utilizing prns. Continue current tx plan for now. 08/10: Pt is generally isolative in room, no behavioral issues. Switched to 15 min safety checks while in his room, continue 5 min checks in milieu. Ordered VPA level for tonight. Continue current med regimen for now 08/14: Laying in bed most of day. Patient reports feeling alright ; pt stated, I don't know why I'm still here. I just want to leave . Patient encouraged to leave room, pt reports he plans on staying in bed. denies SI/HI/VH/AH. 08/15: Pt was more fixated on d/c today. He lacks insight re: his underlying psychiatric condition and his involuntary commitment. He was mildly agitated and agreed to take oral risperidone, which he tolerated well. Given total lack of insight into his underlying psychiatric condition and concern for medication non-adherence/relapse after d/c, will x-titrate to oral paliperidone w/ plan to start on Invega Sustenna if he tolerates the oral med. T/W confirmed that paliperidone is on his Garzon (risperidone is not). Will lower standing olanzapine dose to 15 mg tonight and start paliperidone 3 mg po tomorrow am. 08/16: Pt has calmly advocated for d/c today. spent most of the day in the milieu. No behavioral issues. Will titrate oral paliperidone to 6 mg tomorrow am, then taper olanzapine to 10 mg tomorrow night if clinically appropriate. 08/17: Pt attended a group today. No behavioral issues. Utilized multiple prns to sleep last night. Will hold off on tapering the olanzapine and will continue current med regimen for now. Tolerating paliperidone well so far. 08/18: No behavioral issues today. Will taper the olanzapine to 10 mg at hs. Has 5 mg bid prn for agitation and/or insomnia and lorazepam 1 mg bid prn for anxiety. Continue paliperidone 3 mg tomorrow am 08/19: Tolerating med changes well. No behavioral issues. Switched to 15 min safety checks at all times. Otherwise continue current tx plan 08/20: No behavioral issues. Med adherent, denies med SE. D/C'd oral paliperidone and pt will receive first paliperidone IM (234 mg) tomorrow am 08/21: Received 1st paliperidone injection ths am.Ordered 2nd initation dose for 08/28. No behavioral issues. Med adherent. Reason for continued inpatient stay Substantial Risk for: med/psych decompensation Time Spent With Patient Time: Total time managing care of this patient today ____ minutes.
[2025-08-21 09:41] VITALS: BP 105/59; PULSE 78; RESP 18; TEMP 36.7; O2SAT 100
[2025-08-21] MEDS: Valproic Acid Liquid 250 MG/5 ML SOLUTION 800 MG PO ×2 (09:43→20:03)
[2025-08-21 20:00] VITALS: BP 136/77; PULSE 113; RESP 18; TEMP 36.6; O2SAT 97
[2025-08-21] MEDS: OLANZapine ODT 10 MG TAB.RAPDIS TRANSLINGU (20:02)
[2025-08-22 07:47] VITALS: BP 134/59; PULSE 85; RESP 14; TEMP 36.8; O2SAT 100
[2025-08-22] MEDS: Valproic Acid Liquid 250 MG/5 ML SOLUTION 800 MG PO ×2 (08:50→21:15)
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
[2025-08-22 20:00] VITALS: BP 130/76; PULSE 102; RESP 16; TEMP 37.1; O2SAT 99
[2025-08-22] MEDS: OLANZapine ODT 10 MG TAB.RAPDIS 5 MG TRANSLINGU (21:16)
[2025-08-23] MEDS: Valproic Acid Liquid 250 MG/5 ML SOLUTION 800 MG PO ×2 (09:03→21:17)
--- NOTE | 2025-08-23 18:04 | P.PNPSI_ITS ---
Subjective Subjective Date of Service: 08/23/25 Reason For Visit: parish and psychosis Subjective Notes: [place] Order and Section 8 Interim History: Chart reviewed, case discussed w/ team Pt reports feeling 'good'. Denies feeling tired today. Slept well. Denies any problem w/ the olanzapine taper (down to 5 mg at hs). No prn olanzapine used last night. Took prn trazodone Per OT report- pt attended all groups Pt has been visible in the milieu for much of the day Medication Compliance: Yes Side effects from medications: No Mental Status Exam Mental Status Exam Narrative: Appearance: Casually dressed. well groomed. good eye contact Attitude: Cooperative Speech: Fluent and wnl in regard to volume, tone, prosody Motor activity: Calm and without any tics, tremors or dyskinesias. Steady gait Mood: 'good' Affect: appropriate, reactive Thought process: goal directed and without evidence of formal thought disorder Thought content: as noted above. Future oriented Perception: Denies AH/VH and does not appear to respond to internal stimuli Cognition grossly intact Insight: fair Judgment: good Diagnostics Vital Signs (24Hr): Vital Signs - 24 hr 08/22/25 20:00 Temperature 98.7 F Pulse Rate 102 H Respiratory Rate 16 Blood Pressure 130/76 Pulse Oximetry 99 Oxygen Delivery Method Room Air BMI result Body Mass Index 23.6 Labs 07/06/25 19:21 07/25/25 14:11 Medications Medications Current Medications Acetaminophen (Acetaminophen 325 Mg Tablet) 650 mg PO Q6H PRN PRN Reason: Headache/Pain, Scale 1-10 Al Hydroxide/Mg Hydroxide (Magnesium Hydrox/Alum Hydrox 30 Ml Oral.Susp) 30 ml PO Q6H PRN PRN Reason: Heartburn/Nausea Hydroxyzine HCl (Hydroxyzine Hcl 25 Mg Tablet) 25 mg PO Q6H PRN PRN Reason: mild anxiety Last Admin: 08/21/25 20:02 Dose: 25 mg Lorazepam (Lorazepam 1 Mg Tablet) 1 mg PO BID PRN PRN Reason: Anxiety Last Admin: 08/17/25 15:58 Dose: 1 mg Magnesium Hydroxide (Milk Of Magnesia 30 Ml Oral.Susp) 30 ml PO DAILY PRN PRN Reason: Constipation Nicotine Polacrilex (Nicotine Polacrilex 2 Mg Gum) 4 mg BUCCAL Q2H PRN PRN Reason: Nicotine Cravings Olanzapine (Olanzapine 5 Mg Tablet) 5 mg PO BID PRN PRN Reason: agitation and/or insomnia Last Admin: 08/20/25 15:59 Dose: 5 mg Olanzapine (Olanzapine 10 Mg Tablet) 10 mg PO BEDTIME PRN PRN Reason: Refusal to take Depakote. Offer IM if refuses PO Olanzapine (Olanzapine Odt 10 Mg Tab.Rapdis) 5 mg TRANSLINGU BEDTIME MIKALA Last Admin: 08/22/25 21:16 Dose: 5 mg Paliperidone Palmitate (Paliperidone Palmitate 156 Mg/Ml Syringe) 156 mg IM ONCE ONE Stop: 08/28/25 09:01 Propranolol HCl (Propranolol Hcl 10 Mg Tablet) 10 mg PO BID PRN; Protocol PRN Reason: akathisia Last Admin: 08/16/25 15:30 Dose: 10 mg Trazodone HCl (Trazodone Hcl 50 Mg Tablet) 50 mg PO BEDTIME MRX1 PRN PRN Reason: Insomnia Last Admin: 08/22/25 21:17 Dose: 50 mg Valproic Acid (Valproic Acid Liquid 250 Mg/5 Ml Solution) 800 mg PO BID ON LICENSE OF [facility] Last Admin: 08/23/25 09:03 Dose: 800 mg Allergies Allergies Allergy/AdvReac Type Severity Reaction Status Date / Time No Known Allergies Allergy Verified 07/06/25 18:08 Assessment & Plan Assessment & Plan (1) Parish: Status: Acute Code(s): F30.9 - Manic episode, unspecified (2) Acute psychosis: Status: Acute Code(s): F23 - Brief psychotic disorder Plan 07/08: continue zyprexa and depakote as established in the ED. 07/09: continue current management and treatment plan. Medications recently started. 07/10: continue current management and treatment plan. 07/11: samuels warning provided. increase depakote to 750 BID, otherwise continue current mgmt. check levels in the next couple of days. section 12b up . will likely file for commitment. 07/12: pt declines labs. will wait for steady state at 1500 mg daily prior to checking labs, laconic, terse. will likely file tomorrow. 07/13: filed for commitment. no reaction from pt. continue current mgmt. 07/14: refusing meds as of last night, already hypersexual today and threatening to kill MD if MD does not discharge him. placed on 1:1 for safety. continue to encourage meds. hearing next friday. 07/15: continues to refuse meds, remains on 1:1. wandering. aware of hearing next friday. inert, no questions/concerns. paucity of thought or thought blocking. continue to offer meds. 07/16: difficulty keeping his shirt on in the milieu, oppositional when told to garb up. inappropriate comment to RN last tera. otherwise uneventful, refusing meds. continue to offer meds. 07/17: no behavioral concerns. remains on 1:1. some RIS and inappropriate laughter. refusing meds. slept 7 hours. contnue current mgmt. hearing on friday. 07/18: no behavioral concerns. Remains on 1:1. Refusing am meds but took bedtime meds last night and is reporting poor sleep. Will consolidate olanzapine dosing to 20 mg qhs rather than 10 mg bid to improve adherence and optimize tx of residual parish/psychosis. Otherwise continue current tx plan for now. Hearing scheduled for tomorrow, 07/19 07/19: Took olanzapine 20 mg last night and slept better. No behavioral issues, still on 1:1. 04/26 hearing scheduled for today at 2 pm. Will switch Depakote from 750 mg bid to Depakote ER 1500 mg at hs since pt has been taking bedtime meds only. committed. *By the time of completion of this note- court hearing took place, pt committed on section 7/8. 07/20: Committed on section 8 with Duran order in chart. Pt cannot refuse to take olanzapine per Duran. Give 20 mg IM if pt refuses po 20 mg hs dose of olanzapine. D/C'd prn haldol and switched to 5 mg olanzapine bid prn for agitation to simplify med regimen. Will check VPA level & LFTs on Friday am. Per team discussion- will continue 1:1 for now but will try to switch to q5 min checks later this wk if no behavioral issues. 07/21: Threatened to jump over nursing station due to frustration w/ cell phone policy and continued hospitalization. Was able to tolerate a discussion re: policy and continued need for hospitalization/medication without aggressive behavior. Taking standing meds as rx'd. continue current tx plan, including 1:1 for now 10/3: agitated, threatened to harm peers and staff. security called. agreed to take po olanzapine 10 mg. refused VPA last night. Will continue 1:1. Will adjust orders for pt to receive olanzapine 10 mg if he refuses Depakote per Duran. Pt only wants to take meds for sleep and took the extra olanzapine 10 mg dose today when it was offered to help him w/ sleep (rather than agitation or anxiety) 07/24: no changes. Continue court-ordered medications 07/25: Adherent w/ meds over the weekend. Guarded. focused on discharge but calm. Insight remains severely impaired. Continue current tx plan, including 1:1 07/26: Remains focused on discharge, pushed on the unit doors and told his mom that he was being d/c'd today. Pt is not currently appropriate for a fresh air break due to being a flight risk. Continue 1:1 07/27: Calmer, more cooperative today. Switched to 5 min safety checks while in room, continue 1:1 in milieu. Will switch Depakote tabs to liquid due to difficulty swallowing the tabs. 07/28: Calm, cooperative. Did not bring up discharge today. Endorses restlessness suggestive of akathisia. Will start propranolol 10 mg bid to address this. Lloyd get first dose of VPA syrup starting tonight, rx'd as 800 mg bid. Continue 5 min safety checks in room, 15 in 07/29: Calm/cooperative with t/w. Did not bring up discharge. Easily redirectable with request to use his phone. Denies sx of akathisia today. Will continue current tx plan, including 1:1 in the milieu and 5 min safety checks when in his room In the evening, pt jumped over the nursing station desk/window and punched two computer monitors, as he wanted to leave and get his phone. He required a physical restraint & received IM haldol 10 mg, lorazepam 2 mg and benadryl 50 mg 07/30: Continue current regimen and plans 07/31: Continue current regimen and plans. 08/01: Continue current regimen and plans 08/02: Pt has been calm and has not engage in any behavioral issues since the evening of 07/29. He remains on 1:1 due to significant risk of elopement and is not appropriate for fresh air breaks due to the same concern. Continue current tx plan 08/03: No behavioral issues today. Pt requested an adjustment in his 'sleep med and reported having AH earlier in his admission but not today. Will titrate olanzapine to 25 mg qhs 08/04: Will trial fresh air breaks accompanied by security starting today. Continue 1:1 in milieu and 5 min checks while in room. No behavioral issues. Tolerated olanzapine titration to 25 mg last night. Continue current med regimen 08/05: Insight/judgment are improving, no sx of parish today, psychotic sx significantly improved. Will keep on 5 min checks while in room, 1:1 in milieu and fresh air breaks w/ security over the weekend. Will consider reducing the freq of safety checks if pt maintains safe behaviors over the weekend 08/06: continue current management and treatment plan. 08/07: continue current management and treatment plan. 08/08: No behavioral issues x >1 wk. Will dc 1:1 in milieu, switch to 5 min safty checks. Otherwise continue current tx plan 08/09: No behavioral issues. Med adherent and utilizing prns. Continue current tx plan for now. 08/10: Pt is generally isolative in room, no behavioral issues. Switched to 15 min safety checks while in his room, continue 5 min checks in milieu. Ordered VPA level for tonight. Continue current med regimen for now 08/14: Laying in bed most of day. Patient reports feeling alright ; pt stated, I don't know why I'm still here. I just want to leave . Patient encouraged to leave room, pt reports he plans on staying in bed. denies SI/HI/VH/AH. 08/15: Pt was more fixated on d/c today. He lacks insight re: his underlying psychiatric condition and his involuntary commitment. He was mildly agitated and agreed to take oral risperidone, which he tolerated well. Given total lack of insight into his underlying psychiatric condition and concern for medication non-adherence/relapse after d/c, will x-titrate to oral paliperidone w/ plan to start on Invega Sustenna if he tolerates the oral med. T/W confirmed that paliperidone is on his [facility] (risperidone is not). Will lower standing olanzapine dose to 15 mg tonight and start paliperidone 3 mg po tomorrow am. 08/16: Pt has calmly advocated for d/c today. spent most of the day in the milieu. No behavioral issues. Will titrate oral paliperidone to 6 mg tomorrow am, then taper olanzapine to 10 mg tomorrow night if clinically appropriate. 08/17: Pt attended a group today. No behavioral issues. Utilized multiple prns to sleep last night. Will hold off on tapering the olanzapine and will continue current med regimen for now. Tolerating paliperidone well so far. 08/18: No behavioral issues today. Will taper the olanzapine to 10 mg at hs. Has 5 mg bid prn for agitation and/or insomnia and lorazepam 1 mg bid prn for anxiety. Continue paliperidone 3 mg tomorrow am 08/19: Tolerating med changes well. No behavioral issues. Switched to 15 min safety checks at all times. Otherwise continue current tx plan 08/20: No behavioral issues. Med adherent, denies med SE. D/C'd oral paliperidone and pt will receive first paliperidone IM (234 mg) tomorrow am 08/21: Received 1st paliperidone injection ths am.Ordered 2nd initation dose for 08/28. No behavioral issues. Med adherent. 08/22: Affect is brighter, more visible in the milieu. Experienced daytime sedation after the Invega IM but otherwise denies any SE. Agreeable w/ plan to lower olanzapine to 5 mg and will have prn available for insomnia. 08/23: Tolerated taper to olanzapine well. No prn olanzapine used last night, just took prn trazodone. Slept well. D/C'd IM olanzapine for med refusal since he's on MYLES. Adjusted PERI - no longer needs security and privacy consultant Reason for continued inpatient stay Substantial Risk for: med/psych decompensation Time Spent With Patient Time: Total time managing care of this patient today ____ minutes.
[2025-08-23 20:00] VITALS: BP 127/65; PULSE 103; RESP 16; TEMP 36.7; O2SAT 98
[2025-08-23] MEDS: OLANZapine ODT 10 MG TAB.RAPDIS 5 MG TRANSLINGU (21:18)
[2025-08-24] MEDS: Valproic Acid Liquid 250 MG/5 ML SOLUTION 800 MG PO ×2 (09:17→21:40)
[2025-08-24 20:00] VITALS: BP 137/72; PULSE 100; RESP 16; TEMP 37; O2SAT 99
--- NOTE | 2025-08-24 20:20 | HO.PSYCHPN ---
Subjective Subjective Date of Service: 08/24/25 Reason For Visit: parish and psychosis Interim History: Chart reviewed, case discussed w/ team Pt has been visible in the milieu. Attended a group prior to our meeting and described what they did. Said it was interesting. No behavioral issues. Tolerating current med regimen. Sleeping well. Good appetite. Denies any complaints Mental Status Exam Mental Status Exam Narrative: Appearance: Casually dressed. well groomed. good eye contact Attitude: Cooperative Speech: Fluent and wnl in regard to volume, tone, prosody Motor activity: Calm and without any tics, tremors or dyskinesias. Steady gait Mood: 'okay' Affect: appropriate, reactive Thought process: goal directed and without evidence of formal thought disorder Thought content: no SI/violent ideation reported Perception: does not appear to respond to internal stimuli Cognition grossly intact Insight: fair Judgment: good Diagnostics Vital Signs (24Hr): BMI result Body Mass Index 23.6 Labs 07/06/25 19:21 07/25/25 14:11 Medications Medications Current Medications Acetaminophen (Acetaminophen 325 Mg Tablet) 650 mg PO Q6H PRN PRN Reason: Headache/Pain, Scale 1-10 Al Hydroxide/Mg Hydroxide (Magnesium Hydrox/Alum Hydrox 30 Ml Oral.Susp) 30 ml PO Q6H PRN PRN Reason: Heartburn/Nausea Hydroxyzine HCl (Hydroxyzine Hcl 25 Mg Tablet) 25 mg PO Q6H PRN PRN Reason: mild anxiety Last Admin: 08/21/25 20:02 Dose: 25 mg Lorazepam (Lorazepam 1 Mg Tablet) 1 mg PO BID PRN PRN Reason: Anxiety Last Admin: 08/17/25 15:58 Dose: 1 mg Magnesium Hydroxide (Milk Of Magnesia 30 Ml Oral.Susp) 30 ml PO DAILY PRN PRN Reason: Constipation Nicotine Polacrilex (Nicotine Polacrilex 2 Mg Gum) 4 mg BUCCAL Q2H PRN PRN Reason: Nicotine Cravings Olanzapine (Olanzapine 5 Mg Tablet) 5 mg PO BID PRN PRN Reason: agitation and/or insomnia Last Admin: 08/20/25 15:59 Dose: 5 mg Olanzapine (Olanzapine 10 Mg Tablet) 10 mg PO BEDTIME PRN PRN Reason: Refusal to take Depakote. Offer IM if refuses PO Olanzapine (Olanzapine Odt 10 Mg Tab.Rapdis) 5 mg TRANSLINGU BEDTIME MIKALA Last Admin: 08/23/25 21:18 Dose: 5 mg Paliperidone Palmitate (Paliperidone Palmitate 156 Mg/Ml Syringe) 156 mg IM ONCE ONE Stop: 08/28/25 09:01 Propranolol HCl (Propranolol Hcl 10 Mg Tablet) 10 mg PO BID PRN; Protocol PRN Reason: akathisia Last Admin: 08/16/25 15:30 Dose: 10 mg Trazodone HCl (Trazodone Hcl 50 Mg Tablet) 50 mg PO BEDTIME MRX1 PRN PRN Reason: Insomnia Last Admin: 08/23/25 21:18 Dose: 50 mg Valproic Acid (Valproic Acid Liquid 250 Mg/5 Ml Solution) 800 mg PO BID [facility] Last Admin: 08/24/25 09:17 Dose: 800 mg Allergies Allergies Allergy/AdvReac Type Severity Reaction Status Date / Time No Known Allergies Allergy Verified 07/06/25 18:08 Assessment & Plan Assessment & Plan (1) Parish: Status: Acute Code(s): F30.9 - Manic episode, unspecified (2) Acute psychosis: Status: Acute Code(s): F23 - Brief psychotic disorder Plan 07/08: continue zyprexa and depakote as established in the ED. 07/09: continue current management and treatment plan. Medications recently started. 07/10: continue current management and treatment plan. 07/11: samuels warning provided. increase depakote to 750 BID, otherwise continue current mgmt. check levels in the next couple of days. section 12b up . will likely file for commitment. 07/12: pt declines labs. will wait for steady state at 1500 mg daily prior to checking labs, laconic, terse. will likely file tomorrow. 07/13: filed for commitment. no reaction from pt. continue current mgmt. 07/14: refusing meds as of last night, already hypersexual today and threatening to kill MD if MD does not discharge him. placed on 1:1 for safety. continue to encourage meds. hearing next friday. 07/15: continues to refuse meds, remains on 1:1. wandering. aware of hearing next friday. inert, no questions/concerns. paucity of thought or thought blocking. continue to offer meds. 07/16: difficulty keeping his shirt on in the milieu, oppositional when told to garb up. inappropriate comment to RN last tera. otherwise uneventful, refusing meds. continue to offer meds. 07/17: no behavioral concerns. remains on 1:1. some RIS and inappropriate laughter. refusing meds. slept 7 hours. contnue current mgmt. hearing on friday. 07/18: no behavioral concerns. Remains on 1:1. Refusing am meds but took bedtime meds last night and is reporting poor sleep. Will consolidate olanzapine dosing to 20 mg qhs rather than 10 mg bid to improve adherence and optimize tx of residual parish/psychosis. Otherwise continue current tx plan for now. Hearing scheduled for tomorrow, 07/19 07/19: Took olanzapine 20 mg last night and slept better. No behavioral issues, still on 1:1. 04/26 hearing scheduled for today at 2 pm. Will switch Depakote from 750 mg bid to Depakote ER 1500 mg at hs since pt has been taking bedtime meds only. committed. *By the time of completion of this note- court hearing took place, pt committed on section 7/8. 07/20: Committed on section 8 with Duran order in chart. Pt cannot refuse to take olanzapine per Duran. Give 20 mg IM if pt refuses po 20 mg hs dose of olanzapine. D/C'd prn haldol and switched to 5 mg olanzapine bid prn for agitation to simplify med regimen. Will check VPA level & LFTs on Friday am. Per team discussion- will continue 1:1 for now but will try to switch to q5 min checks later this wk if no behavioral issues. 07/21: Threatened to jump over nursing station due to frustration w/ cell phone policy and continued hospitalization. Was able to tolerate a discussion re: policy and continued need for hospitalization/medication without aggressive behavior. Taking standing meds as rx'd. continue current tx plan, including 1:1 for now 07/22: agitated, threatened to harm peers and staff. security called. agreed to take po olanzapine 10 mg. refused VPA last night. Will continue 1:1. Will adjust orders for pt to receive olanzapine 10 mg if he refuses Depakote per Duran. Pt only wants to take meds for sleep and took the extra olanzapine 10 mg dose today when it was offered to help him w/ sleep (rather than agitation or anxiety) 07/24: no changes. Continue court-ordered medications 07/25: Adherent w/ meds over the weekend. Guarded. focused on discharge but calm. Insight remains severely impaired. Continue current tx plan, including 1:1 07/26: Remains focused on discharge, pushed on the unit doors and told his mom that he was being d/c'd today. Pt is not currently appropriate for a fresh air break due to being a flight risk. Continue 1:1 07/27: Calmer, more cooperative today. Switched to 5 min safety checks while in room, continue 1:1 in milieu. Will switch Depakote tabs to liquid due to difficulty swallowing the tabs. 07/28: Calm, cooperative. Did not bring up discharge today. Endorses restlessness suggestive of akathisia. Will start propranolol 10 mg bid to address this. Lloyd get first dose of VPA syrup starting tonight, rx'd as 800 mg bid. Continue 5 min safety checks in room, 15 in 07/29: Calm/cooperative with t/w. Did not bring up discharge. Easily redirectable with request to use his phone. Denies sx of akathisia today. Will continue current tx plan, including 1:1 in the milieu and 5 min safety checks when in his room In the evening, pt jumped over the nursing station desk/window and punched two computer monitors, as he wanted to leave and get his phone. He required a physical restraint & received IM haldol 10 mg, lorazepam 2 mg and benadryl 50 mg 07/30: Continue current regimen and plans 07/31: Continue current regimen and plans. 08/01: Continue current regimen and plans 08/02: Pt has been calm and has not engage in any behavioral issues since the evening of 07/29. He remains on 1:1 due to significant risk of elopement and is not appropriate for fresh air breaks due to the same concern. Continue current tx plan 08/03: No behavioral issues today. Pt requested an adjustment in his 'sleep med and reported having AH earlier in his admission but not today. Will titrate olanzapine to 25 mg qhs 08/04: Will trial fresh air breaks accompanied by security starting today. Continue 1:1 in milieu and 5 min checks while in room. No behavioral issues. Tolerated olanzapine titration to 25 mg last night. Continue current med regimen 08/05: Insight/judgment are improving, no sx of parish today, psychotic sx significantly improved. Will keep on 5 min checks while in room, 1:1 in milieu and fresh air breaks w/ security over the weekend. Will consider reducing the freq of safety checks if pt maintains safe behaviors over the weekend 08/06: continue current management and treatment plan. 08/07: continue current management and treatment plan. 08/08: No behavioral issues x >1 wk. Will dc 1:1 in milieu, switch to 5 min safty checks. Otherwise continue current tx plan 08/09: No behavioral issues. Med adherent and utilizing prns. Continue current tx plan for now. 08/10: Pt is generally isolative in room, no behavioral issues. Switched to 15 min safety checks while in his room, continue 5 min checks in milieu. Ordered VPA level for tonight. Continue current med regimen for now 08/14: Laying in bed most of day. Patient reports feeling alright ; pt stated, I don't know why I'm still here. I just want to leave . Patient encouraged to leave room, pt reports he plans on staying in bed. denies SI/HI/VH/AH. 08/15: Pt was more fixated on d/c today. He lacks insight re: his underlying psychiatric condition and his involuntary commitment. He was mildly agitated and agreed to take oral risperidone, which he tolerated well. Given total lack of insight into his underlying psychiatric condition and concern for medication non-adherence/relapse after d/c, will x-titrate to oral paliperidone w/ plan to start on Invega Sustenna if he tolerates the oral med. T/W confirmed that paliperidone is on his [facility] (risperidone is not). Will lower standing olanzapine dose to 15 mg tonight and start paliperidone 3 mg po tomorrow am. 08/16: Pt has calmly advocated for d/c today. spent most of the day in the milieu. No behavioral issues. Will titrate oral paliperidone to 6 mg tomorrow am, then taper olanzapine to 10 mg tomorrow night if clinically appropriate. 08/17: Pt attended a group today. No behavioral issues. Utilized multiple prns to sleep last night. Will hold off on tapering the olanzapine and will continue current med regimen for now. Tolerating paliperidone well so far. 08/18: No behavioral issues today. Will taper the olanzapine to 10 mg at hs. Has 5 mg bid prn for agitation and/or insomnia and lorazepam 1 mg bid prn for anxiety. Continue paliperidone 3 mg tomorrow am 08/19: Tolerating med changes well. No behavioral issues. Switched to 15 min safety checks at all times. Otherwise continue current tx plan 08/20: No behavioral issues. Med adherent, denies med SE. D/C'd oral paliperidone and pt will receive first paliperidone IM (234 mg) tomorrow am 08/21: Received 1st paliperidone injection ths am.Ordered 2nd initation dose for 08/28. No behavioral issues. Med adherent. 08/22: Affect is brighter, more visible in the milieu. Experienced daytime sedation after the Invega IM but otherwise denies any SE. Agreeable w/ plan to lower olanzapine to 5 mg and will have prn available for insomnia. 08/23: Tolerated taper to olanzapine well. No prn olanzapine used last night,just took prn trazodone. Slept well. D/C'd IM olanzapine for med refusal since he's on MYLES. Adjusted PERI - no longer needs security police 08/24: continue current tx plan Reason for continued inpatient stay Substantial Risk for: med/psych decompensation Time Spent With Patient Time: Total time managing care of this patient today ____ minutes.
[2025-08-24] MEDS: OLANZapine ODT 10 MG TAB.RAPDIS 5 MG TRANSLINGU (21:39)
[2025-08-25 07:50] VITALS: BP 105/51; PULSE 84; RESP 14; TEMP 36.9; O2SAT 99
[2025-08-25] MEDS: Valproic Acid Liquid 250 MG/5 ML SOLUTION 800 MG PO ×2 (08:37→21:27)
--- NOTE | 2025-08-25 18:11 | P.PNPSI_ITS ---
Subjective Subjective Date of Service: 08/25/25 Reason For Visit: parish and psychosis Subjective Notes: Garzon Order and Section 8 Interim History: Chart reviewed, case discussed w/ team Pt has been referred to [facility] by NEHEMIAH. She followed up with them today and was told that they're still working on the intake. t/w met w/ pt when he was walking down the [place] and he asked t/w if I wanted to walk w/ him. He reports feeling 'good', sleeping well. He stopped a the window at the end of the duran at looked at the scenery outside for a few minutes. He stated that he likes nature. He denies med SE Denies SI/violent ideation, AHVH Medication Compliance: Yes Mental Status Exam Mental Status Exam Narrative: Appearance: Casually dressed. Grooming/hygiene wnl. Good eye contact Attitude: Cooperative Speech: Fluent and wnl in regard to volume, tone, prosody Motor activity: Calm and without any tics, tremors or dyskinesias. Steady gait Mood: good Affect: appropriate, reactive Thought process: goal directed Thought content: as noted above. Future oriented Perception: Denies AH/VH and does not appear to respond to internal stimuli Cognition grossly intact Insight: fair Judgment: intact Diagnostics Vital Signs (24Hr): Vital Signs - 24 hr 08/24/25 20:00 08/25/25 07:50 Temperature 98.6 F 98.5 F Pulse Rate 100 84 Respiratory Rate 16 14 Blood Pressure 137/72 105/51 L Pulse Oximetry 99 99 Oxygen Delivery Method Room Air Room Air BMI result Body Mass Index 23.6 Labs 07/06/25 19:21 07/25/25 14:11 Medications Medications Current Medications Acetaminophen (Acetaminophen 325 Mg Tablet) 650 mg PO Q6H PRN PRN Reason: Headache/Pain, Scale 1-10 Al Hydroxide/Mg Hydroxide (Magnesium Hydrox/Alum Hydrox 30 Ml Oral.Susp) 30 ml PO Q6H PRN PRN Reason: Heartburn/Nausea Hydroxyzine HCl (Hydroxyzine Hcl 25 Mg Tablet) 25 mg PO Q6H PRN PRN Reason: mild anxiety Last Admin: 08/21/25 20:02 Dose: 25 mg Lorazepam (Lorazepam 1 Mg Tablet) 1 mg PO BID PRN PRN Reason: Anxiety Last Admin: 08/17/25 15:58 Dose: 1 mg Magnesium Hydroxide (Milk Of Magnesia 30 Ml Oral.Susp) 30 ml PO DAILY PRN PRN Reason: Constipation Nicotine Polacrilex (Nicotine Polacrilex 2 Mg Gum) 4 mg BUCCAL Q2H PRN PRN Reason: Nicotine Cravings Olanzapine (Olanzapine 5 Mg Tablet) 5 mg PO BID PRN PRN Reason: agitation and/or insomnia Last Admin: 08/20/25 15:59 Dose: 5 mg Olanzapine (Olanzapine 10 Mg Tablet) 10 mg PO BEDTIME PRN PRN Reason: Refusal to take Depakote. Offer IM if refuses PO Olanzapine (Olanzapine Odt 10 Mg Tab.Rapdis) 5 mg TRANSLINGU BEDTIME MIKALA Last Admin: 08/24/25 21:39 Dose: 5 mg Paliperidone Palmitate (Paliperidone Palmitate 156 Mg/Ml Syringe) 156 mg IM ONCE ONE Stop: 08/28/25 09:01 Propranolol HCl (Propranolol Hcl 10 Mg Tablet) 10 mg PO BID PRN; Protocol PRN Reason: akathisia Last Admin: 08/16/25 15:30 Dose: 10 mg Trazodone HCl (Trazodone Hcl 50 Mg Tablet) 50 mg PO BEDTIME MRX1 PRN PRN Reason: Insomnia Last Admin: 08/24/25 21:40 Dose: 50 mg Valproic Acid (Valproic Acid Liquid 250 Mg/5 Ml Solution) 800 mg PO BID [facility] Last Admin: 08/25/25 08:37 Dose: 800 mg Allergies Allergies Allergy/AdvReac Type Severity Reaction Status Date / Time No Known Allergies Allergy Verified 07/06/25 18:08 Assessment & Plan Assessment & Plan (1) Parish: Status: Acute Code(s): F30.9 - Manic episode, unspecified (2) Acute psychosis: Status: Acute Code(s): F23 - Brief psychotic disorder Plan 07/08: continue zyprexa and depakote as established in the ED. 07/09: continue current management and treatment plan. Medications recently started. 07/10: continue current management and treatment plan. 07/11: samuels warning provided. increase depakote to 750 BID, otherwise continue current mgmt. check levels in the next couple of days. section 12b up . will likely file for commitment. 07/12: pt declines labs. will wait for steady state at 1500 mg daily prior to checking labs, laconic, terse. will likely file tomorrow. 07/13: filed for commitment. no reaction from pt. continue current mgmt. 07/14: refusing meds as of last night, already hypersexual today and threatening to kill MD if MD does not discharge him. placed on 1:1 for safety. continue to encourage meds. hearing next friday. 07/15: continues to refuse meds, remains on 1:1. wandering. aware of hearing next friday. inert, no questions/concerns. paucity of thought or thought blocking. continue to offer meds. 07/16: difficulty keeping his shirt on in the milieu, oppositional when told to garb up. inappropriate comment to RN last tera. otherwise uneventful, refusing meds. continue to offer meds. 07/17: no behavioral concerns. remains on 1:1. some RIS and inappropriate laughter. refusing meds. slept 7 hours. contnue current mgmt. hearing on friday. 07/18: no behavioral concerns. Remains on 1:1. Refusing am meds but took bedtime meds last night and is reporting poor sleep. Will consolidate olanzapine dosing to 20 mg qhs rather than 10 mg bid to improve adherence and optimize tx of residual parish/psychosis. Otherwise continue current tx plan for now. Hearing scheduled for tomorrow, 07/19 07/19: Took olanzapine 20 mg last night and slept better. No behavioral issues, still on 1:1. 04/26 hearing scheduled for today at 2 pm. Will switch Depakote from 750 mg bid to Depakote ER 1500 mg at hs since pt has been taking bedtime meds only. committed. *By the time of completion of this note- court hearing took place, pt committed on section 7/8. 07/20: Committed on section 8 with Garzon order in chart. Pt cannot refuse to take olanzapine per Duran. Give 20 mg IM if pt refuses po 20 mg hs dose of olanzapine. D/C'd prn haldol and switched to 5 mg olanzapine bid prn for agitation to simplify med regimen. Will check VPA level & LFTs on Friday am. Per team discussion- will continue 1:1 for now but will try to switch to q5 min checks later this wk if no behavioral issues. 07/21: Threatened to jump over nursing station due to frustration w/ cell phone policy and continued hospitalization. Was able to tolerate a discussion re: policy and continued need for hospitalization/medication without aggressive behavior. Taking standing meds as rx'd. continue current tx plan, including 1:1 for now 07/22: agitated, threatened to harm peers and staff. security called. agreed to take po olanzapine 10 mg. refused VPA last night. Will continue 1:1. Will adjust orders for pt to receive olanzapine 10 mg if he refuses Depakote per Duran. Pt only wants to take meds for sleep and took the extra olanzapine 10 mg dose today when it was offered to help him w/ sleep (rather than agitation or anxiety) 07/24: no changes. Continue court-ordered medications 07/25: Adherent w/ meds over the weekend. Guarded. focused on discharge but calm. Insight remains severely impaired. Continue current tx plan, including 1:1 07/26: Remains focused on discharge, pushed on the unit doors and told his mom that he was being d/c'd today. Pt is not currently appropriate for a fresh air break due to being a flight risk. Continue 1:1 07/27: Calmer, more cooperative today. Switched to 5 min safety checks while in room, continue 1:1 in milieu. Will switch Depakote tabs to liquid due to difficulty swallowing the tabs. 07/28: Calm, cooperative. Did not bring up discharge today. Endorses restlessness suggestive of akathisia. Will start propranolol 10 mg bid to address this. Lloyd get first dose of VPA syrup starting tonight, rx'd as 800 mg bid. Continue 5 min safety checks in room, 15 in 07/29: Calm/cooperative with t/w. Did not bring up discharge. Easily redirectable with request to use his phone. Denies sx of akathisia today. Will continue current tx plan, including 1:1 in the milieu and 5 min safety checks when in his room In the evening, pt jumped over the nursing station desk/window and punched two computer monitors, as he wanted to leave and get his phone. He required a physical restraint & received IM haldol 10 mg, lorazepam 2 mg and benadryl 50 mg 07/30: Continue current regimen and plans 07/31: Continue current regimen and plans. 08/01: Continue current regimen and plans 08/02: Pt has been calm and has not engage in any behavioral issues since the evening of 07/29. He remains on 1:1 due to significant risk of elopement and is not appropriate for fresh air breaks due to the same concern. Continue current tx plan 08/03: No behavioral issues today. Pt requested an adjustment in his 'sleep med and reported having AH earlier in his admission but not today. Will titrate olanzapine to 25 mg qhs 08/04: Will trial fresh air breaks accompanied by security starting today. Continue 1:1 in milieu and 5 min checks while in room. No behavioral issues. Tolerated olanzapine titration to 25 mg last night. Continue current med regimen 08/05: Insight/judgment are improving, no sx of parish today, psychotic sx significantly improved. Will keep on 5 min checks while in room, 1:1 in milieu and fresh air breaks w/ security over the weekend. Will consider reducing the freq of safety checks if pt maintains safe behaviors over the weekend 08/06: continue current management and treatment plan. 08/07: continue current management and treatment plan. 08/08: No behavioral issues x >1 wk. Will dc 1:1 in milieu, switch to 5 min safty checks. Otherwise continue current tx plan 08/09: No behavioral issues. Med adherent and utilizing prns. Continue current tx plan for now. 08/10: Pt is generally isolative in room, no behavioral issues. Switched to 15 min safety checks while in his room, continue 5 min checks in milieu. Ordered VPA level for tonight. Continue current med regimen for now 08/14: Laying in bed most of day. Patient reports feeling alright ; pt stated, I don't know why I'm still here. I just want to leave . Patient encouraged to leave room, pt reports he plans on staying in bed. denies SI/HI/VH/AH. 08/15: Pt was more fixated on d/c today. He lacks insight re: his underlying psychiatric condition and his involuntary commitment. He was mildly agitated and agreed to take oral risperidone, which he tolerated well. Given total lack of insight into his underlying psychiatric condition and concern for medication non-adherence/relapse after d/c, will x-titrate to oral paliperidone w/ plan to start on Invega Sustenna if he tolerates the oral med. T/W confirmed that paliperidone is on his Garzon (risperidone is not). Will lower standing olanzapine dose to 15 mg tonight and start paliperidone 3 mg po tomorrow am. 08/16: Pt has calmly advocated for d/c today. spent most of the day in the milieu. No behavioral issues. Will titrate oral paliperidone to 6 mg tomorrow am, then taper olanzapine to 10 mg tomorrow night if clinically appropriate. 08/17: Pt attended a group today. No behavioral issues. Utilized multiple prns to sleep last night. Will hold off on tapering the olanzapine and will continue current med regimen for now. Tolerating paliperidone well so far. 08/18: No behavioral issues today. Will taper the olanzapine to 10 mg at hs. Has 5 mg bid prn for agitation and/or insomnia and lorazepam 1 mg bid prn for anxiety. Continue paliperidone 3 mg tomorrow am 08/19: Tolerating med changes well. No behavioral issues. Switched to 15 min safety checks at all times. Otherwise continue current tx plan 08/20: No behavioral issues. Med adherent, denies med SE. D/C'd oral paliperidone and pt will receive first paliperidone IM (234 mg) tomorrow am 08/21: Received 1st paliperidone injection ths am.Ordered 2nd initation dose for 08/28. No behavioral issues. Med adherent. 08/22: Affect is brighter, more visible in the milieu. Experienced daytime sedation after the Invega IM but otherwise denies any SE. Agreeable w/ plan to lower olanzapine to 5 mg and will have prn available for insomnia. 08/23: Tolerated taper to olanzapine well. No prn olanzapine used last night,just took prn trazodone. Slept well. D/C'd IM olanzapine for med refusal since he's on MYLES. Adjusted PERI - no longer needs security infrastructure engineer 08/24: continue current tx plan 08/25: Continue current tx plan. SW submitted referral to [facility] for outpatient psychiatric tx earlier this week and followed up today. Was told they're still working on it. He will receive 2nd dose of paliperidone IM on Friday. Reason for continued inpatient stay Substantial Risk for: med/psych decompensation Time Spent With Patient Time: Total time managing care of this patient today ____ minutes.
[2025-08-25 20:00] VITALS: BP 136/78; PULSE 99; RESP 17; TEMP 36.6; O2SAT 99
[2025-08-25] MEDS: OLANZapine ODT 10 MG TAB.RAPDIS 5 MG TRANSLINGU (21:25)
[2025-08-26 08:00] VITALS: BP 114/59; PULSE 82; RESP 18; TEMP 36.3; O2SAT 99
[2025-08-26] MEDS: Valproic Acid Liquid 250 MG/5 ML SOLUTION 800 MG PO ×2 (09:11→20:38)
--- NOTE | 2025-08-26 17:59 | P.PNPSI_ITS ---
Subjective Subjective Date of Service: 08/26/25 Reason For Visit: parish and psychosis Subjective Notes: [facility] Order and Section 8 Interim History: chart reviewed. case discussed in tx team Per nursing report- attending groups. Slept 7 hrs Pt is aware of plan to receive 2nd intiation dose of paliperidone on Friday, 08/28. Discussed plan to d/c pt on Friday, 08/30. His sister will pick him up. Pt was accepting of this. He denies any physical/psychiatric concerns Attending grps. Visible in milieu Slept 7 hrs. No behavioral issues Medication Compliance: Yes Side effects from medications: No Diagnostics Vital Signs (24Hr): Vital Signs - 24 hr 08/25/25 20:00 08/26/25 08:00 Temperature 97.9 F 97.3 F Pulse Rate 99 82 Respiratory Rate 17 18 Blood Pressure 136/78 114/59 L Pulse Oximetry 99 99 Oxygen Delivery Method Room Air Room Air BMI result Body Mass Index 23.6 Labs 07/06/25 19:21 07/25/25 14:11 Medications Medications Current Medications Acetaminophen (Acetaminophen 325 Mg Tablet) 650 mg PO Q6H PRN PRN Reason: Headache/Pain, Scale 1-10 Al Hydroxide/Mg Hydroxide (Magnesium Hydrox/Alum Hydrox 30 Ml Oral.Susp) 30 ml PO Q6H PRN PRN Reason: Heartburn/Nausea Hydroxyzine HCl (Hydroxyzine Hcl 25 Mg Tablet) 25 mg PO Q6H PRN PRN Reason: mild anxiety Last Admin: 08/21/25 20:02 Dose: 25 mg Lorazepam (Lorazepam 1 Mg Tablet) 1 mg PO BID PRN PRN Reason: Anxiety Last Admin: 08/17/25 15:58 Dose: 1 mg Magnesium Hydroxide (Milk Of Magnesia 30 Ml Oral.Susp) 30 ml PO DAILY PRN PRN Reason: Constipation Nicotine Polacrilex (Nicotine Polacrilex 2 Mg Gum) 4 mg BUCCAL Q2H PRN PRN Reason: Nicotine Cravings Olanzapine (Olanzapine 5 Mg Tablet) 5 mg PO BID PRN PRN Reason: agitation and/or insomnia Last Admin: 08/20/25 15:59 Dose: 5 mg Olanzapine (Olanzapine 10 Mg Tablet) 10 mg PO BEDTIME PRN PRN Reason: Refusal to take Depakote. Offer IM if refuses PO Olanzapine (Olanzapine Odt 10 Mg Tab.Rapdis) 5 mg TRANSLINGU BEDTIME MIKALA Last Admin: 08/25/25 21:25 Dose: 5 mg Paliperidone Palmitate (Paliperidone Palmitate 156 Mg/Ml Syringe) 156 mg IM ONCE ONE Stop: 08/28/25 09:01 Propranolol HCl (Propranolol Hcl 10 Mg Tablet) 10 mg PO BID PRN; Protocol PRN Reason: akathisia Last Admin: 08/16/25 15:30 Dose: 10 mg Trazodone HCl (Trazodone Hcl 50 Mg Tablet) 50 mg PO BEDTIME MRX1 PRN PRN Reason: Insomnia Last Admin: 08/25/25 21:25 Dose: 50 mg Valproic Acid (Valproic Acid Liquid 250 Mg/5 Ml Solution) 800 mg PO BID MIKALA Last Admin: 08/26/25 09:11 Dose: 800 mg Allergies Allergies Allergy/AdvReac Type Severity Reaction Status Date / Time No Known Allergies Allergy Verified 07/06/25 18:08 Assessment & Plan Assessment & Plan (1) Bipolar I disorder with mood-congruent psychotic features: Status: Acute Code(s): F31.9 - Bipolar disorder, unspecified Assessment and Plan: (Bipolar I, MRE manic with psychotic features) Plan 07/08: continue zyprexa and depakote as established in the ED. 07/09: continue current management and treatment plan. Medications recently started. 07/10: continue current management and treatment plan. 07/11: samuels warning provided. increase depakote to 750 BID, otherwise continue current mgmt. check levels in the next couple of days. section 12b up . will likely file for commitment. 07/12: pt declines labs. will wait for steady state at 1500 mg daily prior to checking labs, laconic, terse. will likely file tomorrow. 07/13: filed for commitment. no reaction from pt. continue current mgmt. 07/14: refusing meds as of last night, already hypersexual today and threatening to kill MD if MD does not discharge him. placed on 1:1 for safety. continue to encourage meds. hearing next friday. 07/15: continues to refuse meds, remains on 1:1. wandering. aware of hearing next friday. inert, no questions/concerns. paucity of thought or thought blocking. continue to offer meds. 07/16: difficulty keeping his shirt on in the milieu, oppositional when told to garb up. inappropriate comment to RN last tera. otherwise uneventful, refusing meds. continue to offer meds. 07/17: no behavioral concerns. remains on 1:1. some RIS and inappropriate laughter. refusing meds. slept 7 hours. contnue current mgmt. hearing on friday. 07/18: no behavioral concerns. Remains on 1:1. Refusing am meds but took bedtime meds last night and is reporting poor sleep. Will consolidate olanzapine dosing to 20 mg qhs rather than 10 mg bid to improve adherence and optimize tx of residual parish/psychosis. Otherwise continue current tx plan for now. Hearing scheduled for tomorrow, 07/19 07/19: Took olanzapine 20 mg last night and slept better. No behavioral issues, still on 1:1. 04/26 hearing scheduled for today at 2 pm. Will switch Depakote from 750 mg bid to Depakote ER 1500 mg at hs since pt has been taking bedtime meds only. committed. *By the time of completion of this note- court hearing took place, pt committed on section 7/8. 07/20: Committed on section 8 with Duran order in chart. Pt cannot refuse to take olanzapine per Duran. Give 20 mg IM if pt refuses po 20 mg hs dose of olanzapine. D/C'd prn haldol and switched to 5 mg olanzapine bid prn for agitation to simplify med regimen. Will check VPA level & LFTs on Friday am. Per team discussion- will continue 1:1 for now but will try to switch to q5 min checks later this wk if no behavioral issues. 07/21: Threatened to jump over nursing station due to frustration w/ cell phone policy and continued hospitalization. Was able to tolerate a discussion re: policy and continued need for hospitalization/medication without aggressive behavior. Taking standing meds as rx'd. continue current tx plan, including 1:1 for now 07/22: agitated, threatened to harm peers and staff. security called. agreed to take po olanzapine 10 mg. refused VPA last night. Will continue 1:1. Will adjust orders for pt to receive olanzapine 10 mg if he refuses Depakote per Duran. Pt only wants to take meds for sleep and took the extra olanzapine 10 mg dose today when it was offered to help him w/ sleep (rather than agitation or anxiety) 07/24: no changes. Continue court-ordered medications 07/25: Adherent w/ meds over the weekend. Guarded. focused on discharge but calm. Insight remains severely impaired. Continue current tx plan, including 1:1 07/26: Remains focused on discharge, pushed on the unit doors and told his mom that he was being d/c'd today. Pt is not currently appropriate for a fresh air break due to being a flight risk. Continue 1:1 07/27: Calmer, more cooperative today. Switched to 5 min safety checks while in room, continue 1:1 in milieu. Will switch Depakote tabs to liquid due to difficulty swallowing the tabs. 07/28: Calm, cooperative. Did not bring up discharge today. Endorses restlessness suggestive of akathisia. Will start propranolol 10 mg bid to address this. Lloyd get first dose of VPA syrup starting tonight, rx'd as 800 mg bid. Continue 5 min safety checks in room, 15 in 07/29: Calm/cooperative with t/w. Did not bring up discharge. Easily redirectable with request to use his phone. Denies sx of akathisia today. Will continue current tx plan, including 1:1 in the milieu and 5 min safety checks when in his room In the evening, pt jumped over the nursing station desk/window and punched two computer monitors, as he wanted to leave and get his phone. He required a physical restraint & received IM haldol 10 mg, lorazepam 2 mg and benadryl 50 mg 07/30: Continue current regimen and plans 07/31: Continue current regimen and plans. 08/01: Continue current regimen and plans 08/02: Pt has been calm and has not engage in any behavioral issues since the evening of 07/29. He remains on 1:1 due to significant risk of elopement and is not appropriate for fresh air breaks due to the same concern. Continue current tx plan 08/03: No behavioral issues today. Pt requested an adjustment in his 'sleep med and reported having AH earlier in his admission but not today. Will titrate olanzapine to 25 mg qhs 08/04: Will trial fresh air breaks accompanied by security starting today. Continue 1:1 in milieu and 5 min checks while in room. No behavioral issues. Tolerated olanzapine titration to 25 mg last night. Continue current med regimen 08/05: Insight/judgment are improving, no sx of parish today, psychotic sx significantly improved. Will keep on 5 min checks while in room, 1:1 in milieu and fresh air breaks w/ security over the weekend. Will consider reducing the freq of safety checks if pt maintains safe behaviors over the weekend 08/06: continue current management and treatment plan. 08/07: continue current management and treatment plan. 08/08: No behavioral issues x >1 wk. Will dc 1:1 in milieu, switch to 5 min safty checks. Otherwise continue current tx plan 08/09: No behavioral issues. Med adherent and utilizing prns. Continue current tx plan for now. 08/10: Pt is generally isolative in room, no behavioral issues. Switched to 15 min safety checks while in his room, continue 5 min checks in milieu. Ordered VPA level for tonight. Continue current med regimen for now 08/14: Laying in bed most of day. Patient reports feeling alright ; pt stated, I don't know why I'm still here. I just want to leave . Patient encouraged to leave room, pt reports he plans on staying in bed. denies SI/HI/VH/AH. 08/15: Pt was more fixated on d/c today. He lacks insight re: his underlying psychiatric condition and his involuntary commitment. He was mildly agitated and agreed to take oral risperidone, which he tolerated well. Given total lack of insight into his underlying psychiatric condition and concern for medication non-adherence/relapse after d/c, will x-titrate to oral paliperidone w/ plan to start on Invega Sustenna if he tolerates the oral med. T/W confirmed that paliperidone is on his [facility] (risperidone is not). Will lower standing olanzapine dose to 15 mg tonight and start paliperidone 3 mg po tomorrow am. 08/16: Pt has calmly advocated for d/c today. spent most of the day in the milieu. No behavioral issues. Will titrate oral paliperidone to 6 mg tomorrow am, then taper olanzapine to 10 mg tomorrow night if clinically appropriate. 08/17: Pt attended a group today. No behavioral issues. Utilized multiple prns to sleep last night. Will hold off on tapering the olanzapine and will continue current med regimen for now. Tolerating paliperidone well so far. 08/18: No behavioral issues today. Will taper the olanzapine to 10 mg at hs. Has 5 mg bid prn for agitation and/or insomnia and lorazepam 1 mg bid prn for anxiety. Continue paliperidone 3 mg tomorrow am 08/19: Tolerating med changes well. No behavioral issues. Switched to 15 min safety checks at all times. Otherwise continue current tx plan 08/20: No behavioral issues. Med adherent, denies med SE. D/C'd oral paliperidone and pt will receive first paliperidone IM (234 mg) tomorrow am 08/21: Received 1st paliperidone injection ths am.Ordered 2nd initation dose for 08/28. No behavioral issues. Med adherent. 08/22: Affect is brighter, more visible in the milieu. Experienced daytime sedation after the Invega IM but otherwise denies any SE. Agreeable w/ plan to lower olanzapine to 5 mg and will have prn available for insomnia. 08/23: Tolerated taper to olanzapine well. No prn olanzapine used last night,just took prn trazodone. Slept well. D/C'd IM olanzapine for med refusal since he's on MYLES. Adjusted PERI - no longer needs security door installer 08/24: continue current tx plan 08/25: Continue current tx plan. SW submitted referral to [facility] for outpatient psychiatric tx earlier this week and followed up today. Was told they're still working on it. He will receive 2nd dose of paliperidone IM on Friday. 08/26: Continue natalieen tx plan. Will d/c Friday Reason for continued inpatient stay Substantial Risk for: med/psych decompensation Time Spent With Patient Time: Total time managing care of this patient today ____ minutes.
[2025-08-26 20:00] VITALS: BP 125/67; PULSE 94; RESP 16; TEMP 36.7; O2SAT 99
[2025-08-26] MEDS: OLANZapine ODT 10 MG TAB.RAPDIS 5 MG TRANSLINGU (20:39)
[2025-08-27] MEDS: Valproic Acid Liquid 250 MG/5 ML SOLUTION 800 MG PO ×2 (10:04→21:10)
[2025-08-27 20:00] VITALS: BP 125/63; PULSE 106; RESP 18; TEMP 36.4; O2SAT 98
[2025-08-27] MEDS: OLANZapine ODT 10 MG TAB.RAPDIS 5 MG TRANSLINGU (21:08)
--- NOTE | 2025-08-27 22:53 | HO.PSYCHPN ---
Subjective Subjective Date of Service: 08/27/25 Reason For Visit: parish and psychosis Subjective Notes: [place] Order and Section 8 Healthcare Proxy: No Guardianship: No Medical Problems Affecting Mental Status: No Interim History: Medical record and nursing notes reviewed; case discussed during rounds with team/nursing staff, and met with patient for supportive therapy/psychoeducation, as well as medication management. Patient is visible, in and out of his room, pacing the duran, calm and cooperative upon approach. He is looking forward to be discharged next week. Denies safety concerns, denies anxiety or depression. Flat affect. No behavior issues. Patient supposed to get 2nd dose Invega Sustenna tomorrow. Per nursing, patient slept for 7+ hours. Medication Compliance: Yes Side effects from medications: No Attending Groups: Intermittent Review of Systems Acute medical concerns: No Medical Review of Systems: unchanged Review of Systems Review of Systems Constitutional: Denies fatigue and Denies fever(s) Cardiovascular: Denies chest pain and Denies dyspnea Respiratory: Denies dyspnea Gastrointestinal: Denies abdominal pain Psychiatric: denies suicidal ideation Endocrine: Denies fatigue Yes all other systems are reviewed and are negative Mental Status Exam Mental Status Exam Narrative: Appearance: Casually dressed. Grooming/hygiene wnl. Good eye contact Attitude: Cooperative Speech: Fluent and wnl in regard to volume, tone, prosody Motor activity: Calm and without any tics, tremors or dyskinesias. Steady gait Mood: good Affect: appropriate, flat Thought process: goal directed Thought content: as noted above. Future oriented. Looking forard to be discharged next week. Perception: Denies AH/VH and does not appear to respond to internal stimuli Cognition grossly intact Insight: fair Judgment: intact Diagnostics Vital Signs (24Hr): Vital Signs - 24 hr 08/27/25 20:00 Temperature 97.6 F Pulse Rate 106 H Respiratory Rate 18 Blood Pressure 125/63 Pulse Oximetry 98 Oxygen Delivery Method Room Air BMI result Body Mass Index 23.6 Labs 07/06/25 19:21 07/25/25 14:11 Medications Medications Current Medications Acetaminophen (Acetaminophen 325 Mg Tablet) 650 mg PO Q6H PRN PRN Reason: Headache/Pain, Scale 1-10 Al Hydroxide/Mg Hydroxide (Magnesium Hydrox/Alum Hydrox 30 Ml Oral.Susp) 30 ml PO Q6H PRN PRN Reason: Heartburn/Nausea Hydroxyzine HCl (Hydroxyzine Hcl 25 Mg Tablet) 25 mg PO Q6H PRN PRN Reason: mild anxiety Last Admin: 08/21/25 20:02 Dose: 25 mg Lorazepam (Lorazepam 1 Mg Tablet) 1 mg PO BID PRN PRN Reason: Anxiety Last Admin: 08/17/25 15:58 Dose: 1 mg Magnesium Hydroxide (Milk Of Magnesia 30 Ml Oral.Susp) 30 ml PO DAILY PRN PRN Reason: Constipation Nicotine Polacrilex (Nicotine Polacrilex 2 Mg Gum) 4 mg BUCCAL Q2H PRN PRN Reason: Nicotine Cravings Olanzapine (Olanzapine 5 Mg Tablet) 5 mg PO BID PRN PRN Reason: agitation and/or insomnia Last Admin: 08/20/25 15:59 Dose: 5 mg Olanzapine (Olanzapine 10 Mg Tablet) 10 mg PO BEDTIME PRN PRN Reason: Refusal to take Depakote. Offer IM if refuses PO Olanzapine (Olanzapine Odt 10 Mg Tab.Rapdis) 5 mg TRANSLINGU BEDTIME MIKALA Last Admin: 08/27/25 21:08 Dose: 5 mg Paliperidone Palmitate (Paliperidone Palmitate 156 Mg/Ml Syringe) 156 mg IM ONCE ONE Stop: 08/28/25 09:01 Propranolol HCl (Propranolol Hcl 10 Mg Tablet) 10 mg PO BID PRN; Protocol PRN Reason: akathisia Last Admin: 08/16/25 15:30 Dose: 10 mg Trazodone HCl (Trazodone Hcl 50 Mg Tablet) 50 mg PO BEDTIME MRX1 PRN PRN Reason: Insomnia Last Admin: 08/25/25 21:25 Dose: 50 mg Valproic Acid (Valproic Acid Liquid 250 Mg/5 Ml Solution) 800 mg PO BID [facility] Last Admin: 08/27/25 21:10 Dose: 800 mg Allergies Allergies Allergy/AdvReac Type Severity Reaction Status Date / Time No Known Allergies Allergy Verified 07/06/25 18:08 Assessment & Plan Assessment & Plan (1) Bipolar I disorder with mood-congruent psychotic features: Status: Acute Code(s): F31.9 - Bipolar disorder, unspecified Assessment and Plan: (Bipolar I, MRE manic with psychotic features) Plan 07/08: continue zyprexa and depakote as established in the ED. 07/09: continue current management and treatment plan. Medications recently started. 07/10: continue current management and treatment plan. 07/11: samuels warning provided. increase depakote to 750 BID, otherwise continue current mgmt. check levels in the next couple of days. section 12b up . will likely file for commitment. 07/12: pt declines labs. will wait for steady state at 1500 mg daily prior to checking labs, laconic, terse. will likely file tomorrow. 07/13: filed for commitment. no reaction from pt. continue current mgmt. 07/14: refusing meds as of last night, already hypersexual today and threatening to kill MD if MD does not discharge him. placed on 1:1 for safety. continue to encourage meds. hearing next friday. 07/15: continues to refuse meds, remains on 1:1. wandering. aware of hearing next friday. inert, no questions/concerns. paucity of thought or thought blocking. continue to offer meds. 07/16: difficulty keeping his shirt on in the milieu, oppositional when told to garb up. inappropriate comment to RN last tera. otherwise uneventful, refusing meds. continue to offer meds. 07/17: no behavioral concerns. remains on 1:1. some RIS and inappropriate laughter. refusing meds. slept 7 hours. contnue current mgmt. hearing on friday. 07/18: no behavioral concerns. Remains on 1:1. Refusing am meds but took bedtime meds last night and is reporting poor sleep. Will consolidate olanzapine dosing to 20 mg qhs rather than 10 mg bid to improve adherence and optimize tx of residual parish/psychosis. Otherwise continue current tx plan for now. Hearing scheduled for tomorrow, 07/19 07/19: Took olanzapine 20 mg last night and slept better. No behavioral issues, still on 1:1. 04/26 hearing scheduled for today at 2 pm. Will switch Depakote from 750 mg bid to Depakote ER 1500 mg at hs since pt has been taking bedtime meds only. committed. *By the time of completion of this note- court hearing took place, pt committed on section 7/8. 07/20: Committed on section 8 with Duran order in chart. Pt cannot refuse to take olanzapine per Duran. Give 20 mg IM if pt refuses po 20 mg hs dose of olanzapine. D/C'd prn haldol and switched to 5 mg olanzapine bid prn for agitation to simplify med regimen. Will check VPA level & LFTs on Friday am. Per team discussion- will continue 1:1 for now but will try to switch to q5 min checks later this wk if no behavioral issues. 07/21: Threatened to jump over nursing station due to frustration w/ cell phone policy and continued hospitalization. Was able to tolerate a discussion re: policy and continued need for hospitalization/medication without aggressive behavior. Taking standing meds as rx'd. continue current tx plan, including 1:1 for now 07/22: agitated, threatened to harm peers and staff. security called. agreed to take po olanzapine 10 mg. refused VPA last night. Will continue 1:1. Will adjust orders for pt to receive olanzapine 10 mg if he refuses Depakote per Duran. Pt only wants to take meds for sleep and took the extra olanzapine 10 mg dose today when it was offered to help him w/ sleep (rather than agitation or anxiety) 07/24: no changes. Continue court-ordered medications 07/25: Adherent w/ meds over the weekend. Guarded. focused on discharge but calm. Insight remains severely impaired. Continue current tx plan, including 1:1 07/26: Remains focused on discharge, pushed on the unit doors and told his mom that he was being d/c'd today. Pt is not currently appropriate for a fresh air break due to being a flight risk. Continue 1:1 07/27: Calmer, more cooperative today. Switched to 5 min safety checks while in room, continue 1:1 in milieu. Will switch Depakote tabs to liquid due to difficulty swallowing the tabs. 07/28: Calm, cooperative. Did not bring up discharge today. Endorses restlessness suggestive of akathisia. Will start propranolol 10 mg bid to address this. Lloyd get first dose of VPA syrup starting tonight, rx'd as 800 mg bid. Continue 5 min safety checks in room, 15 in 07/29: Calm/cooperative with t/w. Did not bring up discharge. Easily redirectable with request to use his phone. Denies sx of akathisia today. Will continue current tx plan, including 1:1 in the milieu and 5 min safety checks when in his room In the evening, pt jumped over the nursing station desk/window and punched two computer monitors, as he wanted to leave and get his phone. He required a physical restraint & received IM haldol 10 mg, lorazepam 2 mg and benadryl 50 mg 07/30: Continue current regimen and plans 07/31: Continue current regimen and plans. 08/01: Continue current regimen and plans 08/02: Pt has been calm and has not engage in any behavioral issues since the evening of 07/29. He remains on 1:1 due to significant risk of elopement and is not appropriate for fresh air breaks due to the same concern. Continue current tx plan 08/03: No behavioral issues today. Pt requested an adjustment in his 'sleep med and reported having AH earlier in his admission but not today. Will titrate olanzapine to 25 mg qhs 08/04: Will trial fresh air breaks accompanied by security starting today. Continue 1:1 in milieu and 5 min checks while in room. No behavioral issues. Tolerated olanzapine titration to 25 mg last night. Continue current med regimen 08/05: Insight/judgment are improving, no sx of parish today, psychotic sx significantly improved. Will keep on 5 min checks while in room, 1:1 in milieu and fresh air breaks w/ security over the weekend. Will consider reducing the freq of safety checks if pt maintains safe behaviors over the weekend 08/06: continue current management and treatment plan. 08/07: continue current management and treatment plan. 08/08: No behavioral issues x >1 wk. Will dc 1:1 in milieu, switch to 5 min safty checks. Otherwise continue current tx plan 08/09: No behavioral issues. Med adherent and utilizing prns. Continue current tx plan for now. 08/10: Pt is generally isolative in room, no behavioral issues. Switched to 15 min safety checks while in his room, continue 5 min checks in milieu. Ordered VPA level for tonight. Continue current med regimen for now 08/14: Laying in bed most of day. Patient reports feeling alright ; pt stated, I don't know why I'm still here. I just want to leave . Patient encouraged to leave room, pt reports he plans on staying in bed. denies SI/HI/VH/AH. 08/15: Pt was more fixated on d/c today. He lacks insight re: his underlying psychiatric condition and his involuntary commitment. He was mildly agitated and agreed to take oral risperidone, which he tolerated well. Given total lack of insight into his underlying psychiatric condition and concern for medication non-adherence/relapse after d/c, will x-titrate to oral paliperidone w/ plan to start on Invega Sustenna if he tolerates the oral med. T/W confirmed that paliperidone is on his [place] (risperidone is not). Will lower standing olanzapine dose to 15 mg tonight and start paliperidone 3 mg po tomorrow am. 08/16: Pt has calmly advocated for d/c today. spent most of the day in the milieu. No behavioral issues. Will titrate oral paliperidone to 6 mg tomorrow am, then taper olanzapine to 10 mg tomorrow night if clinically appropriate. 08/17: Pt attended a group today. No behavioral issues. Utilized multiple prns to sleep last night. Will hold off on tapering the olanzapine and will continue current med regimen for now. Tolerating paliperidone well so far. 08/18: No behavioral issues today. Will taper the olanzapine to 10 mg at hs. Has 5 mg bid prn for agitation and/or insomnia and lorazepam 1 mg bid prn for anxiety. Continue paliperidone 3 mg tomorrow am 08/19: Tolerating med changes well. No behavioral issues. Switched to 15 min safety checks at all times. Otherwise continue current tx plan 08/20: No behavioral issues. Med adherent, denies med SE. D/C'd oral paliperidone and pt will receive first paliperidone IM (234 mg) tomorrow am 08/21: Received 1st paliperidone injection ths am.Ordered 2nd initation dose for 08/28. No behavioral issues. Med adherent. 08/22: Affect is brighter, more visible in the milieu. Experienced daytime sedation after the Invega IM but otherwise denies any SE. Agreeable w/ plan to lower olanzapine to 5 mg and will have prn available for insomnia. 08/23: Tolerated taper to olanzapine well. No prn olanzapine used last night,just took prn trazodone. Slept well. D/C'd IM olanzapine for med refusal since he's on MYLES. Adjusted PERI - no longer needs network security administrator 08/24: continue current tx plan 08/25: Continue current tx plan. SW submitted referral to [facility] for outpatient psychiatric tx earlier this week and followed up today. Was told they're still working on it. He will receive 2nd dose of paliperidone IM on Friday. 08/26: Continue curren tx plan. Will d/c Friday08/27/25: Patient is visible, in and out of his room, pacing the duran, calm and cooperative upon approach. He is looking forward to be discharged next week. Denies safety concerns, denies anxiety or depression. Flat affect. No behavior issues. Patient supposed to get 2nd dose Invega Sustenna tomorrow. Per nursing, patient slept for 7+ hours. Patient educated on: diagnosis, medication risk/benefits and therapeutic strategies Informed Consent: understands and further education needed Reason for continued inpatient stay Substantial Risk for: med/psych decompensation Time Spent With Patient Time: Total time managing care of this patient today ____ minutes.
[2025-08-28 08:00] VITALS: BP 94/45; PULSE 70; RESP 14; TEMP 36.6; O2SAT 99
[2025-08-28] MEDS: Valproic Acid Liquid 250 MG/5 ML SOLUTION 800 MG PO ×2 (08:45→20:41)
[2025-08-28 20:00] VITALS: BP 128/72; PULSE 98; RESP 16; TEMP 36.5; O2SAT 100
--- NOTE | 2025-08-28 20:26 | P.PNPSI_ITS ---
Subjective Subjective Date of Service: 08/28/25 Reason For Visit: parish and psychosis Subjective Notes: [place] Order and Section 8 Healthcare Proxy: No Guardianship: No Medical Problems Affecting Mental Status: No Interim History: Medical record and nursing notes reviewed; case discussed during rounds with team/nursing staff, and met with patient for supportive therapy/psychoeducation, as well as medication management. Patient is visible at times in common areas, keeps him himself, superficial. Denies signs symptoms, denies safety concerns. He thinks his living today after getting 2nd dose of Invega Sustenna. Per nursing, patient slept for 7 hours, preoccupied, smile to self. Compliant with medications. Reports no side effects. Medication Compliance: Yes Side effects from medications: No Attending Groups: No Review of Systems Acute medical concerns: No Medical Review of Systems: unchanged Review of Systems Review of Systems Constitutional: Denies fatigue and Denies fever(s) Cardiovascular: Denies chest pain and Denies dyspnea Respiratory: Denies dyspnea Gastrointestinal: Denies abdominal pain Psychiatric: denies suicidal ideation Endocrine: Denies fatigue Yes all other systems are reviewed and are negative Mental Status Exam Mental Status Exam Narrative: Appearance: Casually dressed. Grooming/hygiene wnl. Good eye contact Attitude: Cooperative Speech: Fluent and wnl in regard to volume, tone, prosody Motor activity: Calm and without any tics, tremors or dyskinesias. Steady gait Mood: good Affect: appropriate, flat Thought process: goal directed Thought content: as noted above. Future oriented. Looking forard to be discharged next week. Perception: Denies AH/VH, preoccupied, smiled to self. Cognition grossly intact Insight: fair Judgment: intact Diagnostics Vital Signs (24Hr): Vital Signs - 24 hr 08/28/25 08:00 Temperature 97.8 F Pulse Rate 70 Respiratory Rate 14 Blood Pressure 94/45 L Pulse Oximetry 99 Oxygen Delivery Method Room Air BMI result Body Mass Index 23.6 Labs 07/06/25 19:21 07/25/25 14:11 Medications Medications Current Medications Acetaminophen (Acetaminophen 325 Mg Tablet) 650 mg PO Q6H PRN PRN Reason: Headache/Pain, Scale 1-10 Al Hydroxide/Mg Hydroxide (Magnesium Hydrox/Alum Hydrox 30 Ml Oral.Susp) 30 ml PO Q6H PRN PRN Reason: Heartburn/Nausea Hydroxyzine HCl (Hydroxyzine Hcl 25 Mg Tablet) 25 mg PO Q6H PRN PRN Reason: mild anxiety Last Admin: 08/21/25 20:02 Dose: 25 mg Lorazepam (Lorazepam 1 Mg Tablet) 1 mg PO BID PRN PRN Reason: Anxiety Last Admin: 08/17/25 15:58 Dose: 1 mg Magnesium Hydroxide (Milk Of Magnesia 30 Ml Oral.Susp) 30 ml PO DAILY PRN PRN Reason: Constipation Nicotine Polacrilex (Nicotine Polacrilex 2 Mg Gum) 4 mg BUCCAL Q2H PRN PRN Reason: Nicotine Cravings Olanzapine (Olanzapine 5 Mg Tablet) 5 mg PO BID PRN PRN Reason: agitation and/or insomnia Last Admin: 08/20/25 15:59 Dose: 5 mg Olanzapine (Olanzapine 10 Mg Tablet) 10 mg PO BEDTIME PRN PRN Reason: Refusal to take Depakote. Offer IM if refuses PO Olanzapine (Olanzapine Odt 10 Mg Tab.Rapdis) 5 mg TRANSLINGU BEDTIME MIKALA Last Admin: 08/27/25 21:08 Dose: 5 mg Propranolol HCl (Propranolol Hcl 10 Mg Tablet) 10 mg PO BID PRN; Protocol PRN Reason: akathisia Last Admin: 08/16/25 15:30 Dose: 10 mg Trazodone HCl (Trazodone Hcl 50 Mg Tablet) 50 mg PO BEDTIME MRX1 PRN PRN Reason: Insomnia Last Admin: 08/25/25 21:25 Dose: 50 mg Valproic Acid (Valproic Acid Liquid 250 Mg/5 Ml Solution) 800 mg PO BID MIKALA Last Admin: 08/28/25 08:45 Dose: 800 mg Allergies Allergies Allergy/AdvReac Type Severity Reaction Status Date / Time No Known Allergies Allergy Verified 07/06/25 18:08 Assessment & Plan Assessment & Plan (1) Bipolar I disorder with mood-congruent psychotic features: Status: Acute Code(s): F31.9 - Bipolar disorder, unspecified Assessment and Plan: (Bipolar I, MRE manic with psychotic features) Plan 07/08: continue zyprexa and depakote as established in the ED. 07/09: continue current management and treatment plan. Medications recently started. 07/10: continue current management and treatment plan. 07/11: samuels warning provided. increase depakote to 750 BID, otherwise continue current mgmt. check levels in the next couple of days. section 12b up . will likely file for commitment. 07/12: pt declines labs. will wait for steady state at 1500 mg daily prior to checking labs, laconic, terse. will likely file tomorrow. 07/13: filed for commitment. no reaction from pt. continue current mgmt. 07/14: refusing meds as of last night, already hypersexual today and threatening to kill MD if MD does not discharge him. placed on 1:1 for safety. continue to encourage meds. hearing next friday. 07/15: continues to refuse meds, remains on 1:1. wandering. aware of hearing next friday. inert, no questions/concerns. paucity of thought or thought blocking. continue to offer meds. 07/16: difficulty keeping his shirt on in the milieu, oppositional when told to garb up. inappropriate comment to RN last tera. otherwise uneventful, refusing meds. continue to offer meds. 07/17: no behavioral concerns. remains on 1:1. some RIS and inappropriate laughter. refusing meds. slept 7 hours. contnue current mgmt. hearing on friday. 07/18: no behavioral concerns. Remains on 1:1. Refusing am meds but took bedtime meds last night and is reporting poor sleep. Will consolidate olanzapine dosing to 20 mg qhs rather than 10 mg bid to improve adherence and optimize tx of residual parish/psychosis. Otherwise continue current tx plan for now. Hearing scheduled for tomorrow, 07/19 07/19: Took olanzapine 20 mg last night and slept better. No behavioral issues, still on 1:1. 04/26 hearing scheduled for today at 2 pm. Will switch Depakote from 750 mg bid to Depakote ER 1500 mg at hs since pt has been taking bedtime meds only. committed. *By the time of completion of this note- court hearing took place, pt committed on section 7/8. 07/20: Committed on section 8 with Duran order in chart. Pt cannot refuse to take olanzapine per Duran. Give 20 mg IM if pt refuses po 20 mg hs dose of olanzapine. D/C'd prn haldol and switched to 5 mg olanzapine bid prn for agitation to simplify med regimen. Will check VPA level & LFTs on Friday am. Per team discussion- will continue 1:1 for now but will try to switch to q5 min checks later this wk if no behavioral issues. 07/21: Threatened to jump over nursing station due to frustration w/ cell phone policy and continued hospitalization. Was able to tolerate a discussion re: policy and continued need for hospitalization/medication without aggressive behavior. Taking standing meds as rx'd. continue current tx plan, including 1:1 for now 07/22: agitated, threatened to harm peers and staff. security called. agreed to take po olanzapine 10 mg. refused VPA last night. Will continue 1:1. Will adjust orders for pt to receive olanzapine 10 mg if he refuses Depakote per Duran. Pt only wants to take meds for sleep and took the extra olanzapine 10 mg dose today when it was offered to help him w/ sleep (rather than agitation or anxiety) 07/24: no changes. Continue court-ordered medications 07/25: Adherent w/ meds over the weekend. Guarded. focused on discharge but calm. Insight remains severely impaired. Continue current tx plan, including 1:1 07/26: Remains focused on discharge, pushed on the unit doors and told his mom that he was being d/c'd today. Pt is not currently appropriate for a fresh air break due to being a flight risk. Continue 1:1 07/27: Calmer, more cooperative today. Switched to 5 min safety checks while in room, continue 1:1 in milieu. Will switch Depakote tabs to liquid due to difficulty swallowing the tabs. 07/28: Calm, cooperative. Did not bring up discharge today. Endorses restlessness suggestive of akathisia. Will start propranolol 10 mg bid to address this. Lloyd get first dose of VPA syrup starting tonight, rx'd as 800 mg bid. Continue 5 min safety checks in room, 15 in 07/29: Calm/cooperative with t/w. Did not bring up discharge. Easily redirectable with request to use his phone. Denies sx of akathisia today. Will continue current tx plan, including 1:1 in the milieu and 5 min safety checks when in his room In the evening, pt jumped over the nursing station desk/window and punched two computer monitors, as he wanted to leave and get his phone. He required a physical restraint & received IM haldol 10 mg, lorazepam 2 mg and benadryl 50 mg 07/30: Continue current regimen and plans 07/31: Continue current regimen and plans. 08/01: Continue current regimen and plans 08/02: Pt has been calm and has not engage in any behavioral issues since the evening of 07/29. He remains on 1:1 due to significant risk of elopement and is not appropriate for fresh air breaks due to the same concern. Continue current tx plan 08/03: No behavioral issues today. Pt requested an adjustment in his 'sleep med and reported having AH earlier in his admission but not today. Will titrate olanzapine to 25 mg qhs 08/04: Will trial fresh air breaks accompanied by security starting today. Continue 1:1 in milieu and 5 min checks while in room. No behavioral issues. Tolerated olanzapine titration to 25 mg last night. Continue current med regimen 08/05: Insight/judgment are improving, no sx of parish today, psychotic sx significantly improved. Will keep on 5 min checks while in room, 1:1 in milieu and fresh air breaks w/ security over the weekend. Will consider reducing the freq of safety checks if pt maintains safe behaviors over the weekend 08/06: continue current management and treatment plan. 08/07: continue current management and treatment plan. 08/08: No behavioral issues x >1 wk. Will dc 1:1 in milieu, switch to 5 min safty checks. Otherwise continue current tx plan 08/09: No behavioral issues. Med adherent and utilizing prns. Continue current tx plan for now. 08/10: Pt is generally isolative in room, no behavioral issues. Switched to 15 min safety checks while in his room, continue 5 min checks in milieu. Ordered VPA level for tonight. Continue current med regimen for now 08/14: Laying in bed most of day. Patient reports feeling alright ; pt stated, I don't know why I'm still here. I just want to leave . Patient encouraged to leave room, pt reports he plans on staying in bed. denies SI/HI/VH/AH. 08/15: Pt was more fixated on d/c today. He lacks insight re: his underlying psychiatric condition and his involuntary commitment. He was mildly agitated and agreed to take oral risperidone, which he tolerated well. Given total lack of insight into his underlying psychiatric condition and concern for medication non-adherence/relapse after d/c, will x-titrate to oral paliperidone w/ plan to start on Invega Sustenna if he tolerates the oral med. T/W confirmed that paliperidone is on his [place] (risperidone is not). Will lower standing olanzapine dose to 15 mg tonight and start paliperidone 3 mg po tomorrow am. 08/16: Pt has calmly advocated for d/c today. spent most of the day in the milieu. No behavioral issues. Will titrate oral paliperidone to 6 mg tomorrow am, then taper olanzapine to 10 mg tomorrow night if clinically appropriate. 08/17: Pt attended a group today. No behavioral issues. Utilized multiple prns to sleep last night. Will hold off on tapering the olanzapine and will continue current med regimen for now. Tolerating paliperidone well so far. 08/18: No behavioral issues today. Will taper the olanzapine to 10 mg at hs. Has 5 mg bid prn for agitation and/or insomnia and lorazepam 1 mg bid prn for anxiety. Continue paliperidone 3 mg tomorrow am 08/19: Tolerating med changes well. No behavioral issues. Switched to 15 min safety checks at all times. Otherwise continue current tx plan 08/20: No behavioral issues. Med adherent, denies med SE. D/C'd oral paliperidone and pt will receive first paliperidone IM (234 mg) tomorrow am 08/21: Received 1st paliperidone injection ths am.Ordered 2nd initation dose for 08/28. No behavioral issues. Med adherent. 08/22: Affect is brighter, more visible in the milieu. Experienced daytime sedation after the Invega IM but otherwise denies any SE. Agreeable w/ plan to lower olanzapine to 5 mg and will have prn available for insomnia. 08/23: Tolerated taper to olanzapine well. No prn olanzapine used last night,just took prn trazodone. Slept well. D/C'd IM olanzapine for med refusal since he's on MYLES. Adjusted PERI - no longer needs transportation security officer 08/24: continue current tx plan 08/25: Continue current tx plan. SW submitted referral to [facility] [place] for outpatient psychiatric tx earlier this week and followed up today. Was told they're still working on it. He will receive 2nd dose of paliperidone IM on Friday. 08/26: Continue stef tx plan. Will d/c Friday08/27/25: Patient is visible, in and out of his room, pacing the duran, calm and cooperative upon approach. He is looking forward to be discharged next week. Denies safety concerns, denies anxiety or depression. Flat affect. No behavior issues. Patient supposed to get 2nd dose Invega Sustenna tomorrow. Per nursing, patient slept for 7+ hours. 08/28/25: Patient is visible at times in common areas, keeps him himself, superficial. Denies signs symptoms, denies safety concerns. He thinks his living today after getting 2nd dose of Invega Sustenna. Per nursing, patient slept for 7 hours, preoccupied, smile to self. Compliant with medications. Reports no side effects. Patient educated on: medication risk/benefits and therapeutic strategies Informed Consent: understands and further education needed Reason for continued inpatient stay Substantial Risk for: med/psych decompensation Time Spent With Patient Time: Total time managing care of this patient today ____ minutes.
[2025-08-28] MEDS: OLANZapine ODT 10 MG TAB.RAPDIS 5 MG TRANSLINGU (20:40)
[2025-08-29] MEDS: Valproic Acid Liquid 250 MG/5 ML SOLUTION 800 MG PO ×2 (09:05→20:22)
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
[2025-08-29 20:00] VITALS: BP 128/73; PULSE 110; RESP 16; TEMP 36.4; O2SAT 98
[2025-08-29] MEDS: OLANZapine ODT 10 MG TAB.RAPDIS 5 MG TRANSLINGU (20:21)
[2025-08-30 07:43] VITALS: BP 108/53; PULSE 79; RESP 14; TEMP 36.4; O2SAT 99
[2025-08-30] MEDS: Valproic Acid Liquid 250 MG/5 ML SOLUTION 800 MG PO (08:47)
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
== END 2025-08-30 12:04 | disposition home or self-care (01) | DRG 753 ==
LOC: HO.ED 07-07 07:47 → HO.PADLT16 07-08 10:09
PROVIDERS: Admitting Provider Psychiatry & Neurology Psychiatry; Emergency Provider Student in an Organized Health Care Education/Training Program; Visit Provider Psychiatry & Neurology Psychiatry
DX: F31.2 Bipolar disorder, current episode manic severe with psychotic features (principal); Z59.02 Unsheltered homelessness; Z79.899 Other long term (current) drug therapy
CPT/HCPCS: 36415; 80053; 80164; 80299; 80307; 81003; 85025; 93005; 99285; J1200; J1630; J2060; J2359; J2426; J3360; S9485

== ENCOUNTER → 2025-07-06 21:32 | Outpatient (BNV) | payer OTHER, SELFPAY | PROVIDERS: Emergency Provider Student in an Organized Health Care Education/Training Program; Visit Provider Social Worker | DX: F30.9 Manic episode, unspecified (principal); F23 Brief psychotic disorder | CPT/HCPCS: 99231; 99232; 99233 ==

== ENCOUNTER → 2025-07-08 08:38 | Outpatient (BNV) | payer MEDICAID, SELFPAY | PROVIDERS: Admitting Provider Psychiatry & Neurology Psychiatry; Emergency Provider Student in an Organized Health Care Education/Training Program; Visit Provider Internal Medicine | DX: Z13.6 Encounter for screening for cardiovascular disorders (principal) | CPT/HCPCS: 93010 ==

== ENCOUNTER → 2025-07-08 10:05 | Outpatient (BNV) | payer MEDICAID, SELFPAY | PROVIDERS: Admitting Provider Psychiatry & Neurology Psychiatry; Emergency Provider Student in an Organized Health Care Education/Training Program; Visit Provider Nurse Practitioner Family | DX: F23 Brief psychotic disorder (principal) | CPT/HCPCS: 99221 ==